=== PATIENT | female | born 1935 | race Hispanic/Latino ===

== ENCOUNTER 2016-07-08 10:32 | Emergency (ER) | payer MEDICARE ==
[2016-07-08 10:33] VITALS: BMI 33.6
[2016-07-08 10:45] VITALS: RESP 18; TEMP 98.4; O2SAT 100
--- NOTE | 2016-07-08 10:58 | ED PDOC ---
Arrival/HPI - General Chief Complaint: Trauma Time Seen by Provider: 07/08/16 10:47 Historian: Patient - History of Present Illness Narrative History of Present Illness (Text): 07/08/16 10:55 80yo female present to ED for evaluation of back and b/l knee pain s/p trauma this morning. She notes mechanical fall this morning, while walking into the [facility] for outpt imaging. States the walker she was pushing moved farther away from her and she fell face keith on the floor. She is still ambulatory with a walker and have pain with ambulation. She denies LOC, nausea, focal weakness, urinary/fecal incontinence, any other complaint. Past Medical History - Provider Review Nursing Documentation Reviewed: Yes - Infectious Disease Hx of Infectious Diseases: None - Tetanus Immunization Tetanus Immunization: Up to Date, Unknown - Reproductive Menopause: Yes - Cardiac Hx Cardiac Disorders: Yes Hx Angina: Yes Hx Hypertension: Yes - Pulmonary Hx Respiratory Disorders: Yes Hx Bronchitis: Yes - Neurological Hx Neurological Disorder: Yes HX Cerebrovascular Accident: Yes (NO RESIDUAL EFFECTS) Hx Dizziness: Yes Hx Paralysis: No Other/Comment: MENIERE'S DISEASE- CHRONIC VERTIGO - HEENT Hx HEENT Disorder: Yes Hx Deafness: Yes (LEFT EAR) Other/Comment: RIGHT EAR TINNITUS. WEARS GLASSES, NEAR SIGHTED - Renal Hx Renal Disorder: Yes Hx Kidney Stones: Yes ("CAME OUT ON OWN") - Endocrine/Metabolic Hx Endocrine Disorders: Yes Hx Diabetes Mellitus Type 2: Yes - Hematological/Oncological Hx Blood Disorders: Yes Other/Comment: " I HAD A BLOOD INFECTION 2-3 YRS. AGO-THEY DON'T KNOW WHAT IT WAS" - Integumentary Hx Dermatological Disorder: Yes (HX OF SKIN BREAKDOWN AND WOUNDS) Other/Comment: HX. LEFT BREAST CYST - Musculoskeletal/Rheumatological Hx Musculoskeletal Disorders: Yes Hx Arthritis: Yes Hx Falls: No Hx Fractures: Yes (LLE RODS AND PINS, R ARM AND WRIST PINS) Hx Osteoarthritis: Yes Hx Unsteady Gait: Yes (CANE) - Gastrointestinal Hx Gastrointestinal Disorders: Yes Hx Gastroesophageal Reflux: Yes Hx Hemorrhoids: Yes Hx Pancreatitis: Yes Other/Comment: RECTAL BLEEDING - Genitourinary/Gynecological Hx Genitourinary Disorders: Yes (URGENCY) Hx Incontinence: Yes - Psychiatric Hx Psychophysiologic Disorder: Yes Hx Anxiety: Yes Hx Depression: Yes Hx Emotional Abuse: No Hx Physical Abuse: No Hx Substance Use: No - Surgical History Hx Orthopedic Surgery: Yes Other/Comment: LEFT BREAST CYST REMOVED - Anesthesia Hx Anesthesia: Yes Hx Anesthesia Reactions: No Hx Malignant Hyperthermia: No - Suicidal Assessment Feels Threatened In Home Enviroment: No Family/Social History - Physician Review Nursing Documentation Reviewed: Yes Family/Social History: Unknown Family HX Smoking Status: Former Smoker Hx Alcohol Use: No Hx Substance Use: No Hx Substance Use Treatment: No Allergies/Home Meds Allergies/Adverse Reactions: Allergies No Known Allergies Allergy (Verified 11/02/12 08:43) Home Medications: Home Meds Medication Instructions Recorded Confirmed Furosemide [Lasix] 20 mg PO BID 11/02/12 07/08/16 Metformin HCl 1,000 mg PO BID 11/02/12 07/08/16 Pregabalin [Lyrica] 50 mg PO TID 11/02/12 07/08/16 Ramipril 5 mg PO QAM 11/02/12 07/08/16 Sertraline HCl 25 mg PO QPM 11/02/12 07/08/16 Insulin Glargine,Hum.rec.anlog 40 unit [facility] 07/17/14 07/08/16 [Lantus] Atorvastatin [Lipitor] 80 mg PO HS 05/09/15 07/08/16 Calcium Carbonate [Calcium] 500 mg PO DAILY 05/09/15 07/08/16 Glipizide 10 mg PO DAILY 05/09/15 07/08/16 Magnesium [Sunmark Magnesium] 250 mg PO TID 05/09/15 07/08/16 Meclizine HCl [Antivert] 25 mg PO TID 05/09/15 07/08/16 Metoprolol Succinate [Toprol XL] 50 mg PO DAILY 05/09/15 07/08/16 Omeprazole 20 mg PO DAILY 05/09/15 07/08/16 Clonazepam [Klonopin] 0.5 mg PO TID 07/08/16 07/08/16 Review of Systems - Physician Review All systems were reviewed & negative as marked: Yes - Review of Systems Constitutional: Normal Eyes: Normal ENT: Normal Respiratory: Normal Cardiovascular: Normal Gastrointestinal: Normal Genitourinary Female: Normal Musculoskeletal: Arthralgias (B/L knee), Back Pain Skin: Normal Neurological: Normal Endocrine: Normal Hemo/Lymphatic: Normal Psychiatric: Normal Physical Exam Vital Signs Reviewed: Yes Vital Signs Temp Pulse Resp BP Pulse Ox 07/08/16 13:00 66 18 145/75 100 07/08/16 12:23 68 18 148/79 100 07/08/16 10:44 98.4 F 72 18 158/88 H 100 Temperature: Afebrile Blood Pressure: Normal Pulse: Regular Respiratory Rate: Normal Appearance: Positive for: Well-Appearing, Non-Toxic, Comfortable Pain Distress: None Mental Status: Positive for: Alert and Oriented X 3 - Systems Exam Head: Present: Atraumatic, Normocephalic Pupils: Present: PERRL Extroacular Muscles: Present: EOMI Conjunctiva: Present: Normal Mouth: Present: Moist Mucous Membranes Neck: Present: Normal Range of Motion Respiratory/Chest: Present: Clear to Auscultation, Good Air Exchange. No: Respiratory Distress, Accessory Muscle Use Cardiovascular: Present: Regular Rate and Rhythm, Normal S1, S2. No: Murmurs Abdomen: Present: Normal Bowel Sounds. No: Tenderness, Distention, Peritoneal Signs Back: Present: Midline Tenderness. No: Paraspinal Tenderness, Pain with Leg Raise Upper Extremity: Present: Normal Inspection. No: Cyanosis, Edema Lower Extremity: Present: NORMAL PULSES, Normal ROM, Neurovascularly Intact, Other (Excoriation noted on right knee). No: Edema, CALF TENDERNESS, Tenderness (B/L knee), Swelling, Erythema, Temperature Abnormalties Neurological: Present: GCS=15, CN II-XII Intact, Speech Normal Skin: Present: Warm, Dry, Normal Color. No: Rashes Psychiatric: Present: Alert, Oriented x 3, Normal Insight, Normal Concentration Medical Decision Making ED Course and Treatment: 07/08/16 14:53 PT presented in ED for stated history. she was ambulatory with a walker. Neurological intact. Head CT - Negative LS xray and B/L knee xray - All negative. Result was DW the pt. she was advised to take Tylenol as needed for pain every 6hrs. Referred to her PMD/Ortho. TRT ED for any new or worsening symptoms. - RAD Interpretation Radiology Orders: 07/08/16 10:53 LS SPINE WITH OBL > 18 YRS OLD [RAD] Stat 07/08/16 10:54 HEAD W/O CONTRAST [CT] Stat KNEE W PATELLA BILAT 3 VIEW [RAD] Stat - Medication Orders Current Medication Orders: Discontinued Medications Acetaminophen (Tylenol 325mg Tab) 650 mg PO STAT STA Stop: 07/08/16 11:01 Last Admin: 07/08/16 11:07 Dose: 650 mg Disposition/Present on Arrival - Present on Arrival Any Indicators Present on Arrival: No History of DVT/PE: No History of Uncontrolled Diabetes: Yes Urinary Catheter: No History of Decub. Ulcer: No History Surgical Site Infection Following: None - Disposition Have Diagnosis and Disposition been Completed?: Yes Diagnosis: Knee sprain, Back pain Disposition: HOME/ ROUTINE Disposition Time: 12:30 Patient Plan: Discharge Condition: STABLE Discharge Instructions (ExitCare): Knee Sprain (ED), Back Pain (ED) Additional Instructions: Follow up with your doctor Return to ED for any new or worsening symptoms Referrals: Cayden Martínez MD [Primary Care Provider] - Follow up with primary
--- NOTE | 2016-07-08 11:36 | CT ---
PROCEDURE: CT HEAD WITHOUT CONTRAST. HISTORY: Head injury COMPARISON: 11/02/2012 TECHNIQUE: Axial computed tomography images were obtained through the head/brain without intravenous contrast. Radiation dose: Total exam DLP = mGy-cm. This CT exam was performed using one or more of the following dose reduction techniques: Automated exposure control, adjustment of the mA and/or kV according to patient size, and/or use of iterative reconstruction technique. FINDINGS: HEMORRHAGE: No intracranial hemorrhage. BRAIN: There are mild chronic microangiopathic changes. There is no mass, mass effect or abnormal extra-axial fluid collection. There are coarse atherosclerotic calcifications in the cavernous carotid arteries. VENTRICLES: There is moderate age-related global parenchymal volume loss and proportionate enlargement of the ventricles and cortical sulci. CALVARIUM: There is no calvarial fracture or extracranial soft tissue swelling. PARANASAL SINUSES: Predominantly clear. MASTOID AIR CELLS: Predominantly clear. OTHER FINDINGS: None. IMPRESSION: No acute intracranial abnormality. Age-related involutional changes.
--- NOTE | 2016-07-08 12:16 | RAD ---
PROCEDURE: Radiographs of the Lumbar Spine. HISTORY: back pain COMPARISON: No prior. FINDINGS: BONES: Normal alignment. No listhesis. No fracture. DISC SPACES: Unremarkable. OTHER FINDINGS: None. IMPRESSION: Unremarkable radiographs of the lumbar spine.
--- NOTE | 2016-07-08 12:17 | RAD ---
PROCEDURE: Bilateral Knee Radiographs. HISTORY: knee pain s/p trauma COMPARISON: None. FINDINGS: BONES: Right Knee: Normal. No fracture. Left Knee: Normal. No fracture. JOINTS: Right Knee: Normal. No osteoarthritis. Left knee: Normal. No osteoarthritis. SOFT TISSUES: Right Knee: Normal. Left Knee: Normal. JOINT EFFUSION: Right Knee: None. Left Knee: None. OTHER FINDINGS: None. IMPRESSION: Normal radiographs of the knees.
[2016-07-08 13:09] VITALS: BP 145/75; PULSE 66
== END 2016-07-08 13:30 | disposition home or self-care (01) ==
LOC: ED 10:32
DX: S83.92XA Sprain of unspecified site of left knee, initial encounter (principal); S83.91XA Sprain of unspecified site of right knee, initial encounter; W01.0XXA Fall on same level from slipping, tripping and stumbling without subsequent striking against object, initial encounter; Y93.89 Activity, other specified; Y92.238 Other place in hospital as the place of occurrence of the external cause; M54.9 Dorsalgia, unspecified

== ENCOUNTER 2016-09-11 09:20 | Inpatient (IN) | payer MEDICARE ==
[2016-09-11 09:32] VITALS: BMI 33.1
[2016-09-11] MEDS ORDERED: Sodium Chloride 0.9% 1,000 ML IV ONE (09:53)
[2016-09-11 10:15] LABS: BASO # 0.02 K/mm3 (0.0-2.0); BASO % 0.2 % (0.0-3.0); EOS # 0.1 (0.0-0.7); EOS % 1.2 % (1.5-5.0); GRAN % 73.4 % (50.0-68.0); HEMOGLOBIN 12.8 gm/dL (12.0-16.0); LYMPH % 20.7 % (22.0-35.0); MEAN CELL VOLUME 89.9 fL (80.0-105.0); MEAN CORPUSCULAR HEMOGLOBIN 30.8 pg (25.0-35.0); MEAN CORPUSCULAR HGB CONC 34.2 g/dl (31.0-37.0); MEAN PLATELET VOLUME 10.9 fl (7.0-11.0); MONO # 0.4 (0.1-0.6); MONO % 4.5 % (1.0-6.0); PLATELET COUNT 182 10^3/uL (120.0-450.0); RBC 4.16 10^6/uL (3.5-6.1); RED CELL DISTRIBUTION WIDTH 13.1 % (11.5-14.5); WHITE BLOOD COUNT 9.4 10^3/ul (4.5-11.0)
[2016-09-11 10:18] LABS: ALB/GLOB RATIO 1.3 (1.1-1.8); ALBUMIN 3.9 g/dL (3.0-4.8); ALT/SGPT 34 U/L (7-56); AST/SGOT 21 U/L (15-39); BLOOD UREA NITROGEN 40 mg/dL (7-21); CALCIUM 9.3 mg/dL (8.4-10.5); GFR AFRICAN-AMERICAN 27; GFR NON-AFRICAN AMERICAN 23
[2016-09-11 10:20] LABS: INR 0.94 (0.93-1.08); PARTIAL THROMBOPLASTIN TIME 23.3 Seconds (23.7-30.8); PROTHROMBIN TIME 10.2 Seconds (9.9-11.8)
[2016-09-11 10:29] LABS: PH,URINE 5.5 (4.7-8.0); URINE BILIRUBIN NEGATIVE (NEGATIVE); URINE BLOOD TRACE-LYSED (NEGATIVE); URINE GLUCOSE (UA) NEGATIVE (NEGATIVE); URINE LEUKOCYTE ESTERASE SMALL Leu/uL (NEGATIVE); URINE NITRATE NEGATIVE (NEGATIVE); URINE PROTEIN TRACE mg/dL (<30 mg/dL); URINE UROBILINOGEN 0.2 E.U./dL (<1 E.U./dL)
[2016-09-11 10:37] LABS: URINE APPEARANCE SL CLOUDY (CLEAR); URINE COLOR YELLOW (YELLOW)
[2016-09-11 10:53] LABS: TROPONIN I < 0.01 ng/mL
[2016-09-11 11:02] LABS: URINE EPITHELIAL CELLS MANY /hpf (0-5)
[2016-09-11 11:06] LABS: URINE BACTERIA MOD (NEG); URINE RBC 0 - 2 /hpf (0-2)
--- NOTE | 2016-09-11 11:16 | ED PDOC ---
Arrival/HPI - General Historian: Patient - General Chief Complaint: Dizziness/Lightheaded Time Seen by Provider: 09/11/16 09:33 - History of Present Illness Narrative History of Present Illness (Text): 09/11/16 11:11 81yo female with PMHx of hypertension, Diabetes, Pancreatic CA, hypercholestrol , vertigo, biba for worsening spinning dizziness, generalized weakness and abdominal pain. States she slept all day yesterday, which is unusual for her. States she felt wobble this morning, like she was about to "pass out". Reports vomiting x one this morning. states her abdominal pain is chronic. Her pain started after hysterectomy few years ago. Notes that she took her medications this morning. Denies fever, chills, urinary symptoms, focal weakness, chest pain, SOB, diaphoresis, diarrhea, constipation, sick contact, recent URI, tinnitus. (Elbert Young) Past Medical History - Provider Review Nursing Documentation Reviewed: Yes - Infectious Disease Hx of Infectious Diseases: None - Tetanus Immunization Tetanus Immunization: Up to Date, Unknown - Cardiac Hx Cardiac Disorders: Yes Hx Angina: Yes Hx Hypertension: Yes - Pulmonary Hx Respiratory Disorders: Yes Hx Bronchitis: Yes - Neurological Hx Neurological Disorder: Yes HX Cerebrovascular Accident: Yes (NO RESIDUAL EFFECTS) Hx Dizziness: Yes Hx Paralysis: No Other/Comment: MENIERE'S DISEASE- CHRONIC VERTIGO - HEENT Hx HEENT Disorder: Yes Hx Deafness: Yes (LEFT EAR) Other/Comment: RIGHT EAR TINNITUS. WEARS GLASSES, NEAR SIGHTED - Renal Hx Renal Disorder: Yes Hx Kidney Stones: Yes ("CAME OUT ON OWN") - Endocrine/Metabolic Hx Endocrine Disorders: Yes Hx Diabetes Mellitus Type 2: Yes - Hematological/Oncological Hx Blood Disorders: Yes Other/Comment: " I HAD A BLOOD INFECTION 2-3 YRS. AGO-THEY DON'T KNOW WHAT IT WAS" - Integumentary Hx Dermatological Disorder: Yes (HX OF SKIN BREAKDOWN AND WOUNDS) Other/Comment: HX. LEFT BREAST CYST - Musculoskeletal/Rheumatological Hx Musculoskeletal Disorders: Yes Hx Arthritis: Yes Hx Falls: No Hx Fractures: Yes (LLE RODS AND PINS, R ARM AND WRIST PINS) Hx Osteoarthritis: Yes Hx Unsteady Gait: Yes (CANE) - Gastrointestinal Hx Gastrointestinal Disorders: Yes Hx Gastroesophageal Reflux: Yes Hx Hemorrhoids: Yes Hx Pancreatitis: Yes Other/Comment: RECTAL BLEEDING - Genitourinary/Gynecological Hx Genitourinary Disorders: Yes (URGENCY) Hx Incontinence: Yes - Psychiatric Hx Psychophysiologic Disorder: Yes Hx Anxiety: Yes Hx Depression: Yes Hx Emotional Abuse: No Hx Physical Abuse: No Hx Substance Use: No - Surgical History Hx Orthopedic Surgery: Yes Other/Comment: LEFT BREAST CYST REMOVED - Anesthesia Hx Anesthesia: Yes Hx Anesthesia Reactions: No Hx Malignant Hyperthermia: No - Suicidal Assessment Feels Threatened In Home Enviroment: No Family/Social History - Physician Review Nursing Documentation Reviewed: Yes Family/Social History: Unknown Family HX Smoking Status: Former Smoker Hx Alcohol Use: No Hx Substance Use: No Hx Substance Use Treatment: No Allergies/Home Meds Allergies/Adverse Reactions: Allergies No Known Allergies Allergy (Verified 11/02/12 08:43) Home Medications: Home Meds Medication Instructions Recorded Confirmed Furosemide [Lasix] 20 mg PO BID 11/02/12 09/11/16 Metformin HCl 1,000 mg PO BID 11/02/12 09/11/16 Pregabalin [Lyrica] 50 mg PO TID 11/02/12 09/11/16 Ramipril 5 mg PO QAM 11/02/12 09/11/16 Sertraline HCl 25 mg PO QPM 11/02/12 09/11/16 Insulin Glargine,Hum.rec.anlog 40 unit [facility] 07/17/14 09/11/16 [Lantus] Atorvastatin [Lipitor] 80 mg PO 05/09/15 09/11/16 Calcium Carbonate [Calcium] 500 mg PO DAILY 05/09/15 09/11/16 Glipizide 10 mg PO DAILY 05/09/15 09/11/16 Magnesium [Sunmark Magnesium] 250 mg PO TID 05/09/15 09/11/16 Meclizine HCl [Antivert] 25 mg PO TID 05/09/15 09/11/16 Metoprolol Succinate [Toprol XL] 50 mg PO DAILY 05/09/15 09/11/16 Omeprazole 20 mg PO DAILY 05/09/15 09/11/16 Clonazepam [Klonopin] 0.5 mg PO TID 07/08/16 09/11/16 Esomeprazole Magnesium [Nexium 20 mg PO DAILY 09/11/16 09/11/16 24Hr] Losartan [Cozaar] 100 mg PO DAILY 09/11/16 09/11/16 Review of Systems - Physician Review All systems were reviewed & negative as marked: Yes - Review of Systems Constitutional: Fatigue Eyes: Normal ENT: Normal Respiratory: Normal Cardiovascular: Normal Gastrointestinal: Abdominal Pain, Vomiting. absent: Constipation, Diarrhea, Nausea, Hematochezia, Hematemesis Genitourinary Female: Normal Musculoskeletal: Normal Skin: Normal Neurological: Dizziness. absent: Headache, Focal Weakness, Speech Changes, Facial Droop Endocrine: Normal Hemo/Lymphatic: Normal Psychiatric: Normal Physical Exam Vital Signs Reviewed: Yes Temperature: Afebrile Blood Pressure: Normal Pulse: Regular Respiratory Rate: Normal Appearance: Positive for: Well-Appearing, Non-Toxic, Comfortable Pain Distress: None Mental Status: Positive for: Alert and Oriented X 3 Finger Stick Blood Glucose: 320 - Systems Exam Head: Present: Atraumatic, Normocephalic Pupils: Present: PERRL Extroacular Muscles: Present: EOMI Conjunctiva: Present: Normal Mouth: Present: Moist Mucous Membranes Neck: Present: Normal Range of Motion Respiratory/Chest: Present: Clear to Auscultation, Good Air Exchange. No: Respiratory Distress, Accessory Muscle Use Cardiovascular: Present: Regular Rate and Rhythm, Normal S1, S2. No: Murmurs Abdomen: Present: Tenderness (RLQ tenderness), Normal Bowel Sounds, Other (soft) . No: Distention, Peritoneal Signs, Rebound, Guarding, McBurney's Point Tender , Rovsing's Sign Present Back: Present: Normal Inspection Upper Extremity: Present: Normal Inspection. No: Cyanosis, Edema Lower Extremity: Present: Normal Inspection. No: Edema Neurological: Present: GCS=15, CN II-XII Intact, Speech Normal, Motor Func Grossly Intact, Normal Sensory Function, Normal Cerebellar Funct, Norm Deep Tendon Reflexes, Memory Normal, Other (No focal neurological deficit) Skin: Present: Warm, Dry, Normal Color. No: Rashes Psychiatric: Present: Alert, Oriented x 3, Normal Insight, Normal Concentration Vital Signs Temp Pulse Resp BP Pulse Ox 09/11/16 12:11 63 18 101/57 L 97 09/11/16 11:56 62 16 99/53 L 96 09/11/16 11:21 66 18 100/62 97 09/11/16 09:56 120/50 L 09/11/16 09:31 98.3 F 69 18 96 Medical Decision Making - EKG Interpretation Interpreted by ED Physician: Yes (NSR @61bpm with no ST changes) Type: 12 lead EKG ED Course and Treatment: I was available for consultation during PA evaluation. The chart was reviewed by me, and I agree with disposition. The documented history was done by the physician metallurgist process. The documented physical exam was done by the physician metallurgist process. The documented procedures were done by the physician metallurgist process. (Ronald Jarquin) Pt presented for states history. Her labs showed she is dehydrated likely prerenal. she also have UTI. This is probably causing her generalized weaking/ malaise and worsening dizziness. 1l NS was ordered . Rocephin ordered. Head CT - No acute finding Case was DW Dr. Baxter and he accepted pt into his service. (Elbert Young) - Lab Interpretations Lab Results: 09/11/16 09:50 09/11/16 09:50 Lab Results 09/11/16 10:22: Urine Color Yellow, Urine Appearance Sl cloudy, Urine pH 5.5, Ur Specific Eckerty 1.025, Urine Protein Trace H, Urine Glucose (UA) Negative, Urine Ketones Trace H, Urine Blood Trace-lysed H, Urine Nitrate Negative, Urine Bilirubin Negative, Urine Urobilinogen 0.2, Ur Leukocyte Esterase Small H, Urine RBC 0 - 2, Urine WBC 5 - 10, Ur Epithelial Cells Many, Urine Bacteria Mod 09/11/16 09:50: PT 10.2, INR 0.94, APTT 23.3 L 09/11/16 09:50: Sodium 137, Potassium 4.1, Chloride 104, Carbon Dioxide 17 L, Anion Gap 20, BUN 40 H, Creatinine 2.1 H, Est GFR ( Amer) 27, Est GFR ( Non-Af Amer) 23, Random Glucose 330 H* D, Calcium 9.3, Total Bilirubin 0.7, AST 21, ALT 34, Alkaline Phosphatase 145 H, Lactate Dehydrogenase 478, Total Creatine Kinase 64, Troponin I < 0.01, Total Protein 6.9, Albumin 3.9, Globulin 3.1, Albumin/Globulin Ratio 1.3 09/11/16 09:50: WBC 9.4 D, RBC 4.16, Hgb 12.8, Hct 37.4, MCV 89.9, MCH 30.8, MCHC 34.2, RDW 13.1, Plt Count 182, MPV 10.9, Gran % 73.4 H, Lymph % (Auto) 20.7 L, [place]as % (Auto) 4.5, Eos % (Auto) 1.2 L, Baso % (Auto) 0.2, Gran # 6.90 H , Lymph # 2.0, [place]ont[place] # 0.4, Eos # 0.1, Baso # 0.02 - RAD Interpretation Radiology Orders: 09/11/16 09:52 HEAD W/O CONTRAST [CT] Stat - Medication Orders Current Medication Orders: Atorvastatin Calcium (Lipitor) 80 mg PO HS [facility] Calcium Carbonate (Oscal) 500 mg PO DAILY [facility] Clonazepam (Klonopin) 0.5 mg PO TID [facility] PRN Reason: Protocol Furosemide (Lasix) 20 mg PO BID [facility] Glipizide (Glucotrol) 10 mg PO DAILY [facility] Sodium Chloride (Sodium Chloride 0.9%) 1,000 mls @ 100 mls/hr IV .Q10H [facility] Stop: 09/12/16 03:14 Insulin Detemir (Levemir) 40 unit SC HS [facility] Insulin Human Regular (Humulin R High) 0 units SC ACHS [facility] PRN Reason: Protocol Losartan Potassium (Cozaar) 100 mg PO DAILY [facility] Meclizine HCl (Antivert) 25 mg PO BID [facility] Metformin HCl (Glucophage) 1,000 mg PO BID [facility] Metoprolol Succinate (Toprol Xl) 50 mg PO DAILY [facility] Pregabalin (Lyrica) 50 mg PO TID [facility] Ramipril (Altace) 5 mg PO QAM [facility] Sertraline HCl (Zoloft) 25 mg PO HS [facility] Discontinued Medications Sodium Chloride (Sodium Chloride 0.9%) 1,000 mls @ 250 mls/hr IV .Q4H ONE Stop: 09/11/16 13:52 Last Admin: 09/11/16 10:15 Dose: 250 mls/hr Ceftriaxone Sodium (Rocephin 1 Gram Ivpb) 1 gm in 100 mls @ 200 mls/hr IVPB STAT STA PRN Reason: Protocol Stop: 09/11/16 11:48 Last Admin: 09/11/16 11:55 Dose: 200 mls/hr Ondansetron HCl (Zofran Inj) 4 mg IVP STAT STA Stop: 09/11/16 09:54 Last Admin: 09/11/16 10:21 Dose: 4 mg Disposition/Present on Arrival - Present on Arrival Any Indicators Present on Arrival: No History of DVT/PE: No History of Uncontrolled Diabetes: Yes Urinary Catheter: No History of Decub. Ulcer: No History Surgical Site Infection Following: None - Disposition Have Diagnosis and Disposition been Completed?: Yes Disposition Time: 11:30 - Disposition Diagnosis: Near syncope, Dehydration, UTI (urinary tract infection), Hyperglycemia Disposition: HOSPITALIZED Patient Problems: Current Active Problems Problem Status Onset Dehydration Acute Hyperglycemia Acute Near syncope Acute UTI (urinary tract infection) Acute Condition: GUARDED
--- NOTE | 2016-09-11 11:17 | CT ---
PROCEDURE: CT HEAD WITHOUT CONTRAST. HISTORY: dizziness COMPARISON: 07/08/2016 TECHNIQUE: Axial computed tomography images were obtained through the head/brain without intravenous contrast. Radiation dose: Total exam DLP = 725 mGy-cm. This CT exam was performed using one or more of the following dose reduction techniques: Automated exposure control, adjustment of the mA and/or kV according to patient size, and/or use of iterative reconstruction technique. FINDINGS: HEMORRHAGE: No intracranial hemorrhage. BRAIN: No mass effect or edema. There is mild atrophy. There are no acute findings VENTRICLES: Unremarkable. No hydrocephalus. CALVARIUM: Unremarkable. PARANASAL SINUSES: Unremarkable as visualized. No significant inflammatory changes. MASTOID AIR CELLS: Unremarkable as visualized. No inflammatory changes. OTHER FINDINGS: None. IMPRESSION: Mild atrophy. No acute findings.
[2016-09-11] MEDS ORDERED: cefTRIAXone 1 gm 1 GM/100 ML BAG IVPB STA (11:19)
--- NOTE | 2016-09-11 12:35 | RAD ---
HISTORY: admissionm COMPARISON: No prior. FINDINGS: LUNGS: No active pulmonary disease. PLEURA: No significant pleural effusion identified, no pneumothorax apparent. CARDIOVASCULAR: The heart is normal in size. Mild vascular congestion OSSEOUS STRUCTURES: No significant abnormalities. VISUALIZED UPPER ABDOMEN: Normal. OTHER FINDINGS: None. IMPRESSION: No active disease.
[2016-09-11] MEDS ORDERED: Sodium Chloride 0.9% 1,000 ML IV SCH (17:15)
[2016-09-11] MEDS: Insulin Detemir 100 units/ml Vial (Levemir) SC SCH (21:45)
[2016-09-11] MEDS: Insulin Reg-HIGH-Coverage SC SCH (21:46)
[2016-09-12 07:59] LABS: ALB/GLOB RATIO 1.2 (1.1-1.8); ALBUMIN 3.3 g/dL (3.0-4.8); CALCIUM 8.9 mg/dL (8.4-10.5); MAGNESIUM 1.4 mg/dL (1.7-2.2)
[2016-09-12 08:04] LABS: HEMOGLOBIN 11.5 gm/dL (12.0-16.0); MEAN CELL VOLUME 90.9 fL (80.0-105.0); MEAN CORPUSCULAR HEMOGLOBIN 29.9 pg (25.0-35.0); MEAN CORPUSCULAR HGB CONC 32.9 g/dl (31.0-37.0); MEAN PLATELET VOLUME 11.3 fl (7.0-11.0); RBC 3.85 10^6/uL (3.5-6.1); RED CELL DISTRIBUTION WIDTH 13.2 % (11.5-14.5); WHITE BLOOD COUNT 7.2 10^3/ul (4.5-11.0)
[2016-09-12] MEDS: Insulin Reg-HIGH-Coverage SC SCH ×4 (08:28→21:51)
--- NOTE | 2016-09-12 09:15 | CARD ---
APPROVED REPORT EKG Measurement Heart [id number] <Conclusion> Normal sinus rhythm Cannot rule out Inferior infarct, age undetermined No change
[2016-09-12] MEDS: Metoprolol Succinate 50 mg XL Tab PO SCH (09:50)
--- NOTE | 2016-09-12 13:45 | CP.PCM.CON ---
History of Present Illness - History of Present Illness History of Present Illness: NEURO CONSULT NOTE: 09/12/16 CHIEF COMPLAINT:DIZZINESS. HPI: THIS IS A 81 YEAR OLD WOMAN HISTORY OF HTN, DM2, HLD, OVERWEIGHT, PANCREATIC CANCER, HLD, CHRONIC ABDOMINAL PAIN CAME IN FOR DIZZINESS AND FELT LIKE SHE WAS LIGHTHEADED AND GOING TO PASS OUT. HER INITIAL FEW BP READINGS WERE SYSTOLICALLY AND DIASTOLICALLY LOWER SIDE. SHE HAS CHRONIC ABDOMINAL PAIN. HER BLOOD SUGARS WERE 330/ ELEVATED ON ADMISSION. CT HEAD SHOWED NO ACUTE ABNORMALITY. NEURO EXAM IS NON-FOCAL. NO FOCAL WEAKNESS IN THE EXTREMITIES. ROS: 14 POINT REVIEW OF SYMPTOMS IS NEGATIVE PER HPI. ALLERGIES: NONE SOCIAL HISTORY: NO ILLICIT DRUG USE, SMOKING, OR ETOH USE. FAMILY: NON CONTRIBUTORY. MEDICATIONS: REVIEWED BY NURSE'S RECONCILIATION SHEET. PAST MEDICAL HISTORY: HTN, DM2, HLD, OVERWEIGHT, PANCREATIC CANCER, HLD, CHRONIC ABDOMINAL PAIN PHYSICAL EXAM: VITAL SIGNS: REVIEWED BY THE CHART GENERAL EXAM: PATIENT SEEN IN BED, IN NO ACUTE DISTRESS HEENT: PERRLA, EOMI, NECK SUPPLE, NO JVD, NO ADENOPATHY CVS: S1, S2, RRR, NO MURMURS NOTED LUNGS: CLEAR TO AUSCULTATION, NO ADVENTITIOUS SOUNDS ABDOMEN: SOFT AND NONTENDER EXTREMITIES: NO CLUBBING OR CYANOSIS. PP 2+ B/L NEURO: PT IS ALERT AND ORIENTED TO PERSON, PLACE, AND YEAR. , RECALL TO 5 MINUTES 3/3, SPEECH IS FLUENT WITHOUT ERRORS, CN II-XII INTACT, MOTOR EXAM: NORMAL TONE, NORMAL BULK OF MUSCLE, MOVES ALL EXTREMITIES EQUALLY, NO PRONATOR DRIFT SEEN. SENSORY EXAM: DECREASED LIGHT TOUCH, PIN PRICK UP TO CALVES B/L, PROPRIOCEPTION INTACT, DECREASED VIBRATION AT TOES AND KNEES. DEEP TENDON REFLEXES: 2+ AND 1 AT KNEES AND ANKLES THROUGHOUT. COORDINATION: FINGER TO NOSE IS INTACT. HEEL TO RED IS INTACT GAIT: DEFERRED. LABS: REVIEWED BY THE CHART. ASSESSMENT AND PLAN: THIS IS A 81 YEAR OLD WOMAN HISTORY OF HTN, DM2, HLD, OVERWEIGHT, PANCREATIC CANCER, HLD, CHRONIC ABDOMINAL PAIN CAME IN FOR DIZZINESS AND FELT LIKE SHE WAS LIGHTHEADED AND GOING TO PASS OUT. HER INITIAL FEW BP READINGS WERE SYSTOLICALLY AND DIASTOLICALLY LOWER SIDE. SHE HAS CHRONIC ABDOMINAL PAIN. HER BLOOD SUGARS WERE 330/ ELEVATED ON ADMISSION. CT HEAD SHOWED NO ACUTE ABNORMALITY. NEURO EXAM IS NON-FOCAL. NO FOCAL WEAKNESS IN THE EXTREMITIES. 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 1. ASA 81 MG FOR STROKE PREVENTION 2. KEEP SBP BTW 120-130 MM HG 3. HYDRATION AND MONITOR ELECTROLYTES. 4.MAINTAIN BLOOD SUGARS BTW 140-180. 5. C/W PAIN MEDS FOR ABDOMINAL PAIN. THANK YOU. NEUROLOGICALLY STABLE. Luis Antonio HANNA MD Past Patient History - Infectious Disease Hx of Infectious Diseases: None - Tetanus Immunizations Tetanus Immunization: Up to Date, Unknown - Past Medical History & Family History Past Medical History?: Yes - Past Social History Smoking Status: Former Smoker - CARDIAC Hx Cardiac Disorders: Yes Hx Angina: Yes Hx Hypertension: Yes - PULMONARY Hx Respiratory Disorders: Yes Hx Bronchitis: Yes - NEUROLOGICAL Hx Neurological Disorder: Yes HX Cerebrovascular Accident: Yes (NO RESIDUAL EFFECTS) Hx Dizziness: Yes Hx Paralysis: No Other/Comment: MENIERE'S DISEASE- CHRONIC VERTIGO - HEENT Hx HEENT Problems: Yes Hx Deafness: Yes (LEFT EAR) Other/Comment: RIGHT EAR TINNITUS. WEARS GLASSES, NEAR SIGHTED - RENAL Hx Chronic Kidney Disease: Yes Hx Kidney Stones: Yes ("CAME OUT ON OWN") - ENDOCRINE/METABOLIC Hx Endocrine Disorders: Yes Hx Diabetes Mellitus Type 2: Yes - HEMATOLOGICAL/ONCOLOGICAL Hx Blood Disorders: Yes Other/Comment: " I HAD A BLOOD INFECTION 2-3 YRS. AGO-THEY DON'T KNOW WHAT IT WAS" - INTEGUMENTARY Hx Dermatological Problems: Yes (HX OF SKIN BREAKDOWN AND WOUNDS) Other/Comment: HX. LEFT BREAST CYST - MUSCULOSKELETAL/RHEUMATOLOGICAL Hx Musculoskeletal Disorders: Yes Hx Arthritis: Yes Hx Falls: No Hx Fractures: Yes (LLE RODS AND PINS, R ARM AND WRIST PINS) Hx Osteoarthritis: Yes Hx Unsteady Gait: Yes (CANE) - GASTROINTESTINAL Hx Gastrointestinal Disorders: Yes Hx Gastroesophageal Reflux: Yes Hx Hemorrhoids: Yes Hx Pancreatitis: Yes Other/Comment: RECTAL BLEEDING - GENITOURINARY/GYNECOLOGICAL Hx Genitourinary Disorders: Yes (URGENCY) Hx Incontinence: Yes - PSYCHIATRIC Hx Psychophysiologic Disorder: Yes Hx Anxiety: Yes Hx Depression: Yes Hx Emotional Abuse: No Hx Physical Abuse: No Hx Substance Use: No - SURGICAL HISTORY Hx Orthopedic Surgery: Yes Other/Comment: LEFT BREAST CYST REMOVED - ANESTHESIA Hx Anesthesia: Yes Hx Anesthesia Reactions: No Hx Malignant Hyperthermia: No Meds Allergies/Adverse Reactions: Allergies Allergy/AdvReac Type Severity Reaction Status Date / Time No Known Allergies Allergy Verified 11/02/12 08:43 - Medications Medications: Current Medications Atorvastatin Calcium (Lipitor) 80 mg PO HS [facility] Last Admin: 09/11/16 21:45 Dose: 80 mg Calcium Carbonate (Oscal) 500 mg PO DAILY [facility] Last Admin: 09/12/16 09:48 Dose: 500 mg Clonazepam (Klonopin) 0.5 mg PO TID [facility] PRN Reason: Protocol Last Admin: 09/12/16 09:48 Dose: 0.5 mg Furosemide (Lasix) 20 mg PO BID [facility] Last Admin: 09/12/16 09:47 Dose: 20 mg Glipizide (Glucotrol) 10 mg PO DAILY [facility] Last Admin: 09/12/16 09:49 Dose: 10 mg Insulin Detemir (Levemir) 40 unit SC [facility] Last Admin: 09/11/16 21:45 Dose: 40 unit Insulin Human Regular (Humulin R High) 0 units SC [facility] PRN Reason: Protocol Last Admin: 09/12/16 12:02 Dose: 10 units Losartan Potassium (Cozaar) 100 mg PO DAILY [facility] Last Admin: 09/12/16 09:49 Dose: 100 mg Meclizine HCl (Antivert) 25 mg PO BID [facility] Last Admin: 09/12/16 09:48 Dose: 25 mg Metformin HCl (Glucophage) 1,000 mg PO BID [facility] Last Admin: 09/12/16 09:48 Dose: 1,000 mg Metoprolol Succinate (Toprol Xl) 50 mg PO DAILY [facility] Last Admin: 09/12/16 09:50 Dose: 50 mg Pregabalin (Lyrica) 50 mg PO TID [facility] Last Admin: 09/12/16 09:48 Dose: 50 mg Ramipril (Altace) 5 mg PO QAM [facility] Last Admin: 09/12/16 09:48 Dose: 5 mg Sertraline HCl (Zoloft) 25 mg PO HS [facility] Last Admin: 09/11/16 21:45 Dose: 25 mg Results - Vital Signs Recent Vital Signs: Last Vital Signs Temp 98.8 F 09/12/16 06:00 Pulse 70 09/12/16 10:00 Resp 20 09/12/16 06:00 BP 108/64 09/12/16 09:50 Pulse Ox 96 07/09/17 06:00 - Labs Result Diagrams: 09/12/16 07:00 09/12/16 07:00 Labs: Laboratory Results - last 24 hr 09/12/16 09/12/16 07:00 07:00 WBC 7.2 D RBC 3.85 Hgb 11.5 L Hct 35.0 L MCV 90.9 MCH 29.9 MCHC 32.9 RDW 13.2 Plt Count 153 MPV 11.3 H Sodium 140 Potassium 3.6 Chloride 110 Carbon Dioxide 20 L Anion Gap 14 BUN 33 H Creatinine 1.4 Est GFR ( Amer) 44 Est GFR (Non-Af Amer) 36 Random Glucose 129 H Calcium 8.9 Magnesium 1.4 L Total Bilirubin 0.6 AST 15 ALT 29 Alkaline Phosphatase 133 Total Protein 5.9 Albumin 3.3 Globulin 2.7 Albumin/Globulin Ratio 1.2
--- NOTE | 2016-09-12 18:06 | CP.PCM.HP ---
History of Present Illness - History of Present Illness History of Present Illness: Pt is coming to the hospital for dizziness and unsteady gate. She also complains of abd pain. Her sugar has also been elevated. She denies any SOB/N/ V. She has hx of dizziness. Present on Admission - Present on Admission Any Indicators Present on Admission: No Review of Systems - Constitutional Constitutional: Fatigue. absent: Fever, Headache, Lethargy, Malaise, Night Sweats - EENT Eyes: absent: Irritation, Loss of Peripheral Vision, Photophobia, Sees Flashes Nose/Mouth/Throat: absent: Nasal Trauma, Dysphagia, Hoarsness - Cardiovascular Cardiovascular: absent: Diaphoresis, Dyspnea on Exertion, Edema, Irregular Heart Rhythm, Leg Ulcers - Respiratory Respiratory: absent: Stridor, Excessive Mucous Production - Gastrointestinal Gastrointestinal: absent: Abdominal Pain, Belching, Diarrhea, Dyspepsia, Early Satiety, Heartburn, Nausea, Odynophagia - Musculoskeletal Musculoskeletal: absent: Joint Swelling, Loss of Height, Muscle Weakness, Myalgias, Tingling - Neurological Neurological: Disequilibrium, Dizziness, Weakness. absent: Numbness, Loss of Vision, Memory Loss, Radicular Pain, Syncope, Tingling - Hematologic/Lymphatic Hematologic: absent: Easy Bleeding, Lymphadenopathy Past Patient History - Infectious Disease Hx of Infectious Diseases: None - Tetanus Immunizations Tetanus Immunization: Up to Date, Unknown - Past Medical History & Family History Past Medical History?: Yes - Past Social History Smoking Status: Former Smoker - CARDIAC Hx Cardiac Disorders: Yes Hx Hypertension: Yes - PULMONARY Hx Respiratory Disorders: Yes Hx Bronchitis: Yes - NEUROLOGICAL HX Cerebrovascular Accident: Yes (no residual effects) - HEENT Hx HEENT Problems: Yes Hx Deafness: Yes (LEFT EAR) Other/Comment: RIGHT EAR TINNITUS. WEARS GLASSES, NEAR SIGHTED - RENAL Hx Chronic Kidney Disease: Yes Hx Kidney Stones: Yes ("CAME OUT ON OWN") - ENDOCRINE/METABOLIC Hx Diabetes Mellitus Type 2: Yes - HEMATOLOGICAL/ONCOLOGICAL Hx Blood Disorders: Yes Other/Comment: " I HAD A BLOOD INFECTION 2-3 YRS. AGO-THEY DON'T KNOW WHAT IT WAS" - INTEGUMENTARY Hx Dermatological Problems: Yes (HX OF SKIN BREAKDOWN AND WOUNDS) Other/Comment: HX. LEFT BREAST CYST - MUSCULOSKELETAL/RHEUMATOLOGICAL Hx Arthritis: Yes - GASTROINTESTINAL Hx Gastrointestinal Disorders: Yes Hx Gastroesophageal Reflux: Yes Hx Hemorrhoids: Yes Hx Pancreatitis: Yes Other/Comment: RECTAL BLEEDING - GENITOURINARY/GYNECOLOGICAL Hx Genitourinary Disorders: Yes (URGENCY) Hx Incontinence: Yes - PSYCHIATRIC Hx Psychophysiologic Disorder: Yes Hx Anxiety: Yes Hx Depression: Yes Hx Emotional Abuse: No Hx Physical Abuse: No Hx Substance Use: No - SURGICAL HISTORY Hx Orthopedic Surgery: Yes Other/Comment: LEFT BREAST CYST REMOVED - ANESTHESIA Hx Anesthesia: Yes Hx Anesthesia Reactions: No Hx Malignant Hyperthermia: No Meds Allergies/Adverse Reactions: Allergies Allergy/AdvReac Type Severity Reaction Status Date / Time No Known Allergies Allergy Verified 11/02/12 08:43 Physical Exam - Constitutional Appears: Well - Head Exam Head Exam: ATRAUMATIC, NORMAL INSPECTION, NORMOCEPHALIC - Eye Exam Eye Exam: EOMI, Normal appearance, PERRL Pupil Exam: NORMAL ACCOMODATION, PERRL - ENT Exam ENT Exam: Mucous Membranes Moist, Normal Exam - Neck Exam Neck exam: Positive for: Normal Inspection - Respiratory Exam Respiratory Exam: Clear to Auscultation Bilateral, NORMAL BREATHING PATTERN - Cardiovascular Exam Cardiovascular Exam: REGULAR RHYTHM, RRR, +S1, +S2. absent: JVD - GI/Abdominal Exam GI & Abdominal Exam: Normal Bowel Sounds, Pulsatile Mass, Rebound, Soft. absent : Mass, Organomegaly, Tenderness - Back Exam Back exam: NORMAL INSPECTION. absent: rash noted - Neurological Exam Neurological exam: Alert, CN II-XII Intact, Normal Gait, Oriented x3, Reflexes Normal Results - Vital Signs Recent Vital Signs: Last Vital Signs Temp 98.9 F 09/12/16 17:29 Pulse 82 09/12/16 17:29 Resp 20 09/12/16 17:29 BP 110/70 09/12/16 17:29 Pulse Ox 97 09/12/16 17:29 - Labs Result Diagrams: 09/12/16 07:00 09/12/16 07:00 Labs: Laboratory Results - last 24 hr 09/12/16 09/12/16 07:00 07:00 WBC 7.2 D RBC 3.85 Hgb 11.5 L Hct 35.0 L MCV 90.9 MCH 29.9 MCHC 32.9 RDW 13.2 Plt Count 153 MPV 11.3 H Sodium 140 Potassium 3.6 Chloride 110 Carbon Dioxide 20 L Anion Gap 14 BUN 33 H Creatinine 1.4 Est GFR ( Amer) 44 Est GFR (Non-Af Amer) 36 Random Glucose 129 H Calcium 8.9 Magnesium 1.4 L Total Bilirubin 0.6 AST 15 ALT 29 Alkaline Phosphatase 133 Total Protein 5.9 Albumin 3.3 Globulin 2.7 Albumin/Globulin Ratio 1.2 Assessment & Plan - Assessment and Plan (Free Text) Assessment: Dizziness HTN DM-2 Obese BM- - 33 Dyslipidemia Plan: Pt with dizziness and difficult walking. She is very unsteady on her feet. Will give IVF. Will get GI evaluation. PT eval. He son is admitted to the hospital. It is unsafe for her to go home if she is not able to walk. CXR and Ct of head is nl. Losartan for HTN. ISS. Neuro evaluation. - Date & Time Date: 09/12/16 Time: 07:25
[2016-09-12] MEDS: Magnesium Oxide 400 mg Tab UD PO SCH (18:46)
[2016-09-12] MEDS: Insulin Detemir 100 units/ml Vial (Levemir) SC SCH (21:51)
[2016-09-13 07:22] LABS: HEMOGLOBIN 11.6 gm/dL (12.0-16.0); MEAN CELL VOLUME 91.5 fL (80.0-105.0); MEAN CORPUSCULAR HGB CONC 32.8 g/dl (31.0-37.0); MEAN PLATELET VOLUME 11.2 fl (7.0-11.0); RBC 3.87 10^6/uL (3.5-6.1); RED CELL DISTRIBUTION WIDTH 13.3 % (11.5-14.5); WHITE BLOOD COUNT 5.4 10^3/ul (4.5-11.0)
[2016-09-13] MEDS: Insulin Reg-HIGH-Coverage SC SCH ×4 (07:37→22:28)
[2016-09-13 07:45] LABS: ALB/GLOB RATIO 1.1 (1.1-1.8); ALBUMIN 3.3 g/dL (3.0-4.8); CALCIUM 9.2 mg/dL (8.4-10.5)
--- NOTE | 2016-09-13 08:32 | CP.PCM.PN ---
Subjective - Date & Time of Evaluation Date of Evaluation: 09/13/16 Time of Evaluation: 08:27 - Subjective Subjective: Pt with no pain. Eating ok. Complains of R hip pain. Objective - Vital Signs/Intake and Output Vital Signs (last 24 hours): Temp Pulse Resp BP Pulse Ox 98.1 F 62 18 118/71 96 09/13/16 08:03 09/13/16 08:03 09/13/16 08:03 09/13/16 08:03 09/13/16 08:03 Intake and Output: 09/13/16 09/13/16 06:59 18:59 Intake Total 900 Balance 900 - Medications Medications: Current Medications Acetaminophen (Tylenol 325mg Tab) 650 mg PO Q6H PRN PRN Reason: Pain, moderate (4-7) Last Admin: 09/12/16 14:03 Dose: 650 mg Atorvastatin Calcium (Lipitor) 80 mg PO HS [facility] Last Admin: 09/12/16 21:52 Dose: 80 mg Calcium Carbonate (Oscal) 500 mg PO DAILY [facility] Last Admin: 09/12/16 09:48 Dose: 500 mg Clonazepam (Klonopin) 0.5 mg PO TID [facility] PRN Reason: Protocol Last Admin: 09/12/16 18:44 Dose: 0.5 mg Furosemide (Lasix) 20 mg PO BID [facility] Last Admin: 09/12/16 18:44 Dose: 20 mg Glipizide (Glucotrol) 10 mg PO DAILY [facility] Last Admin: 09/12/16 09:49 Dose: 10 mg Insulin Detemir (Levemir) 40 unit SC HS [facility] Last Admin: 09/12/16 21:51 Dose: 40 unit Insulin Human Regular (Humulin R High) 0 units SC ACHS [facility] PRN Reason: Protocol Last Admin: 09/13/16 07:37 Dose: Not Given Losartan Potassium (Cozaar) 100 mg PO DAILY [facility] Last Admin: 09/12/16 09:49 Dose: 100 mg Magnesium Oxide (Mag-Ox) 400 mg PO BID [facility] Last Admin: 09/12/16 18:46 Dose: 400 mg Meclizine HCl (Antivert) 25 mg PO BID [facility] Last Admin: 09/12/16 18:44 Dose: 25 mg Metformin HCl (Glucophage) 1,000 mg PO BID [facility] Last Admin: 09/12/16 18:46 Dose: 1,000 mg Metoprolol Succinate (Toprol Xl) 50 mg PO DAILY [facility] Last Admin: 09/12/16 09:50 Dose: 50 mg Pregabalin (Lyrica) 50 mg PO TID [facility] Last Admin: 09/12/16 18:44 Dose: 50 mg Sertraline HCl (Zoloft) 25 mg PO HS [facility] Last Admin: 09/12/16 21:53 Dose: 25 mg - Labs Labs: 09/13/16 06:40 09/13/16 06:40 PT 10.2 Seconds (9.9-11.8) 09/11/16 09:50 INR 0.94 (0.93-1.08) 09/11/16 09:50 APTT 23.3 Seconds (23.7-30.8) L 09/11/16 09:50 - Constitutional Appears: No Acute Distress - Head Exam Head Exam: NORMAL INSPECTION, NORMOCEPHALIC - Eye Exam Eye Exam: Normal appearance - ENT Exam ENT Exam: Mucous Membranes Moist - Neck Exam Neck Exam: Normal Inspection - Cardiovascular Exam Cardiovascular Exam: REGULAR RHYTHM, RRR, +S1, +S2 - GI/Abdominal Exam GI & Abdominal Exam: Normal Bowel Sounds. absent: Hypoactive Bowel Sounds, Organomegaly - Exam Exam: NORMAL INSPECTION - Extremities Exam Extremities Exam: Full ROM - Back Exam Back Exam: NORMAL INSPECTION - Psychiatric Exam Psychiatric exam: Normal Affect, Normal Mood Assessment and Plan - Assessment and Plan (Free Text) Assessment: Dizziness HTN DM-2 Obese BM- - 33 Dyslipidemia Gait dysfunction Carlos Plan: Pt with difficult walking. Renal function has improved with IVF. GI evaluation done . Losartan for HTN. ISS. Neuro evaluation. May need TCU.
--- NOTE | 2016-09-13 09:11 | PQF RENAL ---
This form is a permanent part of the medical record Dr. Baxter, Could you specify the stage of the CKD present in this patient? CKD-3 Clarification of your documentation is requested to better reflect the severity of illness and intensity of treatment of your patient. Indicators present [] Oliguria/anuria [] Edema/weight gain [] Hyponatremia [] Confusion/mental status changes [] Increased Blood Urea Nitrogen/Creatinine [] Increased Potassium/Decreased potassium [] Anemia (male <13.5, female <12.0) [] Proteinuria [] Metabolic Acidosis OR Alkalosis [] Hypotension/shock [] Decreased GFR [] Other: [] Location in the medical record that reflects the above clinical findings: PHYSICIAN'S RESPONSE Based on your medical judgment of the clinical indicators outlined above, are you treating this patient for a known or suspected: [] Acute Renal Failure [] Acute Kidney Injury [] Azotemia/prerenal azotemia [] Chronic kidney disease Stage I [] Stage II [] Stage III [] Stage IV [] [] Other condition/diagnosis:[] [] If Unable to Determine, please check the box, sign and date. Present On Admission (POA) Indicator: [] Present at the time of admission [] Not present at the time of admission [] Clinically Undetermined In responding to this query, please exercise your independent professional judgment. The fact that a question is asked does not imply that any particular answer is desired or expected. Thank you for your clarification on this documentation. If you have any questions please call:[ ] * Thank you, [ ]Luis Antonio Adkins [facility] #[id number] product manager Chronic Kidney Disease Stages *[employer]* Stage I GFR >90 Stage II GFR 60-89 Stage III GFR 30-59 Stage IV GFR 15-29 Stage V~~~~~~~~~~ GFR <15~~~~~~~~~~~~~ MTDD
[2016-09-13] MEDS ORDERED: Barium Sulfate Susp 2.1% w/v, 2.0% w/w 450 mL Bottle PO ONE (09:19)
[2016-09-13] MEDS: Magnesium Oxide 400 mg Tab UD PO SCH ×2 (10:04→18:35)
[2016-09-13] MEDS: Metoprolol Succinate 50 mg XL Tab PO SCH (10:05)
--- NOTE | 2016-09-13 12:46 | CP.PCM.PN ---
<Ana Zamorano - Last Filed: 09/13/16 12:46> Subjective - Date & Time of Evaluation Date of Evaluation: 09/13/16 Time of Evaluation: 09:50 - Subjective Subjective: S&E at bedside, chart reviewed. Drinking oral contrast for ct scan. C/o right hip pain. No N/V , sob or chest pain. Objective - Vital Signs/Intake and Output Vital Signs (last 24 hours): Temp Pulse Resp BP Pulse Ox 98.1 F 62 18 118/71 96 09/13/16 08:03 09/13/16 10:05 09/13/16 08:03 09/13/16 10:05 09/13/16 08:03 Intake and Output: 09/13/16 09/13/16 06:59 18:59 Intake Total 900 Balance 900 - Medications Medications: Current Medications Acetaminophen (Tylenol 325mg Tab) 650 mg PO Q6H PRN PRN Reason: Pain, moderate (4-7) Last Admin: 09/13/16 10:05 Dose: 650 mg Atorvastatin Calcium (Lipitor) 80 mg PO HS [facility] Last Admin: 09/12/16 21:52 Dose: 80 mg Calcium Carbonate (Oscal) 500 mg PO DAILY [facility] Last Admin: 09/13/16 10:03 Dose: 500 mg Clonazepam (Klonopin) 0.5 mg PO TID [facility] PRN Reason: Protocol Last Admin: 09/13/16 10:04 Dose: 0.5 mg Furosemide (Lasix) 20 mg PO BID [facility] Last Admin: 09/13/16 10:04 Dose: 20 mg Glipizide (Glucotrol) 10 mg PO DAILY [facility] Last Admin: 09/13/16 10:05 Dose: 10 mg Insulin Detemir (Levemir) 40 unit SC [facility] Last Admin: 09/12/16 21:51 Dose: 40 unit Insulin Human Regular (Humulin R High) 0 units SC [facility] PRN Reason: Protocol Last Admin: 09/13/16 12:22 Dose: Not Given Losartan Potassium (Cozaar) 100 mg PO DAILY [facility] Last Admin: 09/13/16 10:04 Dose: 100 mg Magnesium Oxide (Mag-Ox) 400 mg PO BID [facility] Last Admin: 09/13/16 10:04 Dose: 400 mg Meclizine HCl (Antivert) 25 mg PO BID [facility] Last Admin: 09/13/16 10:04 Dose: 25 mg Metformin HCl (Glucophage) 1,000 mg PO BID [facility] Last Admin: 09/13/16 10:06 Dose: 1,000 mg Metoprolol Succinate (Toprol Xl) 50 mg PO DAILY [facility] Last Admin: 09/13/16 10:05 Dose: 50 mg Pregabalin (Lyrica) 50 mg PO TID [facility] Last Admin: 09/13/16 10:04 Dose: 50 mg Sertraline HCl (Zoloft) 25 mg PO HS [facility] Last Admin: 09/12/16 21:53 Dose: 25 mg - Labs Labs: 09/13/16 06:40 09/13/16 06:40 PT 10.2 Seconds (9.9-11.8) 09/11/16 09:50 INR 0.94 (0.93-1.08) 09/11/16 09:50 APTT 23.3 Seconds (23.7-30.8) L 09/11/16 09:50 - Constitutional Appears: No Acute Distress - Head Exam Head Exam: NORMOCEPHALIC - Eye Exam Eye Exam: Normal appearance. absent: Scleral icterus - ENT Exam ENT Exam: Mucous Membranes Moist - Neck Exam Neck Exam: Normal Inspection - Respiratory Exam Respiratory Exam: NORMAL BREATHING PATTERN. absent: Respiratory Distress - Cardiovascular Exam Cardiovascular Exam: +S1, +S2 - GI/Abdominal Exam GI & Abdominal Exam: Soft, Normal Bowel Sounds. absent: Guarding, Tenderness, Rebound - Neurological Exam Neurological Exam: Alert, Awake, Oriented x3 - Skin Skin Exam: Dry, Warm Assessment and Plan - Assessment and Plan (Free Text) Assessment: ASSESSMENT: Abdominal Pain S/p Dehydration H/O Ovarian Cancer Right Hip Pian Dizziness DM type II Obesity UTI PLAN: ct scan A&P with only oral contrast diet as tolerated on Antivert PPI Seen and discussed with Dr. Nichols. <Zoraida Nichols V - Last Filed: 09/13/16 23:58> Objective - Vital Signs/Intake and Output Vital Signs (last 24 hours): Temp Pulse Resp BP Pulse Ox 98 F 63 18 108/69 98 09/13/16 16:00 09/13/16 16:00 09/13/16 16:00 09/13/16 18:35 09/13/16 16:00 Intake and Output: 09/13/16 09/14/16 18:59 06:59 Intake Total 480 Output Total 350 Balance 130 - Medications Medications: Current Medications Acetaminophen (Tylenol 325mg Tab) 650 mg PO Q6H PRN PRN Reason: Pain, moderate (4-7) Last Admin: 09/13/16 10:05 Dose: 650 mg Atorvastatin Calcium (Lipitor) 80 mg PO HS [facility] Last Admin: 09/13/16 22:30 Dose: 80 mg Calcium Carbonate (Oscal) 500 mg PO DAILY [facility] Last Admin: 09/13/16 10:03 Dose: 500 mg Ciprofloxacin (Cipro) 500 mg PO Q12 [facility] PRN Reason: Protocol Stop: 09/18/16 22:01 Last Admin: 09/13/16 22:28 Dose: 500 mg Clonazepam (Klonopin) 0.5 mg PO TID [facility] PRN Reason: Protocol Last Admin: 09/13/16 18:34 Dose: 0.5 mg Furosemide (Lasix) 20 mg PO BID [facility] Last Admin: 09/13/16 18:35 Dose: 20 mg Glipizide (Glucotrol) 10 mg PO DAILY [facility] Last Admin: 09/13/16 10:05 Dose: 10 mg Insulin Detemir (Levemir) 40 unit SC HS [facility] Last Admin: 09/13/16 22:32 Dose: 40 unit Insulin Human Regular (Humulin R High) 0 units SC ACHS [facility] PRN Reason: Protocol Last Admin: 09/13/16 22:28 Dose: Not Given Losartan Potassium (Cozaar) 100 mg PO DAILY [facility] Last Admin: 09/13/16 10:04 Dose: 100 mg Magnesium Oxide (Mag-Ox) 400 mg PO BID [facility] Last Admin: 09/13/16 18:35 Dose: 400 mg Meclizine HCl (Antivert) 25 mg PO BID [facility] Last Admin: 09/13/16 18:34 Dose: 25 mg Metformin HCl (Glucophage) 1,000 mg PO BID [facility] Last Admin: 09/13/16 18:35 Dose: 1,000 mg Metoprolol Succinate (Toprol Xl) 50 mg PO DAILY [facility] Last Admin: 09/13/16 10:05 Dose: 50 mg Pantoprazole Sodium (Protonix Ec Tab) 40 mg PO ACB [facility] Pregabalin (Lyrica) 50 mg PO TID [facility] Last Admin: 09/13/16 18:35 Dose: 50 mg Sertraline HCl (Zoloft) 25 mg PO HS [facility] Last Admin: 09/13/16 22:31 Dose: 25 mg - Labs Labs: 09/13/16 06:40 09/13/16 06:40 PT 10.2 Seconds (9.9-11.8) 09/11/16 09:50 INR 0.94 (0.93-1.08) 09/11/16 09:50 APTT 23.3 Seconds (23.7-30.8) L 09/11/16 09:50 Attending/Attestation - Attestation I have personally seen and examined this patient.: Yes I have fully participated in the care of the patient.: Yes I have reviewed all pertinent clinical information, including history, physical exam and plan: Yes Notes (Text): this
--- NOTE | 2016-09-13 14:07 | CT ---
PROCEDURE: CT Abdomen and Pelvis without intravenous contrast HISTORY: abdominal pain/dehydration/h/o uterine cancer COMPARISON: None. TECHNIQUE: Without contrast. Contrast Dose: Radiation dose: Total exam DLP = 1171 mGy-cm. This CT exam was performed using one or more of the following dose reduction techniques: Automated exposure control, adjustment of the mA and/or kV according to patient size, and/or use of iterative reconstruction technique. FINDINGS: LOWER THORAX: Unremarkable. LIVER: Unremarkable. No gross lesion or ductal dilatation. GALLBLADDER AND BILE DUCTS: Unremarkable. PANCREAS: Unremarkable. No gross lesion or ductal dilatation. SPLEEN: Unremarkable. ADRENALS: Unremarkable. No mass. KIDNEYS AND URETERS: Unremarkable. No hydronephrosis. No solid mass. VASCULATURE: Unremarkable. No aortic aneurysm. BOWEL: Unremarkable. No obstruction. No gross mural thickening. 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 These are best seen on image 58 in the coronal plane. APPENDIX: Unremarkable. Normal appendix. PERITONEUM: Unremarkable. No free fluid. No free air. LYMPH NODES: Unremarkable. No enlarged lymph nodes. BLADDER: Unremarkable. REPRODUCTIVE: Unremarkable. BONES: Disc bulge in degeneration at L1-2 and L4-5. OTHER FINDINGS: None. IMPRESSION: No acute intra-abdominal findings
[2016-09-13 17:45] VITALS: TEMP 98
[2016-09-13] MEDS: Insulin Detemir 100 units/ml Vial (Levemir) SC SCH (22:32)
[2016-09-14] MEDS ORDERED: Pantoprazole 40 mg EC Tab PO SCH (07:30)
[2016-09-14 08:28] VITALS: BP 124/71; RESP 20; O2SAT 94
[2016-09-14] MEDS: Magnesium Oxide 400 mg Tab UD PO SCH (09:42)
[2016-09-14] MEDS: Metoprolol Succinate 50 mg XL Tab PO SCH (09:43)
[2016-09-14] MEDS: Insulin Reg-HIGH-Coverage SC SCH ×2 (09:44→11:17)
--- NOTE | 2016-09-14 10:03 | CP.PCM.PN ---
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 Had large BM after ct scan form oral contrast. Abdominal pain right lower quadrant occurs intermittently and sometimes after eating. No acute overnight events reported. Objective - Vital Signs/Intake and Output Vital Signs (last 24 hours): Temp Pulse Resp BP Pulse Ox 98 F 59 L 20 124/71 94 L 09/14/16 08:27 09/14/16 08:27 09/14/16 08:27 09/14/16 09:43 09/14/16 08:27 Intake and Output: 09/14/16 09/14/16 06:59 18:59 Intake Total 480 0 Output Total 350 300 Balance 130 -300 - Medications Medications: Current Medications Acetaminophen (Tylenol 325mg Tab) 650 mg PO Q6H PRN PRN Reason: Pain, moderate (4-7) Last Admin: 09/13/16 10:05 Dose: 650 mg Atorvastatin Calcium (Lipitor) 80 mg PO HS [facility] Last Admin: 09/13/16 22:30 Dose: 80 mg Calcium Carbonate (Oscal) 500 mg PO DAILY [facility] Last Admin: 09/14/16 09:45 Dose: 500 mg Ciprofloxacin (Cipro) 500 mg PO Q12 [facility] PRN Reason: Protocol Stop: 09/18/16 22:01 Last Admin: 09/14/16 09:44 Dose: 500 mg Clonazepam (Klonopin) 0.5 mg PO TID [facility] PRN Reason: Protocol Last Admin: 09/14/16 09:42 Dose: 0.5 mg Furosemide (Lasix) 20 mg PO BID [facility] Last Admin: 09/14/16 09:42 Dose: 20 mg Glipizide (Glucotrol) 10 mg PO DAILY [facility] Last Admin: 09/14/16 09:43 Dose: 10 mg Insulin Detemir (Levemir) 40 unit SC HS [facility] Last Admin: 09/13/16 22:32 Dose: 40 unit Insulin Human Regular (Humulin R High) 0 units SC ACHS [facility] PRN Reason: Protocol Last Admin: 09/14/16 09:44 Dose: Not Given Losartan Potassium (Cozaar) 100 mg PO DAILY [facility] Last Admin: 09/14/16 09:43 Dose: 100 mg Magnesium Oxide (Mag-Ox) 400 mg PO BID [facility] Last Admin: 09/14/16 09:42 Dose: 400 mg Meclizine HCl (Antivert) 25 mg PO BID [facility] Last Admin: 09/14/16 09:41 Dose: 25 mg Metformin HCl (Glucophage) 1,000 mg PO BID [facility] Last Admin: 09/14/16 09:43 Dose: 1,000 mg Metoprolol Succinate (Toprol Xl) 50 mg PO DAILY [facility] Last Admin: 09/14/16 09:43 Dose: 50 mg Pantoprazole Sodium (Protonix Ec Tab) 40 mg PO ACB [facility] Last Admin: 09/14/16 08:40 Dose: 40 mg Pregabalin (Lyrica) 50 mg PO TID [facility] Last Admin: 09/14/16 09:41 Dose: 50 mg Sertraline HCl (Zoloft) 25 mg PO HS [facility] Last Admin: 09/13/16 22:31 Dose: 25 mg - Labs Labs: 09/13/16 06:40 09/13/16 06:40 PT 10.2 Seconds (9.9-11.8) 09/11/16 09:50 INR 0.94 (0.93-1.08) 09/11/16 09:50 APTT 23.3 Seconds (23.7-30.8) L 09/11/16 09:50 - Constitutional Appears: No Acute Distress - Eye Exam Eye Exam: Normal appearance - ENT Exam ENT Exam: Mucous Membranes Moist - Neck Exam Neck Exam: Normal Inspection - Respiratory Exam Respiratory Exam: NORMAL BREATHING PATTERN. absent: Respiratory Distress - Cardiovascular Exam Cardiovascular Exam: +S1, +S2 - GI/Abdominal Exam GI & Abdominal Exam: Soft, Normal Bowel Sounds. absent: Guarding, Tenderness, Organomegaly, Rebound - Extremities Exam Extremities Exam: absent: Calf Tenderness, Pedal Edema - Neurological Exam Neurological Exam: Alert, Awake, Oriented x3 - Skin Skin Exam: Dry, Warm Assessment and Plan - Assessment and Plan (Free Text) Assessment: ASSESSMENT: Abdominal Pain, s/p ct scan duodenal diverticulum, no acute findings S/p Dehydration H/O Ovarian Cancer Right Hip Pian Dizziness DM type II Obesity UTI PLAN: on IV Cipro diet as tolerated on Antivert PPI TCU eval Seen and discussed with Dr. Nichols.
[2016-09-14 11:43] VITALS: PULSE 67
== END 2016-09-14 12:05 | DRG 641 ==
LOC: ED 09:20 → ERH 11:43 → 3RNO 12:40
PROVIDERS: ADMIT Internal Medicine Nephrology; ATTEND Internal Medicine Nephrology
DX: E86.0 Dehydration (principal); N39.0 Urinary tract infection, site not specified; E11.22 Type 2 diabetes mellitus with diabetic chronic kidney disease; I12.9 Hypertensive chronic kidney disease with stage 1 through stage 4 chronic kidney disease, or unspecified chronic kidney disease; N18.3 Chronic kidney disease, stage 3 (moderate); E11.65 Type 2 diabetes mellitus with hyperglycemia; E66.9 Obesity, unspecified; E78.5 Hyperlipidemia, unspecified; H81.09 Meniere's disease, unspecified ear; K57.10 Diverticulosis of small intestine without perforation or abscess without bleeding; R26.9 Unspecified abnormalities of gait and mobility; M25.551 Pain in right hip; R55 Syncope and collapse; Z68.33 Body mass index [BMI] 33.0-33.9, adult; Z87.891 Personal history of nicotine dependence; Z79.4 Long term (current) use of insulin; Z85.07 Personal history of malignant neoplasm of pancreas

== ENCOUNTER 2016-09-14 11:43 | Inpatient (IN) | payer OTHER, MEDICARE ==
[2016-09-14 12:52] VITALS: BMI 34.2
--- NOTE | 2016-09-14 16:00 | CP.PCM.CON ---
<Fly Fleming - Last Filed: 09/14/16 15:56> History of Present Illness - History of Present Illness History of Present Illness: PGY-[address] Clinton's Neurology Service: Reason for consult: near syncope HPI: THIS IS A 81 YEAR OLD WOMAN HISTORY OF HTN, DM2, HLD, OVERWEIGHT, PANCREATIC CANCER, HLD, CHRONIC ABDOMINAL PAIN CAME IN FOR DIZZINESS AND FELT LIKE SHE WAS LIGHTHEADED AND GOING TO PASS OUT. HER INITIAL FEW BP READINGS WERE SYSTOLICALLY AND DIASTOLICALLY LOWER SIDE. SHE HAS CHRONIC ABDOMINAL PAIN. HER BLOOD SUGARS WERE 330/ ELEVATED ON ADMISSION. CT HEAD SHOWED NO ACUTE ABNORMALITY. NEURO EXAM IS NON-FOCAL. NO FOCAL WEAKNESS IN THE EXTREMITIES. ROS: 14 POINT REVIEW OF SYMPTOMS IS NEGATIVE PER HPI. ALLERGIES: NONE SOCIAL HISTORY: NO ILLICIT DRUG USE, SMOKING, OR ETOH USE. FAMILY: NON CONTRIBUTORY. MEDICATIONS: REVIEWED BY NURSE'S RECONCILIATION SHEET. PAST MEDICAL HISTORY: HTN, DM2, HLD, OVERWEIGHT, PANCREATIC CANCER, HLD, CHRONIC ABDOMINAL PAIN PHYSICAL EXAM: VITAL SIGNS: REVIEWED BY THE CHART GENERAL EXAM: PATIENT SEEN IN BED, IN NO ACUTE DISTRESS HEENT: PERRLA, EOMI, NECK SUPPLE, NO JVD, NO ADENOPATHY CVS: S1, S2, RRR, NO MURMURS NOTED LUNGS: CLEAR TO AUSCULTATION, NO ADVENTITIOUS SOUNDS ABDOMEN: SOFT AND NONTENDER EXTREMITIES: NO CLUBBING OR CYANOSIS. PP 2+ B/L NEURO: PT IS ALERT AND ORIENTED TO PERSON, PLACE, AND YEAR. , RECALL TO 5 MINUTES 3/3, SPEECH IS FLUENT WITHOUT ERRORS, CN II-XII INTACT, MOTOR EXAM: NORMAL TONE, NORMAL BULK OF MUSCLE, MOVES ALL EXTREMITIES EQUALLY, NO PRONATOR DRIFT SEEN. SENSORY EXAM: DECREASED LIGHT TOUCH, PIN PRICK UP TO CALVES B/L, PROPRIOCEPTION INTACT, DECREASED VIBRATION AT TOES AND KNEES. DEEP TENDON REFLEXES: 2+ AND 1 AT KNEES AND ANKLES THROUGHOUT. COORDINATION: FINGER TO NOSE IS INTACT. HEEL TO RED IS INTACT GAIT: DEFERRED. LABS: REVIEWED BY THE CHART. ASSESSMENT AND PLAN: THIS IS A 81 YEAR OLD WOMAN HISTORY OF HTN, DM2, HLD, OVERWEIGHT, PANCREATIC CANCER, HLD, CHRONIC ABDOMINAL PAIN CAME IN FOR DIZZINESS AND FELT LIKE SHE WAS LIGHTHEADED AND GOING TO PASS OUT. HER INITIAL FEW BP READINGS WERE SYSTOLICALLY AND DIASTOLICALLY LOWER SIDE. SHE HAS CHRONIC ABDOMINAL PAIN. HER BLOOD SUGARS WERE 330/ ELEVATED ON ADMISSION. CT HEAD SHOWED NO ACUTE ABNORMALITY. NEURO EXAM IS NON-FOCAL. NO FOCAL WEAKNESS IN THE EXTREMITIES. 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 1. ASA 81 MG FOR STROKE PREVENTION 2. KEEP SBP BTW 120-130 MM HG 3. HYDRATION AND MONITOR ELECTROLYTES. 4.MAINTAIN BLOOD SUGARS BTW 140-180. 5. C/W PAIN MEDS FOR ABDOMINAL PAIN. 6. CONTINUE PHYSICAL THERAPY FOR DECONDITIONED STATE PATIENT IS NEUROLOGICALLY STABLE Past Patient History - Infectious Disease Hx of Infectious Diseases: None - Tetanus Immunizations Tetanus Immunization: Up to Date, Unknown - Past Medical History & Family History Past Medical History?: Yes - Past Social History Smoking Status: Former Smoker - CARDIAC Hx Cardiac Disorders: Yes Hx Hypertension: Yes - PULMONARY Hx Respiratory Disorders: Yes Hx Bronchitis: Yes - NEUROLOGICAL HX Cerebrovascular Accident: Yes (no residual effects) - HEENT Hx HEENT Problems: Yes Hx Cataracts: Yes Hx Deafness: Yes (LEFT EAR) Other/Comment: RIGHT EAR TINNITUS. WEARS GLASSES, NEAR SIGHTED - RENAL Hx Chronic Kidney Disease: Yes Hx Kidney Stones: Yes ("CAME OUT ON OWN") - ENDOCRINE/METABOLIC Hx Diabetes Mellitus Type 2: Yes - HEMATOLOGICAL/ONCOLOGICAL Hx Blood Disorders: Yes Other/Comment: " I HAD A BLOOD INFECTION 2-3 YRS. AGO-THEY DON'T KNOW WHAT IT WAS" - INTEGUMENTARY Hx Dermatological Problems: Yes (HX OF SKIN BREAKDOWN AND WOUNDS) Other/Comment: HX. LEFT BREAST CYST - MUSCULOSKELETAL/RHEUMATOLOGICAL Hx Falls: Yes - GASTROINTESTINAL Hx Gastrointestinal Disorders: Yes Hx Gastroesophageal Reflux: Yes Hx Pancreatitis: Yes Other/Comment: RECTAL BLEEDING - GENITOURINARY/GYNECOLOGICAL Hx Genitourinary Disorders: No (incontinent at times) - PSYCHIATRIC Hx Psychophysiologic Disorder: Yes Hx Anxiety: Yes Hx Depression: Yes Hx Emotional Abuse: No Hx Physical Abuse: No - SURGICAL HISTORY Hx Orthopedic Surgery: Yes Other/Comment: LEFT BREAST CYST REMOVED - ANESTHESIA Hx Anesthesia: Yes Hx Anesthesia Reactions: No Hx Malignant Hyperthermia: No Meds Allergies/Adverse Reactions: Allergies Allergy/AdvReac Type Severity Reaction Status Date / Time No Known Allergies Allergy Verified 11/02/12 08:43 - Medications Medications: Current Medications Acetaminophen (Tylenol 325mg Tab) 650 mg PO Q6H PRN; Protocol PRN Reason: Fever >100.4 F Atorvastatin Calcium (Lipitor) 80 mg PO HS [facility] PRN Reason: Protocol Calcium Carbonate (Oscal) 500 mg PO DAILY [facility] PRN Reason: Protocol Ciprofloxacin (Cipro) 500 mg PO Q12 [facility] PRN Reason: Protocol Stop: 09/15/16 13:13 Clonazepam (Klonopin) 0.5 mg PO TID [facility] PRN Reason: Protocol Last Admin: 09/14/16 13:52 Dose: 0.5 mg Furosemide (Lasix) 20 mg PO 0600,1400 [facility] PRN Reason: Protocol Glipizide (Glucotrol) 10 mg PO 0730 [facility] PRN Reason: Protocol Insulin Detemir (Levemir) 40 unit SC HS [facility] PRN Reason: Protocol Insulin Human Regular (Humulin R High) 0 units SC ACHS [facility] PRN Reason: Protocol Losartan Potassium (Cozaar) 100 mg PO DAILY [facility] PRN Reason: Protocol Magnesium Oxide (Mag-Ox) 400 mg PO BID [facility] Meclizine HCl (Antivert) 25 mg PO BID [facility] PRN Reason: Protocol Metformin HCl (Glucophage) 1,000 mg PO 0730,1700 [facility] PRN Reason: Protocol Metoprolol Succinate (Toprol Xl) 50 mg PO 0800 [facility] PRN Reason: Protocol Pantoprazole Sodium (Protonix Ec Tab) 40 mg PO 0600 [facility] PRN Reason: Protocol Pregabalin (Lyrica) 50 mg PO TID [facility] PRN Reason: Protocol Last Admin: 09/14/16 13:52 Dose: 50 mg Sertraline HCl (Zoloft) 25 mg PO QPM [facility] PRN Reason: Protocol Results - Vital Signs Recent Vital Signs: Last Vital Signs Temp 98.1 F 09/14/16 13:48 Pulse 62 09/14/16 13:48 Resp 12 09/14/16 13:48 BP 106/61 09/14/16 13:48 Pulse Ox <Benito Clinton - Last Filed: 09/14/16 16:09> Meds - Medications Medications: Current Medications Acetaminophen (Tylenol 325mg Tab) 650 mg PO Q6H PRN; Protocol PRN Reason: Fever >100.4 F Atorvastatin Calcium (Lipitor) 80 mg PO HS [facility] PRN Reason: Protocol Calcium Carbonate (Oscal) 500 mg PO DAILY [facility] PRN Reason: Protocol Ciprofloxacin (Cipro) 500 mg PO Q12 [facility] PRN Reason: Protocol Stop: 09/15/16 13:13 Clonazepam (Klonopin) 0.5 mg PO TID [facility] PRN Reason: Protocol Last Admin: 09/14/16 13:52 Dose: 0.5 mg Furosemide (Lasix) 20 mg PO 0600,1400 [facility] PRN Reason: Protocol Glipizide (Glucotrol) 10 mg PO 0730 [facility] PRN Reason: Protocol Insulin Detemir (Levemir) 40 unit SC HS [facility] PRN Reason: Protocol Insulin Human Regular (Humulin R High) 0 units SC ACHS [facility] PRN Reason: Protocol Losartan Potassium (Cozaar) 100 mg PO DAILY [facility] PRN Reason: Protocol Magnesium Oxide (Mag-Ox) 400 mg PO BID [facility] Meclizine HCl (Antivert) 25 mg PO BID [facility] PRN Reason: Protocol Metformin HCl (Glucophage) 1,000 mg PO 0730,1700 [facility] PRN Reason: Protocol Metoprolol Succinate (Toprol Xl) 50 mg PO 0800 [facility] PRN Reason: Protocol Pantoprazole Sodium (Protonix Ec Tab) 40 mg PO 0600 [facility] PRN Reason: Protocol Pregabalin (Lyrica) 50 mg PO TID [facility] PRN Reason: Protocol Last Admin: 09/14/16 13:52 Dose: 50 mg Sertraline HCl (Zoloft) 25 mg PO QPM [facility] PRN Reason: Protocol Results - Vital Signs Recent Vital Signs: Last Vital Signs Temp 98.1 F 09/14/16 13:48 Pulse 62 09/14/16 13:48 Resp 12 09/14/16 13:48 BP 106/61 09/14/16 13:48 Pulse Ox Attending/Attestation - Attestation I have personally seen and examined this patient.: Yes I have fully participated in the care of the patient.: Yes I have reviewed all pertinent clinical information: Yes
[2016-09-14] MEDS: Insulin Reg-HIGH-Coverage SC SCH ×2 (17:42→22:10)
[2016-09-14] MEDS: Magnesium Oxide 400 mg Tab UD PO SCH (17:44)
[2016-09-14] MEDS: Insulin Detemir 100 units/ml Vial (Levemir) SC SCH (22:11)
[2016-09-15] MEDS: Pantoprazole 40 mg EC Tab PO SCH (06:00)
[2016-09-15] MEDS ORDERED: Non Formulary Medication (Omeprazole [Omeprazole] 40 MG) PO SCH (06:30)
[2016-09-15] MEDS: Insulin Reg-HIGH-Coverage SC SCH ×4 (06:36→21:44)
[2016-09-15] MEDS: Metoprolol Succinate 50 mg XL Tab PO SCH (08:06)
--- NOTE | 2016-09-15 08:43 | CP.PCM.PN ---
Subjective - Date & Time of Evaluation Date of Evaluation: 09/15/16 Time of Evaluation: 08:36 - Subjective Subjective: Pt complains of back pain and R leg pain. Initial H and P reviewed and I agree with. Eating ok. Objective - Vital Signs/Intake and Output Vital Signs (last 24 hours): Temp Pulse Resp BP Pulse Ox 97.1 F L 64 14 111/71 100 09/14/16 16:45 09/15/16 08:06 09/14/16 16:45 09/15/16 08:06 09/14/16 16:45 - Medications Medications: Current Medications Acetaminophen (Tylenol 325mg Tab) 650 mg PO Q6H PRN; Protocol PRN Reason: Fever >100.4 F Atorvastatin Calcium (Lipitor) 80 mg PO HS [facility] PRN Reason: Protocol Last Admin: 09/14/16 22:12 Dose: 80 mg Calcium Carbonate (Oscal) 500 mg PO DAILY [facility] PRN Reason: Protocol Ciprofloxacin (Cipro) 500 mg PO Q12 [facility] PRN Reason: Protocol Stop: 09/15/16 13:13 Last Admin: 09/14/16 22:10 Dose: 500 mg Clonazepam (Klonopin) 0.5 mg PO TID [facility] PRN Reason: Protocol Last Admin: 09/14/16 17:51 Dose: 0.5 mg Furosemide (Lasix) 20 mg PO 0600,1400 [facility] PRN Reason: Protocol Last Admin: 09/15/16 06:00 Dose: 20 mg Glipizide (Glucotrol) 10 mg PO 0730 [facility] PRN Reason: Protocol Last Admin: 09/15/16 08:05 Dose: 10 mg Insulin Detemir (Levemir) 40 unit SC HS [facility] PRN Reason: Protocol Last Admin: 09/14/16 22:11 Dose: 40 unit Insulin Human Regular (Humulin R High) 0 units SC ACHS [facility] PRN Reason: Protocol Last Admin: 09/15/16 06:36 Dose: Not Given Losartan Potassium (Cozaar) 100 mg PO DAILY [facility] PRN Reason: Protocol Magnesium Oxide (Mag-Ox) 400 mg PO BID [facility] Last Admin: 09/14/16 17:44 Dose: 400 mg Meclizine HCl (Antivert) 25 mg PO BID [facility] PRN Reason: Protocol Last Admin: 09/14/16 17:42 Dose: 25 mg Metformin HCl (Glucophage) 1,000 mg PO 0730,1700 [facility] PRN Reason: Protocol Last Admin: 09/15/16 08:05 Dose: 1,000 mg Metoprolol Succinate (Toprol Xl) 50 mg PO 0800 [facility] PRN Reason: Protocol Last Admin: 09/15/16 08:06 Dose: 50 mg Pantoprazole Sodium (Protonix Ec Tab) 40 mg PO 0600 [facility] PRN Reason: Protocol Last Admin: 09/15/16 06:00 Dose: 40 mg Pregabalin (Lyrica) 50 mg PO TID [facility] PRN Reason: Protocol Last Admin: 09/14/16 17:51 Dose: 50 mg Sertraline HCl (Zoloft) 25 mg PO QPM [facility] PRN Reason: Protocol Last Admin: 09/14/16 17:45 Dose: 25 mg - Constitutional Appears: Well - Head Exam Head Exam: ATRAUMATIC, NORMAL INSPECTION, NORMOCEPHALIC - Eye Exam Eye Exam: EOMI, Normal appearance, PERRL Pupil Exam: PERRL - ENT Exam ENT Exam: Mucous Membranes Moist, Normal Exam - Neck Exam Neck Exam: Full ROM, Normal Inspection. absent: Lymphadenopathy - Respiratory Exam Respiratory Exam: Clear to Ausculation Bilateral, NORMAL BREATHING PATTERN - Cardiovascular Exam Cardiovascular Exam: REGULAR RHYTHM, RRR, +S1, +S2. absent: Murmur - GI/Abdominal Exam GI & Abdominal Exam: Soft, Normal Bowel Sounds. absent: Tenderness, Hernia, Hypoactive Bowel Sounds Assessment and Plan - Assessment and Plan (Free Text) Assessment: HTN DM-2 Obese BM- - 34 Dyslipidemia Gait dysfunction LORAINE- resolved Plan: Pt with difficult walking and has been admitted to TCU. GI evaluation done- spoke to Dr Nichols . Losartan for HTN. ISS for DM-2. On Metformin and Glipizide for DM-2. Lipitor kaykay dyslipidemia.
[2016-09-15] MEDS: Magnesium Oxide 400 mg Tab UD PO SCH ×2 (09:56→17:50)
--- NOTE | 2016-09-15 10:06 | CP.PCM.PN ---
Subjective - Date & Time of Evaluation Date of Evaluation: 09/15/16 Time of Evaluation: 09:30 - Subjective Subjective: Seen and examined in TCU , c/o right hip pain, no N/V, intermittent abdominal pain, none now, had BM yesterday, no diarrhea or bleeding. Patient had MRI spine , show multidegenerative changes Objective - Vital Signs/Intake and Output Vital Signs (last 24 hours): Temp Pulse Resp BP Pulse Ox 97.1 F L 64 14 111/71 100 09/14/16 16:45 09/15/16 08:06 09/14/16 16:45 09/15/16 08:06 09/14/16 16:45 - Medications Medications: Current Medications Acetaminophen (Tylenol 325mg Tab) 650 mg PO Q6H PRN; Protocol PRN Reason: Fever >100.4 F Atorvastatin Calcium (Lipitor) 80 mg PO HS [facility] PRN Reason: Protocol Last Admin: 09/14/16 22:12 Dose: 80 mg Calcium Carbonate (Oscal) 500 mg PO DAILY [facility] PRN Reason: Protocol Ciprofloxacin (Cipro) 500 mg PO Q12 [facility] PRN Reason: Protocol Stop: 09/15/16 13:13 Last Admin: 09/14/16 22:10 Dose: 500 mg Clonazepam (Klonopin) 0.5 mg PO TID [facility] PRN Reason: Protocol Last Admin: 09/14/16 17:51 Dose: 0.5 mg Furosemide (Lasix) 20 mg PO 0600,1400 [facility] PRN Reason: Protocol Last Admin: 09/15/16 06:00 Dose: 20 mg Glipizide (Glucotrol) 10 mg PO 0730 [facility] PRN Reason: Protocol Last Admin: 09/15/16 08:05 Dose: 10 mg Insulin Detemir (Levemir) 40 unit SC HS [facility] PRN Reason: Protocol Last Admin: 09/14/16 22:11 Dose: 40 unit Insulin Human Regular (Humulin R High) 0 units SC ACHS [facility] PRN Reason: Protocol Last Admin: 09/15/16 06:36 Dose: Not Given Losartan Potassium (Cozaar) 100 mg PO DAILY [facility] PRN Reason: Protocol Magnesium Oxide (Mag-Ox) 400 mg PO BID [facility] Last Admin: 09/14/16 17:44 Dose: 400 mg Meclizine HCl (Antivert) 25 mg PO BID [facility] PRN Reason: Protocol Last Admin: 09/14/16 17:42 Dose: 25 mg Metformin HCl (Glucophage) 1,000 mg PO 0730,1700 [facility] PRN Reason: Protocol Last Admin: 09/15/16 08:05 Dose: 1,000 mg Metoprolol Succinate (Toprol Xl) 50 mg PO 0800 [facility] PRN Reason: Protocol Last Admin: 09/15/16 08:06 Dose: 50 mg Pantoprazole Sodium (Protonix Ec Tab) 40 mg PO 0600 [facility] PRN Reason: Protocol Last Admin: 09/15/16 06:00 Dose: 40 mg Pregabalin (Lyrica) 50 mg PO TID [facility] PRN Reason: Protocol Last Admin: 09/14/16 17:51 Dose: 50 mg Sertraline HCl (Zoloft) 25 mg PO QPM [facility] PRN Reason: Protocol Last Admin: 09/14/16 17:45 Dose: 25 mg - Constitutional Appears: No Acute Distress - Head Exam Head Exam: NORMOCEPHALIC - Eye Exam Eye Exam: Normal appearance. absent: Scleral icterus - ENT Exam ENT Exam: Mucous Membranes Moist - Neck Exam Neck Exam: Normal Inspection - Respiratory Exam Respiratory Exam: Clear to Ausculation Bilateral, NORMAL BREATHING PATTERN. absent: Respiratory Distress - Cardiovascular Exam Cardiovascular Exam: +S1, +S2 - GI/Abdominal Exam GI & Abdominal Exam: Soft, Normal Bowel Sounds. absent: Guarding, Tenderness, Rebound - Extremities Exam Extremities Exam: absent: Calf Tenderness, Pedal Edema - Neurological Exam Neurological Exam: Alert, Awake, Oriented x3 - Skin Skin Exam: Dry, Warm Assessment and Plan - Assessment and Plan (Free Text) Assessment: ASSESSMENT: Abdominal Pain, s/p ct scan duodenal diverticulum, no acute findings S/p Dehydration H/O Ovarian Cancer Right Hip Pain Dizziness DM type II Obesity UTI PLAN: on Cipro PO diet as tolerated on Antivert PPI Seen and discussed with Dr. Nichols.
[2016-09-15] MEDS: Insulin Detemir 100 units/ml Vial (Levemir) SC SCH (21:44)
[2016-09-16] MEDS: Pantoprazole 40 mg EC Tab PO SCH (05:06)
[2016-09-16] MEDS: Insulin Reg-HIGH-Coverage SC SCH ×4 (06:39→21:44)
[2016-09-16] MEDS: Metoprolol Succinate 50 mg XL Tab PO SCH (08:31)
[2016-09-16] MEDS: Magnesium Oxide 400 mg Tab UD PO SCH ×2 (09:26→18:02)
[2016-09-16] MEDS: Insulin Detemir 100 units/ml Vial (Levemir) SC SCH (21:44)
[2016-09-17] MEDS: Pantoprazole 40 mg EC Tab PO SCH (05:57)
[2016-09-17] MEDS: Insulin Reg-HIGH-Coverage SC SCH ×4 (06:48→22:08)
[2016-09-17] MEDS: Metoprolol Succinate 50 mg XL Tab PO SCH (08:31)
[2016-09-17] MEDS: Magnesium Oxide 400 mg Tab UD PO SCH ×2 (09:44→17:51)
[2016-09-17] MEDS: POLYETHYLENE GLYCOL 3350 17 GM/Dose PACKET PO SCH ×2 (09:45→17:52)
[2016-09-17] MEDS: Cefpodoxime (Vantin) 100 mg Tab PO SCH ×2 (09:46→21:09)
[2016-09-17 10:39] VITALS: RESP 18
--- NOTE | 2016-09-17 10:45 | CP.PCM.PN ---
Subjective - Date & Time of Evaluation Date of Evaluation: 09/17/16 Time of Evaluation: 10:10 - Subjective Subjective: S&E at bedside, chart reviewed. Abdominal pain is better, had a large BM today, no bleeding. Occasional right hip pain. Tolerating oral intake. No acute overnight events. Objective - Vital Signs/Intake and Output Vital Signs (last 24 hours): Temp Pulse Resp BP Pulse Ox 97.9 F 78 18 121/75 95 09/17/16 10:00 09/17/16 10:00 09/17/16 10:00 09/17/16 10:00 09/17/16 10:00 Intake and Output: 09/17/16 09/17/16 06:59 18:59 Intake Total 200 Balance 200 - Medications Medications: Current Medications Acetaminophen (Tylenol 325mg Tab) 650 mg PO Q6H PRN; Protocol PRN Reason: Fever >100.4 F Last Admin: 09/16/16 05:06 Dose: 650 mg Atorvastatin Calcium (Lipitor) 80 mg PO HS [facility] PRN Reason: Protocol Last Admin: 09/16/16 21:18 Dose: 80 mg Calcium Carbonate (Oscal) 500 mg PO DAILY [facility] PRN Reason: Protocol Last Admin: 09/17/16 09:45 Dose: 500 mg Cefpodoxime Proxetil (Vantin) 100 mg PO Q12 [facility] PRN Reason: Protocol Last Admin: 09/17/16 09:46 Dose: 100 mg Clonazepam (Klonopin) 0.5 mg PO TID [facility] PRN Reason: Protocol Last Admin: 09/17/16 09:44 Dose: 0.5 mg Furosemide (Lasix) 20 mg PO 0600,1400 [facility] PRN Reason: Protocol Last Admin: 09/17/16 05:57 Dose: 20 mg Glipizide (Glucotrol) 10 mg PO 0730 [facility] PRN Reason: Protocol Last Admin: 09/17/16 08:30 Dose: 10 mg Insulin Detemir (Levemir) 40 unit SC HS [facility] PRN Reason: Protocol Last Admin: 09/16/16 21:44 Dose: 40 unit Insulin Human Regular (Humulin R High) 0 units SC ACHS [facility] PRN Reason: Protocol Last Admin: 09/17/16 06:48 Dose: 2 units Losartan Potassium (Cozaar) 100 mg PO DAILY [facility] PRN Reason: Protocol Last Admin: 09/17/16 09:43 Dose: 100 mg Magnesium Oxide (Mag-Ox) 400 mg PO BID [facility] Last Admin: 09/17/16 09:44 Dose: 400 mg Meclizine HCl (Antivert) 25 mg PO BID [facility] PRN Reason: Protocol Last Admin: 09/17/16 09:43 Dose: 25 mg Metformin HCl (Glucophage) 1,000 mg PO 0730,1700 [facility] PRN Reason: Protocol Last Admin: 09/17/16 08:29 Dose: 1,000 mg Metoprolol Succinate (Toprol Xl) 50 mg PO 0800 [facility] PRN Reason: Protocol Last Admin: 09/17/16 08:31 Dose: 50 mg Pantoprazole Sodium (Protonix Ec Tab) 40 mg PO 0600 [facility] PRN Reason: Protocol Last Admin: 09/17/16 05:57 Dose: 40 mg Polyethylene Glycol (Miralax) 17 gm PO BID [facility] Stop: 09/19/16 10:01 Last Admin: 09/17/16 09:45 Dose: 17 gm Pregabalin (Lyrica) 50 mg PO TID [facility] PRN Reason: Protocol Last Admin: 09/17/16 09:44 Dose: 50 mg Sertraline HCl (Zoloft) 25 mg PO QPM [facility] PRN Reason: Protocol Last Admin: 09/16/16 18:02 Dose: 25 mg - Constitutional Appears: No Acute Distress - Head Exam Head Exam: NORMAL INSPECTION - Eye Exam Eye Exam: Normal appearance. absent: Scleral icterus - ENT Exam ENT Exam: Mucous Membranes Moist - Neck Exam Neck Exam: Normal Inspection - Respiratory Exam Respiratory Exam: NORMAL BREATHING PATTERN. absent: Respiratory Distress - Cardiovascular Exam Cardiovascular Exam: +S1, +S2 - GI/Abdominal Exam GI & Abdominal Exam: Soft, Normal Bowel Sounds. absent: Guarding, Tenderness, Rebound - Extremities Exam Extremities Exam: absent: Calf Tenderness, Pedal Edema - Neurological Exam Neurological Exam: Alert, Awake, Oriented x3 - Skin Skin Exam: Dry, Warm Assessment and Plan - Assessment and Plan (Free Text) Assessment: ASSESSMENT: Improved Abdominal Pain, s/p ct scan duodenal diverticulum, no acute findings S/p Dehydration H/O Ovarian Cancer Right Hip Pain Dizziness DM type II Obesity UTI PLAN: on Vantin PO started on Miralax BID diet as tolerated on Antivert PPI Seen and discussed with Dr. Nichols.
[2016-09-17] MEDS: Insulin Detemir 100 units/ml Vial (Levemir) SC SCH (22:08)
--- NOTE | 2016-09-17 22:16 | PN ---
DATE: 09/17/2016 SUBJECTIVE: *------*. PHYSICAL EXAMINATION: *------* HEENT: Anicteric sclerae. Moist mucosa. CARDIOPULMONARY: S1, S2 is regular. No murmurs, rubs or gallops. LUNGS: Clear to auscultation bilaterally. No wheezes, rales or rhonchi. ABDOMEN: Bowel sounds are positive, soft, nontender, nondistended. EXTREMITIES: Lower extremities, no edema. 2+ pulses. Full range of motion in the lower extremities, power in the upper extremity and lower extremity is 5/5. ASSESSMENT: 1. Hypertension. 2. Constipation. 3. Diabetes type 2. 4. Obese with a body mass index of 34. 5. Dyslipidemia. 6. Gait dysfunction. 7. Acute kidney injury, resolved. 8. Urinary tract infection secondary to Klebsiella. PLAN: The patient is currently comfortable. She is willing to continue with metformin for diabetes. She is being followed by Dr. Waller. She does have a history of ovarian cancer. She had a UTI secondary to Klebsiella and is on antibiotics. She is on losartan for hypertension. She is on Klonopin for anxiety. She is on Levemir for diabetes. She is on Lipitor for dyslipidemia. She is on magnesium replacement. I will place her on MiraLAX for her constipation. Monroe Baxter MD
[2016-09-18] MEDS: Pantoprazole 40 mg EC Tab PO SCH (05:51)
[2016-09-18] MEDS: Insulin Reg-HIGH-Coverage SC SCH ×4 (06:48→21:36)
[2016-09-18] MEDS: Metoprolol Succinate 50 mg XL Tab PO SCH (08:21)
[2016-09-18] MEDS: POLYETHYLENE GLYCOL 3350 17 GM/Dose PACKET PO SCH ×3 (09:59→17:44)
[2016-09-18] MEDS: Magnesium Oxide 400 mg Tab UD PO SCH ×2 (09:59→17:44)
[2016-09-18] MEDS: Cefpodoxime (Vantin) 100 mg Tab PO SCH ×2 (10:00→21:37)
[2016-09-18 12:35] VITALS: TEMP 98.2; O2SAT 97
[2016-09-18] MEDS: Insulin Detemir 100 units/ml Vial (Levemir) SC SCH (21:36)
--- NOTE | 2016-09-19 03:08 | PN ---
SUBJECTIVE: The patient is an 81-year-old seen on examined, lying in bed, seems to be comfortable and anxious to go home. Denies any nausea or vomiting. No diarrhea. Eating and tolerating well. PHYSICAL EXAMINATION VITAL SIGNS: She is afebrile,pulse *------*, respirations 18, and blood pressure 113/58. LUNGS: Bilateral fair airflow. No rhonchi or crackles. HEART: S1 and S2 audible. ABDOMEN: Soft, obese, and nontender. No rebound or guarding. NEUROLOGIC: She is awake and alert, participating and physical therapy, ambulating well. LABORATORY DATA: Blood sugar is 263. ASSESSMENT AND PLAN: 1. Klebsiella to urinary tract infection secondary. 2. [id number] renal failure that has significant *------* conditioning and difficulty walking. 3. Non-insulin dependent diabetes. 4. Hypertension. PLAN: The patient is currently on Losartan. She is on metformin for non-insulin dependent diabetes. Her blood sugar is being monitored. She has been started on *------* per ID recommendation. The patient to scheduled to be discharge tomorrow if she remains stable. Andrzej Davidson MD
[2016-09-19] MEDS: Pantoprazole 40 mg EC Tab PO SCH (06:03)
[2016-09-19 06:07] VITALS: BP 117/72
[2016-09-19] MEDS: Insulin Reg-HIGH-Coverage SC SCH (06:36)
[2016-09-19] MEDS: Metoprolol Succinate 50 mg XL Tab PO SCH (08:15)
[2016-09-19 08:17] VITALS: PULSE 61
[2016-09-19] MEDS: Magnesium Oxide 400 mg Tab UD PO SCH (09:58)
[2016-09-19] MEDS: POLYETHYLENE GLYCOL 3350 17 GM/Dose PACKET PO SCH (09:58)
[2016-09-19] MEDS: Cefpodoxime (Vantin) 100 mg Tab PO SCH (09:59)
--- NOTE | 2016-09-20 01:33 | DS ---
HISTORY OF PRESENT ILLNESS: The patient is an 81-year-old female who was admitted with near syncope, was found to have Klebsiella pneumoniae UTI, was treated with IV antibiotics, admitted in TCU for physical therapy, doing well, eating and tolerating, ambulating with minimal help. PHYSICAL EXAMINATION: GENERAL: She was awake and alert, communicative. VITAL SIGNS: Afebrile, pulse 61, respirations 18, blood pressure 117/72. LUNGS: Bilateral clear air flow. No rhonchi or crackles. HEART: S1 and S2 audible. ABDOMEN: Soft, nontender. No rebound. No guarding. NEUROLOGIC: The patient is awake and alert, communicative, ambulatory. LABORATORY DATA: Blood sugar is 224. ASSESSMENT: 1. Status post near syncope. 2. Klebsiella urinary tract infection. 3. Non-insulin dependent diabetes. 4. Mild renal insufficiency. 5. Hypertension. PLAN: The patient is being discharged home. She will resume her medications as prior to admission that include Lantus *------* at bedtime, glipizide 10 mg daily, Lasix 20 mg twice a day, Nexium 40 mg daily, Klonopin 0.5 t.i.d. p.r.n., Lipitor 80 mg at bedtime, Lyrica 50 mg 3 times a day, metformin 1000 twice a day, magnesium 250 three times a day, Cozaar 100 mg daily. She was given prescription of *------* 100 mg twice a day for 5 more days. She will follow up with Dr. Tao as outpatient. Andrzej Davidson MD
== END 2016-09-19 13:45 | disposition home health service (06) | DRG 556 ==
LOC: TRCU 11:43
PROVIDERS: ADMIT Internal Medicine Nephrology; ATTEND Internal Medicine Nephrology
PROC: F07Z9FZ Gait Training/Functional Ambulation Treatment using Assistive, Adaptive, Supportive or Protective Equipment (ICD-10-PCS; principal; 2016-09-16)
PROC: F07Z5FZ Bed Mobility Treatment using Assistive, Adaptive, Supportive or Protective Equipment (ICD-10-PCS; 2016-09-16)
PROC: F07Z8FZ Transfer Training Treatment using Assistive, Adaptive, Supportive or Protective Equipment (ICD-10-PCS; 2016-09-16)
PROC: F07L6YZ Therapeutic Exercise Treatment of Musculoskeletal System - Lower Back / Lower Extremity using Other Equipment (ICD-10-PCS; 2016-09-16)
PROC: F08Z4ZZ Home Management Treatment (ICD-10-PCS; 2016-09-17)
DX: R26.2 Difficulty in walking, not elsewhere classified (principal); E11.22 Type 2 diabetes mellitus with diabetic chronic kidney disease; E11.65 Type 2 diabetes mellitus with hyperglycemia; N39.0 Urinary tract infection, site not specified; B96.1 Klebsiella pneumoniae [K. pneumoniae] as the cause of diseases classified elsewhere; I12.9 Hypertensive chronic kidney disease with stage 1 through stage 4 chronic kidney disease, or unspecified chronic kidney disease; N18.9 Chronic kidney disease, unspecified; K57.10 Diverticulosis of small intestine without perforation or abscess without bleeding; E86.0 Dehydration; R55 Syncope and collapse; E78.5 Hyperlipidemia, unspecified; M25.551 Pain in right hip; K59.00 Constipation, unspecified; F41.9 Anxiety disorder, unspecified; E66.9 Obesity, unspecified; R42 Dizziness and giddiness; Z79.84 Long term (current) use of oral hypoglycemic drugs; Z85.43 Personal history of malignant neoplasm of ovary; Z85.07 Personal history of malignant neoplasm of pancreas; Z68.34 Body mass index [BMI] 34.0-34.9, adult

== ENCOUNTER 2016-10-01 09:04 | Observation (INO) | payer MEDICARE ==
[2016-10-01 09:14] VITALS: BMI 34.1
--- NOTE | 2016-10-01 09:19 | ED PDOC ---
Arrival/HPI - General Chief Complaint: Chest Pain Time Seen by Provider: 10/01/16 09:16 Historian: Patient - History of Present Illness Narrative History of Present Illness (Text): 10/01/16 09:19 A 81 year old female, whose past medical history includes diabetes and dyslipidemia, presents to the emergency department complaining of chest pain since this morning. Patient describes the pain as a dull pressure. She denies any radiating pain to back or a ripping/tearing sensation. Patient notes mild shortness of breath but denies any fever, chills, nausea, vomiting, back pain or any other complaints. PMD: Dr. Cayden Martínez Time/Duration: Other (This morning ) Symptom Course: Unchanged Quality: Pressure Context: Home Past Medical History - Provider Review Nursing Documentation Reviewed: Yes - Infectious Disease Hx of Infectious Diseases: None - Tetanus Immunization Tetanus Immunization: Up to Date, Unknown - Reproductive Menopause: Yes - Cardiac Hx Cardiac Disorders: Yes Hx Hypertension: Yes - Pulmonary Hx Respiratory Disorders: Yes Hx Bronchitis: Yes - Neurological HX Cerebrovascular Accident: Yes (no residual effects) - HEENT Hx HEENT Disorder: Yes Hx Deafness: Yes (LEFT EAR) Other/Comment: RIGHT EAR TINNITUS. WEARS GLASSES, NEAR SIGHTED - Renal Hx Renal Disorder: Yes Hx Kidney Stones: Yes ("CAME OUT ON OWN") - Endocrine/Metabolic Hx Diabetes Mellitus Type 2: Yes - Hematological/Oncological Hx Blood Disorders: Yes Other/Comment: " I HAD A BLOOD INFECTION 2-3 YRS. AGO-THEY DON'T KNOW WHAT IT WAS" - Integumentary Hx Dermatological Disorder: Yes (HX OF SKIN BREAKDOWN AND WOUNDS) Other/Comment: HX. LEFT BREAST CYST - Musculoskeletal/Rheumatological Hx Falls: No - Gastrointestinal Hx Gastrointestinal Disorders: Yes Hx Gastroesophageal Reflux: Yes Hx Pancreatitis: Yes Other/Comment: RECTAL BLEEDING - Genitourinary/Gynecological Hx Genitourinary Disorders: Yes (URGENCY) - Psychiatric Hx Psychophysiologic Disorder: Yes Hx Anxiety: Yes Hx Depression: Yes Hx Emotional Abuse: No Hx Physical Abuse: No Hx Substance Use: No - Surgical History Hx Hysterectomy: Yes Hx Orthopedic Surgery: Yes Other/Comment: LEFT BREAST CYST REMOVED - Anesthesia Hx Anesthesia: Yes Hx Anesthesia Reactions: No Hx Malignant Hyperthermia: No - Suicidal Assessment Feels Threatened In Home Enviroment: No Family/Social History - Physician Review Nursing Documentation Reviewed: Yes Family/Social History: No Known Family HX Smoking Status: Former Smoker Hx Alcohol Use: No Hx Substance Use: No Hx Substance Use Treatment: No Allergies/Home Meds Allergies/Adverse Reactions: Allergies No Known Allergies Allergy (Verified 11/02/12 08:43) Home Medications: Home Meds Medication Instructions Recorded Confirmed Furosemide [Lasix] 20 mg PO BID 11/02/12 10/01/16 Metformin HCl 1,000 mg PO BID 11/02/12 10/01/16 Pregabalin [Lyrica] 50 mg PO TID 11/02/12 10/01/16 Ramipril 5 mg PO QAM 11/02/12 10/01/16 Sertraline HCl 25 mg PO QPM 11/02/12 10/01/16 Insulin Glargine,Hum.rec.anlog 40 unit SC 07/17/14 10/01/16 [Lantus] Atorvastatin [Lipitor] 80 mg PO HS 05/09/15 10/01/16 Calcium Carbonate [Calcium] 500 mg PO DAILY 05/09/15 10/01/16 Glipizide 10 mg PO DAILY 05/09/15 10/01/16 Magnesium 250 mg PO TID 05/09/15 10/01/16 Meclizine HCl [Antivert] 25 mg PO TID 05/09/15 10/01/16 Metoprolol Succinate [Toprol XL] 50 mg PO DAILY 05/09/15 10/01/16 Omeprazole 20 mg PO DAILY 05/09/15 10/01/16 Clonazepam [Klonopin] 0.5 mg PO TID 07/08/16 10/01/16 Esomeprazole Magnesium [Nexium 20 mg PO DAILY 09/11/16 10/01/16 24Hr] Losartan [Cozaar] 100 mg PO DAILY 09/11/16 10/01/16 Physical Exam - Physical Exam Narrative Physical Exam (Text): - Review of Systems Constitutional: Normal. absent: Fatigue, Weight Change, Fevers Eyes: Normal ENT: Normal Respiratory: (+) Mild SOB absent: Cough, Sputum Cardiovascular: (+) Chest pain absent:Palpitations, Syncope Gastrointestinal: Normal absent: Abdominal pain, Diarrhea, Nausea, Vomiting Genitourinary: Normal. absent: Dysuria, Frequency, Hematuria Musculoskeletal: Normal. absent: Arthralgias, Back Pain, Neck Pain Skin: Normal Neurological: Normal absent: Focal Weakness Endocrine: Normal Hemo/Lymphatic: Normal Psychiatric: Normal - Physical exam Patient appears age appropriate, speaking full sentences without difficulty - Systems Exam Head: Present: Atraumatic, Normocephalic Pupils: Present: PERRL Extraocular Muscles: Present: EOMI Conjunctiva: Present: Normal Mouth: Present: Moist Mucous Membranes Neck: Present: Normal Range of Motion. No: MIDLINE TENDERNESS, Paraspinal Tenderness Respiratory/Chest: Present:Mild shortness of breath. Clear to Auscultation, Good Air Exchange. No: Respiratory Distress, Accessory Muscle Use, Tachypnic Cardiovascular: Present: Chest pain, dull pressure. Pain not ripping/tearing or radiating to back. Regular Rate and Rhythm, Normal S1, S2, Peripheral Pulses Present. No: Murmurs Abdomen: Present: Normal Bowel Sounds, No: Tenderness, Peritoneal Signs, Rebound, Guarding, Distention Back: Present: Normal Inspection. No: Midline Tenderness, Paraspinal Tenderness Upper Extremity: Present: Normal Inspection. No: Cyanosis, Edema Lower Extremity: Present: Bilateral 2+ pitting edema. No: Tenderness, Asymmetry. Neurological: Present: GCS=15, Speech Normal, cranial nerves II through XII fully intact with no cerebellar abnormality, neuro-sensory fully intact. No focal neurological deficits. Skin: Present: Warm, Dry, Normal Color. No: Rashes Lymphatic: Present: OX3, NI, NC Psychiatric: Present: Alert, Oriented x 3, Normal Insight, Normal Concentration Vital Signs Reviewed: Yes Vital Signs Temp Pulse Pulse Pulse Resp BP BP 10/01/16 14:15 97.6 F 58 L 58 L 18 117/57 L 10/01/16 14:02 54 L 20 143/59 L 10/01/16 13:44 143/59 L 10/01/16 10:37 58 L 18 117/57 L 10/01/16 09:30 58 L 142/87 10/01/16 09:17 97.6 F 61 20 142/87 Pulse Ox 10/01/16 14:15 10/01/16 14:02 100 10/01/16 13:44 10/01/16 10:37 100 10/01/16 09:30 10/01/16 09:17 98 Temperature: Afebrile Blood Pressure: Normal Pulse: Regular Respiratory Rate: Normal Appearance: Positive for: Well-Appearing, Non-Toxic, Comfortable Pain Distress: None Mental Status: Positive for: Alert and Oriented X 3 Finger Stick Blood Glucose: 63 Medical Decision Making ED Course and Treatment: 10/01/16 09:19 Impression: A 81 year old female with chest pain. Patient notes mild shortness of breath. On exam, +2 pitting edema bilaterally, otherwise normal. Differential Diagnosis included but are not limited to: Pneumonia vs. ACS Plan: -- Chest X-ray -- EKG -- Labs -- Aspirin and Nitroglycerin -- Reassess and disposition Prior Visits: Notes and results from previous visits were reviewed. Patient last seen in ED on 09/19/16 and treated for near-syncope, Hyperglycemia and UTI. Progress Notes: EKG: Ordered, reviewed, and independently interpreted the EKG. Rate : 60 BPM Rhythm : NSR Interpretation : No ST-segment elevations, normal intervals. Interpreted by me. 10/01/16 10:56: Case discussed with Dr. Baxter, who accepts patient to his service with Dr. Rose on consult. 10/01/16 10:58: Chest xray read and interpreted by me, which shows mild cardiomegaly with vascular congestion noted. 10/01/16 10:59: BNP ordered. pt in no distress, aware of and agrees with plan states she has no cp/sob at this time Report Date : 10/01/2016 13:16:00 Procedure: Chest xray Dictator : Orestes Zurita MD IMPRESSION: Poor inspiration with low lung volumes, crowded bronchovascular markings and mild bibasilar atelectasis. The interstitial markings are also somewhat increased and coarsened ; rule out sequela of reactive/inflammatory airway disease or possibly pulmonary edema/ CHF however developing pneumonia could be excluded followup radiographs. Mild biapical pleural thickening. - Lab Interpretations Lab Results: 10/01/16 09:50 10/01/16 09:50 Lab Results 10/01/16 09:50: NT-Pro-B Natriuret Pep 472 H 10/01/16 09:50: Sodium 146, Potassium 4.4, Chloride 112 H, Carbon Dioxide 23, Anion Gap 15, BUN 26 H, Creatinine 1.1, Est GFR ( Amer) 58, Est GFR (Non- Af Amer) 48, Random Glucose 53 L, Calcium 9.1, Total Bilirubin 0.6, AST 35, ALT 48, Alkaline Phosphatase 125, Lactate Dehydrogenase 660, Total Creatine Kinase 43, Troponin I < 0.01, Total Protein 6.5, Albumin 3.5, Globulin 3.0, Albumin/ Globulin Ratio 1.2 10/01/16 09:50: PT 10.3, INR 0.95, APTT 25.7 10/01/16 09:50: WBC 6.0, RBC 3.65, Hgb 10.8 L, Hct 33.3 L, MCV 91.2, MCH 29.6, MCHC 32.4, RDW 13.4, Plt Count 185, MPV 10.8, Gran % 59.7, Lymph % (Auto) 32.2, Banks % (Auto) 6.0, Eos % (Auto) 1.8, Baso % (Auto) 0.3, Gran # 3.56, Lymph # 1.9 , Banks # 0.4, Eos # 0.1, Baso # 0.02 10/01/16 09:11: POC Glucose (mg/dL) 63 L I have reviewed the lab results: Yes - RAD Interpretation Radiology Orders: 10/01/16 09:19 CHEST PORTABLE [RAD] Stat - Medication Orders Current Medication Orders: Discontinued Medications Aspirin (Aspirin Chewable) 324 mg PO STAT STA Stop: 10/01/16 09:18 Last Admin: 10/01/16 09:59 Dose: 324 mg Dextrose (Dextrose 50% Inj) 50 ml IVP STAT STA Stop: 10/01/16 11:19 Last Admin: 10/01/16 13:44 Dose: Furosemide (Lasix) 20 mg IVP STAT STA Stop: 10/01/16 11:00 Last Admin: 10/01/16 13:44 Dose: 20 mg Nitroglycerin (Nitrostat Sl Tab) 0.3 mg SL STAT STA Stop: 10/01/16 09:19 Last Admin: 10/01/16 10:00 Dose: 0.3 mg Pneumococcal Polyvalent Vaccine (Pneumovax 23 Vaccine) 0.5 ml IM .ONCE ONE Stop: 10/01/16 14:35 - Scribe Statement The provider has reviewed the documentation as recorded by the Elizabeth Choi training under Milly Herron Provider Scribe Attestation: All medical record entries made by the Scribe were at my direction and personally dictated by me. I have reviewed the chart and agree that the record accurately reflects my personal performance of the history, physical exam, medical decision making, and the department course for this patient. I have also personally directed, reviewed, and agree with the discharge instructions and disposition. Disposition/Present on Arrival - Present on Arrival Any Indicators Present on Arrival: No History of DVT/PE: No History of Uncontrolled Diabetes: Yes Urinary Catheter: No History of Decub. Ulcer: No History Surgical Site Infection Following: None - Disposition Have Diagnosis and Disposition been Completed?: Yes Diagnosis: Chest pain Disposition: HOSPITALIZED Disposition Time: 11:18 Patient Plan: Observation Patient Problems: Current Active Problems Problem Status Onset Chest pain Acute Condition: STABLE
[2016-10-01 10:18] LABS: BASO # 0.02 K/mm3 (0.0-2.0); BASO % 0.3 % (0.0-3.0); EOS # 0.1 (0.0-0.7); EOS % 1.8 % (1.5-5.0); GRAN # 3.56 (1.4-6.5); GRAN % 59.7 % (50.0-68.0); HEMOGLOBIN 10.8 gm/dL (12.0-16.0); LYMPH # 1.9 (1.2-3.4); LYMPH % 32.2 % (22.0-35.0); MEAN CELL VOLUME 91.2 fL (80.0-105.0); MEAN CORPUSCULAR HEMOGLOBIN 29.6 pg (25.0-35.0); MEAN CORPUSCULAR HGB CONC 32.4 g/dl (31.0-37.0); MEAN PLATELET VOLUME 10.8 fl (7.0-11.0); MONO # 0.4 (0.1-0.6); PLATELET COUNT 185 10^3/uL (120.0-450.0); RBC 3.65 10^6/uL (3.5-6.1); RED CELL DISTRIBUTION WIDTH 13.4 % (11.5-14.5)
[2016-10-01 10:26] LABS: INR 0.95 (0.93-1.08); PARTIAL THROMBOPLASTIN TIME 25.7 Seconds (23.7-30.8); PROTHROMBIN TIME 10.3 Seconds (9.9-11.8)
[2016-10-01 10:29] LABS: ALB/GLOB RATIO 1.2 (1.1-1.8); ALBUMIN 3.5 g/dL (3.0-4.8); ALT/SGPT 48 U/L (7-56); AST/SGOT 35 U/L (15-39); BLOOD UREA NITROGEN 26 mg/dL (7-21); CALCIUM 9.1 mg/dL (8.4-10.5); GFR AFRICAN-AMERICAN 58; GFR NON-AFRICAN AMERICAN 48
[2016-10-01 10:55] LABS: TROPONIN I < 0.01 ng/mL
[2016-10-01] MEDS ORDERED: Dextrose 50% SYRINGE Inj (50 ml) IVP STA (11:18)
--- NOTE | 2016-10-01 12:05 | CARD ---
APPROVED REPORT EKG Measurement Heart [id number] <Conclusion> Normal sinus rhythm Normal ECG
--- NOTE | 2016-10-01 13:19 | RAD ---
HISTORY: cough COMPARISON: Comparison made with concurrent radiographs of the left forearm FINDINGS: LUNGS: Poor inspiration with low lung volumes, crowded bronchovascular markings and mild bibasilar atelectasis. The interstitial markings are also somewhat increased and coarsened ; rule out sequela of reactive/inflammatory airway disease or possibly pulmonary edema/ CHF however developing pneumonia could be excluded followup radiographs. Mild biapical pleural thickening. PLEURA: No significant pleural effusion identified, no pneumothorax apparent. CARDIOVASCULAR: Cardiomegaly. OSSEOUS STRUCTURES: Mild degenerative osteoarthritis both shoulder girdles VISUALIZED UPPER ABDOMEN: Normal. OTHER FINDINGS: None. IMPRESSION: Poor inspiration with low lung volumes, crowded bronchovascular markings and mild bibasilar atelectasis. The interstitial markings are also somewhat increased and coarsened ; rule out sequela of reactive/inflammatory airway disease or possibly pulmonary edema/ CHF however developing pneumonia could be excluded followup radiographs. Mild biapical pleural thickening.
[2016-10-01] MEDS ORDERED: Pneumococcal 23-Valent Vaccine IM ONE (14:34)
[2016-10-01] MEDS: Insulin Detemir 100 units/ml Vial (Levemir) SC SCH (21:26)
[2016-10-01] MEDS: Insulin Reg-HIGH-Coverage SC SCH (21:26)
[2016-10-01] MEDS ORDERED: Insulin Reg-LOW-Coverage SC SCH (22:00)
[2016-10-01 23:45] VITALS: RESP 19
[2016-10-02 05:44] VITALS: O2SAT 96
[2016-10-02] MEDS: Insulin Reg-HIGH-Coverage SC SCH ×2 (08:55→12:54)
[2016-10-02] MEDS: Insulin Detemir 100 units/ml Vial (Levemir) SC SCH ×2 (09:34→09:38)
[2016-10-02] MEDS ORDERED: Insulin Detemir 100 units/ml Vial (Levemir) SC SCH (09:35)
[2016-10-02] MEDS ORDERED: Metoprolol Succinate 50 mg XL Tab PO SCH (10:00)
[2016-10-02 12:48] VITALS: BP 126/63; PULSE 93; TEMP 98.2
--- NOTE | 2016-10-02 23:33 | HP ---
HISTORY OF PRESENT ILLNESS: This is an 81-year-old female who was coming into the hospital with a past medical history of diabetes and hypertension, who was recently discharged from the hospital. The patient come in for chest pain. She states that it was radiating to the left arm. She has been having these neuropathic symptoms even on the previous admission. She does have a tattoo artist that she sees in [facility]. She has seen in the past in [place]. She has no fevers, no chills, no nausea. She states she is able to ambulate. She states that the pain lasted only for less than a minute and then improved. ALLERGIES: NO KNOWN DRUG ALLERGIES. HOME MEDICATIONS: Lasix, metformin, Lyrica, ramipril, sertraline, Lantus, Lipitor, calcium, glipizide, and magnesium. PAST MEDICAL HISTORY: Dyslipidemia, diabetes type 2, nephrolithiasis, hearing impairment, osteoarthritis, back pain and anxiety. SOCIAL HISTORY: She is to smoke, but quit 30 years ago. She lives at home with her who has developmental delay. PHYSICAL EXAMINATION VITAL SIGNS: Temperature is 98.4, pulse of 56, blood pressure 130/76, respirations 20, and O2 saturation 96%, height is 5 feet 4, weight is 199 pounds. BMI is 34.2. GENERAL: The patient is lying in bed, flat, and in no apparent distress. HEAD AND NECK EXAM: Atraumatic, normocephalic. Conjunctivae are pink. Throat is clear and mouth with moist mucosa. Oropharynx is benign. EYES: Extraocular movements are intact. PERRLA. NECK: Supple. No JVD, thyromegaly, or adenopathy. No bruits. HEART: S1 and S2 regular rate and rhythm. No murmurs, rubs, or gallops. LUNGS: Clear to auscultation bilaterally. No wheezing, rales, or rhonchi appreciated. No retractions on exam. ABDOMEN: Soft, nontender, and nondistended. Bowel sounds are positive in all quadrants. No rebound. No hepatosplenomegaly. EXTREMITIES: No cyanosis, clubbing, or edema. NEUROLOGIC: No facial asymmetry. Tongue is midline. No uvula deviation. Power is 5/5 in upper extremity and 5/5 in lower extremity. Sensation is normal in upper extremities and lower extremities. PSYCHIATRIC: Awake, alert, oriented x3. No anxiety or depression symptoms. Good insight. Normal affect. GENITOURINARY: No CVA tenderness. VASCULAR: 2+ pulses in carotid and pedal pulses. SKIN: No erythema or abnormal nodules noted. SPINE: Normal curvature. LYMPHADENOPATHY: No anterior cervical or posterior cervical adenopathy. No inguinal adenopathy. LABORATORY DATA: Sodium is 146, the patient's troponin is 0.01 on admission to the ER, the repeat is 0.01. White count is 6.0, hemoglobin 10.8. His EKG shows sinus rhythm at 60. No STT changes. Chest x-ray shows poor inspiration with low lung volumes. ASSESSMENT: 1. Chest pain, atypical. 2. Diabetes type 2. 3. Hypertension. 4. Obese with a body mass index of 34. PLAN: The patient is currently comfortable. The patient had low blood sugars. I did decrease the patient's insulin regimen. I did speak to Dr. Owens regarding the case. The patient is continued on Lipitor for her dyslipidemia, is on Os-Tashi Zoloft. She is going to be discharged and followed up as an outpatient with her own tattoo artist or she can come to Dr. Owens. I did speak to Dr. Owens who has okayed the patient to be discharged and followed up as an outpatient. Monroe Baxter MD
--- NOTE | 2016-10-03 00:26 | CON ---
DATE: 10/02/2016 REQUESTING PHYSICIAN: Dr. Baxter. CONSULTATION: Chest pain. HISTORY OF PRESENT ILLNESS: This is an 81-year-old woman with a history of diabetes and hyperlipidemia, who presents to the emergency room complaining of vague chest pain. She states she originally felt palpitations which have been occurring on and off for several days. Last evening, she had a stabbing chest pain discomfort which was fairly severe and appeared to wax and wane. She became concerned and presents to the emergency room. Initial workup has been unremarkable. She has no prior cardiac history. She is not hypertensive and does not smoke. She does have a history of diabetes and hyperlipidemia. She also has a history of neuropathy. He does have a history of hypertension. MEDICATIONS AT HOME: Include metformin 1000 mg b.i.d., Lasix 20 mg b.i.d., Lyrica 50 mg t.i.d., ramipril 5 mg daily, Zoloft 25 mg daily, insulin, Lipitor 80 mg daily, glipizide 10 mg daily, magnesium, Toprol-XL 50 mg daily, omeprazole, Cozaar 100 mg daily, and Nexium 20 mg daily. SOCIAL HISTORY: She is a former smoke. She denies alcohol use. FAMILY HISTORY: Both parents from age-related illness. ALLERGIES: NONE. REVIEW OF SYSTEMS: Ten-point review of systems otherwise remarkable. PHYSICAL EXAMINATION: GENERAL: She is an anxious-appearing elderly woman. VITAL SIGNS: Her blood pressure is 130/76 with a pulse of 56 and sinus, respiratory rate of 14. She is currently afebrile. HEENT: Normocephalic, atraumatic. NECK: Supple. No JVD noted. CHEST: Clear to auscultation and precaution. HEART: PMI displaced laterally with systolic murmur in left sternal border. ABDOMEN: Soft, nontender, normoactive bowel sounds. EXTREMITIES: No clubbing, cyanosis or edema. SKIN: Warm and dry. PSYCHIATRIC: Normal mood and affect. NEUROLOGIC: Alert and oriented x3. No gross motor sensory deficit appreciable. DIAGNOSTIC DATA: White count 6.0, hemoglobin and hematocrit 10.8 and 33.3, and platelet of 185,000. PT and PTT are normal. Potassium 4.4, BUN and creatinine 26 and 1.1. Two sets of cardiac enzymes are negative. BNP 472. CK is negative. Chest x-ray reveals poor inspiratory effort with increased interstitial markings. Electrocardiogram reveals sinus rhythm, no significant abnormalities. IMPRESSION: 1. Chest pain, appears somewhat atypical, doubt clear cardiac ischemia at the present time. 2. Multiple cardiac risk factors given history of hypertension, diabetes and remote tobacco abuse. 3. Rest of the problems as noted. RECOMMENDATIONS: From a cardiac standpoint, she appears stable and discharged home at this time. Continued medical therapy appears most reasonable. If she has recurrent chest discomfort, what sounds more angina in nature, further evaluation with stress test and/or catheterization can be considered. Thank you for this consultation. I will follow as needed. Sunny Owens MD
== END 2016-10-02 15:15 | disposition home or self-care (01) ==
LOC: ED 09:04 → ERH 10:56 → 2RNO 14:56
PROVIDERS: ADMIT Internal Medicine Nephrology; ATTEND Internal Medicine Nephrology
DX: R07.89 Other chest pain (principal); I10 Essential (primary) hypertension; H91.90 Unspecified hearing loss, unspecified ear; E78.5 Hyperlipidemia, unspecified; E66.9 Obesity, unspecified; E11.9 Type 2 diabetes mellitus without complications; J98.11 Atelectasis; K21.9 Gastro-esophageal reflux disease without esophagitis; Z68.34 Body mass index [BMI] 34.0-34.9, adult; Z79.899 Other long term (current) drug therapy; Z86.73 Personal history of transient ischemic attack (TIA), and cerebral infarction without residual deficits; Z87.442 Personal history of urinary calculi; Z90.710 Acquired absence of both cervix and uterus
CPT/HCPCS: 36415; 71010; 80053; 82550; 82948; 83615; 83880; 84484; 85025; 85610; 85730; 93005; 96374; 99285; G0378; J1940

== ENCOUNTER 2016-11-15 13:00 | Observation (INO) | payer MEDICARE ==
[2016-11-15 13:12] VITALS: BMI 33.7
[2016-11-15 14:05] LABS: BASO # 0.02 K/mm3 (0.0-2.0); BASO % 0.3 % (0.0-3.0); EOS # 0.1 (0.0-0.7); EOS % 1.6 % (1.5-5.0); GRAN # 4.03 (1.4-6.5); GRAN % 58.9 % (50.0-68.0); HEMATOCRIT 35.1 % (36.0-48.0); LYMPH # 2.4 (1.2-3.4); LYMPH % 34.4 % (22.0-35.0); MEAN CELL VOLUME 91.4 fl (80.0-105.0); MEAN CORPUSCULAR HEMOGLOBIN 30.2 pg (25.0-35.0); MONO # 0.3 (0.1-0.6); MONO % 4.8 % (1.0-6.0); RED CELL DISTRIBUTION WIDTH 13.2 % (11.5-14.5); WHITE BLOOD COUNT 6.8 10^3/ul (4.5-11.0)
[2016-11-15 14:14] LABS: INR 0.99 (0.93-1.08); PARTIAL THROMBOPLASTIN TIME 25.1 Seconds (23.7-30.8)
[2016-11-15 14:15] LABS: ALB/GLOB RATIO 1.4 (1.1-1.8); ALKALINE PHOSPHATASE 138 U/L (38-126); ALT/SGPT 34 U/L (7-56); AST/SGOT 27 U/L (14-36); BILIRUBIN,TOTAL 0.8 mg/dL (0.2-1.3); BLOOD UREA NITROGEN 42 mg/dL (7-21); CALCIUM 9.9 mg/dL (8.4-10.5); CARBON DIOXIDE 23 mmol/L (21-33); CHLORIDE 110 mmol/L (98-107); GFR AFRICAN-AMERICAN 37; GLUCOSE,RANDOM 95 mg/dL (70-110); LIPASE 62 U/L (23-300); POTASSIUM 4.4 mmol/L (3.6-5.0); SODIUM 145 mmol/L (132-148); TOTAL PROTEIN 7.1 g/dL (5.8-8.3)
[2016-11-15 14:19] LABS: URINE BILIRUBIN NEGATIVE (NEGATIVE); URINE BLOOD NEGATIVE (NEGATIVE); URINE GLUCOSE (UA) NEGATIVE (NEGATIVE); URINE KETONE NEGATIVE (NEGATIVE); URINE LEUKOCYTE ESTERASE SMALL Leu/uL (NEGATIVE); URINE PROTEIN NEGATIVE mg/dL (<30 mg/dL); URINE UROBILINOGEN 0.2 E.U./dL (<1 E.U./dL)
[2016-11-15 14:26] LABS: TROPONIN I < 0.01 ng/mL
[2016-11-15 14:35] LABS: URINE APPEARANCE CLEAR (CLEAR); URINE COLOR STRAW (YELLOW)
[2016-11-15 14:43] LABS: URINE RBC 0 - 2 /hpf (0-2)
[2016-11-15 14:44] LABS: URINE BACTERIA FEW (NEG); URINE EPITHELIAL CELLS 0 - 2 /hpf (0-5)
--- NOTE | 2016-11-15 15:57 | RAD ---
HISTORY: chest pain/weakness, near syncope COMPARISON: 10/01/2016 FINDINGS: LUNGS: No active pulmonary disease. PLEURA: No significant pleural effusion identified, no pneumothorax apparent. CARDIOVASCULAR: Normal. OSSEOUS STRUCTURES: No significant abnormalities. VISUALIZED UPPER ABDOMEN: Normal. OTHER FINDINGS: None. IMPRESSION: No active disease.
--- NOTE | 2016-11-15 16:14 | CARD ---
APPROVED REPORT EKG Measurement Heart [id number] <Conclusion> Sinus bradycardia Inferior infarct, age undetermined Cannot rule out Anterior infarct, age undetermined Abnormal ECG
--- NOTE | 2016-11-15 16:22 | CT ---
PROCEDURE: CT HEAD WITHOUT CONTRAST. HISTORY: near syncope COMPARISON: 09/11/2016 TECHNIQUE: Axial computed tomography images were obtained through the head/brain without intravenous contrast. Radiation dose: Total exam DLP = 677 mGy-cm. This CT exam was performed using one or more of the following dose reduction techniques: Automated exposure control, adjustment of the mA and/or kV according to patient size, and/or use of iterative reconstruction technique. FINDINGS: HEMORRHAGE: No intracranial hemorrhage. BRAIN: No mass effect or edema. Mild chronic microvascular changes are seen in the periventricular white matter and basal ganglia VENTRICLES: Unremarkable. No hydrocephalus. CALVARIUM: Unremarkable. PARANASAL SINUSES: Unremarkable as visualized. No significant inflammatory changes. MASTOID AIR CELLS: Unremarkable as visualized. No inflammatory changes. OTHER FINDINGS: None. IMPRESSION: No acute intracranial finding
--- NOTE | 2016-11-15 17:25 | ED PDOC ---
Arrival/HPI - General Chief Complaint: Chest Pain Time Seen by Provider: 11/15/16 13:32 Historian: Patient - History of Present Illness Narrative History of Present Illness (Text): 11/15/16 17:20 81yr old female presents today with generalized weakness, near syncope, dizziness and one episode of chest pain. Patient states 2 days ago she had one episode of diarrhea. Patient states today she was feeling extremely dizzy and weak. Patient states when she tried to get up she felt like she was unable to stand up due to the weakness. She states when she was walking back to her room she felt dizzy and off balance. pt also c/o dysuria. denies cp or sob at present time. denies abdominal pain. pt denies constipation. no n/v. pt states after the one episode of diarrhea 2 days ago she has been without any diarrhea. Past Medical History - Provider Review Nursing Documentation Reviewed: Yes - Travel History Have you recently traveled outside [place] w/in the past 3 mons?: No - Infectious Disease Hx of Infectious Diseases: None - Tetanus Immunization Tetanus Immunization: Unknown - Cardiac Hx Cardiac Disorders: Yes Hx Hypertension: Yes - Pulmonary Hx Respiratory Disorders: Yes Hx Bronchitis: Yes - Neurological HX Cerebrovascular Accident: Yes (no residual effects) - HEENT Hx HEENT Disorder: Yes Hx Deafness: Yes (LEFT EAR) Other/Comment: RIGHT EAR TINNITUS. WEARS GLASSES, NEAR SIGHTED - Renal Hx Renal Disorder: Yes Hx Kidney Stones: Yes ("CAME OUT ON OWN") - Endocrine/Metabolic Hx Diabetes Mellitus Type 2: Yes - Hematological/Oncological Hx Blood Disorders: Yes Other/Comment: " I HAD A BLOOD INFECTION 2-3 YRS. AGO-THEY DON'T KNOW WHAT IT WAS" - Integumentary Hx Dermatological Disorder: Yes (HX OF SKIN BREAKDOWN AND WOUNDS) Other/Comment: HX. LEFT BREAST CYST - Musculoskeletal/Rheumatological Hx Arthritis: Yes - Gastrointestinal Hx Gastrointestinal Disorders: Yes Hx Gastroesophageal Reflux: Yes Hx Hemorrhoids: Yes Hx Pancreatitis: Yes Other/Comment: RECTAL BLEEDING - Genitourinary/Gynecological Hx Incontinence: Yes (wears diapers) - Psychiatric Hx Psychophysiologic Disorder: Yes Hx Anxiety: Yes Hx Depression: Yes Hx Emotional Abuse: No Hx Physical Abuse: No Hx Substance Use: No - Surgical History Hx Orthopedic Surgery: Yes Other/Comment: LEFT BREAST CYST REMOVED - Anesthesia Hx Anesthesia: Yes Hx Anesthesia Reactions: No Hx Malignant Hyperthermia: No - Suicidal Assessment Feels Threatened In Home Enviroment: No Family/Social History - Physician Review Nursing Documentation Reviewed: Yes Family/Social History: Unknown Family HX Smoking Status: Former Smoker Hx Alcohol Use: No Hx Substance Use: No Hx Substance Use Treatment: No Allergies/Home Meds Allergies/Adverse Reactions: Allergies No Known Allergies Allergy (Verified 11/02/12 08:43) Home Medications: Home Meds Medication Instructions Recorded Confirmed Furosemide [Lasix] 20 mg PO BID 11/02/12 11/15/16 Metformin HCl 1,000 mg PO BID 11/02/12 11/15/16 Pregabalin [Lyrica] 50 mg PO TID 11/02/12 11/15/16 Ramipril 5 mg PO QAM 11/02/12 11/15/16 Sertraline HCl 25 mg PO QPM 11/02/12 11/15/16 Insulin Glargine,Hum.rec.anlog 1 unit SC 07/17/14 11/15/16 [Lantus] Atorvastatin [Lipitor] 80 mg PO 05/09/15 11/15/16 Calcium Carbonate [Calcium] 500 mg PO DAILY 05/09/15 11/15/16 Glipizide 10 mg PO DAILY 05/09/15 11/15/16 Magnesium 250 mg PO TID 05/09/15 11/15/16 Meclizine HCl [Antivert] 25 mg PO TID 05/09/15 11/15/16 Metoprolol Succinate [Toprol XL] 50 mg PO DAILY 05/09/15 11/15/16 Omeprazole 20 mg PO DAILY 05/09/15 11/15/16 Clonazepam [Klonopin] 0.5 mg PO TID 07/08/16 11/15/16 Losartan [Cozaar] 100 mg PO DAILY 09/11/16 11/15/16 Review of Systems - Review of Systems Constitutional: Fatigue. absent: Fevers Respiratory: absent: SOB, Cough Cardiovascular: Chest Pain. absent: Palpitations Gastrointestinal: Diarrhea. absent: Abdominal Pain, Constipation, Nausea, Vomiting Genitourinary Female: Dysuria. absent: Frequency, Hematuria, Vaginal Bleeding Musculoskeletal: absent: Arthralgias, Back Pain, Neck Pain Skin: absent: Rash, Pruritis Neurological: Dizziness, Disequilibrium. absent: Headache Psychiatric: absent: Anxiety, Depression, Suicidal Ideation Physical Exam Vital Signs Reviewed: Yes Vital Signs Temp Pulse Resp BP Pulse Ox 11/15/16 13:18 97.6 F 57 L 18 122/48 L 94 L Temperature: Afebrile Blood Pressure: Normal Pulse: Regular Respiratory Rate: Normal Appearance: Positive for: Well-Appearing, Non-Toxic, Comfortable Pain Distress: None Mental Status: Positive for: Alert and Oriented X 3 Finger Stick Blood Glucose: 59 - Systems Exam Head: Present: Atraumatic Pupils: Present: PERRL Extroacular Muscles: Present: EOMI Mouth: Present: Moist Mucous Membranes Neck: Present: Normal Range of Motion, Trachea Midline. No: Meningeal Signs Respiratory/Chest: Present: Clear to Auscultation, Good Air Exchange. No: Respiratory Distress, Accessory Muscle Use Cardiovascular: Present: Regular Rate and Rhythm, Normal S1, S2. No: Murmurs Abdomen: Present: Normal Bowel Sounds. No: Tenderness, Distention, Peritoneal Signs, Rebound, Guarding Back: Present: Normal Inspection Upper Extremity: Present: Normal ROM Lower Extremity: Present: Normal ROM. No: CALF TENDERNESS Neurological: Present: GCS=15, Speech Normal Skin: Present: Warm, Dry Psychiatric: Present: Alert, Oriented x 3 Medical Decision Making ED Course and Treatment: 11/15/16 17:27 81-year-old female presents today with dizziness and near syncopal episode with generalized weakness and fatigue. CBC within normal limits CMP BUN 42 creatinine 1.6 Troponin within normal limits Urinalysis trace leukocytes CAT scan of the head:FINDINGS: HEMORRHAGE: No intracranial hemorrhage. BRAIN: No mass effect or edema. Mild chronic microvascular changes are seen in the periventricular white matter and basal ganglia VENTRICLES: Unremarkable. No hydrocephalus. CALVARIUM: Unremarkable. PARANASAL SINUSES: Unremarkable as visualized. No significant inflammatory changes. MASTOID AIR CELLS: Unremarkable as visualized. No inflammatory changes. OTHER FINDINGS: None. IMPRESSION: No acute intracranial finding ekg; sinus bradycardia at [address] elevations no qtc prolongation, normal intervals cxr: wnl pt reassessment; pt non toxic well appearing; no distress. c/o fatigue. vitals stable. case discussed with dr. brambila;will admit observational status to tele for near syncope, dehydration, uti Rocephin 1g IV ASA given PO. impression; near syncope, dehydration, UTI observational status, tele - Lab Interpretations Lab Results: 11/15/16 13:40 11/15/16 13:40 Lab Results 11/15/16 14:00: Urine Color Straw, Urine Appearance Clear, Urine pH 6.0, Ur Specific [place] 1.010, Urine Protein Negative, Urine Glucose (UA) Negative, Urine Ketones Negative, Urine Blood Negative, Urine Nitrate Negative, Urine Bilirubin Negative, Urine Urobilinogen 0.2, Ur Leukocyte Esterase Small H, Urine RBC 0 - 2, Urine WBC 1 - 3, Ur Epithelial Cells 0 - 2, Urine Bacteria Few 11/15/16 13:40: WBC 6.8, RBC 3.84, Hgb 11.6 L, Hct 35.1 L, MCV 91.4, MCH 30.2, MCHC 33.0, RDW 13.2, Plt Count 165, MPV 11.0, Gran % 58.9, Lymph % (Auto) 34.4, [place] % (Auto) 4.8, Eos % (Auto) 1.6, Baso % (Auto) 0.3, Gran # 4.03, Lymph # 2.4 , [place] # 0.3, Eos # 0.1, Baso # 0.02 11/15/16 13:40: Sodium 145, Potassium 4.4, Chloride 110 H, Carbon Dioxide 23, Anion Gap 16, BUN 42 H, Creatinine 1.6 H, Est GFR ( Amer) 37, Est GFR ( Non-Af Amer) 31, Random Glucose 95, Calcium 9.9, Total Bilirubin 0.8, AST 27, ALT 34, Alkaline Phosphatase 138 H, Lactate Dehydrogenase 451, Total Creatine Kinase 32 L, Troponin I < 0.01, NT-Pro-B Natriuret Pep 126, Total Protein 7.1, Albumin 4.1, Globulin 3.0, Albumin/Globulin Ratio 1.4, Lipase 62 11/15/16 13:40: PT 10.7, INR 0.99, APTT 25.1 - RAD Interpretation Radiology Orders: 11/15/16 13:33 HEAD W/O CONTRAST [CT] Stat CHEST PORTABLE [RAD] Stat - Medication Orders Current Medication Orders: Atorvastatin Calcium (Lipitor) 80 mg PO HS RO[facility] Calcium Carbonate (Oscal) 500 mg PO DAILY [facility] Clonazepam (Klonopin) 0.5 mg PO TID PRN; Protocol PRN Reason: Anxiety Sodium Chloride (Sodium Chloride 0.9%) 500 mls @ 50 mls/hr IV .Q10H RO[facility] Last Admin: 11/15/16 17:29 Dose: 50 mls/hr Ceftriaxone Sodium (Rocephin 1 Gram Ivpb) 100 mls @ 200 mls/hr IVPB STAT STA PRN Reason: Protocol Stop: 11/15/16 18:03 Pregabalin (Lyrica) 50 mg PO TID [facility] Sertraline HCl (Zoloft) 25 mg PO QPM [facility] Disposition/Present on Arrival - Present on Arrival Any Indicators Present on Arrival: Yes History of DVT/PE: No History of Uncontrolled Diabetes: Yes Urinary Catheter: No History of Decub. Ulcer: No History Surgical Site Infection Following: None - Disposition Have Diagnosis and Disposition been Completed?: Yes Diagnosis: UTI (urinary tract infection), Near syncope, Dehydration Disposition: HOSPITALIZED Disposition Time: 17:37 Patient Plan: Telemetry Condition: FAIR Referrals: Cayden Martínez MD [Primary Care Provider] - Follow up with primary Forms: [email or web address] ([place])
[2016-11-15] MEDS: Sodium Chloride 0.9% 500 ML IV SCH (17:29)
[2016-11-15] MEDS ORDERED: cefTRIAXone 1 gm 1 GM/100 ML BAG IVPB STA (17:34)
[2016-11-15] MEDS ORDERED: Pneumococcal 23-Valent Vaccine IM ONE (22:17)
[2016-11-15 23:33] VITALS: O2SAT 96
[2016-11-16] MEDS: Sodium Chloride 0.9% 500 ML IV SCH (06:09)
[2016-11-16 06:30] LABS: HEMATOCRIT 34.5 % (36.0-48.0); MEAN CELL VOLUME 91.8 fl (80.0-105.0); MEAN CORPUSCULAR HEMOGLOBIN 29.5 pg (25.0-35.0); MEAN CORPUSCULAR HGB CONC 32.2 g/dl (31.0-37.0); MEAN PLATELET VOLUME 11.1 fl (7.0-11.0); RED CELL DISTRIBUTION WIDTH 13.3 % (11.5-14.5); WHITE BLOOD COUNT 5.7 10^3/ul (4.5-11.0)
[2016-11-16 06:41] LABS: ALB/GLOB RATIO 1.2 (1.1-1.8); BILIRUBIN,TOTAL 0.8 mg/dL (0.2-1.3); CALCIUM 9.7 mg/dL (8.4-10.5); MAGNESIUM 1.4 mg/dL (1.7-2.2); POTASSIUM 4.1 mmol/L (3.6-5.0); TOTAL PROTEIN 6.6 g/dL (5.8-8.3)
[2016-11-16 06:43] VITALS: RESP 18
[2016-11-16] MEDS ORDERED: Magnesium Sulfate 2 GM in Sodium Chloride 0.9% 100 ML IVPB ONE (08:41)
[2016-11-16 18:05] VITALS: BP 125/70; PULSE 65; TEMP 98.2
--- NOTE | 2016-11-17 06:52 | HP ---
CHIEF COMPLAINT AND HISTORY OF PRESENT ILLNESS: This is an 81-year-old female who has come into the hospital complaining of weakness, she is dizzy, she had an episode that she states is near syncope, she also complains of right-sided shoulder pain and pain in the right leg. She was found to have an elevated creatinine. She also complains of having one episode of diarrhea 2 days ago, but she says the diarrhea has improved. She denies any chest pain this morning. She has no nausea, no vomiting, no fevers or chills. She said when she stood up from a sitting position she would get dizzy mostly. REVIEW OF SYSTEMS: All other review of symptoms are within normal limits except as mentioned. ALLERGIES: NO KNOWN DRUG ALLERGIES. HOME MEDICATIONS: She is on Lasix, metformin, Lyrica, ramipril, Lantus, Lipitor, calcium, glipizide, magnesium and Toprol. PAST MEDICAL HISTORY: 1. Nephrolithiasis. 2. Diabetes type 2. 3. Dyslipidemia. 4. Hearing impairment. 5. Osteoarthritis. 6. Chronic back pain. 7. Anxiety. SOCIAL HISTORY: She smoked but quit about 30 years ago. She lives at home with her son who has developmental delay. FAMILY HISTORY: Noncontributory. PHYSICAL EXAMINATION: VITAL SIGNS: Temperature is 97.5, pulse ox 78, blood pressure 126/68, and respirations 18. Height is 5 feet 4 inches, weight is 189 pounds, BMI is 32. GENERAL: The patient lying in bed, uncomfortable, and in no acute distress. HEENT: Atraumatic and normocephalic. Anicteric sclerae. Moist mucosa. [place] conjunctivae. No oral lesions. NECK: No JVD, anterior and posterior adenopathy, thyromegaly, or bruits. CARDIOVASCULAR: S1 and S2 regular. No murmur, rubs, or gallop. LUNGS: Clear to auscultation bilaterally. No wheezes, rales, or rhonchi. ABDOMEN: Bowel sounds are positive. Soft, nontender and nondistended. No hepatosplenomegaly. No rebound and no guarding EXTREMITIES: No cyanosis, clubbing, or edema. NEUROLOGIC: No facial asymmetry. Tongue is midline. No uvula deviation. Power is 5/5 upper extremity and lower extremity. Sensation intact in upper extremity and lower extremity. PSYCHIATRIC: She is awake, alert and oriented x3. No anxiety or depression. She has normal affect. GENITOURINARY: No CVA tenderness. VASCULAR: 2+ pulses in the carotid pulses and pedal pulses. SKIN: No erythema or nodules SPINE: Shows normal curvature. EXTREMITIES: No Cyanosis and clubbing, no edema. Chest x-ray done shows no acute disease. CT of the head done showed no acute intracranial hemorrhage. EKG shows sinus rhythm of 57, QTc is 422, no ST-T changes. LABORATORY DATA: She has a creatinine of 1.6, her baseline creatinine has been 1.1 in 09/2016. Troponin was 0.01. White count of 6.8, hemoglobin 11.6. Urine shows esterase is small, nitrates are negative, bilirubin is negative. All other labs are reviewed. ASSESSMENT: 1. Acute kidney injury secondary to prerenal. 2. Diabetes type 2. 3. Hypertension. 4. Obese with a BMI of 32. 5. Dyslipidemia. PLAN: The patient is currently comfortable. She has no dizziness at this point. She was placed on IV fluids. She also was given magnesium replacement because of hypomagnesemia. The patient is on Lipitor for dyslipidemia. She is going to continue with her Zoloft, heart healthy diet. She is going to be discharged home today to follow up as an outpatient with Dr. Martínez. I have advised her to discontinue her Lasix and to get reevaluated by Dr. Martínez. CONDITION: Stable. ACTIVITIES: Increase as tolerated. DISPOSITION: Discharge home. Monroe Baxter MD
== END 2016-11-16 19:26 | disposition home or self-care (01) ==
LOC: ED 13:00 → ERH 17:40 → 2RNO 22:12
PROVIDERS: ADMIT Internal Medicine Nephrology; ATTEND Internal Medicine Nephrology
DX: R55 Syncope and collapse (principal); E86.0 Dehydration; N39.0 Urinary tract infection, site not specified; N17.9 Acute kidney failure, unspecified; E11.9 Type 2 diabetes mellitus without complications; I10 Essential (primary) hypertension; E78.5 Hyperlipidemia, unspecified; E83.42 Hypomagnesemia; F41.9 Anxiety disorder, unspecified; M19.90 Unspecified osteoarthritis, unspecified site; M54.9 Dorsalgia, unspecified; G89.29 Other chronic pain; H91.90 Unspecified hearing loss, unspecified ear; E66.9 Obesity, unspecified; Z79.4 Long term (current) use of insulin; Z68.32 Body mass index [BMI] 32.0-32.9, adult; Z87.891 Personal history of nicotine dependence; Z87.442 Personal history of urinary calculi
CPT/HCPCS: 36415; 70450; 71010; 80053; 81001; 82550; 83615; 83690; 83735; 83880; 84484; 85025; 85027; 85610; 85730; 87086; 93005; 96365; 97116; 97162; 99285; G0378; G8978; G8979; J0696; J3475; J7040

== ENCOUNTER 2017-01-02 12:16 | Inpatient (IN) | payer MEDICARE ==
[2017-01-02 12:35] VITALS: BMI 48.0
[2017-01-02] MEDS ORDERED: Sodium Chloride 0.9% 1,000 ML IV STA ×2 (12:42→17:30)
--- NOTE | 2017-01-02 13:00 | ED PDOC ---
Arrival/HPI - General Chief Complaint: GI Problem Time Seen by Provider: 01/02/17 12:18 Historian: Patient - History of Present Illness Narrative History of Present Illness (Text): 01/02/17 12:55 81 y/o female w/ pmhx of iddm, htn, vertigo, hld, recent admission for dehydration/near syncope in the past 2 months presents c/o 2-3 weeks of continuing diarrhea, mucoid, w/ occasional blood spotting, associated weakness/ malaise/near syncopal collapse yesterday/decrementation of her appetite and po intake , yesterday suffered with 16-17 episodes of watery mucoid diarrhea soaking through 17 diapers, soiling her garments, an episode of hypoglycemia in the past three days with fsg of 50 in the setting of weakness and ams. + left sided lower back pain w/ no clear exacerbative/palliative factors. Denies dysuria/cp/URI like symptoms. PMD: Dr. Cayden Martínez Past Medical History - Provider Review Nursing Documentation Reviewed: Yes - Infectious Disease Hx of Infectious Diseases: None - Tetanus Immunization Tetanus Immunization: Unknown - Cardiac Hx Cardiac Disorders: Yes Hx Hypertension: Yes - Pulmonary Hx Respiratory Disorders: Yes Hx Bronchitis: Yes - Neurological HX Cerebrovascular Accident: Yes (no residual effects) - HEENT Other/Comment: RIGHT EAR TINNITUS. WEARS GLASSES, NEAR SIGHTED, needs cataract sx both eyes - Renal Hx Renal Disorder: Yes Hx Kidney Stones: Yes ("CAME OUT ON OWN") - Endocrine/Metabolic Hx Diabetes Mellitus Type 2: Yes - Hematological/Oncological Hx Blood Disorders: Yes Other/Comment: " I HAD A BLOOD INFECTION 2-3 YRS. AGO-THEY DON'T KNOW WHAT IT WAS" - Integumentary Other/Comment: HX. LEFT BREAST CYST - Musculoskeletal/Rheumatological Hx Arthritis: Yes - Gastrointestinal Other/Comment: RECTAL BLEEDING, gastric polyps, hemorrhoids - Genitourinary/Gynecological Hx Incontinence: Yes (wears diapers, urgency) - Psychiatric Hx Psychophysiologic Disorder: Yes Hx Anxiety: Yes Hx Depression: Yes Hx Emotional Abuse: No Hx Physical Abuse: No Hx Substance Use: No - Surgical History Other/Comment: LEFT BREAST CYST REMOVED, lle orif with hardware, r wrist orif with hardware, ercp, picc - Anesthesia Hx Anesthesia: Yes Hx Anesthesia Reactions: No Hx Malignant Hyperthermia: No - Suicidal Assessment Feels Threatened In Home Enviroment: No Family/Social History - Physician Review Nursing Documentation Reviewed: Yes Family/Social History: No Known Family HX Smoking Status: Former Smoker Hx Alcohol Use: No Hx Substance Use: No Hx Substance Use Treatment: No Allergies/Home Meds Allergies/Adverse Reactions: Allergies No Known Allergies Allergy (Verified 01/02/17 12:40) Home Medications: Home Meds Medication Instructions Recorded Confirmed Metformin HCl 1,000 mg PO BID 11/02/12 01/02/17 Pregabalin [Lyrica] 50 mg PO TID 11/02/12 01/02/17 Ramipril 5 mg PO QAM 11/02/12 01/02/17 Sertraline HCl 25 mg PO QPM 11/02/12 01/02/17 Insulin Glargine,Hum.rec.anlog 1 unit SC 07/17/14 01/02/17 [Lantus] Atorvastatin [Lipitor] 80 mg PO HS 05/09/15 01/02/17 Calcium Carbonate [Calcium] 500 mg PO DAILY 05/09/15 01/02/17 Glipizide 10 mg PO DAILY 05/09/15 01/02/17 Magnesium 250 mg PO TID 05/09/15 01/02/17 Meclizine HCl [Antivert] 25 mg PO TID 05/09/15 01/02/17 Omeprazole 20 mg PO DAILY 05/09/15 01/02/17 Clonazepam [Klonopin] 0.5 mg PO TID 07/08/16 01/02/17 Losartan [Cozaar] 100 mg PO DAILY 09/11/16 01/02/17 Metoprolol Tartrate [Lopressor] 25 mg PO DAILY 01/02/17 01/02/17 Review of Systems - Physician Review All systems were reviewed & negative as marked: Yes - Review of Systems Constitutional: Normal Eyes: Normal ENT: Normal Respiratory: Normal Cardiovascular: Normal Gastrointestinal: Stool Changes, Diarrhea Genitourinary Female: Normal Musculoskeletal: Normal Skin: Normal Neurological: Normal Endocrine: Normal Hemo/Lymphatic: Normal Psychiatric: Normal Physical Exam Vital Signs Reviewed: Yes Vital Signs Temp Pulse Resp BP Pulse Ox 01/02/17 17:30 65 16 138/72 98 01/02/17 16:52 61 18 116/68 99 10/29/17 15:30 65 18 121/65 99 01/02/17 12:35 97.9 F 66 16 118/64 99 Temperature: Afebrile Blood Pressure: Normal Pulse: Regular Respiratory Rate: Normal Appearance: Positive for: Well-Appearing, Non-Toxic, Comfortable Pain Distress: None Mental Status: Positive for: Alert and Oriented X 3 - Systems Exam Head: Present: Atraumatic, Normocephalic Pupils: Present: PERRL Extroacular Muscles: Present: EOMI Conjunctiva: Present: Normal Mouth: Present: Dry Neck: Present: Normal Range of Motion Respiratory/Chest: Present: Clear to Auscultation, Good Air Exchange. No: Respiratory Distress, Accessory Muscle Use Cardiovascular: Present: Regular Rate and Rhythm, Normal S1, S2. No: Murmurs Abdomen: Present: Normal Bowel Sounds, Other (hyperechoic bs ). No: Tenderness , Distention, Peritoneal Signs Back: Present: Normal Inspection Upper Extremity: Present: Normal Inspection. No: Cyanosis, Edema Lower Extremity: Present: Normal Inspection. No: Edema Neurological: Present: GCS=15, CN II-XII Intact, Speech Normal, Motor Func Grossly Intact, Normal Sensory Function, Normal Cerebellar Funct, Norm Deep Tendon Reflexes, Gait Normal, Memory Normal, Normal 2Pt Descrimination Skin: Present: Warm, Dry, Normal Color. No: Rashes Psychiatric: Present: Alert, Oriented x 3, Normal Insight, Normal Concentration Medical Decision Making ED Course and Treatment: 01/02/17 13:01 Impression: 81 year old female with continuing diarrhea, mucoid, w/ occasional blood spotting, associated weakness/malaise/near syncopal collapse. Plan: -- EKG -- Abd/Pelvis CT -- Labs -- IV Fluids -- Blood Culture -- Urine Culture -- Stool Culture -- Stool CDIFF -- Reassess and disposition Prior Visits: Notes and results from previous visits were reviewed. Patient was last seen in the emergency department on 11/15/2016 for generalized weakness, near syncope, dizziness, and one episode of chest pain. Patient was admitted under telemetry observation and diagnosed with UTI and dehydration. Progress Notes: 01/02/2017 18:44 Abd/Pelvis CT FINDINGS: LOWER THORAX: Cardiomegaly and small hiatal hernia are again identified. LIVER: Diffuse fatty infiltration liver is appreciate without discrete mass. GALLBLADDER AND BILE DUCTS: Unremarkable. PANCREAS: Unremarkable. No gross lesion or ductal dilatation. SPLEEN: Unremarkable. ADRENALS: Unremarkable. No mass. KIDNEYS AND URETERS: Unremarkable. No hydronephrosis. No solid mass. VASCULATURE: Unremarkable. No aortic aneurysm. BOWEL: The stomach is collapsed and emptied of oral contrast and is poorly characterized as a result. No bowel obstruction is appreciated. A thickened rectosigmoid segment is appreciate suspicious for segmental colitis. A few diverticular seen scattered at the proximal to mid sigmoid colon with pattern is felt to represent infectious etiology other than diverticulitis. Consider inflammatory or even ischemic etiologies as well. Neoplasm is not completely excluded. Further clinical correlation is advised. APPENDIX: Not identified. No CT evidence of appendicitis nevertheless. PERITONEUM: Unremarkable. No free fluid. No free air. LYMPH NODES: Unremarkable. No enlarged lymph nodes. BLADDER: Unremarkable. REPRODUCTIVE: Prior hysterectomy suggested. BONES: No acute fracture. OTHER FINDINGS: None. IMPRESSION: 1. Hepatic steatosis. 2. Questionable rectosigmoid segmental colitis. Consider infectious or inflammatory causes. Please see differental diagnosis above. Dictator: Gianluca Recinos MD - Lab Interpretations Lab Results: 01/02/17 13:00 01/02/17 13:00 Lab Results 01/02/17 13:30: Urine Color Light yellow, Urine Appearance Cloudy, Urine pH 6.0 , Ur Specific [place] 1.025, Urine Protein Trace H, Urine Glucose (UA) Negative , Urine Ketones Negative, Urine Blood Small H, Urine Nitrate Negative, Urine Bilirubin Negative, Urine Urobilinogen 0.2, Ur Leukocyte Esterase Small H, Urine RBC 1 - 3, Urine WBC 2 - 5, Ur Epithelial Cells 4 - 5, Urine Bacteria Large, Urine Other Mucus 01/02/17 13:00: pO2 25 L, VBG pH 7.29 L, VBG pCO2 56.0, VBG HCO3 26.9, VBG Total CO2 28.6 H, VBG O2 Sat (Calc) 53.2, VBG Base Excess -0.7 L, VBG Potassium 3.8, Sodium 145.0, Chloride 113.0 H, Glucose 132 H, Lactate 1.3, FiO2 21.0, Venous Blood Potassium 3.8 01/02/17 13:00: Sodium 148, Chloride 110 H, Potassium 3.8, Carbon Dioxide 24, Anion Gap 18, BUN 23 H, Creatinine 1.3 H, Est GFR ( Amer) 47, Est GFR ( Non-Af Amer) 39, Random Glucose 126 H, Calcium 10.2, Total Bilirubin 0.9, AST 24 , ALT 36, Alkaline Phosphatase 166 H D, Lactate Dehydrogenase 468, Total Creatine Kinase 43, Troponin I < 0.01, Total Protein 7.5, Albumin 4.5, Globulin 3.1, Albumin/Globulin Ratio 1.5, Amylase 49, Lipase 63 01/02/17 13:00: PT 10.8, INR 0.99, APTT 34.0 01/02/17 13:00: WBC 6.0, RBC 4.10, Hgb 12.5, Hct 37.0, MCV 90.2, MCH 30.5, MCHC 33.8, RDW 12.8, Plt Count 182, MPV 10.7, Gran % 57.0, Lymph % (Auto) 35.6 H, [facility] % (Auto) 5.5, Eos % (Auto) 1.7, Baso % (Auto) 0.2, Gran # 3.43, Lymph # 2.1 , [facility] # 0.3, Eos # 0.1, Baso # 0.01 I have reviewed the lab results: Yes - RAD Interpretation Radiology Orders: 01/02/17 13:54 ABD PELVIS PO & IV CONTRAST [CT] Stat - Medication Orders Current Medication Orders: Atorvastatin Calcium (Lipitor) 80 mg PO HS [facility] Clonazepam (Klonopin) 0.5 mg PO TID [facility] PRN Reason: Protocol Losartan Potassium (Cozaar) 100 mg PO DAILY [facility] Metoprolol Tartrate (Lopressor) 25 mg PO DAILY [facility] Pregabalin (Lyrica) 50 mg PO TID [facility] Ramipril (Altace) 5 mg PO QAM [facility] Sertraline HCl (Zoloft) 25 mg PO QPM [facility] Discontinued Medications Sodium Chloride (Sodium Chloride 0.9%) 1,000 mls @ 999 mls/hr IV .Q1H1M STA Stop: 01/02/17 13:42 Last Admin: 01/02/17 13:16 Dose: 999 mls/hr eMAR Start Stop Document 01/02/17 13:16 AD (Rec: 01/02/17 13:17 AD [id number]) Intravenous Solution Start Date 01/02/17 Start Time 13:17 Ciprofloxacin (Cipro 400mg/200ml Dsw) 400 mg in 200 mls @ 133.3 mls/hr IVPB STAT STA PRN Reason: Protocol Stop: 01/02/17 18:23 Metronidazole (Flagyl) 500 mg in 100 mls @ 100 mls/hr IVPB STAT STA PRN Reason: Protocol Stop: 01/02/17 17:54 Sodium Chloride (Sodium Chloride 0.9%) 1,000 mls @ 999 mls/hr IV .Q1H1M STA Stop: 01/02/17 18:30 Disposition/Present on Arrival - Present on Arrival History of DVT/PE: No History of Uncontrolled Diabetes: No Urinary Catheter: No History of Decub. Ulcer: No History Surgical Site Infection Following: None - Disposition Disposition: HOSPITALIZED
[2017-01-02 13:42] LABS: BASO # 0.01 K/mm3 (0.0-2.0); BASO % 0.2 % (0.0-3.0); EOS # 0.1 (0.0-0.7); EOS % 1.7 % (1.5-5.0); GRAN # 3.43 (1.4-6.5); LYMPH # 2.1 (1.2-3.4); LYMPH % 35.6 % (22.0-35.0); MEAN CELL VOLUME 90.2 fl (80.0-105.0); MEAN CORPUSCULAR HEMOGLOBIN 30.5 pg (25.0-35.0); MEAN CORPUSCULAR HGB CONC 33.8 g/dl (31.0-37.0); MEAN PLATELET VOLUME 10.7 fl (7.0-11.0); MONO # 0.3 (0.1-0.6); MONO % 5.5 % (1.0-6.0); RED CELL DISTRIBUTION WIDTH 12.8 % (11.5-14.5)
[2017-01-02 13:49] LABS: ALB/GLOB RATIO 1.5 (1.1-1.8); ALKALINE PHOSPHATASE 166 U/L (38-126); ALT/SGPT 36 U/L (7-56); AMYLASE 49 U/L (35-125); AST/SGOT 24 U/L (14-36); BILIRUBIN,TOTAL 0.9 mg/dL (0.2-1.3); BLOOD UREA NITROGEN 23 mg/dL (7-21); CALCIUM 10.2 mg/dL (8.4-10.5); CARBON DIOXIDE 24 mmol/L (21-33); CHLORIDE 110 mmol/L (98-107); GFR AFRICAN-AMERICAN 47; GLUCOSE,RANDOM 126 mg/dL (70-110); LIPASE 63 U/L (23-300); POTASSIUM 3.8 mmol/L (3.6-5.0); SODIUM 148 mmol/L (132-148); TOTAL PROTEIN 7.5 g/dL (5.8-8.3)
[2017-01-02 14:00] LABS: TROPONIN I < 0.01 ng/mL
[2017-01-02] MEDS ORDERED: Iohexol 240 (50 ml) ONE (14:01)
[2017-01-02 14:03] LABS: INR 0.99 (0.93-1.08)
[2017-01-02 14:13] LABS: VENOUS BLOOD GAS BASE EXCESS -0.7 mmol/L (0.0-2.0); VENOUS BLOOD PH 7.29 (7.32-7.43)
[2017-01-02 14:18] LABS: URINE BILIRUBIN NEGATIVE (NEGATIVE); URINE BLOOD SMALL (NEGATIVE); URINE GLUCOSE (UA) NEGATIVE (NEGATIVE); URINE KETONE NEGATIVE (NEGATIVE); URINE LEUKOCYTE ESTERASE SMALL Leu/uL (NEGATIVE); URINE PROTEIN TRACE mg/dL (<30 mg/dL); URINE UROBILINOGEN 0.2 E.U./dL (<1 E.U./dL)
[2017-01-02 14:24] LABS: URINE APPEARANCE CLOUDY (CLEAR); URINE COLOR LIGHT YELLOW (YELLOW)
[2017-01-02 14:40] LABS: URINE BACTERIA LARGE (NEG)
[2017-01-02] MEDS ORDERED: Ciprofloxacin 400mg/200ml D5W 400 MG/200 ML BAG IVPB STA (16:53)
[2017-01-02] MEDS ORDERED: metroNIDAZOLE IV 500 mg/100 ml 500 MG/100 ML BAG IVPB STA (16:55)
--- NOTE | 2017-01-02 18:45 | CT ---
PROCEDURE: CT Abdomen and Pelvis with contrast HISTORY: colitis COMPARISON: Abdomen and pelvis CT without contrast 09/13/2016. TECHNIQUE: Contrast dose: Omnipaque 240, 100 cc. Radiation dose: Total exam DLP = 982.9 mGy-cm. This CT exam was performed using one or more of the following dose reduction techniques: Automated exposure control, adjustment of the mA and/or kV according to patient size, and/or use of iterative reconstruction technique. FINDINGS: LOWER THORAX: Cardiomegaly and small hiatal hernia are again identified. LIVER: Diffuse fatty infiltration liver is appreciate without discrete mass. GALLBLADDER AND BILE DUCTS: Unremarkable. PANCREAS: Unremarkable. No gross lesion or ductal dilatation. SPLEEN: Unremarkable. ADRENALS: Unremarkable. No mass. KIDNEYS AND URETERS: Unremarkable. No hydronephrosis. No solid mass. VASCULATURE: Unremarkable. No aortic aneurysm. BOWEL: The stomach is collapsed and emptied of oral contrast and is poorly characterized as a result. No bowel obstruction is appreciated. A thickened rectosigmoid segment is appreciate suspicious for segmental colitis. A few diverticular seen scattered at the proximal to mid sigmoid colon with pattern is felt to represent infectious etiology other than diverticulitis. Consider inflammatory or even ischemic etiologies as well. Neoplasm is not completely excluded. Further clinical correlation is advised. APPENDIX: Not identified. No CT evidence of appendicitis nevertheless. PERITONEUM: Unremarkable. No free fluid. No free air. LYMPH NODES: Unremarkable. No enlarged lymph nodes. BLADDER: Unremarkable. REPRODUCTIVE: Prior hysterectomy suggested. BONES: No acute fracture. OTHER FINDINGS: None. IMPRESSION: 1. Hepatic steatosis. 2. Questionable rectosigmoid segmental colitis. Consider infectious or inflammatory causes. Please see differential diagnosis above. 3. Prior hysterectomy.
[2017-01-02] MEDS: Sodium Chloride 0.9% 1,000 ML IV SCH (21:24)
[2017-01-02] MEDS: metroNIDAZOLE IV 500 mg/100 ml 500 MG/100 ML BAG IVPB SCH (21:25)
[2017-01-02] MEDS ORDERED: Insulin Reg-HIGH-Coverage SC SCH (22:00)
[2017-01-02] MEDS ORDERED: Ciprofloxacin 400mg/200ml D5W 400 MG/200 ML BAG IVPB SCH (22:00)
[2017-01-02] MEDS: Cefepime 1gm in NS 100ml 1 GM/100 ML BAG IVPB SCH (23:19)
[2017-01-03] MEDS: metroNIDAZOLE IV 500 mg/100 ml 500 MG/100 ML BAG IVPB SCH ×3 (05:47→22:15)
[2017-01-03 07:21] LABS: ALB/GLOB RATIO 1.4 (1.1-1.8); ALKALINE PHOSPHATASE 135 U/L (38-126); ALT/SGPT 30 U/L (7-56); AST/SGOT 21 U/L (14-36); BILIRUBIN,TOTAL 0.8 mg/dL (0.2-1.3); BLOOD UREA NITROGEN 14 mg/dL (7-21); CALCIUM 9.2 mg/dL (8.4-10.5); CARBON DIOXIDE 23 mmol/L (21-33); CHLORIDE 116 mmol/L (98-107); GFR AFRICAN-AMERICAN > 60; GLUCOSE,RANDOM 106 mg/dL (70-110); MAGNESIUM 1.6 mg/dL (1.7-2.2); PHOSPHOROUS 3.4 mg/dL (2.5-4.5); SODIUM 147 mmol/L (132-148); TOTAL PROTEIN 5.9 g/dL (5.8-8.3)
[2017-01-03 07:32] LABS: HEMATOCRIT 32.3 % (36.0-48.0); MEAN CELL VOLUME 89.5 fl (80.0-105.0); MEAN CORPUSCULAR HEMOGLOBIN 29.9 pg (25.0-35.0); MEAN CORPUSCULAR HGB CONC 33.4 g/dl (31.0-37.0); MEAN PLATELET VOLUME 10.9 fl (7.0-11.0); RED CELL DISTRIBUTION WIDTH 12.8 % (11.5-14.5); WHITE BLOOD COUNT 4.4 10^3/ul (4.5-11.0)
--- NOTE | 2017-01-03 09:08 | CARD ---
APPROVED REPORT EKG Measurement Heart [id number] CT 198P [id number] <Conclusion> Normal sinus rhythm Q in 3. Possible IMI, old Electrical artifact present Probably no change
[2017-01-03] MEDS ORDERED: Magnesium Sulfate 2 GM in Sodium Chloride 0.9% 100 ML IV ONE (09:27)
[2017-01-03] MEDS: Cefepime 1gm in NS 100ml 1 GM/100 ML BAG IVPB SCH ×2 (09:53→21:05)
--- NOTE | 2017-01-03 11:31 | CP.PCM.CON ---
<Ana Zamorano - Last Filed: 01/03/17 11:30> History of Present Illness - History of Present Illness History of Present Illness: Seen and examined at the bedside earlier today, the chart was reviewed. Request for GI consult is for diarrhea. HPI: This is a 81 year old female with a past medical history of hypertension, insulin-dependent diabetes mellitus, vertigo, hyperlipidemia came to the emergency room with complaints of diarrhea for 2-3 weeks. She reports having at least 16-17 episodes of watery mucoid diarrhea, denies any melena or bright red blood per rectum. She does complain of feeling weak, syncopal episode, decreased appetite and poor oral intake as well as episodes of hypoglycemia. No reports of fever, chills, nausea or vomiting. Denies any contributing factors to the diarrhea. This morning she states that she had breakfast and had loose bowel movement. Denies any recent travel, recent illnesses or antibiotic use. She states her son does have leg infection but she has a visiting nurse to take care of the legs. She did have a CAT scan on admission which showed segmental colitis in the rectosigmoid, infectious versus inflammatory. An diverticular disease. Past medical history: Uterine CA status post: total hysterectomy with a bilateral salpingectomy,DM, CAD, HTN, depression, GERD, chronic back pain, EUS revealed no pancreatic lesion, last colonoscopy was 2014, random biopsy obtained to rule out for colitis, negative for inflammation, left breast cyst removal, UTI, (e.coli) Allergies: No known drug allergies Medications: Reviewed as MAR Family history: Noncontributory at this time Social history: Former smoker, denies EtOH or substance abuse ROS: Systems reviewed. Positive findings see HPI Past Patient History - Infectious Disease Hx of Infectious Diseases: None - Tetanus Immunizations Tetanus Immunization: Unknown - Past Medical History & Family History Past Medical History?: Yes - Past Social History Smoking Status: Former Smoker - CARDIAC Hx Cardiac Disorders: Yes Hx Hypertension: Yes - PULMONARY Hx Respiratory Disorders: Yes Hx Bronchitis: Yes - NEUROLOGICAL HX Cerebrovascular Accident: Yes (no residual effects) - HEENT Other/Comment: RIGHT EAR TINNITUS. WEARS GLASSES, NEAR SIGHTED, needs cataract sx both eyes - RENAL Hx Chronic Kidney Disease: Yes Hx Kidney Stones: Yes ("CAME OUT ON OWN") - ENDOCRINE/METABOLIC Hx Diabetes Mellitus Type 2: Yes - HEMATOLOGICAL/ONCOLOGICAL Hx Blood Disorders: Yes Other/Comment: " I HAD A BLOOD INFECTION 2-3 YRS. AGO-THEY DON'T KNOW WHAT IT WAS" - INTEGUMENTARY Other/Comment: HX. LEFT BREAST CYST - MUSCULOSKELETAL/RHEUMATOLOGICAL Hx Arthritis: Yes - GASTROINTESTINAL Other/Comment: RECTAL BLEEDING, gastric polyps, hemorrhoids - GENITOURINARY/GYNECOLOGICAL Hx Incontinence: Yes (wears diapers, urgency) - PSYCHIATRIC Hx Psychophysiologic Disorder: Yes Hx Anxiety: Yes Hx Depression: Yes Hx Emotional Abuse: No Hx Physical Abuse: No Hx Substance Use: No - SURGICAL HISTORY Other/Comment: LEFT BREAST CYST REMOVED, lle orif with hardware, r wrist orif with hardware, ercp, picc - ANESTHESIA Hx Anesthesia: Yes Hx Anesthesia Reactions: No Hx Malignant Hyperthermia: No Meds Allergies/Adverse Reactions: Allergies Allergy/AdvReac Type Severity Reaction Status Date / Time No Known Allergies Allergy Verified 01/02/17 12:40 - Medications Medications: Current Medications Atorvastatin Calcium (Lipitor) 80 mg PO HS [facility] Last Admin: 01/02/17 21:25 Dose: 80 mg Clonazepam (Klonopin) 0.5 mg PO TID [facility] PRN Reason: Protocol Last Admin: 01/03/17 09:53 Dose: 0.5 mg Sodium Chloride (Sodium Chloride 0.9%) 1,000 mls @ 80 mls/hr IV .[id number] [facility] Last Admin: 01/02/17 21:24 Dose: 80 mls/hr Metronidazole (Flagyl) 500 mg in 100 mls @ 100 mls/hr IVPB Q8 [facility] PRN Reason: Protocol Last Admin: 01/03/17 05:47 Dose: 100 mls/hr Cefepime HCl (Maxipime 1gm) 1 gm in 100 mls @ 100 mls/hr IVPB Q12 [facility] PRN Reason: Protocol Stop: 01/11/17 22:01 Last Admin: 01/03/17 09:53 Dose: 100 mls/hr Insulin Human Regular (Humulin R Med) 0 units SC ACHS [facility] PRN Reason: Protocol Losartan Potassium (Cozaar) 100 mg PO DAILY [facility] Last Admin: 01/03/17 09:53 Dose: 100 mg Metoprolol Tartrate (Lopressor) 25 mg PO DAILY [facility] Last Admin: 01/03/17 09:52 Dose: 25 mg Pregabalin (Lyrica) 50 mg PO TID [facility] Last Admin: 01/03/17 09:53 Dose: 50 mg Ramipril (Altace) 5 mg PO QAM [facility] Last Admin: 01/03/17 09:52 Dose: 5 mg Sertraline HCl (Zoloft) 25 mg PO QPM [facility] Physical Exam - Constitutional Appears: No Acute Distress - Head Exam Head Exam: NORMOCEPHALIC - Eye Exam Eye Exam: Normal appearance. absent: Scleral icterus - ENT Exam ENT Exam: Mucous Membranes Moist - Neck Exam Neck exam: Positive for: Normal Inspection - Respiratory Exam Respiratory Exam: Rhonchi. absent: Respiratory Distress - Cardiovascular Exam Cardiovascular Exam: +S1, +S2 - GI/Abdominal Exam GI & Abdominal Exam: Normal Bowel Sounds, Soft. absent: Guarding, Rebound, Tenderness - Extremities Exam Extremities exam: Positive for: pedal pulses present. Negative for: calf tenderness, pedal edema - Neurological Exam Neurological exam: Alert, Oriented x3 - Skin Skin Exam: Dry, Warm Results - Vital Signs Recent Vital Signs: Last Vital Signs Temp 97.9 F 01/03/17 08:11 Pulse 62 01/03/17 09:52 Resp 19 01/03/17 08:11 BP 134/68 01/03/17 09:52 Pulse Ox 95 01/03/17 08:11 - Labs Result Diagrams: 01/03/17 06:45 01/03/17 06:45 Labs: Laboratory Results - last 24 hr 01/02/17 01/03/17 01/03/17 22:58 06:45 06:45 WBC 4.4 L D RBC 3.61 Hgb 10.8 L Hct 32.3 L MCV 89.5 MCH 29.9 MCHC 33.4 RDW 12.8 Plt Count 161 MPV 10.9 Sodium 147 Potassium 4.0 Chloride 116 H Carbon Dioxide 23 Anion Gap 12 BUN 14 Creatinine 0.9 Est GFR ( Amer) > 60 Est GFR (Non-Af Amer) 60 POC Glucose (mg/dL) 75 Random Glucose 106 Calcium 9.2 Phosphorus 3.4 Magnesium 1.6 L Total Bilirubin 0.8 AST 21 ALT 30 Alkaline Phosphatase 135 H Total Protein 5.9 Albumin 3.4 Globulin 2.5 Albumin/Globulin Ratio 1.4 01/03/17 08:23 WBC RBC Hgb Hct MCV MCH MCHC RDW Plt Count MPV Sodium Potassium Chloride Carbon Dioxide Anion Gap BUN Creatinine Est GFR ( Amer) Est GFR (Non-Af Amer) POC Glucose (mg/dL) 100 Random Glucose Calcium Phosphorus Magnesium Total Bilirubin AST ALT Alkaline Phosphatase Total Protein Albumin Globulin Albumin/Globulin Ratio Assessment & Plan - Assessment and Plan (Free Text) Assessment: Assessment: Diarrhea r/o Infectious versus inflammatory colitis Dehydration Insulin-dependent diabetes mellitus Hypertension History of uterine cancer Plan: Heart healthy diet Continue IV antibiotics Follow up stool culture, C. difficile, O&P, results pending Monitor electrolytes Continue GI prophylaxis DVT prophylaxis ID [id number] Thank you for this consult and for allowing us participate in your patient's care, further recommendations based on clinical course. Seen and discussed with Dr. Nichols. <Zoraida Nichols V - Last Filed: 01/03/17 22:49> Meds - Medications Medications: Current Medications Atorvastatin Calcium (Lipitor) 80 mg PO HS [facility] Last Admin: 01/03/17 22:19 Dose: 80 mg Clonazepam (Klonopin) 0.5 mg PO TID [facility] PRN Reason: Protocol Last Admin: 01/03/17 17:18 Dose: 0.5 mg Sodium Chloride (Sodium Chloride 0.9%) 1,000 mls @ 80 mls/hr IV .[id number] [facility] Last Admin: 01/03/17 18:21 Dose: 80 mls/hr Metronidazole (Flagyl) 500 mg in 100 mls @ 100 mls/hr IVPB Q8 [facility] PRN Reason: Protocol Last Admin: 01/03/17 22:15 Dose: 100 mls/hr Cefepime HCl (Maxipime 1gm) 1 gm in 100 mls @ 100 mls/hr IVPB Q12 [facility] PRN Reason: Protocol Stop: 01/11/17 22:01 Last Admin: 01/03/17 21:05 Dose: 100 mls/hr Insulin Human Regular (Humulin R Med) 0 units SC ACHS [facility] PRN Reason: Protocol Last Admin: 01/03/17 22:16 Dose: Not Given Losartan Potassium (Cozaar) 100 mg PO DAILY [facility] Last Admin: 01/03/17 09:53 Dose: 100 mg Metoprolol Tartrate (Lopressor) 25 mg PO DAILY [facility] Last Admin: 01/03/17 09:52 Dose: 25 mg Nystatin (Nystop Topical Powder) 0 gm TOP TID [facility] Last Admin: 01/03/17 19:08 Dose: 1 appl Pregabalin (Lyrica) 50 mg PO TID [facility] Last Admin: 01/03/17 17:18 Dose: 50 mg Ramipril (Altace) 5 mg PO QAM [facility] Last Admin: 01/03/17 09:52 Dose: 5 mg Sertraline HCl (Zoloft) 25 mg PO QPM [facility] Last Admin: 01/03/17 17:18 Dose: 25 mg Results - Vital Signs Recent Vital Signs: Last Vital Signs Temp 98.1 F 01/03/17 16:10 Pulse 63 01/03/17 16:10 Resp 20 01/03/17 16:10 BP 121/60 01/03/17 16:10 Pulse Ox 96 01/03/17 16:10 - Labs Result Diagrams: 01/03/17 06:45 01/03/17 06:45 Labs: Laboratory Results - last 24 hr 01/03/17 01/03/17 16:31 22:03 POC Glucose (mg/dL) 155 H 185 H Attending/Attestation - Attestation I have personally seen and examined this patient.: Yes I have fully participated in the care of the patient.: Yes I have reviewed all pertinent clinical information: Yes Notes (Text): This is an addendum to GI progress report dictated by Ana Zamorano APN.The patient was seen and examined earlier. Medical records, lab studies, imagings were reviewed. Last 24 hours events reviewed. Agreed with the above treatment plan as outlined in Ana Zamorano APN's notes the with the addition of the following On examination abdomen soft that there was tenderness present in the lower abdomen towards the right lower quadrant CT scan was reviewed continue the antibiotics stool for C. difficile 01/03/17 22:48
[2017-01-03] MEDS: Insulin Reg-MEDIUM-Coverage SC SCH ×4 (11:56→22:16)
--- NOTE | 2017-01-03 13:48 | CP.PCM.CON ---
History of Present Illness - History of Present Illness History of Present Illness: 81 year old female with PMH of HTN, DM, morbid obesity with BMI 48, vertigo, dyslipidemia, uterine CA S/P total hysterectomy and bilateral salpingo- oophorectomy, CAD, GERD, chronic back pain, history of UTI with E. coli came in to [facility] complaining of loose bowel movement for the past 2-3 weeks which has worsened in the past couple of days, at one point becoming watery diarrhea with mucous. She denies blood in the stool, denies eating anything out of the ordinary, denies animal contacts, no fever or chills, no nausea or vomiting, has crampy and at times sharp pain in the left flank area. She also denies headache or dizziness, no chest pain, no SOB, no cough or rhinorrhea, no dysuria. In the ED, CT A/P was done which showed possbile segemental colitis. Infectious diseases consult is requested to further evaluate and manage. Review of Systems - Review of Systems All systems: reviewed and no additional remarkable complaints except (as per HPI ) Past Patient History - Infectious Disease Hx of Infectious Diseases: None - Tetanus Immunizations Tetanus Immunization: Unknown - Past Medical History & Family History Past Medical History?: Yes - Past Social History Smoking Status: Former Smoker - CARDIAC Hx Cardiac Disorders: Yes Hx Hypertension: Yes - PULMONARY Hx Respiratory Disorders: Yes Hx Bronchitis: Yes - NEUROLOGICAL HX Cerebrovascular Accident: Yes (no residual effects) - HEENT Other/Comment: RIGHT EAR TINNITUS. WEARS GLASSES, NEAR SIGHTED, needs cataract sx both eyes - RENAL Hx Chronic Kidney Disease: Yes Hx Kidney Stones: Yes ("CAME OUT ON OWN") - ENDOCRINE/METABOLIC Hx Diabetes Mellitus Type 2: Yes - HEMATOLOGICAL/ONCOLOGICAL Hx Blood Disorders: Yes Other/Comment: " I HAD A BLOOD INFECTION 2-3 YRS. AGO-THEY DON'T KNOW WHAT IT WAS" - INTEGUMENTARY Other/Comment: HX. LEFT BREAST CYST - MUSCULOSKELETAL/RHEUMATOLOGICAL Hx Arthritis: Yes - GASTROINTESTINAL Other/Comment: RECTAL BLEEDING, gastric polyps, hemorrhoids - GENITOURINARY/GYNECOLOGICAL Hx Incontinence: Yes (wears diapers, urgency) - PSYCHIATRIC Hx Psychophysiologic Disorder: Yes Hx Anxiety: Yes Hx Depression: Yes Hx Emotional Abuse: No Hx Physical Abuse: No Hx Substance Use: No - SURGICAL HISTORY Other/Comment: LEFT BREAST CYST REMOVED, lle orif with hardware, r wrist orif with hardware, ercp, picc - ANESTHESIA Hx Anesthesia: Yes Hx Anesthesia Reactions: No Hx Malignant Hyperthermia: No Meds Allergies/Adverse Reactions: Allergies Allergy/AdvReac Type Severity Reaction Status Date / Time No Known Allergies Allergy Verified 01/02/17 12:40 - Medications Medications: Current Medications Atorvastatin Calcium (Lipitor) 80 mg PO HS [facility] Last Admin: 01/02/17 21:25 Dose: 80 mg Clonazepam (Klonopin) 0.5 mg PO TID [facility] PRN Reason: Protocol Sodium Chloride (Sodium Chloride 0.9%) 1,000 mls @ 80 mls/hr IV .[id number] [facility] Last Admin: 01/02/17 21:24 Dose: 80 mls/hr Metronidazole (Flagyl) 500 mg in 100 mls @ 100 mls/hr IVPB Q8 [facility] PRN Reason: Protocol Last Admin: 01/03/17 05:47 Dose: 100 mls/hr Cefepime HCl (Maxipime 1gm) 1 gm in 100 mls @ 100 mls/hr IVPB Q12 [facility] PRN Reason: Protocol Stop: 01/11/17 22:01 Last Admin: 01/02/17 23:19 Dose: 100 mls/hr Insulin Human Regular (Humulin R High) 0 units SC ACHS [facility] PRN Reason: Protocol Last Admin: 01/02/17 22:58 Dose: Not Given Losartan Potassium (Cozaar) 100 mg PO DAILY [facility] Metoprolol Tartrate (Lopressor) 25 mg PO DAILY [facility] Pregabalin (Lyrica) 50 mg PO TID [facility] Ramipril (Altace) 5 mg PO QAM [facility] Sertraline HCl (Zoloft) 25 mg PO QPM [facility] Physical Exam - Constitutional Appears: Non-toxic - Head Exam Head Exam: NORMAL INSPECTION - ENT Exam ENT Exam: Mucous Membranes Moist - Neck Exam Neck exam: Negative for: Lymphadenopathy, Meningismus - Respiratory Exam Respiratory Exam: Decreased Breath Sounds. absent: Rales - Cardiovascular Exam Cardiovascular Exam: +S1, +S2 - GI/Abdominal Exam GI & Abdominal Exam: Soft. absent: Tenderness Results - Vital Signs Recent Vital Signs: Last Vital Signs Temp 97.8 F 01/03/17 00:00 Pulse 57 L 01/03/17 00:00 Resp 19 01/03/17 00:00 BP 130/57 L 01/03/17 00:00 Pulse Ox 97 01/03/17 00:00 - Labs Result Diagrams: 01/03/17 06:45 01/03/17 06:45 Labs: Laboratory Results - last 24 hr 01/02/17 22:58 POC Glucose (mg/dL) 75 Assessment & Plan - Assessment and Plan (Free Text) Plan: Assessment Consider acute colitis, inflammatory or infectious HTN DM morbid obesity with BMI 48 vertigo dyslipidemia uterine CA S/P total hysterectomy and bilateral salpingo-oophorectomy CAD GERD chronic back pain history of UTI with E. coli Plan Started patient on Cefepime and Flagyl pending stool cx, stool for C.diff., blood cx follow up GI evaluation and recommendations monitor BM's
[2017-01-03] MEDS: Sodium Chloride 0.9% 1,000 ML IV SCH (18:21)
[2017-01-03] MEDS: Nystatin 100,000 Units/gm Topical Pow(15 gm) TOP SCH (19:08)
--- NOTE | 2017-01-03 21:23 | HP ---
CHIEF COMPLAINT AND HISTORY OF PRESENT ILLNESS: This is an 81-year-old female who is coming into the hospital because of diarrhea. She states that she has been having multiple bowel movements and was concerned about it getting worse, so she came in for further evaluation. She said it was occasionally bloody, mostly it was mucoid, it has happened for the past month. She says that she had about 16 episodes of diarrhea yesterday. She also has not been eating well because of poor appetite. She says her sugars have gone down. She has no nausea, no vomiting, no dysuria or frequency. No nocturia. ALLERGIES: NO KNOWN DRUG ALLERGIES. HOME MEDICATIONS: Metformin, Lyrica, Ramipril, Lantus, Lipitor, calcium, glipizide, Antivert, Klonopin, Cozaar, Lopressor. PAST MEDICAL HISTORY: Nephrolithiasis, diabetes type 2, dyslipidemia, hearing impairment, osteoarthritis, chronic back pain and anxiety. SOCIAL HISTORY: The patient does not smoke. She quit about 30 years ago. She lives at home with her son who has developmental delay. FAMILY HISTORY: Noncontributory. PHYSICAL EXAMINATION: VITAL SIGNS: Temperature is 97.9, pulse of 62, blood pressure 134/68, respirations 19, O2 saturations 95%, height is 5 feet 4 inches, weight is 280 pounds, and BMI is 48.1. GENERAL: The patient lying in bed, uncomfortable, and in no acute distress. HEENT: Atraumatic and normocephalic. Anicteric sclerae. Moist mucosa. Archie conjunctivae. No oral lesions. NECK: No JVD, anterior and posterior adenopathy, thyromegaly, or bruits. CARDIOVASCULAR: S1 and S2 regular. No murmur, rubs, or gallop. LUNGS: Clear to auscultation bilaterally. No wheezes, rales, or rhonchi. ABDOMEN: Bowel sounds are positive. Soft, nontender and nondistended. No hepatosplenomegaly. No rebound and no guarding EXTREMITIES: No cyanosis, clubbing, or edema. NEUROLOGIC: No facial asymmetry. Tongue is midline. No uvula deviation. Power is 5/5 upper extremity and lower extremity. Sensation intact in upper extremity and lower extremity. PSYCHIATRIC: She is awake, alert and oriented x3. No anxiety or depression. She has normal affect. GENITOURINARY: No CVA tenderness. VASCULAR: 2+ pulses in the carotid pulses and pedal pulses. SKIN: No erythema or nodules SPINE: Shows normal curvature. EXTREMITIES: No Cyanosis and clubbing, no edema. LABORATORY DATA: Have been reviewed. White count of 6.0, hemoglobin 12.5, platelet count is 182,000, INR is 0.9. Chemistry showed creatinine is 1.3, repeat is 0.9 and magnesium is 1.6. EKG shows a heart rate of 61 in sinus rhythm, but of poor quality. CT of the abdomen and pelvis done shows hepatic steatosis. Possible segment colitis. ASSESSMENT: 1. Colitis. 2. Diabetes type 2. 3. Hypertension. 4. Obesity with a body mass index of 48. 5. Dyslipidemia. 6. Acute kidney injury. 7. Hypomagnesemia. PLAN: The patient has been given IV fluids. She has low magnesium, I will replace that. The patient has ramipril for hypertension. She is on Klonopin, this will continue. She is on Lipitor for dyslipidemia. She is on Lyrica for her restless legs. I will continue her IV fluid. She is on Zoloft. The patient is on a heart healthy diet. We will replace her magnesium. Monroe Baxter MD
[2017-01-04] MEDS: metroNIDAZOLE IV 500 mg/100 ml 500 MG/100 ML BAG IVPB SCH (06:16)
[2017-01-04 07:02] LABS: ALB/GLOB RATIO 1.3 (1.1-1.8); ALKALINE PHOSPHATASE 118 U/L (38-126); ALT/SGPT 33 U/L (7-56); AST/SGOT 17 U/L (14-36); BILIRUBIN,TOTAL 0.5 mg/dL (0.2-1.3); BLOOD UREA NITROGEN 14 mg/dL (7-21); CALCIUM 8.7 mg/dL (8.4-10.5); CARBON DIOXIDE 23 mmol/L (21-33); CHLORIDE 115 mmol/L (98-107); GFR AFRICAN-AMERICAN > 60; GLUCOSE,RANDOM 185 mg/dL (70-110); POTASSIUM 4.1 mmol/L (3.6-5.0); SODIUM 145 mmol/L (132-148); TOTAL PROTEIN 5.6 g/dL (5.8-8.3)
[2017-01-04 07:33] VITALS: BP 133/74; RESP 20; TEMP 98.7; O2SAT 98
[2017-01-04] MEDS: Insulin Reg-MEDIUM-Coverage SC SCH ×2 (08:04→12:08)
--- NOTE | 2017-01-04 09:13 | DS ---
HISTORY OF PRESENT ILLNESS: The patient initially was admitted to the hospital because she was having significant diarrhea. She was becoming dehydrated, had acute kidney injury because of the volume loss. The patient had a CT of the abdomen and pelvis that showed possible colitis. She was seen by GI and Infectious Diseases. The patient was placed on Flagyl. She was also placed on cefepime. The patient was hydrated by the normal saline. She did have the urine culture that was positive for Gram-negative rods. She had urine that shows Gram-negative rods, it was between 50,000 to 100,000. She had a Clostridium difficile which was negative. Her diabetes improved. She denies any chest pain or shortness of breath. PHYSICAL EXAMINATION: VITAL SIGNS: Temperature is 98.1, pulse of 63, blood pressure is 121/60, and respirations are 20. GENERAL: The patient is lying in bed, flat, comfortable. HEENT: No oral lesion. Anicteric sclerae. Moist mucosa. NECK: No JVD, adenopathy, or thyromegaly. CARDIOVASCULAR: S1 and S2, regular. No murmurs, rubs, or gallops. LUNGS: Clear to auscultation bilaterally. No wheeze, rales, or rhonchi. ABDOMEN: Bowel sounds are positive, soft, nontender and nondistended. EXTREMITIES: no cyanosis, clubbing or edema. ASSESSMENT: 1. Colitis. 2. Diabetes type 2. 3. Hypertension. 4. Obesity with a body mass index of 48. 5. Dyslipidemia. 6. Acute kidney injury, improved. 7. Hypomagnesemia. 8. History of uterine cancer. PLAN: The patient is currently on a heart healthy diet. Her Clostridium difficile has been negative. She does have a history of uterine cancer. She will continue her Flagyl as an outpatient. The patient does not have urinary symptoms, so I doubt that the urine cultures represent an active infection. She does have a history of UTIs. We will plan to discharge the patient home today with Flagyl. She is on Lipitor for dyslipidemia. The patient is on Nystatin. I will discontinue her IV fluids. She will followup with Dr. Martínez. FOLLOWUP: Dr. Martínez. CONDITION: Stable. ACTIVITIES: As tolerated. Monroe Baxter MD [facility] # [id number]
[2017-01-04] MEDS: Nystatin 100,000 Units/gm Topical Pow(15 gm) TOP SCH (10:01)
[2017-01-04 10:06] VITALS: PULSE 70
[2017-01-04] MEDS: Cefepime 1gm in NS 100ml 1 GM/100 ML BAG IVPB SCH (10:59)
--- NOTE | 2017-01-04 17:58 | CP.PCM.PN ---
Subjective - Date & Time of Evaluation Date of Evaluation: 01/04/17 Time of Evaluation: 10:25 - Subjective Subjective: Seen and examined at the bedside earlier this morning, diarrhea has improved, frequency has lessened. Had 1 loose BM last night. No reports of bleeding, nausea, vomiting, or abdominal pain. Tolerating oral intake although this morning after breakfast patient had a bowel movement. Stool Cdiff negative. Objective - Vital Signs/Intake and Output Vital Signs (last 24 hours): Temp Pulse Resp BP Pulse Ox 98.7 F 70 20 133/74 98 01/04/17 07:30 01/04/17 10:00 01/04/17 07:30 01/04/17 10:00 01/04/17 07:30 Intake and Output: 01/04/17 01/04/17 06:59 18:59 Intake Total 1560 660 Balance 1560 660 - Labs Labs: 01/04/17 06:38 PT 10.8 SECONDS (9.4-12.5) 01/02/17 13:00 INR 0.99 (0.93-1.08) 01/02/17 13:00 APTT 34.0 Seconds (25.1-36.5) 01/02/17 13:00 - Constitutional Appears: No Acute Distress - Head Exam Head Exam: NORMOCEPHALIC - Eye Exam Eye Exam: Normal appearance. absent: Scleral icterus - ENT Exam ENT Exam: Mucous Membranes Moist - Neck Exam Neck Exam: Normal Inspection - Respiratory Exam Respiratory Exam: NORMAL BREATHING PATTERN. absent: Respiratory Distress - Cardiovascular Exam Cardiovascular Exam: +S1, +S2 - GI/Abdominal Exam GI & Abdominal Exam: Soft, Normal Bowel Sounds. absent: Guarding, Tenderness, Rebound - Neurological Exam Neurological Exam: Alert, Awake, Oriented x3 Assessment and Plan - Assessment and Plan (Free Text) Assessment: Assessment: Diarrhea r/o Infectious versus inflammatory colitis UTI (+) E coli Dehydration Insulin-dependent diabetes mellitus Hypertension History of uterine cancer Plan: Heart healthy diet on IV antibiotics Follow up stool culture Monitor electrolytes Continue GI prophylaxis DVT prophylaxis ID FU Plan for discharge today, discuss w/ pateint to FU in outpatient office to be sent home on oral antibiotics. Seen and discussed with Dr. Nichols.
--- NOTE | 2017-01-04 18:17 | CP.PCM.PN ---
Subjective - Date & Time of Evaluation Date of Evaluation: 01/04/17 Time of Evaluation: 12:30 - Subjective Subjective: Less diarrhea, no fevers overnight, no abdominal pain. Objective - Vital Signs/Intake and Output Vital Signs (last 24 hours): Temp Pulse Resp BP Pulse Ox 98.7 F 70 20 133/74 98 01/04/17 07:30 01/04/17 10:00 01/04/17 07:30 01/04/17 10:00 01/04/17 07:30 Intake and Output: 01/04/17 01/04/17 06:59 18:59 Intake Total 1560 Balance 1560 - Medications Medications: Current Medications Atorvastatin Calcium (Lipitor) 80 mg PO HS [facility] Last Admin: 01/03/17 22:19 Dose: 80 mg Clonazepam (Klonopin) 0.5 mg PO TID [facility] PRN Reason: Protocol Last Admin: 01/04/17 10:00 Dose: 0.5 mg Metronidazole (Flagyl) 500 mg in 100 mls @ 100 mls/hr IVPB Q8 [facility] PRN Reason: Protocol Last Admin: 01/04/17 06:16 Dose: 100 mls/hr Cefepime HCl (Maxipime 1gm) 1 gm in 100 mls @ 100 mls/hr IVPB Q12 [facility] PRN Reason: Protocol Stop: 01/11/17 22:01 Last Admin: 01/04/17 10:59 Dose: 100 mls/hr Insulin Human Regular (Humulin R Med) 0 units SC ACHS [facility] PRN Reason: Protocol Last Admin: 01/04/17 08:04 Dose: 1 units Losartan Potassium (Cozaar) 100 mg PO DAILY [facility] Last Admin: 01/04/17 10:00 Dose: 100 mg Metoprolol Tartrate (Lopressor) 25 mg PO DAILY [facility] Last Admin: 01/04/17 10:00 Dose: 25 mg Nystatin (Nystop Topical Powder) 0 gm TOP TID [facility] Last Admin: 01/04/17 10:01 Dose: 1 appl Pregabalin (Lyrica) 50 mg PO TID [facility] Last Admin: 01/04/17 10:00 Dose: 50 mg Ramipril (Altace) 5 mg PO QAM [facility] Last Admin: 01/04/17 09:59 Dose: 5 mg Sertraline HCl (Zoloft) 25 mg PO QPM [facility] Last Admin: 10/30/17 17:18 Dose: 25 mg - Labs Labs: 01/04/17 06:38 PT 10.8 SECONDS (9.4-12.5) 01/02/17 13:00 INR 0.99 (0.93-1.08) 01/02/17 13:00 APTT 34.0 Seconds (25.1-36.5) 01/02/17 13:00 - Constitutional Appears: Non-toxic, No Acute Distress - Head Exam Head Exam: NORMAL INSPECTION - ENT Exam ENT Exam: Mucous Membranes Moist - Neck Exam Neck Exam: absent: Meningismus - Respiratory Exam Respiratory Exam: Decreased Breath Sounds - Cardiovascular Exam Cardiovascular Exam: +S1, +S2 - GI/Abdominal Exam GI & Abdominal Exam: Soft. absent: Tenderness Assessment and Plan - Assessment and Plan (Free Text) Plan: Assessment Consider acute colitis, inflammatory or infectious HTN DM morbid obesity with BMI 48 vertigo dyslipidemia uterine CA S/P total hysterectomy and bilateral salpingo-oophorectomy CAD GERD chronic back pain history of UTI with E. coli Plan on Cefepime and Flagyl day 2; stool for C.diff. negative, blood cx negative; can be switched to PO Flagyl reviewed GI evaluation and recommendations
== END 2017-01-04 14:52 | disposition home or self-care (01) | DRG 392 ==
LOC: ED 12:16 → ERH 16:56 → 5RNO 18:10 → OBSVTOIN 01-03 12:52
PROVIDERS: ADMIT Internal Medicine Medical Oncology; ATTEND Internal Medicine Nephrology
DX: K52.9 Noninfective gastroenteritis and colitis, unspecified (principal); N17.9 Acute kidney failure, unspecified; N39.0 Urinary tract infection, site not specified; Z68.42 Body mass index [BMI] 45.0-49.9, adult; E86.0 Dehydration; I12.9 Hypertensive chronic kidney disease with stage 1 through stage 4 chronic kidney disease, or unspecified chronic kidney disease; N18.9 Chronic kidney disease, unspecified; E11.22 Type 2 diabetes mellitus with diabetic chronic kidney disease; K76.0 Fatty (change of) liver, not elsewhere classified; E66.01 Morbid (severe) obesity due to excess calories; E78.5 Hyperlipidemia, unspecified; E83.42 Hypomagnesemia; B96.20 Unspecified Escherichia coli [E. coli] as the cause of diseases classified elsewhere; F41.9 Anxiety disorder, unspecified; H91.90 Unspecified hearing loss, unspecified ear; M19.90 Unspecified osteoarthritis, unspecified site; G25.81 Restless legs syndrome; K21.9 Gastro-esophageal reflux disease without esophagitis; I25.10 Atherosclerotic heart disease of native coronary artery without angina pectoris; G89.29 Other chronic pain; M54.5 Low back pain; F32.9 Major depressive disorder, single episode, unspecified; Z85.42 Personal history of malignant neoplasm of other parts of uterus; Z79.4 Long term (current) use of insulin; Z87.891 Personal history of nicotine dependence

== ENCOUNTER 2017-01-13 13:02 | Inpatient (IN) | payer MEDICARE ==
--- NOTE | 2017-01-13 13:16 | ED PDOC ---
Arrival/HPI - General Time Seen by Provider: 01/13/17 13:15 Historian: Patient - History of Present Illness Narrative History of Present Illness (Text): 01/13/17 13:14 A 81 year old female, whose past medical history includes IDDM, hypertension, hyperlipidemia, vertigo, recent admission for dehydration/near syncope in the past 2 months, brought in by EMS and is accompanied by grandson, presents to the emergency department complaining of generalized weakness. Per grandson, he found patient passed out twice in the kitchen and patient had difficulty ambulating afterwards. Patient reports left side numbness ongoing for 4 months, along with diarrhea for 1 month. Patient denies of any fall and has no other complaints at this time. PMD: Dr. Cayden Martínez Time/Duration: < month (4 months) Symptom Onset: Sudden Symptom Course: Unchanged Past Medical History - Provider Review Nursing Documentation Reviewed: Yes - Infectious Disease Hx of Infectious Diseases: None - Tetanus Immunization Tetanus Immunization: Unknown - Cardiac Hx Cardiac Disorders: Yes Hx Hypertension: Yes - Pulmonary Hx Respiratory Disorders: Yes Hx Bronchitis: Yes - Neurological HX Cerebrovascular Accident: Yes - HEENT Other/Comment: RIGHT EAR TINNITUS. WEARS GLASSES, NEAR SIGHTED, needs cataract sx both eyes - Renal Hx Renal Disorder: Yes Hx Kidney Stones: Yes ("CAME OUT ON OWN") - Endocrine/Metabolic Hx Diabetes Mellitus Type 2: Yes - Hematological/Oncological Hx Blood Disorders: Yes Other/Comment: " I HAD A BLOOD INFECTION 2-3 YRS. AGO-THEY DON'T KNOW WHAT IT WAS" - Integumentary Other/Comment: HX. LEFT BREAST CYST - Musculoskeletal/Rheumatological Hx Arthritis: Yes - Gastrointestinal Other/Comment: RECTAL BLEEDING, gastric polyps, hemorrhoids - Genitourinary/Gynecological Hx Incontinence: Yes (wears diapers, urgency) - Psychiatric Hx Psychophysiologic Disorder: Yes Hx Anxiety: Yes Hx Depression: Yes Hx Emotional Abuse: No Hx Physical Abuse: No Hx Substance Use: No - Surgical History Other/Comment: LEFT BREAST CYST REMOVED, lle orif with hardware, r wrist orif with hardware, ercp, picc - Anesthesia Hx Anesthesia: Yes Hx Anesthesia Reactions: No Hx Malignant Hyperthermia: No - Suicidal Assessment Feels Threatened In Home Enviroment: No Family/Social History - Physician Review Nursing Documentation Reviewed: Yes Family/Social History: Other (nc) Smoking Status: Former Smoker Hx Alcohol Use: No Hx Substance Use: No Hx Substance Use Treatment: No Allergies/Home Meds Allergies/Adverse Reactions: Allergies No Known Allergies Allergy (Verified 01/02/17 12:40) Home Medications: Home Meds Medication Instructions Recorded Confirmed Metformin HCl 1,000 mg PO BID 11/02/12 01/13/17 Pregabalin [Lyrica] 50 mg PO TID 11/02/12 01/13/17 Ramipril 5 mg PO QAM 11/02/12 01/13/17 Sertraline HCl 25 mg PO QPM 11/02/12 01/13/17 Insulin Glargine,Hum.rec.anlog 1 unit SC HS 07/17/14 01/13/17 [Lantus] Atorvastatin [Lipitor] 80 mg PO HS 05/09/15 01/13/17 Calcium Carbonate [Calcium] 500 mg PO DAILY 05/09/15 01/13/17 Glipizide 10 mg PO DAILY 05/09/15 01/13/17 Magnesium 250 mg PO TID 05/09/15 01/13/17 Meclizine HCl [Antivert] 25 mg PO TID 05/09/15 01/13/17 Omeprazole 20 mg PO DAILY 05/09/15 01/13/17 Clonazepam [Klonopin] 0.5 mg PO TID 07/08/16 01/13/17 Losartan [Cozaar] 100 mg PO DAILY 09/11/16 01/13/17 Metoprolol Tartrate [Lopressor] 25 mg PO DAILY 01/02/17 01/13/17 Lactobacillus Acidophilus 1 each PO DAILY 01/13/17 01/13/17 [Acidophilus] Ondansetron HCl [Zofran] 4 mg PO Q8 PRN 01/13/17 01/13/17 Review of Systems - Physician Review All systems were reviewed & negative as marked: Yes - Review of Systems Respiratory: absent: SOB Cardiovascular: absent: Chest Pain Musculoskeletal: Arthralgias (r shoulder pain chronic) Neurological: absent: Headache Physical Exam Vital Signs Temp Pulse Resp BP Pulse Ox 01/13/17 15:41 64 16 111/69 95 01/13/17 13:03 97.7 F 73 16 103/40 L 95 Mental Status: Positive for: Confused - Systems Exam Head: Present: Atraumatic, Normocephalic Pupils: Present: PERRL Extroacular Muscles: Present: EOMI Conjunctiva: Present: Normal Mouth: Present: Moist Mucous Membranes Neck: Present: Normal Range of Motion Respiratory/Chest: Present: Clear to Auscultation, Good Air Exchange. No: Respiratory Distress, Accessory Muscle Use Cardiovascular: Present: Regular Rate and Rhythm, Normal S1, S2. No: Murmurs Abdomen: Present: Normal Bowel Sounds. No: Tenderness, Distention, Peritoneal Signs Back: Present: Normal Inspection Upper Extremity: Present: Other Lower Extremity: Present: Normal Inspection. No: Edema Neurological: Present: Motor Func Grossly Intact, Gait Normal, Other ( subjectivee decreased sensation on left-side). No: Normal Cerebellar Funct Skin: Present: Warm, Dry, Normal Color. No: Rashes Psychiatric: Present: Alert, Oriented x 3, Normal Insight, Normal Concentration Medical Decision Making ED Course and Treatment: 01/13/17 15:[address] Baxter who will admit - Lab Interpretations Lab Results: 01/13/17 13:52 01/13/17 13:52 Lab Results 01/13/17 13:52: TSH 3rd Generation 0.7 01/13/17 13:52: Sodium 144, Potassium 4.5, Chloride 112 H, Carbon Dioxide 24, Anion Gap 13, BUN 26 H, Creatinine 1.7 H, Est GFR ( Amer) 35, Est GFR ( Non-Af Amer) 29, Random Glucose 178 H, Calcium 9.4, Total Bilirubin 0.6, AST 21 , ALT 38, Alkaline Phosphatase 104, Troponin I < 0.01, Total Protein 6.2, Albumin 3.4, Globulin 2.7, Albumin/Globulin Ratio 1.3 01/13/17 13:52: WBC 6.3 D, RBC 3.50, Hgb 10.5 L, Hct 32.9 L, MCV 94.0 D, MCH 30.0, MCHC 31.9, RDW 13.8, Plt Count 182, MPV 10.6, Gran % 58.7, Lymph % (Auto) 31.2, Potter % (Auto) 7.2 H, Eos % (Auto) 2.7, Baso % (Auto) 0.2, Gran # 3.67, Lymph # 2.0, Potter # 0.5, Eos # 0.2, Baso # 0.01 01/13/17 13:34: POC Glucose (mg/dL) 171 H I have reviewed the lab results: Yes - RAD Interpretation Radiology Orders: 01/13/17 13:20 HEAD W/O CONTRAST [CT] Stat CHEST ONE VIEW [RAD] Stat - Medication Orders Current Medication Orders: Atorvastatin Calcium (Lipitor) 80 mg PO HS [facility] Last Admin: 01/14/17 21:58 Dose: 80 mg Insulin Human Regular (Humulin R Low) 0 units SC ACHS [facility] PRN Reason: Protocol Last Admin: 01/14/17 21:58 Dose: Not Given Non-Admin Reason: Blood Sugar Parameter Magnesium Oxide (Mag-Ox) 400 mg PO TID [facility] Meclizine HCl (Antivert) 25 mg PO TID [facility] Last Admin: 01/14/17 18:29 Dose: 25 mg Metoprolol Tartrate (Lopressor) 25 mg PO DAILY [facility] Last Admin: 01/14/17 10:43 Dose: 25 mg Pregabalin (Lyrica) 50 mg PO TID [facility] Last Admin: 01/14/17 18:29 Dose: 50 mg Sertraline HCl (Zoloft) 25 mg PO QPM [facility] Last Admin: 01/14/17 18:29 Dose: 25 mg Discontinued Medications Sodium Chloride (Sodium Chloride 0.9%) 1,000 mls @ 999 mls/hr IV .Q1H1M STA Stop: 01/13/17 14:21 Last Admin: 01/13/17 13:56 Dose: 999 mls/hr eMAR Start Stop Document 01/13/17 13:56 IT (Rec: 01/13/17 13:56 [id number]) Intravenous Solution Start Date 01/13/17 Start Time 13:56 End Date 01/13/17 End time 14:56 Total Infusion Time 60 Sodium Chloride (Sodium Chloride 0.9%) 1,000 mls @ 999 mls/hr IV .Q1H1M STA Stop: 01/13/17 16:07 Last Admin: 01/13/17 16:19 Dose: 999 mls/hr eMAR Start Stop Document 01/13/17 16:19 IT (Rec: 01/13/17 16:19 [email or web address] [id number]) Intravenous Solution Start Date 01/13/17 Start Time 16:19 End Date 01/13/17 End time 17:19 Total Infusion Time 60 Sodium Chloride (Sodium Chloride 0.9%) 1,000 mls @ 100 mls/hr IV .Q10H [facility] Stop: 01/14/17 13:29 Last Admin: 01/14/17 08:22 Dose: 100 mls/hr eMAR Start Stop Document 01/14/17 08:22 RA (Rec: 01/14/17 08:22 RA [id number]) Intravenous Solution Start Date 01/14/17 Start Time 08:22 End Date 01/14/17 End time 20:00 Total Infusion Time 698 Pneumococcal Polyvalent Vaccine (Pneumovax 23 Vaccine) 0.5 ml IM .ONCE ONE Stop: 01/13/17 19:28 Last Admin: 01/14/17 08:59 Dose: MAR Immunization Data Document 01/14/17 08:59 RA (Rec: 01/14/17 08:59 RA [id number]) Immunization Data Vaccine Information Sheet Given Yes Vaccine Information Sheet Given Date 01/14/17 Immunization Registry Document 01/14/17 08:59 RA (Rec: 01/14/17 08:59 [id number]) Immunization Registry Consent Date 01/13/17 - Scribe Statement The provider has reviewed the documentation as recorded by the Elizabeth Thurman Provider Scribe Attestation: All medical record entries made by the Richiboksana were at my direction and personally dictated by me. I have reviewed the chart and agree that the record accurately reflects my personal performance of the history, physical exam, medical decision making, and the department course for this patient. I have also personally directed, reviewed, and agree with the discharge instructions and disposition. Disposition/Present on Arrival - Present on Arrival Any Indicators Present on Arrival: No History of DVT/PE: No History of Uncontrolled Diabetes: No Urinary Catheter: No History Surgical Site Infection Following: None - Disposition Have Diagnosis and Disposition been Completed?: Yes Diagnosis: Dehydration, Acute kidney injury Disposition: HOSPITALIZED Disposition Time: 15:29 Patient Problems: Current Active Problems Problem Status Onset Acute kidney injury Acute Dehydration Acute Condition: STABLE
[2017-01-13 13:20] VITALS: BMI 30.9
[2017-01-13] MEDS ORDERED: Sodium Chloride 0.9% 1,000 ML IV STA ×2 (13:21→15:07)
[2017-01-13 14:02] LABS: BASO # 0.01 K/mm3 (0.0-2.0); BASO % 0.2 % (0.0-3.0); EOS # 0.2 (0.0-0.7); EOS % 2.7 % (1.5-5.0); GRAN # 3.67 (1.4-6.5); GRAN % 58.7 % (50.0-68.0); HEMATOCRIT 32.9 % (36.0-48.0); LYMPH % 31.2 % (22.0-35.0); MEAN CORPUSCULAR HGB CONC 31.9 g/dl (31.0-37.0); MEAN PLATELET VOLUME 10.6 fl (7.0-11.0); MONO # 0.5 (0.1-0.6); MONO % 7.2 % (1.0-6.0); RED CELL DISTRIBUTION WIDTH 13.8 % (11.5-14.5); WHITE BLOOD COUNT 6.3 10^3/ul (4.5-11.0)
[2017-01-13 14:27] LABS: TROPONIN I < 0.01 ng/mL
[2017-01-13 14:34] LABS: ALB/GLOB RATIO 1.3 (1.1-1.8); ALKALINE PHOSPHATASE 104 U/L (38-126); ALT/SGPT 38 U/L (7-56); AST/SGOT 21 U/L (14-36); BILIRUBIN,TOTAL 0.6 mg/dL (0.2-1.3); BLOOD UREA NITROGEN 26 mg/dL (7-21); CALCIUM 9.4 mg/dL (8.4-10.5); CARBON DIOXIDE 24 mmol/L (21-33); CHLORIDE 112 mmol/L (95-110); GFR AFRICAN-AMERICAN 35; GLUCOSE,RANDOM 178 mg/dL (70-110); POTASSIUM 4.5 mmol/L (3.6-5.0); SODIUM 144 mmol/L (132-148); TOTAL PROTEIN 6.2 g/dL (5.8-8.3)
--- NOTE | 2017-01-13 15:07 | CT ---
PROCEDURE: CT HEAD WITHOUT CONTRAST. HISTORY: weak, off balance COMPARISON: 11/15/2016. TECHNIQUE: Axial computed tomography images were obtained through the head/brain without intravenous contrast. Radiation dose: Total exam DLP = 759.00 mGy-cm. This CT exam was performed using one or more of the following dose reduction techniques: Automated exposure control, adjustment of the mA and/or kV according to patient size, and/or use of iterative reconstruction technique. FINDINGS: HEMORRHAGE: No intracranial hemorrhage. BRAIN: Again seen are mild chronic microangiopathic changes. There is no mass, mass effect or abnormal extra-axial fluid collection. VENTRICLES: There is moderate age-related global parenchymal volume loss and proportionate enlargement of the ventricles and cortical sulci. CALVARIUM: The skull base and calvarium are normal. PARANASAL SINUSES: Predominantly clear. MASTOID AIR CELLS: Predominantly clear. OTHER FINDINGS: None. IMPRESSION: No acute intracranial abnormality. Mild chronic microangiopathic changes and moderate age-related global parenchymal volume loss.
--- NOTE | 2017-01-13 15:25 | RAD ---
PROCEDURE: CHEST RADIOGRAPH, 1 VIEW HISTORY: weak COMPARISON: 11/15/2016. FINDINGS: LUNGS: The lungs are well inflated. There is mild pulmonary venous congestion. PLEURA: No pneumothorax or pleural fluid seen. CARDIOVASCULAR: There is mild cardiomegaly and prominent central vasculature. OSSEOUS STRUCTURES: No significant abnormalities. VISUALIZED UPPER ABDOMEN: Normal. OTHER FINDINGS: None. IMPRESSION: No active pulmonary disease. Mild cardiomegaly and pulmonary venous congestion.
[2017-01-13] MEDS: Sodium Chloride 0.9% 1,000 ML IV SCH (18:45)
[2017-01-13] MEDS ORDERED: Influenza Vaccine 60 mcg/0.5 mL SYR (4YR UP) IM ONE (19:27)
[2017-01-13] MEDS ORDERED: Pneumococcal 23-Valent Vaccine IM ONE (19:27)
[2017-01-13] MEDS: Insulin Reg-LOW-Coverage SC SCH (21:40)
[2017-01-14 06:24] LABS: HEMATOCRIT 32.5 % (36.0-48.0); MEAN CELL VOLUME 93.7 fl (80.0-105.0); MEAN CORPUSCULAR HEMOGLOBIN 30.5 pg (25.0-35.0); MEAN CORPUSCULAR HGB CONC 32.6 g/dl (31.0-37.0); MEAN PLATELET VOLUME 10.2 fl (7.0-11.0); RED CELL DISTRIBUTION WIDTH 13.6 % (11.5-14.5); WHITE BLOOD COUNT 5.3 10^3/ul (4.5-11.0)
[2017-01-14 06:44] LABS: ALB/GLOB RATIO 1.2 (1.1-1.8); BILIRUBIN,TOTAL 0.7 mg/dL (0.2-1.3); MAGNESIUM 1.4 mg/dL (1.7-2.2); PHOSPHOROUS 2.6 mg/dL (2.5-4.5); POTASSIUM 4.4 mmol/L (3.6-5.0); TOTAL PROTEIN 5.5 g/dL (5.8-8.3)
[2017-01-14] MEDS: Insulin Reg-LOW-Coverage SC SCH ×4 (08:21→21:58)
[2017-01-14] MEDS: Sodium Chloride 0.9% 1,000 ML IV SCH (08:22)
--- NOTE | 2017-01-14 09:10 | CARD ---
APPROVED REPORT EKG Measurement Heart [id number] OK [id number] <Conclusion> Normal sinus rhythm Inferior infarct, age undetermined Abnormal ECG
--- NOTE | 2017-01-15 02:05 | HP ---
CHIEF COMPLAINT AND HISTORY OF PRESENT ILLNESS: This is an 81-year-old female who is coming into the hospital stating that she has not been feeling well because of right shoulder pain. She is complaining of generalized weakness. She was found passed out twice in the kitchen and difficulty in ambulating. She was brought in by her grandson. The patient was unable to feel her left arm. She had weakness that also occurred on the previous admission. She has been complaining of diarrhea, numbness and tingling. This morning, she says she does feel better. She was found to have an elevated creatinine. She says the diarrhea may have caused this. She has no nausea, no vomiting, no dysuria, frequency, no nocturia. She says she feels weak and has difficulty in ambulating. REVIEW OF SYSTEMS: All other review of systems are within normal limits except as mentioned. ALLERGIES: NO KNOWN DRUG ALLERGIES. HOME MEDICATIONS: It was reviewed on the [facility]. PAST MEDICAL HISTORY: 1. Nephrolithiasis. 2. Diabetes type 2. 3. Dyslipidemia. 4. Hearing impairment. 5. Osteoarthritis. 6. Chronic back pain. 7. Anxiety. 8. Hypertension. SOCIAL HISTORY: She does not smoke. She quit about 30 years ago. She lives at home with her son who has developmental delay. FAMILY HISTORY: Noncontributory. PHYSICAL EXAMINATION: VITAL SIGNS: Temperature is 97.7, pulse of 73, blood pressure 103/40, respirations 16, O2 saturations 95%, height is 5 feet 4 inches, weight is 180 pounds, and BMI is 30.9. GENERAL: The patient lying in bed, uncomfortable, and in no acute distress. HEENT: Atraumatic and normocephalic. Anicteric sclerae. Moist mucosa. Hume conjunctivae. No oral lesions. NECK: No JVD, anterior and posterior adenopathy, thyromegaly, or bruits. CARDIOVASCULAR: S1 and S2 regular. No murmur, rubs, or gallop. LUNGS: Clear to auscultation bilaterally. No wheezes, rales, or rhonchi. ABDOMEN: Bowel sounds are positive. Soft, nontender and nondistended. No hepatosplenomegaly. No rebound and no guarding. EXTREMITIES: No cyanosis, clubbing, or edema. NEUROLOGIC: No facial asymmetry. Tongue is midline. No uvula deviation. Power is 5/5 upper extremity and lower extremity. Sensation intact in upper extremity and lower extremity. PSYCHIATRIC: She is awake, alert and oriented x3. No anxiety or depression. She has normal affect. GENITOURINARY: No CVA tenderness. VASCULAR: 2+ pulses in the carotid pulses and pedal pulses. SKIN: No erythema or nodules SPINE: Shows normal curvature. EXTREMITIES: No Cyanosis and clubbing, no edema. LABORATORY DATA: Have been reviewed. Hemoglobin is 10.5. Creatinine initially was 1.7 and then had improved to 1.2, magnesium level is 1.4. CT of the head done shows no acute intracranial abnormalities. EKG done shows sinus rhythm. Chest x-ray done shows no infiltrates. ASSESSMENT: 1. Acute kidney injury. 2. Syncope secondary to hypovolemia. 3. Hypomagnesemia. 4. Diabetes type 2. 5. Dyslipidemia. 6. Obesity with body mass index of 31. 7. Hypertension. PLAN: The patient is currently on Antivert as needed. She is receiving metoprolol. She is on Lipitor for dyslipidemia. She is on Zoloft. She is consuming a carbohydrate consistent diet. Her creatinine has improved. She was given IV fluids. We will get repeat blood work tomorrow. We will get GI to evaluate the patient. We will also get Neurology to evaluate the patient. Monroe Baxter MD
[2017-01-15 08:34] LABS: ALB/GLOB RATIO 1.1 (1.1-1.8); ALKALINE PHOSPHATASE 98 U/L (38-126); ALT/SGPT 27 U/L (7-56); AST/SGOT 21 U/L (14-36); BILIRUBIN,TOTAL 0.7 mg/dL (0.2-1.3); BLOOD UREA NITROGEN 15 mg/dL (7-21); CALCIUM 9.4 mg/dL (8.4-10.5); CARBON DIOXIDE 26 mmol/L (21-33); CHLORIDE 113 mmol/L (98-107); GFR AFRICAN-AMERICAN > 60; GLUCOSE,RANDOM 141 mg/dL (70-110); POTASSIUM 4.6 mmol/L (3.6-5.0); SODIUM 145 mmol/L (132-148); TOTAL PROTEIN 6.1 g/dL (5.8-8.3)
[2017-01-15] MEDS: Magnesium Oxide 400 mg Tab UD PO SCH ×3 (09:13→17:28)
[2017-01-15] MEDS: Insulin Reg-LOW-Coverage SC SCH ×4 (09:13→22:17)
--- NOTE | 2017-01-15 12:27 | PN ---
DATE: 01/15/2017 HISTORY OF PRESENT ILLNESS: Ms. Rios is an 81-year-old female admitted to the hospital with right shoulder pain. She also complaining of generalized weakness, feeling of passing out in the kitchen. She had diarrhea for few days. No nausea. No vomiting. No chest pain. No shortness of breath. ALLERGIES: NO KNOWN DRUG ALLERGIES. PAST MEDICAL HISTORY: Nephrolithiasis, diabetes mellitus type 2, hearing impairment, osteoarthritis, chronic back pain, anxiety, and hypertension. PAST SURGICAL HISTORY: None. REVIEW OF SYSTEMS: As per HPI. Rest of 12-point review of systems reviewed and negative. MEDICATIONS: Lipitor 80 mg daily, regular insulin, magnesium oxide 400 mg twice a day, Antivert 25 mg p.o. t.i.d., Lopressor 25 mg p.o. daily, Lyrica 50 mg p.o. t.i.d., Zoloft 25 mg daily, and vancomycin 250 mg p.o. q.i.d. LABORATORY DATA: White count 5.3, hemoglobin 10.6, hematocrit 32.5, and platelet 173. Sodium 144, potassium 4.5, creatinine 1.7, currently 1.2, and calcium 9.4. LFTs within normal limits. PHYSICAL EXAMINATION: GENERAL: Comfortable in bed, in no acute distress. VITAL SIGNS: Stable. Temperature 98.6, heart rate is 65 per minute, blood pressure 190/102, respiratory rate 18 per minute, and oxygen saturation 97% on room air. HEENT: Normal. CHEST: Air entry present and equal bilaterally. No added sounds. CARDIOVASCULAR: S1 and S2 normal. No murmur. No gallop. ABDOMEN: Soft and nontender. No hepatosplenomegaly. EXTREMITIES: No edema. CENTRAL NERVOUS SYSTEM: Alert and oriented x3. No focal sensory or motor deficit. Spine nontender. SKIN: No petechiae. No rash. ASSESSMENT AND PLAN: 1. Acute kidney injury. 2. Morbid obesity. 3. Hypertension. 4. Anemia. 5. Syncope. Currently, she is comfortable. Creatinine has improved. Hemoglobin is 10.6 stable. We will continue insulin sliding scale. Continue Zoloft and vancomycin oral for diarrhea. Stool C. diff is pending. GI consultation requested, input awaited. We will continue IV fluids at 80 mL an hour. Haley Goetz MD MTDRick
[2017-01-15] MEDS: Vancomycin 25 MG/ML PO SCH ×3 (13:38→22:19)
--- NOTE | 2017-01-15 16:35 | CON ---
DATE: 01/15/2017 NEUROLOGY CONSULT CHIEF COMPLAINT: Syncope. 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 CAT scan of the head showed no acute intracranial abnormality. Her systolic and diastolic blood pressures were initially low when she came in. Had metabolic derangements. Currently, she is moving all extremities without difficulty. Has mild diabetic neuropathy on examination. REVIEW OF SYSTEM: A 14-point review of systems is negative except as per the HPI. PAST MEDICAL HISTORY: Nephrolithiasis, type 2 diabetes mellitus, dyslipidemia, osteoarthritis, hearing impairment, chronic back pain, anxiety, and hypertension. SOCIAL HISTORY: No illicit drug use or smoking. No EtOH abuse. ALLERGIES: NO KNOWN DRUG ALLERGIES. MEDICATIONS: Reviewed via nurse's reconciliation sheet. FAMILY HISTORY: Noncontributory. PHYSICAL EXAMINATION: GENERAL: The patient is sitting up in bed, in no acute distress. VITAL SIGNS: Temperature of 98.3, pulse rate 71, blood pressure 154/87, respiratory rate 18, oxygen saturation 97% via room air. HEENT: Head is atraumatic and normocephalic. PERRLA. Extraocular muscles are intact. NECK: Supple. No JVD. No adenopathy. LUNGS: Clear to auscultation. No adventitious sounds. HEART: S1 and S2. Normal rate and rhythm. No murmurs, rubs or gallops. ABDOMEN: Soft, nontender, nondistended. Bowel sounds are present. EXTREMITIES: No clubbing. No cyanosis. Peripheral pulses 2+ felt bilaterally. NEUROLOGIC: The patient is alert and oriented to person, place, month and year. Speech is fluent without any errors. Cranial nerves II through XII are intact. She is hard of hearing at baseline. Motor exam: Moves all extremities equally. No pronator drift seen. Sensory exam: Decreased light touch and pinprick, proprioception up to the calves bilaterally, decreased vibration of the toes. DTRs are 2+ throughout and 1 at knees and ankles. Coordination: [id number] intact. Gait is deferred for now. LABORATORY DATA: Sodium is 145, potassium 4.6, chloride 113, carbon dioxide 26, BUN of 15, creatinine 1, random glucose 141. ASSESSMENT AND PLAN: This is an 81-year-old woman with history of type 2 diabetes mellitus, history of dyslipidemia, hypertension, history of syncope in the past. She came in for syncopal episode, had recent episodes of diarrhea. Likely syncope is secondary to vasovagal event from underlying hypovolemia. At this time, I recommend: 1. Monitor her electrolytes and correct accordingly. 2. IV fluids. 3. Evaluate for C. diff. 4. PT and OT for gait assessment and continue current present medical management. No further neurological recommendation at this time. Benito Clinton MD
[2017-01-16 02:35] VITALS: BP 163/85; RESP 20
[2017-01-16 02:39] LABS: PH,URINE 5.5 (4.7-8.0); URINE BILIRUBIN NEGATIVE (NEGATIVE); URINE BLOOD NEGATIVE (NEGATIVE); URINE GLUCOSE (UA) NEGATIVE (NEGATIVE); URINE KETONE NEGATIVE (NEGATIVE); URINE LEUKOCYTE ESTERASE TRACE Leu/uL (NEGATIVE); URINE PROTEIN NEGATIVE mg/dL (<30 mg/dL); URINE UROBILINOGEN 0.2 E.U./dL (<1 E.U./dL)
[2017-01-16 02:40] LABS: URINE APPEARANCE CLEAR (CLEAR); URINE COLOR LIGHT YELLOW (YELLOW)
--- NOTE | 2017-01-16 02:43 | CP.PCM.PN ---
Subjective - Date & Time of Evaluation Date of Evaluation: 01/16/17 Time of Evaluation: 02:43 - Subjective Subjective: Patient was seen at bedside. Has complaint of headache. No other complaints. BP was 163/85. Medical record was reviewed. This 81 year old woman was admitted after passing out with c/o shoulder pain, weakness. Has PMH of nephrolitihiasis, HTN, HLD, DM II, anxiety, chronic back pain, OA. Objective - Vital Signs/Intake and Output Vital Signs (last 24 hours): Temp Pulse Resp BP Pulse Ox 98.7 F 67 20 163/85 H 95 01/16/17 02:34 01/16/17 02:34 01/16/17 02:34 01/16/17 02:34 01/16/17 02:34 Intake and Output: 01/15/17 01/16/17 18:59 06:59 Intake Total 700 600 Output Total 400 Balance 300 600 - Medications Medications: Current Medications Acetaminophen (Tylenol 325mg Tab) 650 mg PO STAT STA Stop: 01/16/17 02:43 Atorvastatin Calcium (Lipitor) 80 mg PO HS [facility] Last Admin: 01/15/17 22:19 Dose: 80 mg Insulin Human Regular (Humulin R Low) 0 units SC ACHS [facility] PRN Reason: Protocol Last Admin: 01/15/17 22:17 Dose: Not Given Magnesium Oxide (Mag-Ox) 400 mg PO TID [facility] Last Admin: 01/15/17 17:28 Dose: 400 mg Meclizine HCl (Antivert) 25 mg PO TID [facility] Last Admin: 01/15/17 17:28 Dose: 25 mg Metoprolol Tartrate (Lopressor) 25 mg PO DAILY [facility] Last Admin: 01/15/17 09:13 Dose: 25 mg Pregabalin (Lyrica) 50 mg PO TID [facility] Last Admin: 01/15/17 17:28 Dose: 50 mg Sertraline HCl (Zoloft) 25 mg PO QPM [facility] Last Admin: 01/15/17 17:28 Dose: 25 mg Vancomycin HCl (Vancocin 25 Mg/Ml (Oral Use)) 250 mg PO QID [facility] PRN Reason: Protocol Last Admin: 01/15/17 22:19 Dose: 250 mg - Labs Labs: 01/14/17 06:18 01/15/17 07:45 Laboratory Last Values WBC 5.3 10^3/ul (4.5-11.0) 01/14/17 06:18 RBC 3.47 10^6/uL (3.5-6.1) L 01/14/17 06:18 Hgb 10.6 g/dL (12.0-16.0) L 01/14/17 06:18 Hct 32.5 % (36.0-48.0) L 01/14/17 06:18 MCV 93.7 fl (80.0-105.0) 01/14/17 06:18 MCH 30.5 pg (25.0-35.0) 01/14/17 06:18 MCHC 32.6 g/dl (31.0-37.0) 01/14/17 06:18 RDW 13.6 % (11.5-14.5) 01/14/17 06:18 Plt Count 173 10^3/uL (120.0-450.0) 01/14/17 06:18 MPV 10.2 fl (7.0-11.0) 01/14/17 06:18 Gran % 58.7 % (50.0-68.0) 01/13/17 13:52 Lymph % (Auto) 31.2 % (22.0-35.0) 01/13/17 13:52 [place] % (Auto) 7.2 % (1.0-6.0) H 01/13/17 13:52 Eos % (Auto) 2.7 % (1.5-5.0) 01/13/17 13:52 Baso % (Auto) 0.2 % (0.0-3.0) 01/13/17 13:52 Gran # 3.67 (1.4-6.5) 01/13/17 13:52 Lymph # 2.0 (1.2-3.4) 01/13/17 13:52 [place] # 0.5 (0.1-0.6) 01/13/17 13:52 Eos # 0.2 (0.0-0.7) 01/13/17 13:52 Baso # 0.01 K/mm3 (0.0-2.0) 01/13/17 13:52 Sodium 145 mmol/L (132-148) 01/15/17 07:45 Potassium 4.6 mmol/L (3.6-5.0) 01/15/17 07:45 Chloride 113 mmol/L (98-107) H 01/15/17 07:45 Carbon Dioxide 26 mmol/L (21-33) 01/15/17 07:45 Anion Gap 11 (10-20) 01/15/17 07:45 BUN 15 mg/dL (7-21) 01/15/17 07:45 Creatinine 1.0 mg/dL (0.7-1.2) 01/15/17 07:45 Est GFR ( Amer) > 60 01/15/17 07:45 Est GFR (Non-Af Amer) 53 01/15/17 07:45 POC Glucose (mg/dL) 125 mg/dL (65-110) H 01/15/17 21:45 Random Glucose 141 mg/dL (70-110) H 01/15/17 07:45 Calcium 9.4 mg/dL (8.4-10.5) 01/15/17 07:45 Phosphorus 2.6 mg/dL (2.5-4.5) 01/14/17 06:18 Magnesium 1.4 mg/dL (1.7-2.2) L 01/14/17 06:18 Total Bilirubin 0.7 mg/dL (0.2-1.3) 01/15/17 07:45 AST 21 U/L (14-36) 01/15/17 07:45 ALT 27 U/L (7-56) 01/15/17 07:45 Alkaline Phosphatase 98 U/L (38-126) 01/15/17 07:45 Troponin I < 0.01 ng/mL 01/13/17 13:52 Total Protein 6.1 g/dL (5.8-8.3) 01/15/17 07:45 Albumin 3.2 g/dL (3.0-4.8) 01/15/17 07:45 Globulin 2.8 gm/dL 01/15/17 07:45 Albumin/Globulin Ratio 1.1 (1.1-1.8) 01/15/17 07:45 TSH 3rd Generation 0.7 MIU/ml (0.46-4.68) 01/13/17 13:52 Urine Color Light yellow (YELLOW) 01/16/17 02:20 Urine Appearance Clear (CLEAR) 01/16/17 02:20 Urine pH 5.5 (4.7-8.0) 01/16/17 02:20 Ur Specific [place] 1.020 (1.005-1.035) 01/16/17 02:20 Urine Protein Negative mg/dL (<30 mg/dL) 01/16/17 02:20 Urine Glucose (UA) Negative mg/dL (NEGATIVE) 01/16/17 02:20 Urine Ketones Negative mg/dL (NEGATIVE) 01/16/17 02:20 Urine Blood Negative (NEGATIVE) 01/16/17 02:20 Urine Nitrate Negative (NEGATIVE) 01/16/17 02:20 Urine Bilirubin Negative (NEGATIVE) 01/16/17 02:20 Urine Urobilinogen 0.2 E.U./dL (<1 E.U./dL) 01/16/17 02:20 Ur Leukocyte Esterase Trace Pao/uL (NEGATIVE) H 01/16/17 02:20 Urine RBC 0 - 2 /hpf (0-2) 01/16/17 02:20 Urine WBC 0 - 2 /hpf (0-6) 01/16/17 02:20 Ur Epithelial Cells 0 - 2 /hpf (0-5) 01/16/17 02:20 Urine Bacteria Small (NEG) 01/16/17 02:20 Urine Other Uren 01/16/17 02:20 - Constitutional Appears: Well, No Acute Distress - Head Exam Head Exam: ATRAUMATIC, NORMAL INSPECTION, NORMOCEPHALIC - Eye Exam Eye Exam: Normal appearance - ENT Exam ENT Exam: Normal External Ear Exam - Neck Exam Neck Exam: Normal Inspection - Respiratory Exam Respiratory Exam: NORMAL BREATHING PATTERN - Cardiovascular Exam Cardiovascular Exam: absent: JVD - GI/Abdominal Exam GI & Abdominal Exam: absent: Distended - Rectal Exam Rectal Exam: Deferred - Exam Additional comments: Deferred. - Extremities Exam Extremities Exam: Normal Inspection - Back Exam Back Exam: NORMAL INSPECTION - Neurological Exam Neurological Exam: Alert, Awake - Psychiatric Exam Psychiatric exam: Normal Affect, Normal Mood - Skin Skin Exam: Normal Color Assessment and Plan - Assessment and Plan (Free Text) Assessment: Headache. Elevated blood pressure reading. HTN. OA. DM II. HLD. Chronic back pain Plan: Tylenol 650 mg PO x 1. Clonidine 0.1 mg PO x1. Continue present management.
[2017-01-16 02:45] LABS: URINE BACTERIA SMALL (NEG); URINE EPITHELIAL CELLS 0 - 2 /hpf (0-5); URINE RBC 0 - 2 /hpf (0-2); URINE WBC 0 - 2 /hpf (0-6)
--- NOTE | 2017-01-16 02:49 | CON ---
DATE: 01/15/2017 HISTORY OF PRESENT ILLNESS: This patient was seen and evaluated earlier today. This patient is well known to our service. This 81-year-old patient with past medical history of uterine carcinoma, status post total hysterectomy, who was recently discharged from the hospital, admitted again with episodes of severe diarrhea. The patient was on acute kidney injury. The patient has been on IV hydration, improving. The patient was admitted in the hospital about 2 weeks ago with diarrhea. CAT scan shows some thickening of the rectosigmoid area suggestive of rectosigmoiditis. The patient was sent home with Cipro and Flagyl. The patient continues to have diarrhea and is re-admitted now. Acute kidney injury on IV fluid hydration. Renal function improved. Her concern is really the persistence of the loose bowel movements. The patient had stool for C. diff done before was negative. PAST MEDICAL HISTORY: Other past medical history is significant as above, history of diabetes mellitus, osteoarthritis, chronic back pain, anxiety, hypertension, and history of elevated CA19-9 before. ALLERGIES: NO KNOWN DRUG ALLERGIES. PAST SURGICAL HISTORY: As stated above. REVIEW OF SYSTEMS: Other systems reviewed negative. PHYSICAL EXAMINATION: GENERAL: The patient is lying on the bed, not in acute distress. VITAL SIGNS: Temperature is 98.6, blood pressure is 177/89, respirations 18, and O2 saturation 97%. HEENT: Atraumatic. Anicteric. NECK: Supple. HEART: S1 and S2 heard. LUNGS: Bilateral air entry present. ABDOMEN: Soft. There is a mild tenderness on deep palpation in the lower abdomen. EXTREMITIES: No cyanosis. No clubbing. NEUROLOGIC: Alert and oriented. Moves all extremities. LABORATORY DATA: Hemoglobin 10.6, hematocrit 32.5, WBC is 5.3, and platelets 173. Chemistry is essentially unremarkable. IMPRESSION AND PLAN: This 81-year-old patient recently discharged from the hospital following treatment for rectosigmoiditis admitted with acute kidney injury, diarrhea, and dehydration, clinically improving. The patient still has loose bowel movements. The patient was treated before for the urinary tract infection. The concern is like Clostridium difficile, but the stool for Clostridium difficile was negative. The patient had endoscopy and colonoscopy done in 2014. 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 The colonoscopy done on 07/18/2014 showed only diverticulosis and hemorrhoids. Also, upper gastrointestinal endoscopy was negative. The endoscopy was done, which was essentially unremarkable except for gastritis and Pritchett's. The etiology for this diarrhea, which is recurrent is unclear. The one of the differential diagnosis still should considered is Clostridium difficile. We will repeat the stool for Clostridium difficile and also empirically start the patient on p.o. vancomycin. We will consider starting the patient on Xifaxan. Still the diarrhea persist, then we will probably consider the flexible sigmoidoscopy. The real concern is persistence of the large volume for diarrhea. The patient is also on magnesium and we will continue to closely followup her care and suggest further management based on the clinical course. Zoraida Nichols MD
[2017-01-16 06:29] VITALS: PULSE 65; TEMP 98.9; O2SAT 96
[2017-01-16 07:02] LABS: ALB/GLOB RATIO 1.2 (1.1-1.8); ALKALINE PHOSPHATASE 91 U/L (38-126); ALT/SGPT 36 U/L (7-56); AST/SGOT 16 U/L (14-36); BILIRUBIN,TOTAL 0.7 mg/dL (0.2-1.3); BLOOD UREA NITROGEN 15 mg/dL (7-21); CARBON DIOXIDE 29 mmol/L (21-33); CHLORIDE 112 mmol/L (95-110); GFR AFRICAN-AMERICAN > 60; GLUCOSE,RANDOM 149 mg/dL (70-110); POTASSIUM 4.7 mmol/L (3.6-5.0); SODIUM 143 mmol/L (132-148); TOTAL PROTEIN 5.6 g/dL (5.8-8.3)
[2017-01-16] MEDS: Insulin Reg-LOW-Coverage SC SCH ×2 (08:46→12:16)
[2017-01-16] MEDS: Magnesium Oxide 400 mg Tab UD PO SCH (09:45)
[2017-01-16] MEDS: Vancomycin 25 MG/ML PO SCH (09:51)
--- NOTE | 2017-01-16 19:22 | PN ---
DATE: 01/16/2017 SUBJECTIVE: This patient was seen and evaluated earlier today. Discussed with Dr. Goetz earlier. PHYSICAL EXAMINATION: VITAL SIGNS: The patient is afebrile, blood pressure 163/85, pulse 65, respiration is 20, and O2 saturation is 96%. HEENT: Atraumatic, anicteric. NECK: Supple. HEART: S1 and S2 heard. LUNGS: Bilateral air entry present. ABDOMEN: Soft. There is no mass palpable. No tenderness. EXTREMITIES: No edema, no cyanosis. NEUROLOGICAL: Alert and oriented. Moves all extremities. LABORATORY DATA: Chemistry is essentially unremarkable. Stool for C. diff sent was negative. IMPRESSION: This is an 81-year-old patient was recently discharged. The patient was readmitted now with worsening of the diarrhea and acute kidney injury. The patient has been hydrated and the kidney function is improved. The patient states the diarrhea is also improved and presently on p.o. vancomycin, even though the stool for Clostridium difficile is negative. The patient has worsening of diarrhea after recent course of antibiotics. The patient was hospitalized about 10 days ago with diarrhea and also a CT showed at that time some thickening of the rectosigmoid area. Clinically, it is more suggestive of antibiotics in this diarrhea. The patient is already on vancomycin, we will add Flagyl along with that. We will slowly advanced the diet and the patient plan to be discharged home later. Stool for Clostridium difficile is negative. Clinically, it is more suggestive of the patient is on p.o. vancomycin. The patient has been started on p.o. vancomycin. The patient's diarrhea improved. The patient was treated for urinary tract infection in the past and also recently when the patient was admitted about 10 days ago she got rectosigmoiditis, the patient was treated with empirically the p.o. Flagyl and Cipro, had a worsening of the diarrhea also. Clinically, it is more suggestive of antibiotic induced diarrhea. We will continue the p.o. vancomycin. Thank you very much for allowing me to participate in the care of the patient. Zoraida Nichols MD
--- NOTE | 2017-01-16 22:03 | CP.PCM.DIS ---
Provider - Provider Date of Admission: 01/13/17 15:27 Attending physician: Monroe Baxter MD Time Spent in preparation of Discharge (in minutes): 60 Hospital Course - Lab Results Lab Results: Micro Results 01/15/17 13:57 Stool C. difficile Antigen & Toxin A,B (M - Final Most Recent Lab Values WBC 5.3 10^3/ul (4.5-11.0) 01/14/17 06:18 RBC 3.47 10^6/uL (3.5-6.1) L 01/14/17 06:18 Hgb 10.6 g/dL (12.0-16.0) L 01/14/17 06:18 Hct 32.5 % (36.0-48.0) L 01/14/17 06:18 MCV 93.7 fl (80.0-105.0) 01/14/17 06:18 MCH 30.5 pg (25.0-35.0) 01/14/17 06:18 MCHC 32.6 g/dl (31.0-37.0) 01/14/17 06:18 RDW 13.6 % (11.5-14.5) 01/14/17 06:18 Plt Count 173 10^3/uL (120.0-450.0) 01/14/17 06:18 MPV 10.2 fl (7.0-11.0) 01/14/17 06:18 Gran % 58.7 % (50.0-68.0) 01/13/17 13:52 Lymph % (Auto) 31.2 % (22.0-35.0) 01/13/17 13:52 [place] % (Auto) 7.2 % (1.0-6.0) H 01/13/17 13:52 Eos % (Auto) 2.7 % (1.5-5.0) 01/13/17 13:52 Baso % (Auto) 0.2 % (0.0-3.0) 01/13/17 13:52 Gran # 3.67 (1.4-6.5) 01/13/17 13:52 Lymph # 2.0 (1.2-3.4) 01/13/17 13:52 [place] # 0.5 (0.1-0.6) 01/13/17 13:52 Eos # 0.2 (0.0-0.7) 01/13/17 13:52 Baso # 0.01 K/mm3 (0.0-2.0) 01/13/17 13:52 Sodium 143 mmol/L (132-148) 01/16/17 06:00 Potassium 4.7 mmol/L (3.6-5.0) 01/16/17 06:00 Chloride 112 mmol/L (95-110) H 01/16/17 06:00 Carbon Dioxide 29 mmol/L (21-33) 01/16/17 06:00 Anion Gap 7 (10-20) L 01/16/17 06:00 BUN 15 mg/dL (7-21) 01/16/17 06:00 Creatinine 0.8 mg/dL (0.7-1.2) 01/16/17 06:00 Est GFR ( Amer) > 60 01/16/17 06:00 Est GFR (Non-Af Amer) > 60 01/16/17 06:00 POC Glucose (mg/dL) 221 mg/dL (65-110) H 01/16/17 12:04 Random Glucose 149 mg/dL (70-110) H 01/16/17 06:00 Calcium 9.0 mg/dL (8.4-10.5) 01/16/17 06:00 Phosphorus 2.6 mg/dL (2.5-4.5) 01/14/17 06:18 Magnesium 1.4 mg/dL (1.7-2.2) L 01/14/17 06:18 Total Bilirubin 0.7 mg/dL (0.2-1.3) 01/16/17 06:00 AST 16 U/L (14-36) 01/16/17 06:00 ALT 36 U/L (7-56) 01/16/17 06:00 Alkaline Phosphatase 91 U/L (38-126) 01/16/17 06:00 Troponin I < 0.01 ng/mL 01/13/17 13:52 Total Protein 5.6 g/dL (5.8-8.3) L 01/16/17 06:00 Albumin 3.0 g/dL (3.0-4.8) 01/16/17 06:00 Globulin 2.6 gm/dL 01/16/17 06:00 Albumin/Globulin Ratio 1.2 (1.1-1.8) 01/16/17 06:00 TSH 3rd Generation 0.7 MIU/ml (0.46-4.68) 01/13/17 13:52 Urine Color Light yellow (YELLOW) 01/16/17 02:20 Urine Appearance Clear (CLEAR) 01/16/17 02:20 Urine pH 5.5 (4.7-8.0) 01/16/17 02:20 Ur Specific [place] 1.020 (1.005-1.035) 01/16/17 02:20 Urine Protein Negative mg/dL (<30 mg/dL) 01/16/17 02:20 Urine Glucose (UA) Negative mg/dL (NEGATIVE) 01/16/17 02:20 Urine Ketones Negative mg/dL (NEGATIVE) 01/16/17 02:20 Urine Blood Negative (NEGATIVE) 01/16/17 02:20 Urine Nitrate Negative (NEGATIVE) 01/16/17 02:20 Urine Bilirubin Negative (NEGATIVE) 01/16/17 02:20 Urine Urobilinogen 0.2 E.U./dL (<1 E.U./dL) 01/16/17 02:20 Ur Leukocyte Esterase Trace Pao/uL (NEGATIVE) H 01/16/17 02:20 Urine RBC 0 - 2 /hpf (0-2) 01/16/17 02:20 Urine WBC 0 - 2 /hpf (0-6) 01/16/17 02:20 Ur Epithelial Cells 0 - 2 /hpf (0-5) 01/16/17 02:20 Urine Bacteria Small (NEG) 01/16/17 02:20 Urine Other Uren 01/16/17 02:20 - Hospital Course Hospital Course: 1. Acute kidney injury. 2. Morbid obesity. 3. Hypertension. 4. Anemia. 5. Syncope. Hospital course: Ms. Rios is an 81-year-old female admitted to the hospital with right shoulder pain. She also complaining of generalized weakness, feeling of passing out in the kitchen. She had diarrhea for few days. No nausea. No vomiting. No chest pain. No shortness of breath. Diarrhea resolved. C-diff negative. PT evaluated, no need for rehab. able to ambulate without difficulty. MEDICATIONS: Lipitor 80 mg daily, regular insulin, magnesium oxide 400 mg twice a day, Antivert 25 mg p.o. t.i.d., Lopressor 25 mg p.o. daily, Lyrica 50 mg p.o. t.i.d., Zoloft 25 mg daily, and vancomycin 250 mg p.o. q.i.d. LABORATORY DATA: White count 5.3, hemoglobin 10.6, hematocrit 32.5, and platelet 173. Sodium 144, potassium 4.5, creatinine 1.7, currently 1.2, and calcium 9.4. LFTs within normal limits. PHYSICAL EXAMINATION: GENERAL: Comfortable in bed, in no acute distress. VITAL SIGNS: Stable. Temperature 98.6, heart rate is 65 per minute, blood pressure 190/102, respiratory rate 18 per minute, and oxygen saturation 97% on room air. HEENT: Normal. CHEST: Air entry present and equal bilaterally. No added sounds. CARDIOVASCULAR: S1 and S2 normal. No murmur. No gallop. ABDOMEN: Soft and nontender. No hepatosplenomegaly. EXTREMITIES: No edema. CENTRAL NERVOUS SYSTEM: Alert and oriented x3. No focal sensory or motor deficit. Spine nontender. SKIN: No petechiae. No rash. DC home. condition : stable. Meds : continue home meds. FU with Dr. Baxter one week. Haley Goetz MD - Date & Time of H&P Date of H&P: 01/16/17 Time of H&P: 12:00 Discharge Exam - Head Exam Head Exam: ATRAUMATIC, NORMAL INSPECTION, NORMOCEPHALIC Discharge Plan - Discharge Medications Prescriptions: Vancomycin [Vancocin 25 mg/ml (Oral Use)] 250 mg PO QID 10 Days ml - Follow Up Plan Condition: STABLE Disposition: HOME/ ROUTINE Instructions: Dehydration (DC), Dehydration (GEN) Additional Instructions: Follow up with your Doctor within 1 week of discharge. If you experience any shortness of breath, fever, chills, nausea/ vomiting or new onset of chest pain. Contact your doctor or come back to the emergency room.
== END 2017-01-16 16:12 | disposition home or self-care (01) | DRG 684 ==
LOC: ED 13:02 → ERH 15:27 → 3RSO 17:34
PROVIDERS: ADMIT Internal Medicine Nephrology; ATTEND Internal Medicine Nephrology
DX: N17.9 Acute kidney failure, unspecified (principal); E86.0 Dehydration; E86.1 Hypovolemia; E11.40 Type 2 diabetes mellitus with diabetic neuropathy, unspecified; E83.42 Hypomagnesemia; I10 Essential (primary) hypertension; H91.90 Unspecified hearing loss, unspecified ear; E78.5 Hyperlipidemia, unspecified; G89.29 Other chronic pain; M54.9 Dorsalgia, unspecified; F41.9 Anxiety disorder, unspecified; K29.70 Gastritis, unspecified, without bleeding; K22.70 Barrett's esophagus without dysplasia; D64.9 Anemia, unspecified; E66.01 Morbid (severe) obesity due to excess calories; Z68.31 Body mass index [BMI] 31.0-31.9, adult; Z79.4 Long term (current) use of insulin; Z85.07 Personal history of malignant neoplasm of pancreas; Z85.42 Personal history of malignant neoplasm of other parts of uterus; Z87.440 Personal history of urinary (tract) infections; Z86.73 Personal history of transient ischemic attack (TIA), and cerebral infarction without residual deficits; Z87.442 Personal history of urinary calculi; Z79.899 Other long term (current) drug therapy

== ENCOUNTER 2017-07-16 16:30 | Inpatient (IN) | payer MEDICARE ==
--- NOTE | 2017-07-16 16:54 | ED PDOC ---
Arrival/HPI - General Time Seen by Provider: 07/16/17 16:37 Historian: Patient - History of Present Illness Narrative History of Present Illness (Text): 07/16/17 16:53 Patient is a 81 year old female whose past medical history includes hypertension , Diabetes Mellitus type 2, and irritable bowel syndrome,questionable depression , who presents to the Emergency department complaining of burning neck pain, palpitations, and dyspnea which started earlier today. Patient reports that she is also experiencing LUQ abdominal pain which radiates to her back. She also notes experiencing intermittent right arm pain radiating to her axilla with associated "ball" sensation in her axilla. Her right arm pain with associated symptoms has been occurring for the past few days. Patient experiences diarrhea , which she attributes to her history of irritable bowel syndrome. Patient denies fevers, chills, chest pain, cough, nausea, vomiting, back pain, headache , dizziness, or any other complaint. Of note patient states she has a history of uterine cancer and hysterectomy. Time/Duration: Other (Earlier today) Symptom Course: Unchanged Quality: Burning Activities at Onset: Rest Context: Home Past Medical History - Provider Review Nursing Documentation Reviewed: Yes - Infectious Disease Hx of Infectious Diseases: None - Tetanus Immunization Tetanus Immunization: Unknown - Reproductive Menopause: Yes - Cardiac Hx Cardiac Disorders: Yes Hx Hypertension: Yes - Pulmonary Hx Respiratory Disorders: Yes Hx Bronchitis: Yes - Neurological HX Cerebrovascular Accident: Yes - HEENT Other/Comment: RIGHT EAR TINNITUS. WEARS GLASSES, NEAR SIGHTED, needs cataract sx both eyes - Renal Hx Renal Disorder: Yes Hx Kidney Stones: Yes ("CAME OUT ON OWN") - Endocrine/Metabolic Hx Diabetes Mellitus Type 2: Yes - Hematological/Oncological Hx Blood Disorders: Yes Other/Comment: " I HAD A BLOOD INFECTION 2-3 YRS. AGO-THEY DON'T KNOW WHAT IT WAS" - Integumentary Other/Comment: HX. LEFT BREAST CYST - Musculoskeletal/Rheumatological Hx Arthritis: Yes - Gastrointestinal Other/Comment: RECTAL BLEEDING, gastric polyps, hemorrhoids - Genitourinary/Gynecological Hx Incontinence: Yes (wears diapers, urgency) - Psychiatric Hx Psychophysiologic Disorder: Yes Hx Anxiety: Yes Hx Depression: Yes Hx Emotional Abuse: No Hx Physical Abuse: No Hx Substance Use: No - Surgical History Other/Comment: LEFT BREAST CYST REMOVED, lle orif with hardware, r wrist orif with hardware, ercp, picc - Anesthesia Hx Anesthesia: Yes Hx Anesthesia Reactions: No Hx Malignant Hyperthermia: No - Suicidal Assessment Feels Threatened In Home Enviroment: No Family/Social History - Physician Review Nursing Documentation Reviewed: Yes Family/Social History: No Known Family HX Smoking Status: Former Smoker Hx Alcohol Use: No Hx Substance Use: No Hx Substance Use Treatment: No Allergies/Home Meds Allergies/Adverse Reactions: Allergies No Known Allergies Allergy (Verified 01/02/17 12:40) Home Medications: Home Meds Medication Instructions Recorded Confirmed Metformin HCl 1,000 mg PO BID 11/02/12 01/13/17 Pregabalin [Lyrica] 50 mg PO TID 11/02/12 01/13/17 Ramipril 5 mg PO QAM 11/02/12 01/13/17 Sertraline HCl 25 mg PO QPM 11/02/12 01/13/17 Insulin Glargine,Hum.rec.anlog 1 unit SC 07/17/14 01/13/17 [Lantus] Atorvastatin [Lipitor] 80 mg PO HS 05/09/15 01/13/17 Calcium Carbonate [Calcium] 500 mg PO DAILY 05/09/15 01/13/17 Glipizide 10 mg PO DAILY 05/09/15 01/13/17 Magnesium 250 mg PO TID 05/09/15 01/13/17 Meclizine HCl [Antivert] 25 mg PO TID 05/09/15 01/13/17 Omeprazole 20 mg PO DAILY 05/09/15 01/13/17 Clonazepam [Klonopin] 0.5 mg PO TID 07/08/16 01/13/17 Losartan [Cozaar] 100 mg PO DAILY 09/11/16 01/13/17 Metoprolol Tartrate [Lopressor] 25 mg PO DAILY 01/02/17 01/13/17 Lactobacillus Acidophilus 1 each PO DAILY 01/13/17 01/13/17 [Acidophilus] Ondansetron HCl [Zofran] 4 mg PO Q8 PRN 01/13/17 01/13/17 Review of Systems - Physician Review All systems were reviewed & negative as marked: Yes - Review of Systems Constitutional: absent: Fevers, Night Sweats Respiratory: SOB. absent: Cough Cardiovascular: Palpitations. absent: Chest Pain Gastrointestinal: Abdominal Pain. absent: Nausea, Vomiting Musculoskeletal: Neck Pain, Myalgias (right arm pain) Neurological: absent: Headache, Dizziness Physical Exam Vital Signs Reviewed: Yes Vital Signs Temp Pulse Resp BP Pulse Ox 07/16/17 16:31 97.8 F 65 19 133/66 98 Temperature: Afebrile Blood Pressure: Normal Pulse: Regular Respiratory Rate: Normal Appearance: Positive for: Well-Appearing Mental Status: Positive for: Alert and Oriented X 3 - Systems Exam Head: Present: Atraumatic, Normocephalic Pupils: Present: PERRL Extroacular Muscles: Present: EOMI Conjunctiva: Present: Normal Mouth: Present: Moist Mucous Membranes Neck: Present: Normal Range of Motion Respiratory/Chest: Present: Clear to Auscultation, Good Air Exchange. No: Respiratory Distress, Accessory Muscle Use Cardiovascular: Present: Regular Rate and Rhythm, Normal S1, S2. No: Murmurs Abdomen: Present: Tenderness (LUQ). No: Distention, Peritoneal Signs Back: Present: Normal Inspection Upper Extremity: Present: Normal Inspection. No: Cyanosis, Edema Lower Extremity: Present: Normal Inspection. No: Edema Neurological: Present: GCS=15, CN II-XII Intact, Speech Normal Skin: Present: Warm, Dry, Normal Color, Abrasion (Abrasion on left lower extremity; not open). No: Rashes Psychiatric: Present: Alert, Oriented x 3, Normal Insight, Normal Concentration Medical Decision Making ED Course and Treatment: 07/16/17 17:05 Impression: Patient is a 81 year old female complaining of neck pain, dyspnea, and palpitations. Differential Diagnosis included but are not limited to: Rule out UT and Pneumonia, gastritis, musculoskeletal pain. Plan: --EKG --FS --lab work --cardiac enzyme --chest X-ray --Tylenol --Pepcid --Urinalysis -- Reassess and disposition Prior Visits: Notes and results from previous visits were reviewed. Patient was last seen in the emergency department on 01/13/17 for acute kidney injury and was hospitalized. Progress Notes: 07/16/17 17:15 EKG shows NSR at 66 BPM with [address]/T wave changes. Interpreted by me. 07/16/17 18:28 Chest X-Ray: Creator : Orestes Zurita MD COMPARISON: Shortness of breath comparison chest 01/13/2017 FINDINGS: LUNGS: No focal consolidation however there may be some minor chronic compensated pulmonary venous congestion. Biapical pleural thickening. PLEURA: No significant pleural effusion identified, no pneumothorax apparent. CARDIOVASCULAR: Cardiomegaly. Aorta is slightly ectatic and uncoiled. OSSEOUS STRUCTURES: No significant abnormalities. VISUALIZED UPPER ABDOMEN: Normal. OTHER FINDINGS: None. IMPRESSION: No focal consolidation however there may be some minor chronic compensated pulmonary venous congestion. Biapical pleural thickening. 07/16/17 18:27 Patient's lab work shows she is hypernatremic and paged the hospitalist. 07/16/17 18:48 Discussed case with who is aware and agrees with plan to admit the patient to hospitalist care. 18:53 Urinalysis shows evidence of UTI. Ordered IV fluids and Rocephin for patient. 07/16/17 19:02 Reevaluation: I have discussed the results and plan with the patient, who expresses understanding. Patient given the opportunity to ask question, all questions were answered and there is agreement with the plan to be admitted to the hospital. - Lab Interpretations Lab Results: 07/16/17 17:20 07/16/17 17:20 Lab Results 07/16/17 18:15: Urine Color Yellow, Urine Appearance Clear, Urine pH 6.0, Ur Specific [place] 1.025, Urine Protein Trace H, Urine Glucose (UA) Negative, Urine Ketones Negative, Urine Blood Negative, Urine Nitrate Positive H, Urine Bilirubin Negative, Urine Urobilinogen 0.2, Ur Leukocyte Esterase Small H, Urine RBC Negative, Urine WBC 25 - 30, Ur Epithelial Cells 4 - 5, Urine Bacteria Mod 07/16/17 17:20: Sodium 152 H, Potassium 4.1, Chloride 116 H, Carbon Dioxide 26, Anion Gap 15, BUN 20, Creatinine 0.8, Est GFR ( Amer) > 60, Est GFR (Non- Af Amer) > 60, Random Glucose 170 H, Calcium 9.4, Total Bilirubin 0.3, AST 19, ALT 26, Alkaline Phosphatase 140 H D, Troponin I < 0.01, Total Protein 6.4, Albumin 3.7, Globulin 2.7, Albumin/Globulin Ratio 1.4 07/16/17 17:20: WBC 7.7 D, RBC 3.81, Hgb 11.6 L, Hct 34.7 L, MCV 91.1, MCH 30.4 , MCHC 33.4, RDW 13.3, Plt Count 190, MPV 10.9, Gran % 61.2, Lymph % (Auto) 31.4 , [place] % (Auto) 5.3, Eos % (Auto) 1.8, Baso % (Auto) 0.3, Gran # 4.72, Lymph # ( Auto) 2.4, [place] # (Auto) 0.4, Eos # (Auto) 0.1, Baso # (Auto) 0.02 I have reviewed the lab results: Yes - RAD Interpretation Radiology Orders: 07/16/17 16:53 CHEST PORTABLE [RAD] Stat Fitness Coordinator: Radiologist - EKG Interpretation Interpreted by ED Physician: Yes Type: 12 lead EKG - Medication Orders Current Medication Orders: Sodium Chloride (Sodium Chloride 0.9%) 1,000 mls @ 125 mls/hr IV .Q8H ROSEMARY Discontinued Medications Acetaminophen (Tylenol 325mg Tab) 650 mg PO STAT STA Stop: 07/16/17 16:59 Last Admin: 07/16/17 17:49 Dose: 650 mg Famotidine (Pepcid 20mg/50ml Premix) 20 mg in 50 mls @ 100 mls/hr IVPB STAT STA Stop: 07/16/17 17:26 Last Admin: 07/16/17 17:48 Dose: 100 mls/hr eMAR Start Stop Document 07/16/17 17:48 GMI (Rec: 07/16/17 17:48 GMI [id number]) Intravenous Solution Start Date 07/16/17 Start Time 17:48 Ceftriaxone Sodium (Rocephin 1 Gram Ivpb) 1 gm in 100 mls @ 0 mls/hr IVPB STAT STA; Per Protocol PRN Reason: Protocol Stop: 07/16/17 18:58 - Scribe Statement The provider has reviewed the documentation as recorded by the Richiboksana Hammer Provider Scribe Attestation: All medical record entries made by the Scribe were at my direction and personally dictated by me. I have reviewed the chart and agree that the record accurately reflects my personal performance of the history, physical exam, medical decision making, and the department course for this patient. I have also personally directed, reviewed, and agree with the discharge instructions and disposition. Disposition/Present on Arrival - Present on Arrival Any Indicators Present on Arrival: No History of DVT/PE: No History of Uncontrolled Diabetes: No Urinary Catheter: No History of Decub. Ulcer: No History Surgical Site Infection Following: None - Disposition Have Diagnosis and Disposition been Completed?: Yes Diagnosis: Hypernatremia, Urinary tract infection Disposition: HOSPITALIZED Disposition Time: 19:05 Patient Plan: Admission Condition: GOOD
[2017-07-16] MEDS ORDERED: Famotidine 20mg/50ml 20 MG/50 ML BAG IVPB STA (16:57)
--- NOTE | 2017-07-16 17:44 | RAD ---
HISTORY: shortness of breath COMPARISON: Shortness of breath comparison chest 01/13/2017 FINDINGS: LUNGS: No focal consolidation however there may be some minor chronic compensated pulmonary venous congestion. Biapical pleural thickening. PLEURA: No significant pleural effusion identified, no pneumothorax apparent. CARDIOVASCULAR: Cardiomegaly. Aorta is slightly ectatic and uncoiled. OSSEOUS STRUCTURES: No significant abnormalities. VISUALIZED UPPER ABDOMEN: Normal. OTHER FINDINGS: None. IMPRESSION: No focal consolidation however there may be some minor chronic compensated pulmonary venous congestion. Biapical pleural thickening.
[2017-07-16 17:49] LABS: ALB/GLOB RATIO 1.4 (1.1-1.8); ALBUMIN 3.7 g/dL (3.0-4.8); ALT/SGPT 26 U/L (7-56); AST/SGOT 19 U/L (14-36); BLOOD UREA NITROGEN 20 mg/dL (7-21); CALCIUM 9.4 mg/dL (8.4-10.5); GFR AFRICAN-AMERICAN > 60; GFR NON-AFRICAN AMERICAN > 60
[2017-07-16 18:00] LABS: TROPONIN I < 0.01 ng/mL
[2017-07-16 18:27] LABS: BASO # 0.02 K/mm3 (0.0-2.0); BASO % 0.3 % (0.0-3.0); EOS # 0.1 (0.0-0.7); EOS % 1.8 % (1.5-5.0); GRAN # 4.72 (1.4-6.5); GRAN % 61.2 % (50.0-68.0); HEMOGLOBIN 11.6 g/dL (12.0-16.0); LYMPH # 2.4 (1.2-3.4); LYMPH % 31.4 % (22.0-35.0); MEAN CELL VOLUME 91.1 fl (80.0-105.0); MEAN CORPUSCULAR HEMOGLOBIN 30.4 pg (25.0-35.0); MEAN CORPUSCULAR HGB CONC 33.4 g/dl (31.0-37.0); MEAN PLATELET VOLUME 10.9 fl (7.0-11.0); MONO # 0.4 (0.1-0.6); MONO % 5.3 % (1.0-6.0); RBC 3.81 10^6/uL (3.5-6.1); RED CELL DISTRIBUTION WIDTH 13.3 % (11.5-14.5); WHITE BLOOD COUNT 7.7 10^3/ul (4.5-11.0)
[2017-07-16 18:28] LABS: URINE BILIRUBIN NEGATIVE (NEGATIVE); URINE BLOOD NEGATIVE (NEGATIVE); URINE GLUCOSE (UA) NEGATIVE (NEGATIVE); URINE LEUKOCYTE ESTERASE SMALL Leu/uL (NEGATIVE); URINE PROTEIN TRACE mg/dL (<30 mg/dL); URINE UROBILINOGEN 0.2 E.U./dL (<1 E.U./dL)
[2017-07-16 18:29] LABS: URINE APPEARANCE CLEAR (CLEAR); URINE COLOR YELLOW (YELLOW)
[2017-07-16 18:38] LABS: URINE BACTERIA MOD (NEG); URINE RBC NEGATIVE /hpf (0-2); URINE WBC 25 - 30 /hpf (0-6)
[2017-07-16] MEDS ORDERED: cefTRIAXone 1 gm 1 GM/100 ML BAG IVPB STA (18:57)
[2017-07-16] MEDS: Sodium Chloride 0.9% 1,000 ML IV SCH (19:34)
[2017-07-16 21:30] VITALS: BMI 34.3
[2017-07-16] MEDS ORDERED: Pneumococcal 23-Valent Vaccine IM ONE (21:30)
[2017-07-16] MEDS: Insulin Reg-MEDIUM-Coverage SC SCH (22:00)
[2017-07-17 07:07] LABS: ALB/GLOB RATIO 1.2 (1.1-1.8); ALBUMIN 3.3 g/dL (3.0-4.8); ALT/SGPT 20 U/L (7-56); AST/SGOT 14 U/L (14-36); BASO # 0.01 K/mm3 (0.0-2.0); BASO % 0.2 % (0.0-3.0); BLOOD UREA NITROGEN 18 mg/dL (7-21); CALCIUM 9.2 mg/dL (8.4-10.5); EOS # 0.1 (0.0-0.7); EOS % 2.1 % (1.5-5.0); GFR AFRICAN-AMERICAN > 60; GFR NON-AFRICAN AMERICAN > 60; GRAN # 2.51 (1.4-6.5); HEMOGLOBIN 11.4 g/dL (12.0-16.0); LYMPH # 2.2 (1.2-3.4); LYMPH % 42.8 % (22.0-35.0); MEAN CELL VOLUME 91.2 fl (80.0-105.0); MEAN CORPUSCULAR HEMOGLOBIN 29.5 pg (25.0-35.0); MEAN CORPUSCULAR HGB CONC 32.3 g/dl (31.0-37.0); MEAN PLATELET VOLUME 10.7 fl (7.0-11.0); MONO # 0.3 (0.1-0.6); MONO % 5.9 % (1.0-6.0); RBC 3.87 10^6/uL (3.5-6.1); RED CELL DISTRIBUTION WIDTH 13.2 % (11.5-14.5); WHITE BLOOD COUNT 5.1 10^3/ul (4.5-11.0)
[2017-07-17] MEDS: Insulin Reg-MEDIUM-Coverage SC SCH ×4 (08:00→21:38)
--- NOTE | 2017-07-17 09:43 | CARD ---
APPROVED REPORT EKG Measurement Heart [id number] <Conclusion> Sinus rhythm with occasional premature ventricular complexes Inferior infarct, old No change except 1 PVC now.
[2017-07-17] MEDS: Lactobacillus Acidophilus 500 MU Cap PO SCH (10:50)
[2017-07-17] MEDS: cefTRIAXone 1 gm 1 GM/100 ML BAG IVPB SCH (10:51)
[2017-07-17] MEDS: Sodium Chloride 0.9% 1,000 ML IV SCH (10:53)
[2017-07-17] MEDS ORDERED: Iohexol 240 (50 ml) ONE (17:06)
[2017-07-17] MEDS ORDERED: Magnesium Sulfate 1 gm in D5W 1 GM/100 ML BAG IV ONE (17:34)
--- NOTE | 2017-07-17 19:38 | HP ---
HISTORY OF PRESENT ILLNESS: The patient is 81 years old, came to Emergency Room because of generalized body aches and pain, joint pain, hip pain, abdominal discomfort. The patient apparently has a history of chronic diarrhea and came to Emergency Room because of abdominal discomfort. Complained of decreased appetite, but did not vomit since she is here. Denies any fever or chills. No history of hemoptysis, no hematemesis. The patient states she has a disabled child, although he lives himself, but she often goes there and help him out, although she has homemaker herself, but her mobility is very limited because of her hip pain and belly pain. PAST MEDICAL HISTORY: Significant for 1. Hypertension. 2. Noninsulin-dependent hypertension. 3. History of depression. 4. Irritable bowel syndrome. 5. Chronic back pain. 6. History of esophageal reflux disease. PAST SURGICAL HISTORY: Significant for total abdominal hysterectomy because of uterine cancer. SOCIAL HISTORY: She is single, lives by herself, used to be smoker, socially drinks. ALLERGIES: SHE IS NOT ALLERGIC TO ANY MEDICATIONS. MEDICATIONS AT HOME: She is on Zoloft 25 daily, Lantus, atorvastatin 80 mg at bedtime, Ramipril 5 mg daily, Lyrica 50 mg 3 times a day, Zofran 4 mg every 8, omeprazole 20 mg daily, metoprolol 25 daily, metformin 1000 twice a day, meclizine, magnesium, glipizide, Klonopin and calcium carbonate. REVIEW OF SYSTEMS: Generalized body aches and pain including hips, including bilateral lower and upper quadrant pain and a not good appetite. PHYSICAL EXAMINATION: GENERAL: She is awake, alert, oriented, communicative. VITAL SIGNS: She is afebrile, pulse 59, respirations 20, blood pressure 143/87. LUNGS: Bilateral good airflow. No rhonchi or crackle. HEART: S1 and S2 audible. ABDOMEN: Soft, obese, nontender, no rebound, no guarding. NEUROLOGICAL: She is awake, alert, oriented. EXTREMITIES: Bilateral leg +1 edema. LABORATORY DATA: WBC 5.1, hemoglobin 11.4, hematocrit 35.3, platelet 158. Chemistry: Sodium 151, potassium 4.1, chloride 120, CO2 of 23, BUN 18, creatinine 0.8, blood sugar of 121, magnesium 1.6. She has polyuria. Urine positive for leukocyte and nitrites. ASSESSMENT AND PLAN: Abdominal pain, etiology unclear. We will order for the CT scan of the abdomen and pelvis with the p.o. contrast only. The patient is hyperkalemic. We will monitor her blood sugar and I will resume her medication. GI consult by Dr. Nichols has been requested. We will follow up electrolyte in a.m. Andrzej Davidson MD
--- NOTE | 2017-07-17 21:12 | CT ---
EXAM: CT Abdomen and Pelvis Without Intravenous Contrast CLINICAL HISTORY: 81 years old, female; Pain; Abdominal pain TECHNIQUE: Axial computed tomography images of the abdomen and pelvis without intravenous contrast. All CT scans at this facility use one or more dose reduction techniques, viz.: automated exposure control; ma/kV adjustment per patient size (including targeted exams where dose is matched to indication; i.e. head); or iterative reconstruction technique. Coronal and sagittal reformatted images were created and reviewed. COMPARISON: CT - ABD PELVIS PO IV CONTRAST 2017-01-02 16:21 FINDINGS: Limitations: Lack of intravenous contrast. Motion artifact - mild. Lung bases: Minimal atelectasis/scarring. Pleural space: Trace bilateral pleural effusions. Heart: Mild cardiomegaly. Mild coronary artery calcifications. Mediastinum: Probable small hiatal hernia. ABDOMEN: Liver: Unremarkable. Gallbladder and bile ducts: No calcified stones. No ductal dilation. Pancreas: Unremarkable. No ductal dilation. Spleen: No splenomegaly. Adrenals: No mass. Kidneys and ureters: Mild stranding about kidneys, nonspecific. Punctate calculus within RIGHT kidney. No hydronephrosis. Stomach and bowel: Duodenal diverticula. Few scattered diverticula within colon. No associated inflammatory stranding. No definite mural thickening. No obstruction. PELVIS: Appendix: No findings to suggest acute appendicitis. Bladder: Unremarkable. No stones. Reproductive: Hysterectomy. ABDOMEN and PELVIS: Intraperitoneal space: No significant fluid collection. No free air. Bones/joints: Degenerative changes of hips and spine. No acute fracture. Soft tissues: Tiny umbilical hernia containing fat. Vasculature: Mild atherosclerotic disease. No aneurysm. Lymph nodes: No pathologically enlarged lymph nodes. IMPRESSION: 1. Diverticulosis without definite CT evidence of diverticulitis. 2. Trace pleural effusions. 3. Incidental/non-acute findings are described above.
[2017-07-17] MEDS: metroNIDAZOLE IV 500 mg/100 ml 500 MG/100 ML BAG IVPB SCH (21:38)
[2017-07-18] MEDS: Sodium Chloride 0.9% 1,000 ML IV SCH ×2 (02:30→17:58)
--- NOTE | 2017-07-18 03:34 | CON ---
DATE: 07/17/2017 REASON FOR CONSULTATION: Diarrhea, dehydration. HISTORY OF PRESENT ILLNESS: This is an 81-year-old patient with a past medical history of uterine CA status post hysterectomy, history of C. difficile colitis in the past, history of diverticulitis, history of colitis, admitted with left upper quadrant abdominal pain and also episodes of loose bowel movements. The patient was also found to be hypernatremic with a sodium of 152. She also has complaints of intermittent episodes of right arm pain radiating to the axillary area. No history of fever. No bleeding per rectum. OTHER PAST MEDICAL HISTORY: Significant as above. History of diabetes mellitus, osteoarthritis, chronic back pain, hypertension, history of severely elevated CA-19-9 before. PAST SURGICAL HISTORY: As above. REVIEW OF SYSTEMS: Positive as above. Other systems reviewed and negative. PHYSICAL EXAMINATION: GENERAL: The patient is lying on the bed, not in acute distress. VITAL SIGNS: Temperature is 97.6, pulse 59, blood pressure is 143/67, respirations 20, O2 saturation 97%. HEENT: Atraumatic, anicteric. NECK: Supple. HEART: S1, S2 heard. LUNGS: Bilateral air entry present. ABDOMEN: Soft. Mild tenderness present in the left upper quadrant to deep palpation, otherwise unremarkable. EXTREMITIES: No cyanosis, no clubbing. NEUROLOGIC: Alert and oriented. Moves all the extremities. LABORATORY DATA: Hemoglobin 11.4, hematocrit 35.6 , WBC 5.3, platelets 158. The patient's initial sodium was 152, now it is 151. Glucose 121. Magnesium 1.6. Alkaline phosphatase 138. IMPRESSION: This is an 81-year-old patient admitted with left upper quadrant pain, diarrhea. The patient was hypernatremic. The etiology for the diarrhea should include Clostridium difficile colitis. Diverticulitis also should be considered. The patient has a history of Clostridium difficile. PLAN: Would recommend: 1. IV hydration. 2. Supplement of magnesium. The patient was hypomagnesemic. 3. We will consider CT scan of the abdomen and pelvis with only p.o. contrast to further evaluate. 4. We will continue to . Advised the patient to be on a liquid diet. Advance diet based on the clinical course. Thank you very much for allowing us to participate in the care of the patient. We will continue to closely follow up with her care and suggest further management based on the clinical course. Zoraida Nichols MD
[2017-07-18] MEDS: Pantoprazole 40 mg EC Tab PO SCH (06:10)
[2017-07-18] MEDS: metroNIDAZOLE IV 500 mg/100 ml 500 MG/100 ML BAG IVPB SCH ×3 (06:10→21:28)
[2017-07-18 06:42] LABS: BASO # 0.01 K/mm3 (0.0-2.0); BASO % 0.2 % (0.0-3.0); EOS # 0.1 (0.0-0.7); EOS % 2.2 % (1.5-5.0); GRAN # 2.28 (1.4-6.5); GRAN % 51.3 % (50.0-68.0); HEMOGLOBIN 10.2 g/dL (12.0-16.0); LYMPH # 1.8 (1.2-3.4); LYMPH % 40.2 % (22.0-35.0); MEAN CELL VOLUME 89.5 fl (80.0-105.0); MEAN CORPUSCULAR HEMOGLOBIN 29.1 pg (25.0-35.0); MEAN CORPUSCULAR HGB CONC 32.5 g/dl (31.0-37.0); MEAN PLATELET VOLUME 10.2 fl (7.0-11.0); MONO # 0.3 (0.1-0.6); MONO % 6.1 % (1.0-6.0); RBC 3.51 10^6/uL (3.5-6.1); RED CELL DISTRIBUTION WIDTH 13.2 % (11.5-14.5); WHITE BLOOD COUNT 4.5 10^3/ul (4.5-11.0)
[2017-07-18 07:06] LABS: ALB/GLOB RATIO 1.2 (1.1-1.8); ALBUMIN 3.3 g/dL (3.0-4.8); ALT/SGPT 29 U/L (7-56); AST/SGOT 15 U/L (14-36); BLOOD UREA NITROGEN 21 mg/dL (7-21); CALCIUM 8.9 mg/dL (8.4-10.5); GFR AFRICAN-AMERICAN > 60; GFR NON-AFRICAN AMERICAN 53
[2017-07-18] MEDS: Insulin Reg-MEDIUM-Coverage SC SCH ×4 (07:49→22:46)
--- NOTE | 2017-07-18 08:25 | HP ---
HISTORY OF PRESENT ILLNESS: Patient is 81 years old who came to emergency room because of left upper quadrant and epigastric discomfort, also burning in throat, intermittent palpitation, mild shortness of breath, does complain of right shoulder and right arm pain, but denies any trauma to the area. Patient does have a history of irritable bowel syndrome and has been having intermittent diarrhea, but denies any nausea or vomiting. No history of fever, no chills. PAST MEDICAL HISTORY: Significant for: 1. Non-insulin dependent diabetes. 2. Hyperlipidemia. 3. Impaired hearing. 4. Anxiety disorder. 5. Chronic back pain. 6. Hypertension. 7. History of nephrolithiasis. SOCIAL HISTORY: Denies smoking, drinking, or alcohol use. She used smoke in the past, but quit many years ago. She lives at home with her family and her son is mentally changed. ALLERGIES: SHE IS NOT ALLERGIC TO ANY MEDICATIONS. MEDICATION AT HOME: She is on sertraline 25 daily, Ramipril 5 mg daily, Lyrica 50 mg three times a day, omeprazole 20 mg daily, metoprolol 25 daily, metformin 1000 twice a day, meclizine 25 three times a day, magnesium 250 daily, losartan 100 mg daily. She is on Lantus, glipizide, Klonopin, calcium, atorvastatin and Augmentin. PHYSICAL EXAMINATION: GENERAL: She is awake, alert, oriented, communicative. VITAL SIGNS: She is afebrile. Pulse 65, respirations 19, blood pressure 133/66. LUNGS: Bilateral fair airflow. No rhonchi or crackles. HEART: S1 and S2 audible. ABDOMEN: Soft, obese, nontender. No rebound. No guarding. NEUROLOGIC: She is awake and alert, able to communicate. LABORATORY EXAMINATION: WBC 7.7, hemoglobin 11.6, hematocrit 34.7, platelet of 190. Chemistry: Sodium 152, potassium 4.1, chloride 116, CO2 25, BUN 20, creatinine 0.8, blood sugar 170, alk phos 170. Urinalysis shows positive nitrite and leukocyte. 25 to 30 wbc's, epithelial cells are 4 to 5. An x-ray chest done. There is no focal consolidation. ASSESSMENT AND PLAN: 1. Abdominal discomfort with intermittent diarrhea. 2. Non-insulin dependent diabetes. 3. Hypernatremia. 4. History of irritable bowel syndrome. 5. Hypertension. 6. Chronic vertigo. So plan is patient will be placed on observation. We will start intravenous fluids. Monitor blood sugar. Resume her medications. We will follow up her electrolytes. Start her empirically on an intravenous antibiotic to cover urinary tract infection. We will reevaluate in a.m. Andrzej Davidson MD
[2017-07-18] MEDS: Lactobacillus Acidophilus 500 MU Cap PO SCH (09:58)
--- NOTE | 2017-07-18 11:26 | PN ---
DATE: 07/18/2017 SUBJECTIVE: The patient has no complaints of any chest pain. No shortness of breath. She was having abdominal pain when she came into the hospital. She stated her abdominal pain is better. She has also been having diarrhea. She has no headaches or dizziness. No nausea. PHYSICAL EXAMINATION: VITAL SIGNS: Temperature is 97.4, pulse of 62, blood pressure 133/71, respiratory rate 20 and O2 saturation 96%. GENERAL: The patient is lying in bed, flat, comfortable. HEENT: No oral lesion. Anicteric sclerae. Moist mucosa. NECK: No JVD, adenopathy, or thyromegaly. CARDIOVASCULAR: S1 and S2, regular. No murmurs, rubs, or gallops. LUNGS: Clear to auscultation bilaterally. No wheeze, rales, or rhonchi. ABDOMEN: Bowel sounds are positive, soft, nontender and nondistended. EXTREMITIES: No cyanosis, clubbing or edema. ASSESSMENT: 1. Abdominal pain. 2. Chronic diarrhea. 3. Hypernatremia. . 4. Hypomagnesemia. 5. Diabetes type 2. 6. Hypertension. 7. Dyslipidemia. 8. History of uterine cancer. 9. Restless legs syndrome. 10. Anxiety. PLAN: The patient is currently on Altace for her hypertension. She is going to continue with meclizine for her vertigo. She is on antibiotics with Flagyl. She does have a history of colitis. She is on Lyrica for her restless legs syndrome. She gets Klonopin for anxiety. She is on Rocephin for antibiotics. She is on IV fluids with normal saline. She is on a heart-healthy diet. She is going to continue her Zoloft. Repeat blood work has been ordered. Magnesium was replaced. Monroe Baxter MD
--- NOTE | 2017-07-18 15:27 | CP.PCM.PN ---
Subjective - Date & Time of Evaluation Date of Evaluation: 07/18/17 Time of Evaluation: 14:00 - Subjective Subjective: PGY-[address] Nichols's service Patient seen and examined at bedside. No acute distress. Patient denies any and , n.v. She rapports improvement in her loose stool. She is tolerating heart healthy diet. She reports chronic right arm pain. She denies any overt bleeding. Objective - Vital Signs/Intake and Output Vital Signs (last 24 hours): Temp Pulse Resp BP Pulse Ox 97.9 F 63 18 143/71 96 07/18/17 06:00 07/18/17 09:56 07/18/17 06:00 07/18/17 14:55 07/18/17 06:00 Intake and Output: 07/18/17 07/18/17 06:59 18:59 Intake Total 3200 300 Balance 3200 300 - Medications Medications: Current Medications Acetaminophen (Tylenol 325mg Tab) 650 mg PO Q6H PRN PRN Reason: Fever >100.4 F Clonazepam (Klonopin) 0.5 mg PO TID [facility] PRN Reason: Protocol Last Admin: 07/18/17 14:50 Dose: 0.5 mg Glipizide (Glucotrol) 10 mg PO DAILY [facility] Last Admin: 07/18/17 09:56 Dose: 10 mg Ceftriaxone Sodium (Rocephin 1 Gram Ivpb) 1 gm in 100 mls @ 100 mls/hr IVPB DAILY [facility] PRN Reason: Protocol Last Admin: 07/17/17 10:51 Dose: 100 mls/hr Sodium Chloride (Sodium Chloride 0.9%) 1,000 mls @ 75 mls/hr IV .[id number] [facility] Last Admin: 07/18/17 02:30 Dose: 75 mls/hr Metronidazole (Flagyl) 500 mg in 100 mls @ 100 mls/hr IVPB Q8 [facility] PRN Reason: Protocol Last Admin: 07/18/17 14:56 Dose: 100 mls/hr Insulin Human Regular (Humulin R Med) 0 units SC ACHS [facility] PRN Reason: Protocol Last Admin: 07/18/17 12:21 Dose: 1 units Lactobacillus Acidophilus (Bacid Acidophilus) 1 cap PO DAILY [facility] Last Admin: 07/18/17 09:58 Dose: 1 cap Losartan Potassium (Cozaar) 100 mg PO DAILY [facility] Last Admin: 07/18/17 09:57 Dose: 100 mg Meclizine HCl (Antivert) 25 mg PO TID [facility] Last Admin: 07/18/17 14:50 Dose: 25 mg Metoprolol Tartrate (Lopressor) 25 mg PO DAILY [facility] Last Admin: 07/18/17 09:56 Dose: 25 mg Ondansetron HCl (Zofran Inj) 4 mg IVP Q6H PRN PRN Reason: Nausea/Vomiting Pantoprazole Sodium (Protonix Ec Tab) 40 mg PO 0630 [facility] Last Admin: 07/18/17 06:10 Dose: 40 mg Pregabalin (Lyrica) 50 mg PO TID [facility] Last Admin: 07/18/17 14:50 Dose: 50 mg Ramipril (Altace) 5 mg PO QAM [facility] Last Admin: 07/18/17 14:55 Dose: 5 mg Sertraline HCl (Zoloft) 25 mg PO QPM [facility] Last Admin: 07/17/17 17:55 Dose: 25 mg - Labs Labs: 07/18/17 06:15 07/18/17 06:15 - Constitutional Appears: Well, No Acute Distress - Head Exam Head Exam: ATRAUMATIC, NORMOCEPHALIC - Eye Exam Eye Exam: EOMI, Normal appearance - ENT Exam ENT Exam: Mucous Membranes Moist - Respiratory Exam Respiratory Exam: Clear to Ausculation Bilateral, NORMAL BREATHING PATTERN. absent: Rales, Rhonchi, Wheezes, Respiratory Distress, Stridor - Cardiovascular Exam Cardiovascular Exam: REGULAR RHYTHM, +S1. absent: Tachycardia, Murmur - GI/Abdominal Exam GI & Abdominal Exam: Soft, Normal Bowel Sounds. absent: Distended, Firm, Guarding, Tenderness, Hyperactive Bowel Sounds - Extremities Exam Extremities Exam: Normal Inspection. absent: Pedal Edema, Tenderness - Neurological Exam Neurological Exam: Alert, Awake - Psychiatric Exam Psychiatric exam: Normal Affect, Normal Mood - Skin Skin Exam: Dry, Intact, Normal Color, Warm Assessment and Plan - Assessment and Plan (Free Text) Assessment: 81 yo female with PMH of c. diff colitis presented iwth left upper quadrant pain , diarrhea, she was found to have hypernatremic. Plan: - need to r/o c. diff - continue IVF hydration - hypernatremia improved, correct electrolytes as needed - CT of abd/pelvis with PO contrast showed divertculosis continue PPI case reviewed nad discussed with Dr. Nichols
[2017-07-18] MEDS: cefTRIAXone 1 gm 1 GM/100 ML BAG IVPB SCH (15:58)
[2017-07-19] MEDS: Pantoprazole 40 mg EC Tab PO SCH (05:30)
[2017-07-19] MEDS: metroNIDAZOLE IV 500 mg/100 ml 500 MG/100 ML BAG IVPB SCH (05:30)
[2017-07-19] MEDS: Sodium Chloride 0.9% 1,000 ML IV SCH ×2 (05:32→05:33)
[2017-07-19 07:37] VITALS: RESP 20; TEMP 97.7; O2SAT 96
[2017-07-19] MEDS: Insulin Reg-MEDIUM-Coverage SC SCH ×2 (08:12→12:06)
[2017-07-19] MEDS ORDERED: Oxycodone/Acetaminophen 5/325 mg Tab PO PRN (09:57)
[2017-07-19] MEDS: Lactobacillus Acidophilus 500 MU Cap PO SCH (10:33)
[2017-07-19] MEDS: cefTRIAXone 1 gm 1 GM/100 ML BAG IVPB SCH (10:34)
[2017-07-19 10:43] VITALS: BP 140/60; PULSE 70
--- NOTE | 2017-07-19 10:48 | CP.PCM.PN ---
Subjective - Date & Time of Evaluation Date of Evaluation: 07/19/17 Time of Evaluation: 10:00 - Subjective Subjective: PGY-[address] Nichols's service Patient seen and examined at bedside. No acute distress. Patient reports crampy abd pain in the RLQ, associated with nausea not vomiting. She states that it started this morning. She denies diarrhea. She is tolerating heart healthy diet. She reports chronic right arm pain. She denies any overt bleeding. Objective - Vital Signs/Intake and Output Vital Signs (last 24 hours): Temp Pulse Resp BP Pulse Ox 97.7 F 70 20 140/60 96 07/19/17 06:00 07/19/17 10:33 07/19/17 06:00 07/19/17 10:33 07/19/17 06:00 Intake and Output: 07/19/17 07/19/17 06:59 18:59 Intake Total 300 180 Balance 300 180 - Medications Medications: Current Medications Acetaminophen (Tylenol 325mg Tab) 650 mg PO Q6H PRN PRN Reason: Fever >100.4 F Clonazepam (Klonopin) 0.5 mg PO TID [facility] PRN Reason: Protocol Last Admin: 07/19/17 10:33 Dose: 0.5 mg Glipizide (Glucotrol) 10 mg PO DAILY [facility] Last Admin: 07/19/17 10:32 Dose: 10 mg Ceftriaxone Sodium (Rocephin 1 Gram Ivpb) 1 gm in 100 mls @ 100 mls/hr IVPB DAILY [facility] PRN Reason: Protocol Last Admin: 07/19/17 10:34 Dose: 100 mls/hr Sodium Chloride (Sodium Chloride 0.9%) 1,000 mls @ 75 mls/hr IV .[id number] [facility] Last Admin: 07/19/17 05:33 Dose: Not Given Metronidazole (Flagyl) 500 mg in 100 mls @ 100 mls/hr IVPB Q8 [facility] PRN Reason: Protocol Last Admin: 07/19/17 05:30 Dose: 100 mls/hr Insulin Human Regular (Humulin R Med) 0 units SC ACHS [facility] PRN Reason: Protocol Last Admin: 07/19/17 08:12 Dose: Not Given Lactobacillus Acidophilus (Bacid Acidophilus) 1 cap PO DAILY [facility] Last Admin: 05/15/18 10:33 Dose: 1 cap Losartan Potassium (Cozaar) 100 mg PO DAILY [facility] Last Admin: 07/19/17 10:32 Dose: 100 mg Meclizine HCl (Antivert) 25 mg PO TID [facility] Last Admin: 07/19/17 10:32 Dose: 25 mg Metoprolol Tartrate (Lopressor) 25 mg PO DAILY [facility] Last Admin: 07/19/17 10:33 Dose: 25 mg Ondansetron HCl (Zofran Inj) 4 mg IVP Q6H PRN PRN Reason: Nausea/Vomiting Last Admin: 07/19/17 10:37 Dose: 4 mg Oxycodone/Acetaminophen (Percocet 5/325 Mg Tab) 1 tab PO Q4H PRN PRN Reason: Pain, severe (8-10) Stop: 07/22/17 09:58 Last Admin: 07/19/17 10:31 Dose: 1 tab Pantoprazole Sodium (Protonix Ec Tab) 40 mg PO 0630 [facility] Last Admin: 07/19/17 05:30 Dose: 40 mg Pregabalin (Lyrica) 50 mg PO TID [facility] Last Admin: 07/19/17 10:32 Dose: 50 mg Ramipril (Altace) 5 mg PO QAM [facility] Last Admin: 07/19/17 10:32 Dose: 5 mg Sertraline HCl (Zoloft) 25 mg PO QPM [facility] Last Admin: 07/18/17 17:54 Dose: 25 mg - Labs Labs: 07/18/17 06:15 07/18/17 06:15 - Constitutional Appears: No Acute Distress - Head Exam Head Exam: ATRAUMATIC, NORMOCEPHALIC - Eye Exam Eye Exam: EOMI, Normal appearance - ENT Exam ENT Exam: Mucous Membranes Moist - Respiratory Exam Respiratory Exam: Clear to Ausculation Bilateral, NORMAL BREATHING PATTERN. absent: Decreased Breath Sounds, Rales, Rhonchi, Wheezes, Respiratory Distress - Cardiovascular Exam Cardiovascular Exam: REGULAR RHYTHM, +S1, +S2. absent: Bradycardia, Tachycardia , Murmur - GI/Abdominal Exam GI & Abdominal Exam: Soft, Tenderness, Normal Bowel Sounds. absent: Distended, Firm, Guarding - Extremities Exam Extremities Exam: Normal Inspection. absent: Pedal Edema, Tenderness - Neurological Exam Neurological Exam: Alert, Awake, Oriented x3 - Skin Skin Exam: Dry, Normal Color, Warm Assessment and Plan - Assessment and Plan (Free Text) Assessment: 81 yo female with PMH of c. diff colitis presented with left upper quadrant pain , diarrhea, she was found to have hypernatremic. Plan: - continue IVF hydration - hypernatremia improved, correct electrolytes as needed - CT of abd/pelvis with PO contrast showed divertculosis - continue PPI - consider repeat UA case reviewed nad discussed with Dr. Nichols
--- NOTE | 2017-07-19 13:46 | DS ---
HISTORY OF PRESENT ILLNESS: This is an 81-year-old female, who is coming into the hospital. She was initially complaining of abdominal pain that has improved. She has no complaints of any fevers or chills. She says the diarrhea is better. She does have arthritic complaints. She is going to be transferred to the Transitional Care Unit for rehab. PHYSICAL EXAMINATION: VITAL SIGNS: Temperature is 97.7, pulse of 69, blood pressure 141/57, respirations 20, O2 saturation 96%. GENERAL: The patient is lying in bed, flat, comfortable. HEENT: No oral lesion. Anicteric sclerae. Moist mucosa. NECK: No JVD, adenopathy, or thyromegaly. CARDIOVASCULAR: S1 and S2, regular. No murmurs, rubs, or gallops. LUNGS: Clear to auscultation bilaterally. No wheeze, rales, or rhonchi. ABDOMEN: Bowel sounds are positive, soft, nontender and nondistended. EXTREMITIES: No cyanosis, clubbing or edema. ASSESSMENT: 1. Abdominal pain, resolved. 2. Osteoarthritis. 3. Diarrhea, improved. 4. Hypernatremia, improved. 5. Hypomagnesemia, improved. 6. Diabetes type 2. 7. Hypertension. 8. Dyslipidemia. 9. Restless leg syndrome. 10. anxiety. 11. History of uterine cancer. PLAN: The patient is currently on Ramipril for hypertension. She is going to continue with meclizine. She is on losartan for hypertension. She is going to continue with Klonopin for anxiety. The patient is on Lyrica. She is on IV fluids with normal saline. She is on a heart-healthy diet. CONDITION: Stable. ACTIVITIES: Increase as tolerated. DISPOSITION: Discharged to the Transitional Care Unit. Monroe Baxter MD
== END 2017-07-19 14:27 | DRG 392 ==
LOC: ED 16:30 → ERH 19:16 → 5RNO 20:50
PROVIDERS: ADMIT Internal Medicine Nephrology; ATTEND Internal Medicine Nephrology
DX: K52.9 Noninfective gastroenteritis and colitis, unspecified (principal); N39.0 Urinary tract infection, site not specified; E87.0 Hyperosmolality and hypernatremia; K58.0 Irritable bowel syndrome with diarrhea; E11.9 Type 2 diabetes mellitus without complications; E86.0 Dehydration; E83.42 Hypomagnesemia; I10 Essential (primary) hypertension; E78.5 Hyperlipidemia, unspecified; H91.90 Unspecified hearing loss, unspecified ear; F41.9 Anxiety disorder, unspecified; M19.90 Unspecified osteoarthritis, unspecified site; G25.81 Restless legs syndrome; M79.601 Pain in right arm; Z85.42 Personal history of malignant neoplasm of other parts of uterus; Z90.710 Acquired absence of both cervix and uterus; Z79.4 Long term (current) use of insulin; Z86.19 Personal history of other infectious and parasitic diseases

== ENCOUNTER 2017-07-19 14:29 | Inpatient (IN) | payer OTHER, MEDICARE ==
[2017-07-19] MEDS ORDERED: Oxycodone/Acetaminophen 5/325 mg Tab PO PRN (15:28)
[2017-07-19] MEDS: Sodium Chloride 0.9% 1,000 ML IV SCH (18:15)
[2017-07-19] MEDS: Insulin Reg-MEDIUM-Coverage SC SCH ×2 (18:15→21:32)
[2017-07-19] MEDS: metroNIDAZOLE IV 500 mg/100 ml 500 MG/100 ML BAG IVPB SCH (21:26)
[2017-07-20] MEDS: metroNIDAZOLE IV 500 mg/100 ml 500 MG/100 ML BAG IVPB SCH (05:33)
[2017-07-20] MEDS: Pantoprazole 40 mg EC Tab PO SCH (05:34)
[2017-07-20] MEDS: Sodium Chloride 0.9% 1,000 ML IV SCH (05:35)
[2017-07-20] MEDS ORDERED: cefTRIAXone 1 gm 1 GM/100 ML BAG IVPB SCH (06:30)
[2017-07-20] MEDS: Insulin Reg-MEDIUM-Coverage SC SCH ×4 (06:42→22:03)
[2017-07-20] MEDS ORDERED: LACTOBACILLUS ACIDOPHILUS PO SCH (10:00)
[2017-07-20] MEDS: Amoxicillin-Clav 500-125 mg Tab PO SCH ×3 (10:36→21:43)
[2017-07-20] MEDS: Lactobacillus Acidophilus 500 MU Cap PO SCH (11:03)
--- NOTE | 2017-07-20 12:28 | CP.PCM.PN ---
<Hillary Chance - Last Filed: 07/20/17 18:33> Subjective - Date & Time of Evaluation Date of Evaluation: 07/20/17 Time of Evaluation: 11:00 - Subjective Subjective: PGY-[address] Nichols's service Patient seen and examined at bedside in TCU. No acute distress. Patient denies abdominal pain, nausea and vomiting. She denies diarrhea. She is tolerating heart healthy diet. She reports chronic right arm pain. She denies any overt bleeding. Objective - Vital Signs/Intake and Output Vital Signs (last 24 hours): Temp Pulse Resp BP Pulse Ox 97.5 F L 62 16 135/81 07/19/17 17:11 07/20/17 08:03 07/19/17 17:11 07/20/17 10:37 - Medications Medications: Current Medications Acetaminophen (Tylenol 325mg Tab) 650 mg PO Q6H PRN; Protocol PRN Reason: Fever >100.4 F Acetaminophen (Tylenol 325mg Tab) 650 mg PO Q6H PRN; Protocol PRN Reason: Pain, moderate (4-7) Last Admin: 07/20/17 11:15 Dose: 650 mg Amoxicillin/Clavulanate Potassium (Augmentin 500 Mg-125 Mg Tab) 1 tab PO Q8 [facility] PRN Reason: Protocol Last Admin: 07/20/17 10:36 Dose: 1 tab Clonazepam (Klonopin) 0.5 mg PO TID [facility] PRN Reason: Protocol Last Admin: 07/20/17 10:51 Dose: 0.5 mg Glipizide (Glucotrol) 10 mg PO 0730 [facility] PRN Reason: Protocol Last Admin: 07/20/17 08:03 Dose: 10 mg Insulin Human Regular (Humulin R Med) 1 units SC ACHS [facility] PRN Reason: Protocol Last Admin: 07/20/17 06:42 Dose: 1 units Lactobacillus Acidophilus (Bacid Acidophilus) 1 cap PO DAILY [facility] Last Admin: 07/20/17 11:03 Dose: 1 cap Losartan Potassium (Cozaar) 100 mg PO DAILY [facility] PRN Reason: Protocol Last Admin: 07/20/17 10:41 Dose: 100 mg Meclizine HCl (Antivert) 25 mg PO TID [facility] PRN Reason: Protocol Last Admin: 07/20/17 10:40 Dose: 25 mg Metoprolol Tartrate (Lopressor) 25 mg PO 0800 [facility] PRN Reason: Protocol Last Admin: 07/20/17 08:03 Dose: 25 mg Metronidazole (Flagyl) 500 mg PO Q8 [facility] PRN Reason: Protocol Last Admin: 07/20/17 10:37 Dose: 500 mg Oxycodone/Acetaminophen (Percocet 5/325 Mg Tab) 1 tab PO Q4H PRN; Protocol PRN Reason: Pain, severe (8-10) Stop: 07/22/17 15:29 Pantoprazole Sodium (Protonix Ec Tab) 40 mg PO 0630 [facility] PRN Reason: Protocol Last Admin: 07/20/17 05:34 Dose: 40 mg Pregabalin (Lyrica) 50 mg PO TID [facility] PRN Reason: Protocol Last Admin: 07/20/17 10:52 Dose: 50 mg Ramipril (Altace) 5 mg PO QAM [facility] PRN Reason: Protocol Last Admin: 07/20/17 10:37 Dose: 5 mg Sertraline HCl (Zoloft) 25 mg PO QPM [facility] PRN Reason: Protocol Last Admin: 07/19/17 17:26 Dose: 25 mg - Constitutional Appears: Well, No Acute Distress - Head Exam Head Exam: ATRAUMATIC, NORMAL INSPECTION, NORMOCEPHALIC - Eye Exam Eye Exam: EOMI, Normal appearance - Respiratory Exam Respiratory Exam: Clear to Ausculation Bilateral, NORMAL BREATHING PATTERN. absent: Decreased Breath Sounds, Rales, Rhonchi, Wheezes, Respiratory Distress - Cardiovascular Exam Cardiovascular Exam: REGULAR RHYTHM, +S1, +S2. absent: Bradycardia, Tachycardia , Murmur - GI/Abdominal Exam GI & Abdominal Exam: Soft, Normal Bowel Sounds. absent: Distended, Firm, Guarding, Tenderness - Extremities Exam Extremities Exam: Normal Inspection. absent: Pedal Edema, Tenderness - Neurological Exam Neurological Exam: Alert, Awake, Oriented x3 - Skin Skin Exam: Dry, Intact, Normal Color, Warm Assessment and Plan - Assessment and Plan (Free Text) Assessment: 81 yo female with PMH of c. diff colitis presented with left upper quadrant pain , diarrhea, she was found to have hypernatremic. Plan: - CT of abd/pelvis with PO contrast showed divertculosis - c. diff negative - abd resolved, diarrhea resolved - continue PPI - continue to monitor - hypernatremia improved, correct electrolytes as needed case reviewed and discussed with Dr. Nichols <Zoraida Nichols V - Last Filed: 07/21/17 00:18> Objective - Vital Signs/Intake and Output Vital Signs (last 24 hours): Temp Pulse Resp BP Pulse Ox 97.5 F L 63 16 131/70 98 07/19/17 17:11 07/20/17 15:34 07/19/17 17:11 07/20/17 15:34 07/20/17 15:34 - Medications Medications: Current Medications Acetaminophen (Tylenol 325mg Tab) 650 mg PO Q6H PRN; Protocol PRN Reason: Fever >100.4 F Acetaminophen (Tylenol 325mg Tab) 650 mg PO Q6H PRN; Protocol PRN Reason: Pain, moderate (4-7) Last Admin: 07/20/17 11:15 Dose: 650 mg Amoxicillin/Clavulanate Potassium (Augmentin 500 Mg-125 Mg Tab) 1 tab PO Q8 [facility] PRN Reason: Protocol Last Admin: 07/20/17 21:43 Dose: 1 tab Clonazepam (Klonopin) 0.5 mg PO TID [facility] PRN Reason: Protocol Last Admin: 07/20/17 17:23 Dose: 0.5 mg Glipizide (Glucotrol) 10 mg PO 0730 [facility] PRN Reason: Protocol Last Admin: 07/20/17 08:03 Dose: 10 mg Insulin Human Regular (Humulin R Med) 1 units SC ACHS [facility] PRN Reason: Protocol Last Admin: 07/20/17 22:03 Dose: Not Given Lactobacillus Acidophilus (Bacid Acidophilus) 1 cap PO DAILY [facility] Last Admin: 07/20/17 11:03 Dose: 1 cap Losartan Potassium (Cozaar) 100 mg PO DAILY [facility] PRN Reason: Protocol Last Admin: 07/20/17 10:41 Dose: 100 mg Meclizine HCl (Antivert) 25 mg PO TID [facility] PRN Reason: Protocol Last Admin: 07/20/17 17:20 Dose: 25 mg Metoprolol Tartrate (Lopressor) 25 mg PO 0800 [facility] PRN Reason: Protocol Last Admin: 07/20/17 08:03 Dose: 25 mg Metronidazole (Flagyl) 500 mg PO Q8 [facility] PRN Reason: Protocol Last Admin: 05/16/18 21:43 Dose: 500 mg Oxycodone/Acetaminophen (Percocet 5/325 Mg Tab) 1 tab PO Q4H PRN; Protocol PRN Reason: Pain, severe (8-10) Stop: 07/22/17 15:29 Pantoprazole Sodium (Protonix Ec Tab) 40 mg PO 0630 [facility] PRN Reason: Protocol Last Admin: 07/20/17 05:34 Dose: 40 mg Pregabalin (Lyrica) 50 mg PO TID [facility] PRN Reason: Protocol Last Admin: 07/20/17 17:23 Dose: 50 mg Ramipril (Altace) 5 mg PO QAM [facility] PRN Reason: Protocol Last Admin: 07/20/17 10:37 Dose: 5 mg Sertraline HCl (Zoloft) 25 mg PO QPM [facility] PRN Reason: Protocol Last Admin: 07/20/17 17:21 Dose: 25 mg Attending/Attestation - Attestation I have personally seen and examined this patient.: Yes I have fully participated in the care of the patient.: Yes I have reviewed all pertinent clinical information, including history, physical exam and plan: Yes Notes (Text): This is an addendum to GI progress report dictated by the Lining Feller.The patient was seen and examined earlier. Medical records, lab studies, imagings were reviewed. Last 24 hours events reviewed. Agreed with the above treatment plan as outlined in Lining Feller 's notes the with the addition of the following 07/21/17 00:18
--- NOTE | 2017-07-20 14:59 | HP ---
DATE OF EXAM: 07/20/2017 CHIEF COMPLAINT AND HISTORY OF PRESENT ILLNESS: This is an 81-year-old female who has come into the hospital and was complaining of abdominal pain initially, that has resolved. She was on IV antibiotics and now is transferred to the Transitional Care Unit for rehab. She said she has difficulty in ambulating. She feels weak. She has no complains of any headaches or dizziness. No nausea, no abdominal pain. No dysuria or frequency. No nocturia. She does complain of pain in her hips at times and also in her shoulders. She does have a history of osteoarthritis. All other review of symptoms are within normal limits except what was mentioned, the pain is about 4-5/10. ALLERGIES: NO KNOWN DRUG ALLERGIES. MEDICATIONS: Her home medications has been reviewed on the [facility]. PAST MEDICAL HISTORY: Hypertension, diabetes type 2, depression, irritable bowel syndrome, chronic back pain, GERD, , diabetes type 2, restless leg syndrome, anxiety, history of uterine cancer. PAST SURGICAL HISTORY: Total abdominal hysterectomy secondary to uterine cancer. SOCIAL HISTORY: She is single. She lives with her son and he is the main caregiver. She does not smoke. She is an ex-smoker. She drinks socially. PHYSICAL EXAMINATION VITAL SIGNS: Temperature is 97.5, pulse of 62, blood pressure is 138/72, respirations 16. GENERAL: The patient lying in bed, uncomfortable, and in no acute distress. HEENT: Atraumatic and normocephalic. Anicteric sclerae. Moist mucosa. [place] conjunctivae. No oral lesions. NECK: No JVD, anterior and posterior adenopathy, thyromegaly, or bruits. CARDIOVASCULAR: S1 and S2 regular. No murmur, rubs, or gallop. LUNGS: Clear to auscultation bilaterally. No wheezes, rales, or rhonchi. ABDOMEN: Bowel sounds are positive. Soft, nontender and nondistended. No hepatosplenomegaly. No rebound and no guarding EXTREMITIES: No cyanosis, clubbing, or edema. NEUROLOGIC: No facial asymmetry. Tongue is midline. No uvula deviation. Power is 5/5 upper extremity and lower extremity. Sensation intact in upper extremity and lower extremity. PSYCHIATRIC: She is awake, alert and oriented x3. No anxiety or depression. She has normal affect. GENITOURINARY: No CVA tenderness. VASCULAR: 2+ pulses in the carotid pulses and pedal pulses. SKIN: No erythema or nodules SPINE: Shows normal curvature. LABORATORY DATA: There is no labs. ASSESSMENT: 1. Osteoarthritis. 2. Gait dysfunction. 3. Hypernatremia, resolved. 4. Diabetes type 2. 5. Hypertension. 6. Dyslipidemia. 7. Restless leg syndrome. 8. Anxiety. 9. History of uterine cancer. PLAN: The patient is currently comfortable and currently on the Transitional Care Unit. I did review the patient's old records from the hospital. The patient is on Altace for her hypertension. She is going to continue with meclizine for dizziness. She is on losartan for hypertension. The patient is receiving Flagyl and Rocephin. I will discontinue that and place her on oral antibiotics. She is receiving Percocet for pain. She is on IV fluids. I will discontinue the patient's IV fluids. She is going to get physical therapy. Monroe Baxter MD
[2017-07-21] MEDS: Pantoprazole 40 mg EC Tab PO SCH (05:45)
[2017-07-21] MEDS: Amoxicillin-Clav 500-125 mg Tab PO SCH ×3 (05:45→21:27)
[2017-07-21] MEDS: Insulin Reg-MEDIUM-Coverage SC SCH ×4 (06:41→22:02)
[2017-07-21] MEDS: Lactobacillus Acidophilus 500 MU Cap PO SCH (10:31)
[2017-07-21 17:07] VITALS: RESP 18
[2017-07-22] MEDS: Amoxicillin-Clav 500-125 mg Tab PO SCH ×3 (05:27→21:54)
[2017-07-22] MEDS: Pantoprazole 40 mg EC Tab PO SCH (05:34)
[2017-07-22] MEDS: Insulin Reg-MEDIUM-Coverage SC SCH ×4 (06:58→21:54)
[2017-07-22] MEDS: Lactobacillus Acidophilus 500 MU Cap PO SCH (09:01)
--- NOTE | 2017-07-22 11:18 | CP.PCM.PN ---
<Hillary Chance - Last Filed: 07/22/17 14:44> Subjective - Date & Time of Evaluation Date of Evaluation: 07/22/17 Time of Evaluation: 10:00 - Subjective Subjective: PGY-[address] Nichols's service Patient seen and examined at bedside in TCU. No acute distress. Patient denies abdominal pain, nausea and vomiting. She denies diarrhea but reports soft stool. She is tolerating heart healthy diet. She reports chronic right arm pain. She denies any overt bleeding. Objective - Vital Signs/Intake and Output Vital Signs (last 24 hours): Temp Pulse Resp BP Pulse Ox 98.2 F 71 18 172/96 H 97 07/21/17 16:00 07/22/17 05:39 07/21/17 16:00 07/22/17 09:01 07/21/17 16:00 - Medications Medications: Current Medications Acetaminophen (Tylenol 325mg Tab) 650 mg PO Q6H PRN; Protocol PRN Reason: Fever >100.4 F Acetaminophen (Tylenol 325mg Tab) 650 mg PO Q6H PRN; Protocol PRN Reason: Pain, moderate (4-7) Last Admin: 07/20/17 11:15 Dose: 650 mg Amoxicillin/Clavulanate Potassium (Augmentin 500 Mg-125 Mg Tab) 1 tab PO Q8 ROSEMARY PRN Reason: Protocol Last Admin: 07/22/17 05:27 Dose: 1 tab Clonazepam (Klonopin) 0.5 mg PO TID ROSEMARY PRN Reason: Protocol Last Admin: 07/22/17 09:03 Dose: 0.5 mg Glipizide (Glucotrol) 10 mg PO 0730 ROSEMARY PRN Reason: Protocol Last Admin: 07/22/17 09:01 Dose: 10 mg Insulin Human Regular (Humulin R Med) 1 units SC ACHS ROSEMARY PRN Reason: Protocol Last Admin: 07/22/17 06:58 Dose: Not Given Lactobacillus Acidophilus (Bacid Acidophilus) 1 cap PO DAILY [facility] Last Admin: 07/22/17 09:01 Dose: 1 cap Losartan Potassium (Cozaar) 100 mg PO DAILY ROSEMARY PRN Reason: Protocol Last Admin: 07/22/17 09:01 Dose: 100 mg Meclizine HCl (Antivert) 25 mg PO TID [facility]SEMARY PRN Reason: Protocol Last Admin: 07/22/17 09:01 Dose: 25 mg Metoprolol Tartrate (Lopressor) 25 mg PO 0800 ROSEMARY PRN Reason: Protocol Last Admin: 07/22/17 09:06 Dose: Not Given Metronidazole (Flagyl) 500 mg PO Q8 ROSEMARY PRN Reason: Protocol Last Admin: 07/22/17 05:27 Dose: 500 mg Oxycodone/Acetaminophen (Percocet 5/325 Mg Tab) 1 tab PO Q4H PRN; Protocol PRN Reason: Pain, severe (8-10) Stop: 07/22/17 15:29 Pantoprazole Sodium (Protonix Ec Tab) 40 mg PO 0630 ROSEMARY PRN Reason: Protocol Last Admin: 07/22/17 05:34 Dose: 40 mg Pregabalin (Lyrica) 50 mg PO TID ROSEMARY PRN Reason: Protocol Last Admin: 07/22/17 09:05 Dose: 50 mg Ramipril (Altace) 5 mg PO QAM [facility] PRN Reason: Protocol Last Admin: 07/22/17 09:01 Dose: 5 mg Sertraline HCl (Zoloft) 25 mg PO QPM [facility]ARY PRN Reason: Protocol Last Admin: 07/21/17 18:11 Dose: 25 mg - Constitutional Appears: Well, No Acute Distress - Head Exam Head Exam: ATRAUMATIC, NORMOCEPHALIC - Eye Exam Eye Exam: EOMI, Normal appearance - ENT Exam ENT Exam: Mucous Membranes Moist - Respiratory Exam Respiratory Exam: Clear to Ausculation Bilateral, NORMAL BREATHING PATTERN. absent: Respiratory Distress - GI/Abdominal Exam GI & Abdominal Exam: Soft, Normal Bowel Sounds. absent: Distended, Firm, Guarding, Tenderness - Extremities Exam Extremities Exam: Normal Inspection. absent: Pedal Edema, Tenderness - Neurological Exam Neurological Exam: Alert, Awake, Oriented x3 - Skin Skin Exam: Dry, Intact, Normal Color, Warm Assessment and Plan - Assessment and Plan (Free Text) Assessment: 81 yo female with PMH of c. diff colitis presented with left upper quadrant pain , diarrhea, she was found to have hypernatremic, transferred to TCU for PT. Plan: - CT of abd/pelvis with PO contrast showed divertculosis - c. diff negative - abd resolved, diarrhea resolved - continue PPI - continue to monitor - hypernatremia improved, correct electrolytes as needed case reviewed and discussed with Dr. Nichols <Zoraida Nichols V - Last Filed: 07/23/17 02:43> Objective - Vital Signs/Intake and Output Vital Signs (last 24 hours): Temp Pulse Resp BP Pulse Ox 97.7 F 59 L 18 145/81 96 07/22/17 16:30 07/22/17 16:30 07/22/17 16:30 07/22/17 16:30 07/22/17 16:30 - Medications Medications: Current Medications Acetaminophen (Tylenol 325mg Tab) 650 mg PO Q6H PRN; Protocol PRN Reason: Fever >100.4 F Acetaminophen (Tylenol 325mg Tab) 650 mg PO Q6H PRN; Protocol PRN Reason: Pain, moderate (4-7) Last Admin: 07/20/17 11:15 Dose: 650 mg Amoxicillin/Clavulanate Potassium (Augmentin 500 Mg-125 Mg Tab) 1 tab PO Q8 ROSEMARY PRN Reason: Protocol Last Admin: 07/22/17 21:54 Dose: 1 tab Clonazepam (Klonopin) 0.5 mg PO TID ROSEMARY PRN Reason: Protocol Last Admin: 07/22/17 17:56 Dose: 0.5 mg Glipizide (Glucotrol) 10 mg PO 0730 ROSEMARY PRN Reason: Protocol Last Admin: 07/22/17 09:01 Dose: 10 mg Insulin Human Regular (Humulin R Med) 1 units SC ACHS ROSEMARY PRN Reason: Protocol Last Admin: 07/22/17 21:54 Dose: Not Given Lactobacillus Acidophilus (Bacid Acidophilus) 1 cap PO DAILY [facility] Last Admin: 07/22/17 09:01 Dose: 1 cap Losartan Potassium (Cozaar) 100 mg PO DAILY [facility] PRN Reason: Protocol Last Admin: 07/22/17 09:01 Dose: 100 mg Meclizine HCl (Antivert) 25 mg PO TID [facility]ARY PRN Reason: Protocol Last Admin: 07/22/17 17:54 Dose: 25 mg Metoprolol Tartrate (Lopressor) 25 mg PO 0800 ROSEMARY PRN Reason: Protocol Last Admin: 07/22/17 09:06 Dose: Not Given Metronidazole (Flagyl) 500 mg PO Q8 ROSEMARY PRN Reason: Protocol Last Admin: 07/22/17 21:54 Dose: 500 mg Pantoprazole Sodium (Protonix Ec Tab) 40 mg PO 0630 ROSEMARY PRN Reason: Protocol Last Admin: 07/22/17 05:34 Dose: 40 mg Pregabalin (Lyrica) 50 mg PO TID [facility]SEMARY PRN Reason: Protocol Last Admin: 07/22/17 17:58 Dose: Not Given Ramipril (Altace) 5 mg PO QAM [facility]ARY PRN Reason: Protocol Last Admin: 07/22/17 09:01 Dose: 5 mg Sertraline HCl (Zoloft) 25 mg PO QPM [facility]SEMARY PRN Reason: Protocol Last Admin: 07/22/17 17:58 Dose: 25 mg Attending/Attestation - Attestation I have personally seen and examined this patient.: Yes I have fully participated in the care of the patient.: Yes I have reviewed all pertinent clinical information, including history, physical exam and plan: Yes Notes (Text): ranjan 07/23/17 02:43
[2017-07-22 16:40] VITALS: PULSE 59; TEMP 97.7; O2SAT 96
[2017-07-23] MEDS: Amoxicillin-Clav 500-125 mg Tab PO SCH (05:46)
[2017-07-23] MEDS: Pantoprazole 40 mg EC Tab PO SCH (05:47)
[2017-07-23] MEDS: Insulin Reg-MEDIUM-Coverage SC SCH (07:29)
[2017-07-23] MEDS: Lactobacillus Acidophilus 500 MU Cap PO SCH (10:02)
[2017-07-23 10:05] VITALS: BP 161/76
--- NOTE | 2017-07-23 14:46 | DS ---
HISTORY OF PRESENT ILLNESS: Patient has no complaints of any chest pain. No shortness of breath. No headache or dizziness. She has been getting physical therapy. She is ambulating. She does have symptoms in her hips because of pain from osteoarthritis. She is going to be discharged home tomorrow, can follow up as an outpatient. PHYSICAL EXAMINATION: VITAL SIGNS: Temperature is 98.6, pulse is 71, blood pressure is 172/96. GENERAL: The patient is lying in bed, flat, comfortable. HEENT: No oral lesion. Anicteric sclerae. Moist mucosa. NECK: No JVD, adenopathy, or thyromegaly. CARDIOVASCULAR: S1 and S2, regular. No murmurs, rubs, or gallops. LUNGS: Clear to auscultation bilaterally. No wheeze, rales, or rhonchi. ABDOMEN: Bowel sounds are positive, soft, nontender and nondistended. EXTREMITIES: no cyanosis, clubbing or edema. ASSESSMENT: 1. Osteoarthritis. 2. Gait dysfunction. 3. Hypernatremia, resolved. 4. Diabetes type 2. 5. Hypertension. 6. Dyslipidemia. 7. Restless leg syndrome. 8. Anxiety. 9. History of uterine cancer. PLAN: The patient is on meclizine as needed and she is going to continue. The patient is on antibiotics. She is on losartan for hypertension. She is on Flagyl for the abdominal pain that she is having. She is on insulin. She is receiving Lyrica for restless leg syndrome. She is on Zoloft for her depression. CONDITION: Stable. ACTIVITIES: Increase as tolerated. Follow up with in 1 to 2 weeks. Monroe Baxter MD MTDRick
--- NOTE | 2017-07-24 07:45 | DS ---
HISTORY OF PRESENT ILLNESS: The patient has no complaints of any chest pain, shortness of breath or headaches. She was here for physical therapy and has improved. She is going to be discharged home. PHYSICAL EXAMINATION: VITAL SIGNS: Temperature is 97.7, pulse of 59, blood pressure 161/76, respirations 18. GENERAL: The patient is lying in bed, flat, comfortable. HEENT: No oral lesion. Anicteric sclerae. Moist mucosa. NECK: No JVD, adenopathy, or thyromegaly. CARDIOVASCULAR: S1 and S2, regular. No murmurs, rubs, or gallops. LUNGS: Clear to auscultation bilaterally. No wheeze, rales, or rhonchi. ABDOMEN: Bowel sounds are positive, soft, nontender and nondistended. EXTREMITIES: No cyanosis, clubbing or edema. ASSESSMENT: 1. Osteoarthritis. 2. Gait dysfunction. 3. Hypernatremia, resolved. 4. Diabetes type 2. 5. Hypertension. 6. Dyslipidemia. 7. Restless leg syndrome. 8. Anxiety. 9. History of uterine cancer. PLAN: The patient is on ramipril for hypertension, this will be continued. She is on losartan for hypertension as well as going to be on Glucotrol for her diabetes. She is on Klonopin for anxiety. She is going to continue with Lyrica for neuropathy. She is on Zoloft for depression. She is going to follow with Dr. Martínez in 1 to 2 weeks. CONDITION: Stable. ACTIVITIES: Increase as tolerated. Monroe Baxter MD
== END 2017-07-23 12:51 | disposition home or self-care (01) | DRG 641 ==
LOC: TRCU 14:29
PROVIDERS: ADMIT Internal Medicine Nephrology; ATTEND Internal Medicine Nephrology
PROC: F07Z9FZ Gait Training/Functional Ambulation Treatment using Assistive, Adaptive, Supportive or Protective Equipment (ICD-10-PCS; principal; 2017-07-19)
PROC: F07M6ZZ Therapeutic Exercise Treatment of Musculoskeletal System - Whole Body (ICD-10-PCS; 2017-07-19)
PROC: F08Z1ZZ Dressing Techniques Treatment (ICD-10-PCS; 2017-07-20)
PROC: F08Z2ZZ Grooming/Personal Hygiene Treatment (ICD-10-PCS; 2017-07-20)
PROC: F08Z0ZZ Bathing/Showering Techniques Treatment (ICD-10-PCS; 2017-07-20)
PROC: F08Z4ZZ Home Management Treatment (ICD-10-PCS; 2017-07-20)
DX: E87.0 Hyperosmolality and hypernatremia (principal); E11.9 Type 2 diabetes mellitus without complications; I10 Essential (primary) hypertension; E78.5 Hyperlipidemia, unspecified; G25.81 Restless legs syndrome; F41.9 Anxiety disorder, unspecified; Z85.42 Personal history of malignant neoplasm of other parts of uterus; M19.90 Unspecified osteoarthritis, unspecified site; Z87.891 Personal history of nicotine dependence; Z90.710 Acquired absence of both cervix and uterus; K21.9 Gastro-esophageal reflux disease without esophagitis; K58.0 Irritable bowel syndrome with diarrhea; M79.601 Pain in right arm

== ENCOUNTER 2017-09-15 12:23 | Observation (INO) | payer MEDICARE ==
[2017-09-15 12:24] VITALS: BMI 34.3
--- NOTE | 2017-09-15 12:57 | EDPD ---
HPI Stroke - General Time Seen by Provider: 09/15/17 12:49 Chief Complaint: Weakness/Neurological Deficit Historian: Patient - History of Present Illness Narrative History of Present Illness (Free Text): 09/15/17 13:02 Patient is an 81 year old female, whose past medical history includes hypertension,diabetes, prior cva, presents to the Emergency department complaining of "numbness to my lips" as well as numbness to her left shoulder and arm. She states she felt this numbness "since 6 am". She states "I felt this when I woke up" but she doesn't remember having any symptoms before she went to bed last night. She does state that she has had similar symptoms in the past and "gets numbness for a while". She states that numbness to her face has been there for several years. She also reports pain down her left leg "but I've had this for a while". She states that she "started shaking all over" for a few seconds earlier this morning, but not currently. Denies cough or shortness of breath. Denies abdominal pain. Denies nausea or vomiting. Denies dysuria or frequency. rTPA Inclusion/Exclusion - Refusal of Treatment Patient Refused Treatment: Yes - Inclusion Criteria for Altepase Time of Onset is Well Established to be Less Than 270 Minute Before Treatment Would Begin: No Past Medical History - Provider Review Nursing Documentation Reviewed: Yes - Infectious Disease Hx of Infectious Diseases: None - Tetanus Immunization Tetanus Immunization: Unknown - Cardiac Hx Hypertension: Yes - Pulmonary Hx Respiratory Disorders: Yes (USED TO SMOKE.QUIT SMOKING IN HER 50'S) Hx Bronchitis: Yes - Neurological HX Cerebrovascular Accident: Yes - HEENT Hx HEENT Disorder: Yes Hx Deafness: Yes Other/Comment: RIGHT EAR TINNITUS. WEARS GLASSES, NEAR SIGHTED, needs cataract sx both eyes - Renal Hx Renal Disorder: Yes (UTERINE CA) Hx Kidney Stones: Yes ("CAME OUT ON OWN") - Endocrine/Metabolic Hx Diabetes Mellitus Type 2: Yes - Hematological/Oncological Hx Blood Disorders: Yes Other/Comment: " I HAD A BLOOD INFECTION 2-3 YRS. AGO-THEY DON'T KNOW WHAT IT WAS" - Integumentary Hx Dermatological Disorder: Yes (BILATERAL LE AND UPPER ARM REDDENED RASH,SKIN ABRASION) Other/Comment: HX. LEFT BREAST CYST - Musculoskeletal/Rheumatological Hx Arthritis: Yes - Gastrointestinal Hx Gastrointestinal Disorders: Yes (ibs) - Genitourinary/Gynecological Hx Reproductive Disorders: (hyst/ r breast cyst/uterine ca) - Psychiatric Hx Psychophysiologic Disorder: Yes Hx Anxiety: Yes Hx Depression: Yes Hx Emotional Abuse: No Hx Physical Abuse: No Hx Substance Use: No - Surgical History Other/Comment: LEFT BREAST CYST REMOVED, lle orif with hardware, r wrist orif with hardware, ercp, picc - Anesthesia Hx Anesthesia: Yes Hx Anesthesia Reactions: No Hx Malignant Hyperthermia: No - Suicidal Assessment Feels Threatened In Home Enviroment: No Family/Social History - Family/Social History Family History: Non-Contributory Allergies/Home Meds Allergies/Adverse Reactions: Allergies No Known Allergies Allergy (Verified 09/15/17 15:17) Home Medications: Home Meds Medication Instructions Recorded Confirmed Metformin HCl 1,000 mg PO BID 11/02/12 09/15/17 Pregabalin [Lyrica] 50 mg PO TID 11/02/12 09/15/17 Ramipril 5 mg PO QAM 11/02/12 09/15/17 Sertraline HCl 25 mg PO QPM 11/02/12 09/15/17 Insulin Glargine,Hum.rec.anlog 1 unit SC 07/17/14 09/15/17 [Lantus] Atorvastatin [Lipitor] 80 mg PO HS 05/09/15 09/15/17 Calcium Carbonate [Calcium] 500 mg PO DAILY 05/09/15 09/15/17 Glipizide 10 mg PO DAILY 05/09/15 09/15/17 Meclizine HCl [Antivert] 25 mg PO TID 05/09/15 09/15/17 Clonazepam [Klonopin] 0.5 mg PO TID 07/08/16 09/15/17 Losartan [Cozaar] 100 mg PO DAILY 09/11/16 09/15/17 Metoprolol Tartrate [Lopressor] 25 mg PO DAILY 01/02/17 09/15/17 Lactobacillus Acidophilus 1 each PO DAILY 01/13/17 09/15/17 [Acidophilus] Review of Systems - Review of Systems Constitutional: absent: Fevers Eyes: absent: Vision Changes, Eye Pain ENT: Other (numbness to tongue, left facial numbness). absent: Hearing Changes , Sore Throat Respiratory: absent: SOB Cardiovascular: absent: Chest Pain, Palpitations Gastrointestinal: absent: Abdominal Pain Genitourinary Female: absent: Dysuria Musculoskeletal: Neck Pain. absent: Back Pain Skin: absent: Rash Neurological: Other (numbess to right side of face). absent: Headache, Dizziness, Focal Weakness, Speech Changes Endocrine: absent: Polyuria Hemo/Lymphatic: absent: Easy Bleeding Psychiatric: absent: Depression ED Stroke Physical Exam - Physical Exam Narrative Physical Exam (Text): 09/15/17 13:05 Head: Atraumatic. Normocephalic. Eyes: PERRL. EOMI. Conjunctivae are not pale. Visual acuity and visual hoyos at baseline. ENT: Mucous membranes are moist and intact. Oropharynx is clear and symmetric. No obvious facial droop. NO erythema or edema. NO dental pain. Neck: Supple. Full ROM. No JVD. No lymphadenopathy. Paraspinal tenderness. Cardiovascular: Regular rate. Regular rhythm. Systolic murmur. Distal pulses are 2+ and symmetric. Pulmonary/Chest: No evidence of respiratory distress. Clear to auscultation bilaterally. No wheezing, rales or rhonchi. Abdominal: Soft and non-distended. There is no tenderness. No rebound, guarding, or rigidity. No organomegaly. Good bowel sounds. Back: No CVA tenderness. Extremities: No edema. No cyanosis. No clubbing. Full range of motion in all extremities. No calf tenderness. Distal pulses intact. Skin: Skin is warm and dry. No petechiae. No purpura. NO vesciular rash. Neurological: Alert, awake, and oriented. No pronator drift. No meningeal signs. No slurred speech. Numbness to light touch subjectively to right face greater than left. Psychiatric: Good eye contact. Normal interaction, affect, and behavior. Rectal: no gross bleeding 09/15/17 17:06 Vital Signs Reviewed: Yes Vital Signs Temp Pulse Resp BP Pulse Ox 09/15/17 12:51 98.7 F 68 18 129/63 100 Temperature: Afebrile Blood Pressure: Normal Pulse: Regular Respiratory Rate: Normal Appearance: Positive for: Well-Appearing, Non-Toxic, Comfortable Pain Distress: Mild Mental Status: No: Lethargic Finger Stick Blood Glucose: 237 Medical Decision Making ED Course and Treatment: 09/15/17 12:56 Impression: 82 year old female presents to the Emergency department for evaluation of numbness and tremors since 6 am this morning. Differential Diagnosis included but are not limited to: radiculopathy, cva, tia , neuro disease, sepsis Plan: -- Type and Screen -- CT of Head -- EKG -- Labs -- Chest X-ray -- Aspirin -- Reassess and disposition Prior Visits: Notes and results from previous visits were reviewed. Progress Notes: Patient reports increased numbness to her left side and tongue, states since "waking up at 6 am". On exam, mild numbness noted to left face, no obvious droop or focal weakness noted. 09/15/17 12:56 STROKE ALERT ACTIVATED based on described new symptoms upon awakening. Patient does later state she has had this intermittently in the past, then later states "I always have had this a little since my stroke". She is not a tpa candidate as no known time of onset of symptoms, any symptoms mild, possibly chronic at this time. 09/15/17 13:[address] Tripathi, vice president media relations neuro and reviewed history. 09/15/17 13:42 CT of head reviewed by radiologist, shows no acute findings. 09/15/17 13:42 Chest X-ray reviewed by radiologist, shows no active pulmonary disease. 09/15/17 17:09 Patient on re-evaluation has no focal neuro deficits noted. Afebrile. Denies pain or discomfort. She denies chest pain or shortness of breath. UA pending, but denies dysuria, and currently no fever and unremarkable WBC, although it is noted that patient has had UTI in past. Will admit for monitoring, serial neuro exams, follow-up of UA. Case accepted by Dr. Danial Baxter, covering for PMD. - RAD Interpretation Financial Sales Assistant: Radiologist - EKG Interpretation EKG Interpretation (Text): EKG at 12:47 normal sinus rhythm rate of [address] elevations Interpreted by ED Physician: Yes Type: 12 lead EKG - Scribe Statement The provider has reviewed the documentation as recorded by the Scriboksana Vargas. All medical record entries made by the Scribe were at my direction and personally dictated by me. I have reviewed the chart and agree that the record accurately reflects my personal performance of the history, physical exam, medical decision making, and the department course for this patient. I have also personally directed, reviewed, and agree with the discharge instructions and disposition. NIHSS Scale ([place]) Time Performed: 13:00 - How Severe is the Stoke Baseline Level of Consciousness: 0=Alert LOC to Questions: 0=Both comments correct LOC to commands: 0=Obeys both correctly Best Gaze: 0=Normal Visual: 0=No visual loss Facial: 0=Normal Motor Arm - Left: 0=No drift Motor Arm - Right: 0=No drift Motor Leg - Left: 0=No drift Motor Leg - Right: 0=No drift Limb Ataxia: 0=Absent Sensory: 0=Normal Best Language: 0=No aphasia Dysarthia: 0=Normal articulation Extinction & Inattention (Neglect): 0=Normal, no object Score: 0 Risk Level: No Stroke Risk Disposition/Present on Arrival - Present on Arrival Any Indicators Present on Arrival: No History of DVT/PE: No History of Uncontrolled Diabetes: No Urinary Catheter: No History of Decub. Ulcer: No History Surgical Site Infection Following: None - Disposition Have Diagnosis and Disposition been Completed?: Yes Diagnosis: Numbness, Occasional tremors, TIA (transient ischemic attack) Disposition: HOSPITALIZED Disposition Time: 14:40 Patient Plan: Admission, Telemetry Patient Problems: Current Active Problems Problem Status Onset Numbness Acute Occasional tremors Acute TIA (transient ischemic attack) Acute Condition: SERIOUS
[2017-09-15 13:11] LABS: BASO # 0.02 K/mm3 (0.0-2.0); BASO % 0.3 % (0.0-3.0); EOS # 0.1 (0.0-0.7); EOS % 1.2 % (1.5-5.0); GRAN # 4.01 (1.4-6.5); HEMOGLOBIN 11.8 g/dL (12.0-16.0); LYMPH # 2.1 (1.2-3.4); MEAN CELL VOLUME 87.6 fl (80.0-105.0); MEAN CORPUSCULAR HEMOGLOBIN 29.4 pg (25.0-35.0); MEAN CORPUSCULAR HGB CONC 33.5 g/dl (31.0-37.0); MEAN PLATELET VOLUME 10.9 fl (7.0-11.0); MONO # 0.4 (0.1-0.6); MONO % 5.5 % (1.0-6.0); RBC 4.02 10^6/uL (3.5-6.1); WHITE BLOOD COUNT 6.6 10^3/ul (4.5-11.0)
[2017-09-15 13:22] LABS: ALB/GLOB RATIO 1.3 (1.1-1.8); ALBUMIN 4.1 g/dL (3.0-4.8); ALT/SGPT 31 U/L (7-56); AST/SGOT 19 U/L (14-36); BLOOD UREA NITROGEN 29 mg/dL (7-21); CALCIUM 9.4 mg/dL (8.4-10.5); GFR AFRICAN-AMERICAN 57; GFR NON-AFRICAN AMERICAN 47; HDL CHOLESTEROL 48 mg/dL (29-60)
--- NOTE | 2017-09-15 13:23 | CT ---
Date of service: 09/15/2017 PROCEDURE: CT HEAD WITHOUT CONTRAST. HISTORY: Code Stroke COMPARISON: 01/13/2017 TECHNIQUE: Axial computed tomography images were obtained through the head/brain without intravenous contrast. Radiation dose: Total exam DLP = 826 mGy-cm. This CT exam was performed using one or more of the following dose reduction techniques: Automated exposure control, adjustment of the mA and/or kV according to patient size, and/or use of iterative reconstruction technique. FINDINGS: HEMORRHAGE: No intracranial hemorrhage. BRAIN: No mass effect or edema. No atrophy or chronic microvascular ischemic changes. VENTRICLES: Unremarkable. No hydrocephalus. CALVARIUM: Unremarkable. PARANASAL SINUSES: Unremarkable as visualized. No significant inflammatory changes. MASTOID AIR CELLS: Unremarkable as visualized. No inflammatory changes. OTHER FINDINGS: None. IMPRESSION: No acute findings
--- NOTE | 2017-09-15 13:25 | RAD ---
Date of service: 09/15/2017 PROCEDURE: CHEST RADIOGRAPH, 1 VIEW HISTORY: Code Stroke COMPARISON: 07/16/2017. FINDINGS: LUNGS: The lungs are well inflated and clear. PLEURA: No pneumothorax or pleural fluid seen. CARDIOVASCULAR: There is mild cardiomegaly. OSSEOUS STRUCTURES: No significant abnormalities. VISUALIZED UPPER ABDOMEN: Normal. OTHER FINDINGS: None. IMPRESSION: No active pulmonary disease.
[2017-09-15 13:30] LABS: INR 0.97 (0.93-1.08); PARTIAL THROMBOPLASTIN TIME 29.4 Seconds (25.1-36.5); PROTHROMBIN TIME 11.1 SECONDS (9.4-12.5)
[2017-09-15 13:32] LABS: LDL CHOLESTEROL 103 mg/dL (0-129)
[2017-09-15 13:35] LABS: TROPONIN I < 0.01 ng/mL
--- NOTE | 2017-09-15 13:57 | CP.PCM.CON ---
History of Present Illness - History of Present Illness History of Present Illness: 82 yr old woman who has multiple chief complaints, including numbness of face , "shaking all over", confusion and malaise. She was initially complaining of numbness of face and then she is now stating other complaints. Symptoms are similar to prior spells last year. FH/SH: Lives alone but in the same building as her son. Past Patient History - Infectious Disease Hx of Infectious Diseases: None - Tetanus Immunizations Tetanus Immunization: Unknown - Past Medical History & Family History Past Medical History?: Yes - Past Social History Smoking Status: Former Smoker - CARDIAC Hx Hypertension: Yes - PULMONARY Hx Respiratory Disorders: Yes (USED TO SMOKE.QUIT SMOKING IN HER 50'S) Hx Bronchitis: Yes - NEUROLOGICAL HX Cerebrovascular Accident: Yes - HEENT Hx HEENT Problems: Yes Hx Deafness: Yes Other/Comment: RIGHT EAR TINNITUS. WEARS GLASSES, NEAR SIGHTED, needs cataract sx both eyes - RENAL Hx Chronic Kidney Disease: Yes (UTERINE CA) Hx Kidney Stones: Yes ("CAME OUT ON OWN") - ENDOCRINE/METABOLIC Hx Diabetes Mellitus Type 2: Yes - HEMATOLOGICAL/ONCOLOGICAL Hx Blood Disorders: Yes Other/Comment: " I HAD A BLOOD INFECTION 2-3 YRS. AGO-THEY DON'T KNOW WHAT IT WAS" - INTEGUMENTARY Hx Dermatological Problems: Yes (BILATERAL LE AND UPPER ARM REDDENED RASH,SKIN ABRASION) Other/Comment: HX. LEFT BREAST CYST - MUSCULOSKELETAL/RHEUMATOLOGICAL Hx Arthritis: Yes - GASTROINTESTINAL Hx Gastrointestinal Disorders: Yes (ibs) - GENITOURINARY/GYNECOLOGICAL Hx Reproductive Disorders: (hyst/ r breast cyst/uterine ca) - PSYCHIATRIC Hx Psychophysiologic Disorder: Yes Hx Anxiety: Yes Hx Depression: Yes Hx Emotional Abuse: No Hx Physical Abuse: No Hx Substance Use: No - SURGICAL HISTORY Other/Comment: LEFT BREAST CYST REMOVED, lle orif with hardware, r wrist orif with hardware, ercp, picc - ANESTHESIA Hx Anesthesia: Yes Hx Anesthesia Reactions: No Hx Malignant Hyperthermia: No Meds Allergies/Adverse Reactions: Allergies Allergy/AdvReac Type Severity Reaction Status Date / Time No Known Allergies Allergy Verified 07/16/17 21:01 Results - Vital Signs Recent Vital Signs: Last Vital Signs Temp 98.7 F 09/15/17 12:51 Pulse 68 09/15/17 12:51 Resp 18 07/12/18 12:51 BP 129/63 09/15/17 12:51 Pulse Ox 100 09/15/17 12:51 - Labs Result Diagrams: 09/15/17 12:59 09/15/17 12:59 Labs: Laboratory Results - last 24 hr 09/15/17 09/15/17 09/15/17 12:59 12:59 12:59 WBC 6.6 D RBC 4.02 Hgb 11.8 L Hct 35.2 L MCV 87.6 MCH 29.4 MCHC 33.5 RDW 13.0 Plt Count 182 MPV 10.9 Gran % 61.0 Lymph % (Auto) 32.0 [place] % (Auto) 5.5 Eos % (Auto) 1.2 L Baso % (Auto) 0.3 Gran # 4.01 Lymph # (Auto) 2.1 [place] # (Auto) 0.4 Eos # (Auto) 0.1 Baso # (Auto) 0.02 PT 11.1 INR 0.97 APTT 29.4 Sodium 143 Potassium 4.1 Chloride 105 Carbon Dioxide 24 Anion Gap 19 BUN 29 H Creatinine 1.1 Est GFR ( Amer) 57 Est GFR (Non-Af Amer) 47 Random Glucose 272 H Calcium 9.4 Total Bilirubin 0.9 AST 19 ALT 31 Alkaline Phosphatase 146 H Troponin I < 0.01 Total Protein 7.2 Albumin 4.1 Globulin 3.1 Albumin/Globulin Ratio 1.3 Triglycerides 341 H Cholesterol 203 H LDL Cholesterol Direct 103 HDL Cholesterol 48
--- NOTE | 2017-09-15 19:31 | CARD ---
APPROVED REPORT Date of service: 09/15/2017 EKG Measurement Heart [id number] <Conclusion> Normal sinus rhythm Inferior infarct, age undetermined Abnormal ECG
[2017-09-15] MEDS ORDERED: Pneumococcal 23-Valent Vaccine IM ONE (19:53)
[2017-09-15] MEDS: Insulin Reg-MEDIUM-Coverage SC SCH (21:32)
[2017-09-16 01:09] VITALS: O2SAT 97
--- NOTE | 2017-09-16 06:52 | CP.PCM.HP ---
<Oralia Figueroa - Last Filed: 09/16/17 09:41> History of Present Illness - History of Present Illness History of Present Illness: H&P for Shady Chavez PGY3 This is an 82yo female with past medical history of CVA (20+yrs ago), Uterine ca , IDDM, CAD, HTN, GERD, chronic back pain, depression/anxiety, UTI (E.Coli), restless leg syndrome who came to ED for numbness/tingling on her face/tongue when she woke up in bed yesterday. She reports it is located on her tongue and face and happens from time to time. She also had an episode of violent shaking that was unwitnessed. She did not lose consciousness or have bowel/bladder incontinence or bite her tongue. In ED, code stroke was called. Head CT was negative and NIHSS scale was 0. Patient was evaluated by neurology and tPA was not given. This morning patient reports this numbness and tingling has been better. She denies chest pain, shortness of breath, numbness/tingling, nausea/ vomiting/diarrhea, fever/chills, dysuria or hematuria. She does report some mild neck pain which she states is chronic. As per nursing, she has been ambulating well to the commode without any issues. Past medical history: CVA (20+yrs ago), Uterine ca, IDDM, CAD, HTN, GERD, chronic back pain, depression/anxiety, UTI (E.Coli), restless leg Past surgical history: total hysterectomy, L breast cyst removal Home meds: Reviewed as per MAR allergies: NKDA Social history: Former smoker- but still smokes "socially", denies EtOH or drug use. Lives alone, but son lives below her in multifamily home Family history: Son- epilepsy. Present on Admission - Present on Admission Any Indicators Present on Admission: No Review of Systems - Review of Systems All systems: reviewed and no additional remarkable complaints except Review of Systems: 12 point ROS reviewed as per HPI and is otherwise negative Past Patient History - Infectious Disease Hx of Infectious Diseases: None - Tetanus Immunizations Tetanus Immunization: Unknown - Past Medical History & Family History Past Medical History?: Yes - Past Social History Smoking Status: Former Smoker - CARDIAC Hx Cardiac Disorders: Yes Hx Hypertension: Yes - PULMONARY Hx Respiratory Disorders: Yes (USED TO SMOKE.QUIT SMOKING IN HER 50'S) Hx Bronchitis: Yes - NEUROLOGICAL Hx Neurological Disorder: Yes HX Cerebrovascular Accident: Yes - HEENT Hx HEENT Problems: Yes Hx Deafness: Yes Other/Comment: RIGHT EAR TINNITUS. WEARS GLASSES, NEAR SIGHTED, needs cataract sx both eyes - RENAL Hx Chronic Kidney Disease: Yes (UTERINE CA) Hx Kidney Stones: Yes ("CAME OUT ON OWN") - ENDOCRINE/METABOLIC Hx Endocrine Disorders: Yes Hx Diabetes Mellitus Type 2: Yes - HEMATOLOGICAL/ONCOLOGICAL Hx Blood Disorders: Yes Other/Comment: " I HAD A BLOOD INFECTION 2-3 YRS. AGO-THEY DON'T KNOW WHAT IT WAS" - INTEGUMENTARY Hx Dermatological Problems: Yes (BILATERAL LE AND UPPER ARM REDDENED RASH,SKIN ABRASION) Other/Comment: HX. LEFT BREAST CYST - MUSCULOSKELETAL/RHEUMATOLOGICAL Hx Musculoskeletal Disorders: Yes Hx Arthritis: Yes Hx Falls: Yes Hx Unsteady Gait: Yes (CANE) - GASTROINTESTINAL Hx Gastrointestinal Disorders: Yes (ibs,COLITIS) - GENITOURINARY/GYNECOLOGICAL Hx Genitourinary Disorders: Yes (UTERINE CA,VAGINAL CA-HYSTRECTOMY *) Hx Incontinence: Yes (wears diapers, urgency,frequency,incontinency.) - PSYCHIATRIC Hx Psychophysiologic Disorder: Yes Hx Anxiety: Yes Hx Depression: Yes Hx Emotional Abuse: No Hx Physical Abuse: No Hx Substance Use: No - SURGICAL HISTORY Hx Surgeries: Yes Hx Hysterectomy: Yes (*) Other/Comment: LEFT BREAST CYST REMOVED, lle orif with hardware, r wrist orif with hardware, ercp, picc - ANESTHESIA Hx Anesthesia: Yes Hx Anesthesia Reactions: No Hx Malignant Hyperthermia: No Meds Allergies/Adverse Reactions: Allergies Allergy/AdvReac Type Severity Reaction Status Date / Time No Known Allergies Allergy Verified 09/15/17 15:17 Physical Exam - Constitutional Appears: No Acute Distress - Head Exam Head Exam: ATRAUMATIC, NORMAL INSPECTION, NORMOCEPHALIC - Eye Exam Eye Exam: EOMI, Normal appearance, PERRL Pupil Exam: NORMAL ACCOMODATION - ENT Exam ENT Exam: Mucous Membranes Moist - Respiratory Exam Respiratory Exam: Clear to Auscultation Bilateral, NORMAL BREATHING PATTERN. absent: Rales, Rhonchi, Wheezes - Cardiovascular Exam Cardiovascular Exam: REGULAR RHYTHM, +S1, +S2. absent: Gallop, Rubs, Systolic Murmur - GI/Abdominal Exam GI & Abdominal Exam: Normal Bowel Sounds, Soft. absent: Mass, Rebound, Rigid, Tenderness - Extremities Exam Extremities exam: Positive for: normal inspection. Negative for: calf tenderness, pedal edema - Neurological Exam Neurological exam: Alert, CN II-XII Intact, Normal Gait, Oriented x3 - Psychiatric Exam Psychiatric exam: Normal Affect, Normal Mood - Skin Skin Exam: Dry, Intact, Warm Results - Vital Signs Recent Vital Signs: Last Vital Signs Temp 98.0 F 09/16/17 05:49 Pulse 59 L 09/16/17 05:49 Resp 18 09/16/17 05:49 BP 146/77 09/16/17 05:49 Pulse Ox 97 09/16/17 05:49 - Labs Result Diagrams: 09/15/17 12:59 09/15/17 12:59 Labs: Laboratory Results - last 24 hr 09/15/17 09/15/17 18:12 21:26 POC Glucose (mg/dL) 175 H 183 H Assessment & Plan - Assessment and Plan (Free Text) Assessment: This is an 82yo female with past medical history of CVA (20+yrs ago), Uterine ca , IDDM, CAD, HTN, GERD, chronic back pain, depression/anxiety, UTI (E.Coli), restless leg syndrome who was admitted for 1. Numbness/tingling of tongue r/o TIA - CVA unlikely - no focal neurological deficits noted 2. IDDM 3. CAD 4. HTN 5. GERD 6. Chronic back pain 7. Depression/anxiety 8. Hx of uterine Ca 9. Hx of CVA Plan: Patient evaluated by neurology. No focal neurological deficits noted. Spoke with neurology and patient can be discharged home. Will continue home medications such as ASA, Lipitor and diabetic medications. Patient is ambulating well. Labs and imaging were reviewed. No new prescriptions were given. Patient will follow up with PMD in 1 week. Case seen, discussed and reviewed with Dr. Baxter. Shady Figueroa PGY3 - Date & Time Date: 09/16/17 Time: 09:59 <Monroe Baxter - Last Filed: 09/16/17 23:37> Results - Vital Signs Recent Vital Signs: Last Vital Signs Temp 98.2 F 09/16/17 18:00 Pulse 63 09/16/17 18:00 Resp 20 09/16/17 18:00 BP 135/75 09/16/17 18:00 Pulse Ox 97 09/16/17 05:49 - Labs Result Diagrams: 09/15/17 12:59 09/15/17 12:59 Labs: Laboratory Results - last 24 hr 09/16/17 09/16/17 09/16/17 07:31 11:11 16:36 POC Glucose (mg/dL) 159 H 218 H 171 H Assessment & Plan - Assessment and Plan (Free Text) Plan: Pt seen and examined. I have reviewed the note of the medical staffing coordinator and agree with it. I have discussed the assessment and plan with the resident. I have reviewed the patient's labs and medications. Pt seen by neurology. Neuro cleared pt to go home. CT head neg. Lipitor for dyslipidemia. She has no focal deficits.
[2017-09-16] MEDS: Insulin Reg-MEDIUM-Coverage SC SCH ×3 (08:42→17:24)
[2017-09-16] MEDS ORDERED: Lactobacillus Acidophilus 500 MU Cap PO SCH (10:00)
[2017-09-16 11:39] VITALS: RESP 20
[2017-09-16 18:11] VITALS: BP 135/75; PULSE 63; TEMP 98.2
[2017-09-17] MEDS ORDERED: Pantoprazole 40 mg EC Tab PO SCH (06:30)
== END 2017-09-16 20:40 | disposition home health service (06) ==
LOC: ED 12:23 → ERH 14:37 → INTOOBSV 14:37 → ERH 15:24 → 2RNO 16:39
PROVIDERS: ADMIT Internal Medicine Nephrology; ATTEND Internal Medicine Nephrology
DX: R20.0 Anesthesia of skin (principal); E11.22 Type 2 diabetes mellitus with diabetic chronic kidney disease; E11.36 Type 2 diabetes mellitus with diabetic cataract; F41.9 Anxiety disorder, unspecified; G25.81 Restless legs syndrome; G89.29 Other chronic pain; H91.90 Unspecified hearing loss, unspecified ear; H93.11 Tinnitus, right ear; I12.9 Hypertensive chronic kidney disease with stage 1 through stage 4 chronic kidney disease, or unspecified chronic kidney disease; I25.10 Atherosclerotic heart disease of native coronary artery without angina pectoris; K21.9 Gastro-esophageal reflux disease without esophagitis; K58.9 Irritable bowel syndrome, unspecified; N18.9 Chronic kidney disease, unspecified; M54.9 Dorsalgia, unspecified; Z79.4 Long term (current) use of insulin; Z85.42 Personal history of malignant neoplasm of other parts of uterus; Z85.44 Personal history of malignant neoplasm of other female genital organs; Z86.73 Personal history of transient ischemic attack (TIA), and cerebral infarction without residual deficits; Z87.442 Personal history of urinary calculi; Z87.891 Personal history of nicotine dependence; Z90.710 Acquired absence of both cervix and uterus

== ENCOUNTER 2017-11-09 12:43 | Emergency (ER) | payer MEDICARE ==
[2017-11-09 12:45] VITALS: BMI 34.3
[2017-11-09 13:43] VITALS: TEMP 97.9
[2017-11-09 13:43] LABS: BASO # 0.02 K/mm3 (0.0-2.0); BASO % 0.3 % (0.0-3.0); EOS # 0.1 (0.0-0.7); EOS % 1.3 % (1.5-5.0); GRAN # 3.43 (1.4-6.5); GRAN % 55.4 % (50.0-68.0); HEMOGLOBIN 11.9 g/dL (12.0-16.0); LYMPH # 2.4 (1.2-3.4); LYMPH % 38.5 % (22.0-35.0); MEAN CELL VOLUME 89.4 fl (80.0-105.0); MEAN CORPUSCULAR HEMOGLOBIN 29.4 pg (25.0-35.0); MEAN CORPUSCULAR HGB CONC 32.9 g/dl (31.0-37.0); MEAN PLATELET VOLUME 10.9 fl (7.0-11.0); MONO # 0.3 (0.1-0.6); MONO % 4.5 % (1.0-6.0); RBC 4.05 10^6/uL (3.5-6.1); WHITE BLOOD COUNT 6.2 10^3/ul (4.5-11.0)
[2017-11-09 13:51] LABS: INR 0.94; PROTHROMBIN TIME 10.7 SECONDS (9.4-12.5)
--- NOTE | 2017-11-09 13:52 | ED PDOC ---
Arrival/HPI - General Chief Complaint: Trauma Time Seen by Provider: 11/09/17 12:47 Historian: Patient - History of Present Illness Narrative History of Present Illness (Text): 11/09/17 12:50 82 year old female living at home, whose past medical history includes hypertension,diabetes, prior cva, who was sent to the Emergency department by Dr. Carpenter who noticed she was not able to make a complete fist with her left hand. Dr. Carpenter noted weakness that didn't extend beyond her hand so he was not sure if she had a stroke or maybe injured the hand from one of her falls. Patient has had 4 falls in the past 2 weeks. Patient had a previous stroke in the past. Patient has a home health aide and her son who is disabled has a home health aide, with a total of 2 home health aides at home at all times. Patient denies any fevers, chills, chest pain, shortness of breath, abdominal pain, nausea, vomiting, diarrhea, back pain, neck pain, headache, dizziness, or any other complaint. Time/Duration: Prior to Arrival Symptom Onset: Sudden Symptom Course: Unchanged Activities at Onset: Light Past Medical History - Provider Review Nursing Documentation Reviewed: Yes - Infectious Disease Hx of Infectious Diseases: None - Tetanus Immunization Tetanus Immunization: Unknown - Cardiac Hx Hypertension: Yes - Pulmonary Hx Respiratory Disorders: Yes (USED TO SMOKE.QUIT SMOKING IN HER 50'S) Hx Bronchitis: Yes - Neurological HX Cerebrovascular Accident: Yes - HEENT Hx HEENT Disorder: Yes Hx Deafness: Yes Other/Comment: RIGHT EAR TINNITUS. WEARS GLASSES, NEAR SIGHTED, needs cataract sx both eyes - Renal Hx Renal Disorder: Yes (UTERINE CA) Hx Kidney Stones: Yes ("CAME OUT ON OWN") - Endocrine/Metabolic Hx Diabetes Mellitus Type 2: Yes - Hematological/Oncological Hx Blood Disorders: Yes Other/Comment: " I HAD A BLOOD INFECTION 2-3 YRS. AGO-THEY DON'T KNOW WHAT IT WAS" - Integumentary Hx Dermatological Disorder: Yes (BILATERAL LE AND UPPER ARM REDDENED RASH,SKIN ABRASION) Other/Comment: HX. LEFT BREAST CYST - Musculoskeletal/Rheumatological Hx Arthritis: Yes - Gastrointestinal Hx Gastrointestinal Disorders: Yes (ibs) - Genitourinary/Gynecological Hx Reproductive Disorders: (hyst/ r breast cyst/uterine ca) - Psychiatric Hx Psychophysiologic Disorder: Yes Hx Anxiety: Yes Hx Depression: Yes Hx Emotional Abuse: No Hx Physical Abuse: No Hx Substance Use: No - Surgical History Other/Comment: LEFT BREAST CYST REMOVED, lle orif with hardware, r wrist orif with hardware, ercp, picc - Anesthesia Hx Anesthesia: Yes Hx Anesthesia Reactions: No Hx Malignant Hyperthermia: No - Suicidal Assessment Feels Threatened In Home Enviroment: No Family/Social History - Physician Review Nursing Documentation Reviewed: Yes Family/Social History: No Known Family HX Smoking Status: Former Smoker Hx Alcohol Use: No Hx Substance Use: No Hx Substance Use Treatment: No Allergies/Home Meds Allergies/Adverse Reactions: Allergies No Known Allergies Allergy (Verified 09/15/17 15:17) Home Medications: Home Meds Medication Instructions Recorded Confirmed Metformin HCl 1,000 mg PO BID 11/02/12 09/15/17 Pregabalin [Lyrica] 50 mg PO TID 11/02/12 09/15/17 Ramipril 5 mg PO QAM 11/02/12 09/15/17 Sertraline HCl 25 mg PO QPM 11/02/12 09/15/17 Insulin Glargine,Hum.rec.anlog 1 unit [place] HS 07/17/14 09/15/17 [Lantus] Atorvastatin [Lipitor] 80 mg PO HS 05/09/15 09/15/17 Calcium Carbonate [Calcium] 500 mg PO DAILY 05/09/15 09/15/17 Glipizide 10 mg PO DAILY 05/09/15 09/15/17 Meclizine HCl [Antivert] 25 mg PO TID 05/09/15 09/15/17 Clonazepam [Klonopin] 0.5 mg PO TID 07/08/16 09/15/17 Losartan [Cozaar] 100 mg PO DAILY 09/11/16 09/15/17 Metoprolol Tartrate [Lopressor] 25 mg PO DAILY 01/02/17 09/15/17 Lactobacillus Acidophilus 1 each PO DAILY 01/13/17 09/15/17 [Acidophilus] Review of Systems - Physician Review All systems were reviewed & negative as marked: Yes - Review of Systems Constitutional: Normal. absent: Fevers Eyes: Normal ENT: Normal Respiratory: Normal. absent: SOB, Cough Cardiovascular: Normal. absent: Chest Pain Gastrointestinal: Normal. absent: Abdominal Pain, Diarrhea, Nausea, Vomiting Genitourinary Female: Normal Musculoskeletal: Other (left hand pain). absent: Normal, Back Pain, Neck Pain Skin: Normal Neurological: Normal. absent: Headache, Dizziness Endocrine: Normal Hemo/Lymphatic: Normal Psychiatric: Normal Physical Exam Vital Signs Reviewed: Yes Vital Signs Temp Pulse Resp BP Pulse Ox 11/09/17 13:41 97.9 F 69 17 148/90 97 Temperature: Afebrile Blood Pressure: Normal Pulse: Regular Respiratory Rate: Normal Appearance: Positive for: Well-Appearing, Non-Toxic Pain Distress: None Mental Status: Positive for: Alert and Oriented X 3 - Systems Exam Head: Present: Atraumatic, Normocephalic Pupils: Present: PERRL Extroacular Muscles: Present: EOMI Conjunctiva: Present: Normal Mouth: Present: Moist Mucous Membranes Neck: Present: Normal Range of Motion Respiratory/Chest: Present: Clear to Auscultation, Good Air Exchange. No: Respiratory Distress, Accessory Muscle Use Cardiovascular: Present: Regular Rate and Rhythm, Normal S1, S2. No: Murmurs Abdomen: No: Tenderness, Distention, Peritoneal Signs Back: Present: Normal Inspection Upper Extremity: Present: Swelling (left hand is swollen. good strength, but trouble with finger flexion. ), Neurovascularly Intact. No: Normal Inspection, Cyanosis, Edema Lower Extremity: Present: Normal Inspection. No: Edema Neurological: Present: GCS=15, CN II-XII Intact, Speech Normal Skin: Present: Warm, Dry, Normal Color. No: Rashes Psychiatric: Present: Alert, Oriented x 3, Normal Insight, Normal Concentration Medical Decision Making ED Course and Treatment: 11/09/17 12:50 Impression: 82 year old female who presents to the Emergency department at the direction of Dr. Carpenter who noticed she could not make a complete fist with her left hand, who is not sure if she had a stroke or possibly injured her hand from one of her falls. Differential Diagnosis included but are not limited to: Plan: -- CT of head w/o contrast -- Labs -- X-Ray of chest -- Urine culture -- Research Lab Assistant ONCE -- X-Ray of forearm left -- X-Ray of hand left 3 views ROUTINE -- X-Ray of wrist, left 3 views -- Urinalysis -- Reassess and disposition Prior Visits: Notes and results from previous visits were reviewed. Patient was last seen in the emergency department on 09/15/17 for complaining of "numbness to my lips" as well as numbness to her left shoulder and arm. Patient was hospitalized in serious condition and diagnosed with numbness, occasional tremors and transient ischemic attack. Progress Notes: EKG: Ordered, reviewed, and independently interpreted the EKG. Rate : 63 BPM Rhythm : NSR Interpretation : No ST-segment elevations or depressions, no T-wave inversions, normal intervals. Comparison : No previous EKG for comparison. CT of head reviewed by radiologist, shows: Dictator : Rafael Hilton MD Report Date : 09/15/2017 13:21:59 FINDINGS: HEMORRHAGE: No intracranial hemorrhage. BRAIN: No mass effect or edema. No atrophy or chronic microvascular ischemic changes. VENTRICLES: Unremarkable. No hydrocephalus. CALVARIUM: Unremarkable. PARANASAL SINUSES: Unremarkable as visualized. No significant inflammatory changes. MASTOID AIR CELLS: Unremarkable as visualized. No inflammatory changes. OTHER FINDINGS: None. IMPRESSION: No acute findings X-Ray of chest reviewed by radiologist, shows: Dictator : Yazmin Modi MD Report Date : 09/15/2017 13:23:19 FINDINGS: LUNGS: The lungs are well inflated and clear. PLEURA: No pneumothorax or pleural fluid seen. CARDIOVASCULAR: There is mild cardiomegaly. OSSEOUS STRUCTURES: No significant abnormalities. VISUALIZED UPPER ABDOMEN: Normal. OTHER FINDINGS: None. IMPRESSION: No active pulmonary disease. 11/09/17 17:07 Left Wrist X-ray: Creator : Rafael Hilton MD IMPRESSION: No acute finding Left Hand X-ray: Creator : Rafael Hilton MD IMPRESSION: Mild osteoarthritis. No acute findings Left Forearm X-ray: Creator : Rafael Hilton MD IMPRESSION: Unremarkable radiographs of the left forearm. - Lab Interpretations Lab Results: 11/09/17 13:00 11/09/17 13:00 Lab Results 11/09/17 13:00: Sodium 144, Potassium 3.9, Chloride 106, Carbon Dioxide 28, Anion Gap 15, BUN 37 H, Creatinine 1.1, Est GFR ( Amer) 57, Est GFR (Non- Af Amer) 47, Random Glucose 182 H, Calcium 9.7, Phosphorus 3.2, Magnesium 1.4 L , Total Bilirubin 0.5, AST 18, ALT 19, Alkaline Phosphatase 154 H, Lactate Dehydrogenase 530, Total Creatine Kinase 35, Troponin I < 0.01, NT-Pro-B Natriuret Pep 165, Total Protein 7.7, Albumin 4.4, Globulin 3.3, Albumin/ Globulin Ratio 1.4 11/09/17 13:00: PT 10.7, INR 0.94 11/09/17 13:00: WBC 6.2, RBC 4.05, Hgb 11.9 L, Hct 36.2, MCV 89.4, MCH 29.4, MCHC 32.9, RDW 13.0, Plt Count 186, MPV 10.9, Gran % 55.4, Lymph % (Auto) 38.5 H , [place] % (Auto) 4.5, Eos % (Auto) 1.3 L, Baso % (Auto) 0.3, Gran # 3.43, Lymph # (Auto) 2.4, [place] # (Auto) 0.3, Eos # (Auto) 0.1, Baso # (Auto) 0.02 I have reviewed the lab results: Yes - RAD Interpretation Radiology Orders: 11/09/17 13:10 HEAD W/O CONTRAST [CT] Stat CHEST PORTABLE [RAD] Stat 11/09/17 13:16 FOREARM LEFT [RAD] Stat HAND LEFT 3 VIEWS ROUTINE [RAD] Stat WRIST, LEFT 3 VIEWS [RAD] Stat Continuous Miner: Radiologist - EKG Interpretation Interpreted by ED Physician: Yes Type: 12 lead EKG NIHSS Scale ([place]) Time Performed: 12:47 - How Severe is the Stoke Baseline Level of Consciousness: 0=Alert LOC to Questions: 0=Both comments correct LOC to commands: 0=Obeys both correctly Best Gaze: 0=Normal Visual: 0=No visual loss Facial: 0=Normal Motor Arm - Left: 0=No drift Motor Arm - Right: 0=No drift Motor Leg - Left: 0=No drift Motor Leg - Right: 0=No drift Limb Ataxia: 0=Absent Sensory: 0=Normal Best Language: 0=No aphasia Dysarthia: 0=Normal articulation Extinction & Inattention (Neglect): 0=Normal, no object Score: 0 Risk Level: No Stroke Risk - Scribe Statement The provider has reviewed the documentation as recorded by the Scribe Magnolia Lyle All medical record entries made by the Scriboksana were at my direction and personally dictated by me. I have reviewed the chart and agree that the record accurately reflects my personal performance of the history, physical exam, medical decision making, and the department course for this patient. I have also personally directed, reviewed, and agree with the discharge instructions and disposition. Disposition/Present on Arrival - Present on Arrival Any Indicators Present on Arrival: No History of DVT/PE: No History of Uncontrolled Diabetes: No Urinary Catheter: No History of Decub. Ulcer: No History Surgical Site Infection Following: None - Disposition Have Diagnosis and Disposition been Completed?: Yes Diagnosis: Contusion, Sprain Disposition: HOME/ ROUTINE Disposition Time: 15:20 Patient Plan: Discharge Patient Problems: Current Active Problems Problem Status Onset Contusion Acute Sprain Acute Condition: GOOD Discharge Instructions (ExitCare): Contusion (DC) Additional Instructions: Mrs Rios- Your xrays and CT scan were normal. Your labs were good as well. Please follow up with your regular physicians. Return to us if any problems. Ariel- Dr. Chandan Calderon Referrals: Cayden Martínez MD [Primary Care Provider] - Follow up with primary Forms: [employer] (Latvian)
[2017-11-09 13:55] LABS: ALB/GLOB RATIO 1.4 (1.1-1.8); ALBUMIN 4.4 g/dL (3.0-4.8); ALT/SGPT 19 U/L (7-56); AST/SGOT 18 U/L (14-36); BLOOD UREA NITROGEN 37 mg/dL (7-21); CALCIUM 9.7 mg/dL (8.4-10.5); GFR NON-AFRICAN AMERICAN 47
[2017-11-09 14:06] LABS: B-TYPE NATRIURETIC PEPTIDE 165 pg/mL (0-450); TROPONIN I < 0.01 ng/mL
--- NOTE | 2017-11-09 14:21 | CT ---
Date of service: 11/09/2017 PROCEDURE: CT HEAD WITHOUT CONTRAST. HISTORY: Left Hand Weakness for one week; ?CVA? COMPARISON: 09/15/2017 TECHNIQUE: Axial computed tomography images were obtained through the head/brain without intravenous contrast. Radiation dose: Total exam DLP = 643 mGy-cm. This CT exam was performed using one or more of the following dose reduction techniques: Automated exposure control, adjustment of the mA and/or kV according to patient size, and/or use of iterative reconstruction technique. FINDINGS: HEMORRHAGE: No intracranial hemorrhage. BRAIN: No mass effect or edema. Chronic microvascular changes are seen in the periventricular white matter. VENTRICLES: Unremarkable. No hydrocephalus. CALVARIUM: Unremarkable. PARANASAL SINUSES: Unremarkable as visualized. No significant inflammatory changes. MASTOID AIR CELLS: Unremarkable as visualized. No inflammatory changes. OTHER FINDINGS: None. IMPRESSION: No acute findings
--- NOTE | 2017-11-09 14:52 | RAD ---
Date of service: 11/09/2017 PROCEDURE: Radiographs of the Left Forearm HISTORY: frequent falls, left hand weakness COMPARISON: None available. TECHNIQUE: Frontal and lateral views obtained. FINDINGS: BONES: No fracture or destructive lesion. JOINT SPACES: Unremarkable. OTHER FINDINGS: None. IMPRESSION: Unremarkable radiographs of the left forearm.
--- NOTE | 2017-11-09 14:53 | RAD ---
Date of service: 11/09/2017 HISTORY: Generalized Weakness COMPARISON: 09/15/2017 FINDINGS: LUNGS: No active pulmonary disease. PLEURA: No significant pleural effusion identified, no pneumothorax apparent. CARDIOVASCULAR: Normal. OSSEOUS STRUCTURES: No significant abnormalities. VISUALIZED UPPER ABDOMEN: Normal. OTHER FINDINGS: None. IMPRESSION: No active disease.
--- NOTE | 2017-11-09 14:54 | RAD ---
Date of service: 11/09/2017 PROCEDURE: Left Wrist Radiographs. HISTORY: frequent falls, left hand weakness COMPARISON: None. FINDINGS: BONES: Normal. No fracture. JOINTS: Normal. No dislocation. SOFT TISSUES: Normal. OTHER FINDINGS: None. IMPRESSION: No acute finding
--- NOTE | 2017-11-09 14:56 | RAD ---
PROCEDURE: Left Hand Radiographs. HISTORY: frequent falls, left hand weakness COMPARISON: None. FINDINGS: BONES: Normal. No fracture. JOINTS: Mild degenerative changes with joint space narrowing in the DIP and PIP joints as well as base of the thumb SOFT TISSUES: Normal. OTHER FINDINGS: None. IMPRESSION: Mild osteoarthritis. No acute findings
[2017-11-09 17:52] VITALS: RESP 18
[2017-11-09 18:31] VITALS: BP 155/78; PULSE 78; O2SAT 98
--- NOTE | 2017-11-09 22:19 | CARD ---
APPROVED REPORT Date of service: 11/09/2017 EKG Measurement Heart [id number] <Conclusion> Normal sinus rhythm Possible Inferior infarct, age undetermined Abnormal ECG
== END 2017-11-09 16:15 | disposition home or self-care (01) ==
LOC: ED 12:43
DX: T14.8XXA Other injury of unspecified body region, initial encounter (principal); X58.XXXA Exposure to other specified factors, initial encounter; E11.9 Type 2 diabetes mellitus without complications; I10 Essential (primary) hypertension; Z87.891 Personal history of nicotine dependence

== ENCOUNTER 2017-12-12 02:39 | Observation (INO) | payer MEDICARE ==
--- NOTE | 2017-12-12 03:03 | ED PDOC ---
Arrival/HPI - General Time Seen by Provider: 12/12/17 02:46 Past Medical History - Infectious Disease Hx of Infectious Diseases: None - Tetanus Immunization Tetanus Immunization: Unknown - Cardiac Hx Hypertension: Yes - Pulmonary Hx Respiratory Disorders: Yes (USED TO SMOKE.QUIT SMOKING IN HER 50'S) Hx Bronchitis: Yes - Neurological HX Cerebrovascular Accident: Yes - HEENT Hx HEENT Disorder: Yes Hx Deafness: Yes Other/Comment: RIGHT EAR TINNITUS. WEARS GLASSES, NEAR SIGHTED, needs cataract sx both eyes - Renal Hx Renal Disorder: Yes (UTERINE CA) Hx Kidney Stones: Yes ("CAME OUT ON OWN") - Endocrine/Metabolic Hx Diabetes Mellitus Type 2: Yes - Hematological/Oncological Hx Blood Disorders: Yes Other/Comment: " I HAD A BLOOD INFECTION 2-3 YRS. AGO-THEY DON'T KNOW WHAT IT WAS" - Integumentary Hx Dermatological Disorder: Yes (BILATERAL LE AND UPPER ARM REDDENED RASH,SKIN ABRASION) Other/Comment: HX. LEFT BREAST CYST - Musculoskeletal/Rheumatological Hx Arthritis: Yes - Gastrointestinal Hx Gastrointestinal Disorders: Yes (ibs) - Genitourinary/Gynecological Hx Reproductive Disorders: (hyst/ r breast cyst/uterine ca) - Psychiatric Hx Psychophysiologic Disorder: Yes Hx Anxiety: Yes Hx Depression: Yes Hx Emotional Abuse: No Hx Physical Abuse: No Hx Substance Use: No - Surgical History Other/Comment: LEFT BREAST CYST REMOVED, lle orif with hardware, r wrist orif with hardware, ercp, picc - Anesthesia Hx Anesthesia: Yes Hx Anesthesia Reactions: No Hx Malignant Hyperthermia: No - Suicidal Assessment Feels Threatened In Home Enviroment: No Family/Social History Smoking Status: Former Smoker Hx Alcohol Use: No Hx Substance Use: No Hx Substance Use Treatment: No Allergies/Home Meds Allergies/Adverse Reactions: Allergies No Known Allergies Allergy (Verified 09/15/17 15:17) Home Medications: Home Meds Medication Instructions Recorded Confirmed Metformin HCl 1,000 mg PO BID 11/02/12 09/15/17 Pregabalin [Lyrica] 50 mg PO TID 11/02/12 09/15/17 Ramipril 5 mg PO QAM 11/02/12 09/15/17 Sertraline HCl 25 mg PO QPM 11/02/12 09/15/17 Insulin Glargine,Hum.rec.anlog 1 unit [facility] 07/17/14 09/15/17 [Lantus] Atorvastatin [Lipitor] 80 mg PO HS 05/09/15 09/15/17 Calcium Carbonate [Calcium] 500 mg PO DAILY 05/09/15 09/15/17 Glipizide 10 mg PO DAILY 05/09/15 09/15/17 Meclizine HCl [Antivert] 25 mg PO TID 05/09/15 09/15/17 Clonazepam [Klonopin] 0.5 mg PO TID 07/08/16 09/15/17 Losartan [Cozaar] 100 mg PO DAILY 09/11/16 09/15/17 Metoprolol Tartrate [Lopressor] 25 mg PO DAILY 01/02/17 09/15/17 Lactobacillus Acidophilus 1 each PO DAILY 01/13/17 09/15/17 [Acidophilus] Disposition/Present on Arrival - Present on Arrival History of DVT/PE: No History of Uncontrolled Diabetes: No Urinary Catheter: No History Surgical Site Infection Following: None - Disposition
--- NOTE | 2017-12-12 03:06 | EDPD ---
HPI Stroke - General Time Seen by Provider: 12/12/17 02:46 Historian: Patient, EMS - History of Present Illness Narrative History of Present Illness (Free Text): 12/12/17 03:10 A 82 year old female, whose past medical history includes CVA 20 years ago, ID DM, uterine cancer, CAD, hypertension, GERD, depression and anxiety, presents to the emergency department brought in by EMS complaining of generalized malaise and weakness throughout this past week. Upon arrival to the emegency room, EMS noted patient had a left facial droop. Patient reports she normally has generalized weakness. Note it is unclear as to when facial drooping ocurred. Patient denies any visual disturbances, fever, chills, chest pain, shortness of breath, nausea, vomiting, diarrhea, urinary symptoms, back pain, neck pain, headache, dizziness, or any other complaints. PMD: Dr. Martínez Onset:: This evening Timing: Improved Context: Home Exacerbated by: Nothing - Location Locate Left: Face (+facial drooping) rTPA Inclusion/Exclusion - Refusal of Treatment Patient Refused Treatment: No - Inclusion Criteria for Altepase Patient is 18 years or Older: Yes The Clinical Diagnosis of Ischemic Stroke That is Causing a Potentially Disabling Neurological Deficit: No Time of Onset is Well Established to be Less Than 270 Minute Before Treatment Would Begin: No Risk/Benefit Discussed With Patient/Family Member Present: Yes - Exclusion Criteria for Altepase Uncontrolled Hypertension at Time of Treatment (Systolic BP above 185 or Diastol ic BP above 110 mmHg): No Active Internal Bleeding: No Known Bleeding Diathesis Including but Not Limited to: Platelets Below 100,000/mm,PTT Above 40 sec After Heparin Use, Current Use of Oral Anitcoagulant With INR Greater Than 1.7 or PT Greater Than 15 secs: No Evidence of an Intracranial Hemorrhage: No Evidence of Major Acute Infarct With Signs Greater Than 1/3 MCA Territory: No Suspicion of Subarachnoid Hemorrhage on Pretreatment Evaluation Even if CT Head Negative For Hemorrhage: No - Warning to TPA With Conditions Following Conditions Weighed Against Anticipated Benefit: Yes Condition: Stroke Serevity Too Mild, Age Greater Than 75 years Past Medical History - Provider Review Nursing Documentation Reviewed: Yes - Infectious Disease Hx of Infectious Diseases: None - Tetanus Immunization Tetanus Immunization: Unknown - Cardiac Hx Hypertension: Yes - Pulmonary Hx Respiratory Disorders: Yes (USED TO SMOKE.QUIT SMOKING IN HER 50'S) Hx Bronchitis: Yes - Neurological HX Cerebrovascular Accident: Yes - HEENT Hx HEENT Disorder: Yes Hx Deafness: Yes Other/Comment: RIGHT EAR TINNITUS. WEARS GLASSES, NEAR SIGHTED, needs cataract sx both eyes - Renal Hx Renal Disorder: Yes (UTERINE CA) Hx Kidney Stones: Yes ("CAME OUT ON OWN") - Endocrine/Metabolic Hx Diabetes Mellitus Type 2: Yes - Hematological/Oncological Hx Blood Disorders: Yes Other/Comment: " I HAD A BLOOD INFECTION 2-3 YRS. AGO-THEY DON'T KNOW WHAT IT WAS" - Integumentary Hx Dermatological Disorder: Yes (BILATERAL LE AND UPPER ARM REDDENED RASH,SKIN ABRASION) Other/Comment: HX. LEFT BREAST CYST - Musculoskeletal/Rheumatological Hx Arthritis: Yes - Gastrointestinal Hx Gastrointestinal Disorders: Yes (ibs) - Genitourinary/Gynecological Hx Reproductive Disorders: (hyst/ r breast cyst/uterine ca) - Psychiatric Hx Psychophysiologic Disorder: Yes Hx Anxiety: Yes Hx Depression: Yes Hx Emotional Abuse: No Hx Physical Abuse: No Hx Substance Use: No - Surgical History Other/Comment: LEFT BREAST CYST REMOVED, lle orif with hardware, r wrist orif with hardware, ercp, picc - Anesthesia Hx Anesthesia: Yes Hx Anesthesia Reactions: No Hx Malignant Hyperthermia: No - Suicidal Assessment Feels Threatened In Home Enviroment: No Allergies/Home Meds Allergies/Adverse Reactions: Allergies No Known Allergies Allergy (Verified 09/15/17 15:17) Home Medications: Home Meds Medication Instructions Recorded Confirmed Metformin HCl 1,000 mg PO BID 11/02/12 12/12/17 Pregabalin [Lyrica] 50 mg PO TID 11/02/12 12/12/17 Ramipril 5 mg PO QAM 11/02/12 12/12/17 Sertraline HCl 25 mg PO QPM 11/02/12 12/12/17 Insulin Glargine,Hum.rec.anlog 1 unit SC HS 07/17/14 12/12/17 [Lantus] Atorvastatin [Lipitor] 80 mg PO HS 05/09/15 12/12/17 Calcium Carbonate [Calcium] 500 mg PO DAILY 05/09/15 12/12/17 Glipizide 10 mg PO DAILY 05/09/15 12/12/17 Meclizine HCl [Antivert] 25 mg PO TID 05/09/15 12/12/17 Clonazepam [Klonopin] 0.5 mg PO TID 07/08/16 12/12/17 Losartan [Cozaar] 100 mg PO DAILY 09/11/16 12/12/17 Metoprolol Tartrate [Lopressor] 25 mg PO DAILY 01/02/17 12/12/17 Lactobacillus Acidophilus 1 each PO DAILY 01/13/17 12/12/17 [Acidophilus] Review of Systems - Physician Review All systems were reviewed & negative as marked: Yes - Review of Systems Constitutional: absent: Fevers, Night Sweats Eyes: absent: Vision Changes Respiratory: absent: SOB Cardiovascular: absent: Chest Pain Gastrointestinal: absent: Diarrhea, Nausea, Vomiting Musculoskeletal: absent: Back Pain, Neck Pain Neurological: Facial Droop (+left sided facial drooping). absent: Headache, Dizziness ED Stroke Physical Exam Temperature: Afebrile Blood Pressure: Normal Pulse: Regular Respiratory Rate: Normal Appearance: Positive for: Well-Appearing, Non-Toxic, Comfortable Pain Distress: None Mental Status: Positive for: Alert and Oriented X 3 - Systems Exam Head: Present: Atraumatic, Normocephalic Pupils: Present: PERRL Extroacular Muscles: Present: EOMI Conjunctiva: Present: Normal Ears: Present: NORMAL TM Mouth: Present: Moist Mucous Membranes Neck: Present: Normal Range of Motion Respiratory/Chest: Present: Clear to Auscultation, Good Air Exchange. No: Respiratory Distress, Accessory Muscle Use Cardiovascular: Present: Regular Rate and Rhythm, Normal S1, S2. No: Murmurs Abdomen: Present: Normal Bowel Sounds. No: Tenderness, Distention, Peritoneal Signs Genitourinary/Pelvic Exam: Present: NI. No: C, E Back: Present: GCS, CN, SP Upper Extremity: Present: Normal Inspection. No: Cyanosis, Edema Lower Extremity: Present: Normal Inspection. No: Edema Neurologic: Present: GCS=15, Speech Normal, Motor Func Grossly Intact, Normal Sensory Function, Facial Droop Skin: Present: Warm, Dry, Normal Color. No: Rashes Lymphatic: Present: OX3, NI, NC Psychiatric: Present: Alert, Oriented x 3, Normal Insight, Normal Concentration Medical Decision Making ED Course and Treatment: 12/12/17 03:00 Impression: 82 year old presenting to the emergency room for general weakness. Plan: -- Type and screen -- Head CT without stroke -- EKG -- Hemoglobin -- Stroke Team Consult -- Chest X-Ray -- Aspirin -- IV Fluids -- Reassess and disposition Prior Visits: Notes and results from previous visits were reviewed. Progress Notes: 12/12/17 03:00 CODE STROKE called. 12/12/17 03:30 Case had been discussed with the neurologist .Pt. not a candidate for TPA(severity mild/age/unclear onset of symptoms).Recommends ASA only if no bleed. - Scribe Statement The provider has reviewed the documentation as recorded by the Scribe Rosita Roland All medical record entries made by the Scribe were at my direction and personally dictated by me. I have reviewed the chart and agree that the record accurately reflects my personal performance of the history, physical exam, medical decision making, and the department course for this patient. I have also personally directed, reviewed, and agree with the discharge instructions and disposition. NIHSS Scale ([place]) Time Performed: 03:05 - How Severe is the Stoke Baseline Level of Consciousness: 0=Alert LOC to Questions: 0=Both comments correct LOC to commands: 0=Obeys both correctly Best Gaze: 0=Normal Visual: 0=No visual loss Facial: 2=Partial (lower face paralysis) Motor Arm - Left: 0=No drift Motor Arm - Right: 0=No drift Motor Leg - Left: 0=No drift Motor Leg - Right: 0=No drift Limb Ataxia: 0=Absent Sensory: 0=Normal Best Language: 0=No aphasia Dysarthia: 0=Normal articulation Extinction & Inattention (Neglect): 0=Normal, no object Score: 2 Risk Level: Minor Stroke Risk Disposition/Present on Arrival - Present on Arrival Any Indicators Present on Arrival: No History of DVT/PE: No History of Uncontrolled Diabetes: No Urinary Catheter: No History of Decub. Ulcer: No History Surgical Site Infection Following: None - Disposition Have Diagnosis and Disposition been Completed?: Yes Diagnosis: CVA (cerebral vascular accident) Disposition: HOSPITALIZED Disposition Time: 05:20 Patient Problems: Current Active Problems Problem Status Onset CVA (cerebral vascular accident) Acute Condition: STABLE
[2017-12-12] MEDS: Sodium Chloride 0.9% 1,000 ML IV SCH ×2 (03:55→14:37)
[2017-12-12 03:58] LABS: ALB/GLOB RATIO 1.2 (1.1-1.8); ALBUMIN 4.1 g/dL (3.0-4.8); ALT/SGPT 21 U/L (7-56); AST/SGOT 31 U/L (14-36); BLOOD UREA NITROGEN 34 mg/dL (7-21); CALCIUM 9.7 mg/dL (8.4-10.5); GFR NON-AFRICAN AMERICAN 21; HDL CHOLESTEROL 42 mg/dL (29-60); INR 0.92; PARTIAL THROMBOPLASTIN TIME 28.9 Seconds (25.1-36.5); PROTHROMBIN TIME 10.5 SECONDS (9.4-12.5)
[2017-12-12 04:00] LABS: BASO # 0.02 K/mm3 (0.0-2.0); BASO % 0.2 % (0.0-3.0); EOS % 0.3 % (1.5-5.0); GRAN # 8.92 (1.4-6.5); GRAN % 73.1 % (50.0-68.0); HEMOGLOBIN 11.4 g/dL (12.0-16.0); LYMPH # 2.4 (1.2-3.4); LYMPH % 19.7 % (22.0-35.0); MEAN CELL VOLUME 91.5 fl (80.0-105.0); MEAN CORPUSCULAR HEMOGLOBIN 29.3 pg (25.0-35.0); MEAN PLATELET VOLUME 11.4 fl (7.0-11.0); MONO # 0.8 (0.1-0.6); MONO % 6.7 % (1.0-6.0); RBC 3.89 10^6/uL (3.5-6.1); RED CELL DISTRIBUTION WIDTH 13.4 % (11.5-14.5); WHITE BLOOD COUNT 12.2 10^3/ul (4.5-11.0)
[2017-12-12 04:09] LABS: LDL CHOLESTEROL 92 mg/dL (0-129)
[2017-12-12 04:12] LABS: TROPONIN I < 0.01 ng/mL
--- NOTE | 2017-12-12 08:46 | CT ---
Date of service: 12/12/2017 PROCEDURE: CT HEAD WITHOUT CONTRAST. HISTORY: Code Stroke COMPARISON: None available. TECHNIQUE: Axial computed tomography images were obtained through the head/brain without intravenous contrast. Radiation dose: Total exam DLP = 836.21 mGy-cm. This CT exam was performed using one or more of the following dose reduction techniques: Automated exposure control, adjustment of the mA and/or kV according to patient size, and/or use of iterative reconstruction technique. FINDINGS: HEMORRHAGE: No intracranial hemorrhage. BRAIN: No mass effect or edema. Minimal diffuse cerebral atrophy. Mild chronic periventricular white matter ischemic change. Bilateral remote small lacunar basal ganglia infarcts. No evidence of acute infarct. VENTRICLES: Unremarkable. No hydrocephalus. CALVARIUM: Unremarkable. PARANASAL SINUSES: Unremarkable as visualized. No significant inflammatory changes. MASTOID AIR CELLS: Unremarkable as visualized. No inflammatory changes. OTHER FINDINGS: None. IMPRESSION: No intracranial mass, hemorrhage or evidence of acute infarct. Age related atrophy and chronic white matter ischemic change. Remote bilateral basal ganglia lacunar infarcts. The preliminary findings for this examination were reported by [facility] Radiology at 3:33 a.m. on 12/12/2017. There is concurrence of this report with the preliminary findings.
--- NOTE | 2017-12-12 09:46 | RAD ---
Date of service: 12/12/2017 PROCEDURE: CHEST RADIOGRAPH, 1 VIEW HISTORY: Code Stroke COMPARISON: 11/09/2017 FINDINGS: LUNGS: Clear. PLEURA: No pneumothorax or pleural fluid seen. CARDIOVASCULAR: Normal. OSSEOUS STRUCTURES: No significant abnormalities. VISUALIZED UPPER ABDOMEN: Normal. OTHER FINDINGS: None. IMPRESSION: No active disease.
--- NOTE | 2017-12-12 10:08 | CARD ---
APPROVED REPORT Date of service: 12/12/2017 EKG Measurement Heart [id number] <Conclusion> Normal sinus rhythm Possible Old Inferior infarct? Non Specific ST_T Changes.
--- NOTE | 2017-12-12 10:38 | CP.PCM.HP ---
<Hillary Chance - Last Filed: 12/12/17 14:02> History of Present Illness - History of Present Illness History of Present Illness: PGY-3 H&P for Dr. Baxter service 82 year old female with PMH of CVA (20 years ago), IDDM, uterine cancer, CAD, hypertension, GERD, depression and anxiety, presented to the emergency department brought in by EMS complaining of generalized malaise and weakness thr oughout the past week. Patient states that last night while using the bathroom she loss consciousness and woke up on the toilet. She denies hitting her head. She states that she has had prior episodes and is seen neurologist. Per ED, EMS noted patient had a left facial droop. Patient reports she normally has generalized weakness and over the past few months developed arm weakness and pain and is follow with Neurologist, Dr. Albright. In ED NHISS was2 and Neurohospitalist was called, patient did not meet criteria for tpa. Patient denies any visual disturbances, fever, chills, chest pain, shortness of breath, nausea, vomiting, diarrhea, urinary symptoms, back pain, neck pain, headache, dizziness, or any other complaints. PMH: CVA (20 years ago), h/o Uterine ca, IDDM, CAD, HTN, GERD, chronic back pain, depression/anxiety, UTI (E.Coli), restless leg PSH: total hysterectomy, Left breast cyst removal allergies: NKDA Social history: Former smoker, denies current use, denies alcohol use or illicit drug use. Lives alone, but son lives below her in multifamily home Family history: Son- epilepsy Present on Admission - Present on Admission Any Indicators Present on Admission: No Review of Systems - Constitutional Constitutional: Weakness. absent: Fever, Headache, Lethargy - EENT Eyes: absent: Change in Vision Nose/Mouth/Throat: absent: Nasal Congestion, Nasal Discharge, Hoarsness - Cardiovascular Cardiovascular: absent: Chest Pain, Diaphoresis, Palpitations - Respiratory Respiratory: absent: Cough, Dyspnea - Gastrointestinal Gastrointestinal: absent: Abdominal Pain, Constipation, Diarrhea, Nausea, Vomiting - Genitourinary Genitourinary: absent: Dysuria, Hematuria - Musculoskeletal Additional comments: bilateral arm pain - Neurological Neurological: Weakness (general ). absent: Dizziness, Numbness, Focal Weakness, Headaches - Hematologic/Lymphatic Hematologic: absent: Easy Bleeding, Easy Bruising Past Patient History - Infectious Disease Hx of Infectious Diseases: None - Tetanus Immunizations Tetanus Immunization: Unknown - Past Medical History & Family History Past Medical History?: Yes - Past Social History Smoking Status: Former Smoker - CARDIAC Hx Hypertension: Yes - PULMONARY Hx Respiratory Disorders: Yes (USED TO SMOKE.QUIT SMOKING IN HER 50'S) Hx Bronchitis: Yes - NEUROLOGICAL HX Cerebrovascular Accident: Yes - HEENT Hx HEENT Problems: Yes Hx Deafness: Yes Other/Comment: RIGHT EAR TINNITUS. WEARS GLASSES, NEAR SIGHTED, needs cataract sx both eyes - RENAL Hx Chronic Kidney Disease: Yes (UTERINE CA) Hx Kidney Stones: Yes ("CAME OUT ON OWN") - ENDOCRINE/METABOLIC Hx Diabetes Mellitus Type 2: Yes - HEMATOLOGICAL/ONCOLOGICAL Hx Blood Disorders: Yes Other/Comment: " I HAD A BLOOD INFECTION 2-3 YRS. AGO-THEY DON'T KNOW WHAT IT WAS" - INTEGUMENTARY Hx Dermatological Problems: Yes (BILATERAL LE AND UPPER ARM REDDENED RASH,SKIN ABRASION) Other/Comment: HX. LEFT BREAST CYST - MUSCULOSKELETAL/RHEUMATOLOGICAL Hx Arthritis: Yes - GASTROINTESTINAL Hx Gastrointestinal Disorders: Yes (ibs) - GENITOURINARY/GYNECOLOGICAL Hx Reproductive Disorders: (hyst/ r breast cyst/uterine ca) - PSYCHIATRIC Hx Psychophysiologic Disorder: Yes Hx Anxiety: Yes Hx Depression: Yes Hx Emotional Abuse: No Hx Physical Abuse: No Hx Substance Use: No - SURGICAL HISTORY Other/Comment: LEFT BREAST CYST REMOVED, lle orif with hardware, r wrist orif with hardware, ercp, picc - ANESTHESIA Hx Anesthesia: Yes Hx Anesthesia Reactions: No Hx Malignant Hyperthermia: No Meds Allergies/Adverse Reactions: Allergies Allergy/AdvReac Type Severity Reaction Status Date / Time No Known Allergies Allergy Verified 09/15/17 15:17 Physical Exam - Constitutional Appears: No Acute Distress - Head Exam Head Exam: ATRAUMATIC, NORMOCEPHALIC - Eye Exam Eye Exam: EOMI, Normal appearance - ENT Exam ENT Exam: Mucous Membranes Moist - Respiratory Exam Respiratory Exam: Clear to Auscultation Bilateral, NORMAL BREATHING PATTERN. absent: Rhonchi, Wheezes, Respiratory Distress - Cardiovascular Exam Cardiovascular Exam: REGULAR RHYTHM. absent: Bradycardia, Tachycardia, Diastolic murmur, Systolic Murmur - GI/Abdominal Exam GI & Abdominal Exam: Normal Bowel Sounds, Soft. absent: Distended, Firm, Guarding, Tenderness - Extremities Exam Extremities exam: Positive for: normal inspection. Negative for: pedal edema, tenderness - Neurological Exam Neurological exam: Alert, Oriented x3 Additional comments: mild left sided facial droop - Expanded Neurological Exam Expanded Patient oriented to: person, place, time Speech: Fluid Speech Cranial nerves: EOM's Intact: Normal Upper motor neuron: Pronator Drift: Normal Neuro motor strength exam: Left Upper Extremity: 5, Right Upper Extremity: 5, Left Lower Extremity: 5, Right Lower Extremity: 5 - Skin Skin Exam: Dry, Intact, Normal Color, Warm Results - Vital Signs Recent Vital Signs: Last Vital Signs Temp 98.8 F 12/12/17 06:17 Pulse 68 12/12/17 07:24 Resp 18 12/12/17 07:24 BP 141/72 12/12/17 07:24 Pulse Ox 97 12/12/17 07:24 - Labs Result Diagrams: 12/12/17 03:34 12/12/17 03:34 Labs: Laboratory Results - last 24 hr 12/12/17 12/12/17 12/12/17 03:34 03:34 03:34 WBC 12.2 H D RBC 3.89 Hgb 11.4 L Hct 35.6 L MCV 91.5 MCH 29.3 MCHC 32.0 RDW 13.4 Plt Count 255 MPV 11.4 H Gran % 73.1 H Lymph % (Auto) 19.7 L Sampson % (Auto) 6.7 H Eos % (Auto) 0.3 L Baso % (Auto) 0.2 Gran # 8.92 H Lymph # (Auto) 2.4 Sampson # (Auto) 0.8 H Eos # (Auto) 0.0 Baso # (Auto) 0.02 PT 10.5 INR 0.92 APTT 28.9 Sodium 145 Potassium 3.8 Chloride 109 H Carbon Dioxide 26 Anion Gap 14 BUN 34 H Creatinine 2.2 H Est GFR ( Amer) 26 Est GFR (Non-Af Amer) 21 Random Glucose 52 L Calcium 9.7 Total Bilirubin 0.4 AST 31 ALT 21 Alkaline Phosphatase 148 H Troponin I < 0.01 Total Protein 7.5 Albumin 4.1 Globulin 3.3 Albumin/Globulin Ratio 1.2 Triglycerides 498 H Cholesterol 202 H LDL Cholesterol Direct 92 HDL Cholesterol 42 Blood Type Antibody Screen BBK History Checked 10/08/18 04:12 WBC RBC Hgb Hct MCV MCH MCHC RDW Plt Count MPV Gran % Lymph % (Auto) Sampson % (Auto) Eos % (Auto) Baso % (Auto) Gran # Lymph # (Auto) Sampson # (Auto) Eos # (Auto) Baso # (Auto) PT INR APTT Sodium Potassium Chloride Carbon Dioxide Anion Gap BUN Creatinine Est GFR ( Amer) Est GFR (Non-Af Amer) Random Glucose Calcium Total Bilirubin AST ALT Alkaline Phosphatase Troponin I Total Protein Albumin Globulin Albumin/Globulin Ratio Triglycerides Cholesterol LDL Cholesterol Direct HDL Cholesterol Blood Type O POSITIVE Antibody Screen Negative BBK History Checked Patient has bt Assessment & Plan - Assessment and Plan (Free Text) Assessment: 82 year old female with PMH of CVA (20 years ago), IDDM, uterine cancer, CAD, hypertension, GERD, depression and anxiety, presented with left sided facial droop and generalized malaise and weakness for the past week. -left sided facial droop, r/o CVA - LORAINE - hypertriglyceridemia -IDDM -CAD -HTN -GERD -Chronic back pain -Depression/anxiety Plan: Labs and imaging reviewed. Head CT done in ED showed no intracranial mass, hemorrhage or acute infarct, age related changes and remote bilateral basal ganglia lacunar infarcts. Will consult Neurology, Dr. Clinton. MRI with Patient evaluated by neurology. MRI without contrast order due to renal function as well as carotid US. Swallow evaluation pending, will restart medication once cons ulted. Triglyceride elevated with restart statin therapy once swallow eval completed. LORAINE most likely pre renal, continue IVF, repeat labs in AM. Case seen, discussed and reviewed with Dr. Baxter. <Monroe Baxter S - Last Filed: 12/13/17 18:09> Results - Vital Signs Recent Vital Signs: Last Vital Signs Temp 98.2 F 12/13/17 12:00 Pulse 65 12/13/17 12:00 Resp 18 12/13/17 12:00 BP 132/71 12/13/17 12:00 Pulse Ox 98 12/13/17 06:00 - Labs Result Diagrams: 12/13/17 06:30 12/13/17 06:30 Labs: Laboratory Results - last 24 hr 12/12/17 12/12/17 12/12/17 17:36 18:02 21:32 WBC RBC Hgb Hct MCV MCH MCHC RDW Plt Count MPV Gran % Lymph % (Auto) Sampson % (Auto) Eos % (Auto) Baso % (Auto) Gran # Lymph # (Auto) Sampson # (Auto) Eos # (Auto) Baso # (Auto) Sodium Potassium Chloride Carbon Dioxide Anion Gap BUN Creatinine Est GFR ( Amer) Est GFR (Non-Af Amer) POC Glucose (mg/dL) 53 L 96 108 Random Glucose Calcium Phosphorus Magnesium Total Bilirubin AST ALT Alkaline Phosphatase Total Protein Albumin Globulin Albumin/Globulin Ratio 12/13/17 12/13/17 12/13/17 06:30 06:30 07:03 WBC 4.8 D RBC 3.82 Hgb 11.0 L Hct 34.2 L MCV 89.5 MCH 28.8 MCHC 32.2 RDW 13.1 Plt Count 162 MPV 10.7 Gran % 59.5 Lymph % (Auto) 32.4 Sampson % (Auto) 5.6 Eos % (Auto) 2.3 Baso % (Auto) 0.2 Gran # 2.85 Lymph # (Auto) 1.6 Sampson # (Auto) 0.3 Eos # (Auto) 0.1 Baso # (Auto) 0.01 Sodium 142 Potassium 4.1 Chloride 109 H Carbon Dioxide 28 Anion Gap 10 BUN 21 Creatinine 1.0 Est GFR ( Amer) > 60 Est GFR (Non-Af Amer) 53 POC Glucose (mg/dL) 156 H Random Glucose 171 H Calcium 9.2 Phosphorus 3.3 Magnesium 1.5 L Total Bilirubin 0.6 AST 21 ALT 21 Alkaline Phosphatase 146 H Total Protein 6.4 Albumin 3.5 Globulin 2.9 Albumin/Globulin Ratio 1.2 12/13/17 10:59 WBC RBC Hgb Hct MCV MCH MCHC RDW Plt Count MPV Gran % Lymph % (Auto) Sampson % (Auto) Eos % (Auto) Baso % (Auto) Gran # Lymph # (Auto) Sampson # (Auto) Eos # (Auto) Baso # (Auto) Sodium Potassium Chloride Carbon Dioxide Anion Gap BUN Creatinine Est GFR ( Amer) Est GFR (Non-Af Amer) POC Glucose (mg/dL) 283 H Random Glucose Calcium Phosphorus Magnesium Total Bilirubin AST ALT Alkaline Phosphatase Total Protein Albumin Globulin Albumin/Globulin Ratio Assessment & Plan - Assessment and Plan (Free Text) Assessment: Pt seen and examined by me. This is a late entry. I have reviewed the note by the medical professionals. The case was discussed and reviewed with the resident. I reviewed the medications and labs.Pt with TIA and that is improved. She has DM-2 and chetna have her fs checked and coverage with insulin. Neurology to evaluate the pt. She has improvement of her symptoms. BP is controlled. No pain. Pain is controlled. Continue with ASA.
[2017-12-12] MEDS: Insulin Reg-LOW-Coverage SC SCH ×3 (14:36→22:00)
--- NOTE | 2017-12-12 14:58 | CON ---
DATE: 12/12/2017 HISTORY OF PRESENT ILLNESS: This is an 82-year-old woman with history of CVA 20 years ago, insulin-dependent diabetes mellitus, uterine cancer, coronary artery disease, status post total hysterectomy, hypertension, who complained of generalized weakness and malaise for the past week. Last night, she was using the bathroom and lost consciousness and woke up on the toilet. She denies hitting her head. She has prior syncopal episodes in the past, which she sees Dr. Waller, who is going to work her up with a 72-hour ambulatory EEG, which she is scheduled for. Currently, no focal weakness questionable left facial droop that was seen by the ER physician. When she came in, her blood sugars were 52, which is low for her. Her hemoglobin A1c is 9.4 indicating poorly-controlled diabetes and has hypertriglyceridemia of 498. MRI of the brain has been ordered and carotid Doppler. PAST MEDICAL HISTORY: As above. SOCIAL HISTORY: No illicit drug use, smoking or EtOH abuse. PAST SURGICAL HISTORY: Total hysterectomy, left breast cyst removal. ALLERGIES: NO KNOWN DRUG ALLERGIES. FAMILY HISTORY: Noncontributory. MEDICATIONS: Reviewed by nurses' reconciliation sheet. REVIEW OF SYSTEMS: Fourteen-point review of systems is negative except as per the HPI. LABORATORY DATA: Sodium is 145, potassium 3.8, chloride of 109, carbon dioxide of 26, BUN of 34, creatinine 2.2, random glucose of 52, A1c is 9.4. PHYSICAL EXAMINATION: VITAL SIGNS: Temperature of 98.8, pulse rate of 63, blood pressure 141/72, respiratory rate of 18, oxygen saturation 97% by room air. GENERAL: The patient is sitting up in bed, in no acute distress. HEENT: Atraumatic, normocephalic. PERRLA. Extraocular muscles intact. NECK: Supple. No JVD, no adenopathy noted. LUNGS: Clear to auscultation. No adventitious sounds. HEART: S1, S2. Normal rate and rhythm. No murmurs, rubs or gallops. ABDOMEN: Soft, nontender and nondistended. Bowel sounds are present. EXTREMITIES: No clubbing. No cyanosis. Peripheral pulses 2+ felt bilaterally. NEUROLOGIC: The patient is alert, hard or hearing and deaf bilaterally. Speech is fluent without any errors. No aphasia noted. Cranial nerves II through XII are intact except for questionable left facial droop, otherwise rest of cranial nerves are intact. Motor exam: Moves all extremities equally. Deconditioned, but no pronator drift seen. Sensory exam: Light touch and pinprick are reduced at the calves bilaterally. Decreased vibration of the toes. DTRs are 2+ throughout, 1 at both knees and absent at the ankles. Coordination: Myeqvd-nd-ward intact. No dysmetria noted. Gait is deferred for now. ASSESSMENT AND PLAN: This is an 82-year-old woman with history of cerebrovascular accident 20 years ago with a CAT scan showing old lacunar bilateral basal ganglia infarcts; insulin-dependent diabetes mellitus; uterine cancer, status post total hysterectomy; coronary artery disease; hypertension; gastroesophageal reflux disease; depression; anxiety; who presented with a questionable left-sided facial droop, generalized malaise and weakness for the past week and had a syncopal event. Found to be hypoglycemic with blood sugars of 52, which is low and has a hemoglobin A1c of 9.4 indicating poorly-controlled diabetes. She also has hypertriglyceridemia and acute kidney injury. At this time, her symptoms are likely secondary to hypoglycemia given transient ischemic attack like symptoms and the syncopal event. At this time, I will recommend, 1. Orthostatic vital signs. 2. Carotid Doppler. 3. MRI of the brain without contrast. 4. Needs a nutritional consult for diet given her hypertriglyceridemia and diabetic regimen. 5. Continue with IV fluids in regards to her acute kidney injury and Physical Therapy/Occupational Therapy evaluation. Thank you for this consult. Benito Clinton MD
--- NOTE | 2017-12-12 15:12 | US ---
PROCEDURE: Bilateral carotid artery duplex ultrasound HISTORY: Carotid stenosis TIA PHYSICIAN(S): Sam Kebede MD. TECHNIQUE: Duplex sonography and color-flow Doppler were used to evaluate the carotid bifurcations and limited segments of the vertebral arteries bilaterally. FINDINGS: The exam is somewhat limited by tortuous vessels. There is mild smooth heterogeneous plaque noted at the carotid bifurcations bilaterally. The peak systolic velocity in the proximal right internal carotid artery is 73 cm/sec. This corresponds to a 20 to 39% proximal right ICA stenosis. Normal systolic velocities are noted in the proximal right external carotid artery. There is antegrade flow in the right vertebral artery. The peak systolic velocity in the proximal left internal carotid artery is 102 cm/sec. This corresponds to a 20 to 39% proximal left ICA stenosis. Normal systolic velocities are noted in the proximal left external carotid artery. There is antegrade flow in the left vertebral artery. IMPRESSION: 1. Bilateral 20-39% proximal ICA stenoses. 2. Antegrade flow in both vertebral arteries.
--- NOTE | 2017-12-12 16:11 | MRI ---
Date of service: 12/12/2017 PROCEDURE: MRI BRAIN WITHOUT CONTRAST HISTORY: r/o cva COMPARISON: None available. TECHNIQUE: Multiplanar, multisequence MR images of the brain were obtained without intravenous contrast enhancement. FINDINGS: HEMORRHAGE: None DWI: No evidence of an acute or early subacute infarction. BRAIN PARENCHYMA: No mass effect or edema. Mild chronic microvascular changes are seen in the periventricular white matter. VENTRICLES: Unremarkable. No hydrocephalus. CRANIUM: Unremarkable. ORBITS: Grossly unremarkable. PARANASAL SINUSES/MASTOIDS: Clear VASCULAR SYSTEM: Skull base flow voids intact. OTHER FINDINGS: None. IMPRESSION: No acute intracranial findings
[2017-12-12] MEDS: Dextrose 5%/0.9% NS 1,000 ML IV SCH (18:01)
[2017-12-12 20:36] VITALS: BMI 29.9
[2017-12-12] MEDS ORDERED: Pneumococcal 23-Valent Vaccine IM ONE (20:37)
[2017-12-12] MEDS ORDERED: Influenza Vaccine 60 mcg/0.5 mL SYR (4YR UP) IM ONE (20:37)
[2017-12-13 01:10] VITALS: O2SAT 98
[2017-12-13 06:12] VITALS: RESP 18
[2017-12-13] MEDS: Dextrose 5%/0.9% NS 1,000 ML IV SCH (07:19)
--- NOTE | 2017-12-13 07:23 | CP.PCM.PN ---
Subjective - Date & Time of Evaluation Date of Evaluation: 12/13/17 Time of Evaluation: 07:21 - Subjective Subjective: PGY-[address] Baxter's service Patient seen and examined at bedside. Patient reports headache and continuing arm pain. She denies any other pain, sob, n/v. Patient states that she does not recall her diabetes medications. Nurse reports elevated blood pressure. Objective - Vital Signs/Intake and Output Vital Signs (last 24 hours): Temp Pulse Resp BP Pulse Ox 97.6 F 67 18 170/88 H 98 12/13/17 06:00 12/13/17 06:00 12/13/17 06:00 12/13/17 06:00 12/13/17 06:00 Intake and Output: 12/13/17 12/13/17 06:59 18:59 Intake Total 900 Output Total 1200 Balance -300 - Medications Medications: Current Medications Atorvastatin Calcium (Lipitor) 80 mg PO HS [facility] Clonazepam (Klonopin) 0.5 mg PO TID [facility]; Protocol Dextrose/Sodium Chloride (Dextrose 5%/0.9% Ns 1000 Ml) 1,000 mls @ 75 mls/hr IV .[id number] [facility] Last Admin: 12/12/17 18:01 Dose: 75 mls/hr Insulin Human Regular (Humulin R Low) 0 units SC ACHS [facility]; Protocol Last Admin: 12/12/17 22:00 Dose: Not Given Meclizine HCl (Antivert) 25 mg PO TID [facility] Metoprolol Tartrate (Lopressor) 25 mg PO DAILY [facility] Pantoprazole Sodium (Protonix Ec Tab) 40 mg PO 0630 [facility] Pregabalin (Lyrica) 50 mg PO TID [facility] Ramipril (Altace) 5 mg PO QAM [facility] Sertraline HCl (Zoloft) 25 mg PO QPM [facility] - Labs Labs: 12/12/17 03:34 12/12/17 03:34 PT 10.5 SECONDS (9.4-12.5) 12/12/17 03:34 INR 0.92 12/12/17 03:34 APTT 28.9 Seconds (25.1-36.5) 12/12/17 03:34
[2017-12-13 07:24] LABS: BASO # 0.01 K/mm3 (0.0-2.0); BASO % 0.2 % (0.0-3.0); EOS # 0.1 (0.0-0.7); EOS % 2.3 % (1.5-5.0); GRAN # 2.85 (1.4-6.5); GRAN % 59.5 % (50.0-68.0); LYMPH # 1.6 (1.2-3.4); LYMPH % 32.4 % (22.0-35.0); MEAN CELL VOLUME 89.5 fl (80.0-105.0); MEAN CORPUSCULAR HEMOGLOBIN 28.8 pg (25.0-35.0); MEAN CORPUSCULAR HGB CONC 32.2 g/dl (31.0-37.0); MEAN PLATELET VOLUME 10.7 fl (7.0-11.0); MONO # 0.3 (0.1-0.6); MONO % 5.6 % (1.0-6.0); RBC 3.82 10^6/uL (3.5-6.1); RED CELL DISTRIBUTION WIDTH 13.1 % (11.5-14.5); WHITE BLOOD COUNT 4.8 10^3/ul (4.5-11.0)
[2017-12-13 07:48] LABS: ALB/GLOB RATIO 1.2 (1.1-1.8); ALBUMIN 3.5 g/dL (3.0-4.8); ALT/SGPT 21 U/L (7-56); AST/SGOT 21 U/L (14-36); BLOOD UREA NITROGEN 21 mg/dL (7-21); CALCIUM 9.2 mg/dL (8.4-10.5); GFR NON-AFRICAN AMERICAN 53
[2017-12-13] MEDS: Insulin Reg-LOW-Coverage SC SCH ×2 (08:01→12:10)
[2017-12-13] MEDS ORDERED: Magnesium Oxide 400 mg Tab UD PO ONE (08:44)
--- NOTE | 2017-12-13 10:08 | RAD ---
Date of service: 12/13/2017 PROCEDURE: Left Wrist Radiographs. HISTORY: fall r/o fracture COMPARISON: None. FINDINGS: BONES: Normal. No fracture. JOINTS: There is calcification in the triangular fibrocartilage. SOFT TISSUES: Normal. OTHER FINDINGS: None. IMPRESSION: No evidence of fracture
[2017-12-13 12:09] VITALS: BP 132/71; PULSE 65; TEMP 98.2
--- NOTE | 2017-12-13 12:57 | CP.PCM.DIS ---
Provider - Provider Date of Admission: 12/12/17 05:17 Attending physician: Monroe Baxter MD Primary care physician: Cayden Martínez MD Time Spent in preparation of Discharge (in minutes): 60 Hospital Course - Lab Results Lab Results: Most Recent Lab Values WBC 4.8 10^3/ul (4.5-11.0) D 12/13/17 06:30 RBC 3.82 10^6/uL (3.5-6.1) 12/13/17 06:30 Hgb 11.0 g/dL (12.0-16.0) L 12/13/17 06:30 Hct 34.2 % (36.0-48.0) L 12/13/17 06:30 MCV 89.5 fl (80.0-105.0) 12/13/17 06:30 MCH 28.8 pg (25.0-35.0) 12/13/17 06:30 MCHC 32.2 g/dl (31.0-37.0) 12/13/17 06:30 RDW 13.1 % (11.5-14.5) 12/13/17 06:30 Plt Count 162 10^3/uL (120.0-450.0) 12/13/17 06:30 MPV 10.7 fl (7.0-11.0) 12/13/17 06:30 Gran % 59.5 % (50.0-68.0) 12/13/17 06:30 Lymph % (Auto) 32.4 % (22.0-35.0) 12/13/17 06:30 Piute % (Auto) 5.6 % (1.0-6.0) 12/13/17 06:30 Eos % (Auto) 2.3 % (1.5-5.0) 12/13/17 06:30 Baso % (Auto) 0.2 % (0.0-3.0) 12/13/17 06:30 Gran # 2.85 (1.4-6.5) 12/13/17 06:30 Lymph # (Auto) 1.6 (1.2-3.4) 12/13/17 06:30 Piute # (Auto) 0.3 (0.1-0.6) 12/13/17 06:30 Eos # (Auto) 0.1 (0.0-0.7) 12/13/17 06:30 Baso # (Auto) 0.01 K/mm3 (0.0-2.0) 12/13/17 06:30 PT 10.5 SECONDS (9.4-12.5) 12/12/17 03:34 INR 0.92 12/12/17 03:34 APTT 28.9 Seconds (25.1-36.5) 12/12/17 03:34 Sodium 142 mmol/L (132-148) 12/13/17 06:30 Potassium 4.1 mmol/L (3.6-5.0) 12/13/17 06:30 Chloride 109 mmol/L (98-107) H 12/13/17 06:30 Carbon Dioxide 28 mmol/L (21-33) 12/13/17 06:30 Anion Gap 10 (10-20) 12/13/17 06:30 BUN 21 mg/dL (7-21) 12/13/17 06:30 Creatinine 1.0 mg/dl (0.7-1.2) 12/13/17 06:30 Est GFR ( Amer) > 60 12/13/17 06:30 Est GFR (Non-Af Amer) 53 12/13/17 06:30 POC Glucose (mg/dL) 156 mg/dL (65-110) H 12/13/17 07:03 Random Glucose 171 mg/dL (70-110) H 12/13/17 06:30 Hemoglobin A1c 9.4 % (4.2-6.5) H 12/12/17 03:34 Calcium 9.2 mg/dL (8.4-10.5) 12/13/17 06:30 Phosphorus 3.3 mg/dL (2.5-4.5) 12/13/17 06:30 Magnesium 1.5 mg/dL (1.7-2.2) L 12/13/17 06:30 Total Bilirubin 0.6 mg/dL (0.2-1.3) 12/13/17 06:30 AST 21 U/L (14-36) 12/13/17 06:30 ALT 21 U/L (7-56) 12/13/17 06:30 Alkaline Phosphatase 146 U/L (38-126) H 12/13/17 06:30 Troponin I < 0.01 ng/mL 12/12/17 03:34 Total Protein 6.4 g/dL (5.8-8.3) 12/13/17 06:30 Albumin 3.5 g/dL (3.0-4.8) 12/13/17 06:30 Globulin 2.9 gm/dL 12/13/17 06:30 Albumin/Globulin Ratio 1.2 (1.1-1.8) 12/13/17 06:30 Triglycerides 498 mg/dL (35-160) H 12/12/17 03:34 Cholesterol 202 mg/dL (130-200) H 12/12/17 03:34 LDL Cholesterol Direct 92 mg/dL (0-129) 12/12/17 03:34 HDL Cholesterol 42 mg/dL (29-60) 12/12/17 03:34 Blood Type O POSITIVE 12/12/17 04:12 Antibody Screen Negative 12/12/17 04:12 BBK History Checked Patient has bt 12/12/17 04:12 - Hospital Course Hospital Course: 82 year old female with PMH of CVA (20 years ago), IDDM, uterine cancer, CAD, hypertension, GERD, depression and anxiety, presented to the emergency department brought in by EMS complaining of generalized malaise and weakness throughout the past week. Patient states that last night while using the bathroom she loss consciousness and woke up on the toilet. She denied hitting her head. She states that she has had prior episodes and is seen neurologist. Questionable left sided facial droop was also noted. In ED [facility] , patient did not meet criteria for tpa. Neurology was consulted. Head CT and MRI showed no intracranial mass, hemorrhage or acute infarct, age related changes and remote bilateral basal ganglia lacunar infarcts. Carotid US was also done showing 20- 39 % stenosis bilaterally. Patient was also found to have LORAINE most likely pre renal, which corrected with IVF. Patient reported wrist pain and was concerned a bout new fracture. XRAY of wrist showed no fracture. Discharge Exam - Additional Findings Additional findings: - Constitutional Appears: No Acute Distress - Head Exam Head Exam: ATRAUMATIC, NORMOCEPHALIC - Eye Exam Eye Exam: EOMI, Normal appearance - ENT Exam ENT Exam: Mucous Membranes Moist - Respiratory Exam Respiratory Exam: Clear to Auscultation Bilateral, NORMAL BREATHING PATTERN. absent: Rhonchi, Wheezes, Respiratory Distress - Cardiovascular Exam Cardiovascular Exam: REGULAR RHYTHM. absent: Bradycardia, Tachycardia, Diastolic murmur, Systolic Murmur - GI/Abdominal Exam GI & Abdominal Exam: Normal Bowel Sounds, Soft. absent: Distended, Firm, Guarding, Tenderness - Extremities Exam Extremities exam: Positive for: normal inspection. Negative for: pedal edema, tenderness - Neurological Exam Neurological exam: Alert, Oriented x3 Upper and lower extremities 5/5 strength - Skin Skin Exam: Dry, Intact, Normal Color, Warm Discharge Plan - Follow Up Plan Condition: STABLE Disposition: HOME/ ROUTINE Instructions: Heart Healthy Diet, Stroke (DC), Transient Ischemic Attack (DC), Low Blood Sugar, Adult (DC), Diabetes Diet Additional Instructions: - Follow up with Dr. Martínez in 3-5 days. - Follow up with neurology in 1 week. - Continue home meds. Referrals: Lexx Albright MD [Staff Provider] - Cayden Martínez MD [Primary Care Provider] - Follow up with primary
[2017-12-14] MEDS ORDERED: Pantoprazole 40 mg EC Tab PO SCH (06:30)
== END 2017-12-13 16:10 | disposition home health service (06) ==
LOC: ED 02:39 → ERH 05:17 → 2RSO 18:21
PROVIDERS: ADMIT Internal Medicine Nephrology; ATTEND Internal Medicine Nephrology
DX: E11.649 Type 2 diabetes mellitus with hypoglycemia without coma (principal); N17.9 Acute kidney failure, unspecified; E11.65 Type 2 diabetes mellitus with hyperglycemia; E78.1 Pure hyperglyceridemia; I65.23 Occlusion and stenosis of bilateral carotid arteries; F32.9 Major depressive disorder, single episode, unspecified; I12.9 Hypertensive chronic kidney disease with stage 1 through stage 4 chronic kidney disease, or unspecified chronic kidney disease; E11.22 Type 2 diabetes mellitus with diabetic chronic kidney disease; N18.9 Chronic kidney disease, unspecified; F41.9 Anxiety disorder, unspecified; G25.81 Restless legs syndrome; I25.10 Atherosclerotic heart disease of native coronary artery without angina pectoris; H91.90 Unspecified hearing loss, unspecified ear; K21.9 Gastro-esophageal reflux disease without esophagitis; M54.9 Dorsalgia, unspecified; Z79.4 Long term (current) use of insulin; Z85.42 Personal history of malignant neoplasm of other parts of uterus; Z87.891 Personal history of nicotine dependence; Z86.73 Personal history of transient ischemic attack (TIA), and cerebral infarction without residual deficits; Z87.442 Personal history of urinary calculi
CPT/HCPCS: 36415; 70450; 70551; 71045; 73110; 80053; 80061; 82948; 83036; 83735; 84100; 84484; 85025; 85610; 85730; 86850; 86900; 93005; 93880; 97162; 99285; G0378; G8978; G8979; J7030; J7042

== ENCOUNTER 2018-01-13 17:16 | Emergency (ER) | payer MEDICARE ==
[2018-01-13 17:18] VITALS: BMI 37.0
[2018-01-13 17:28] VITALS: TEMP 98.2
[2018-01-13 18:10] LABS: BASO # 0.01 K/mm3 (0.0-2.0); BASO % 0.2 % (0.0-3.0); EOS # 0.1 (0.0-0.7); EOS % 1.3 % (1.5-5.0); GRAN # 3.08 (1.4-6.5); GRAN % 50.3 % (50.0-68.0); HEMOGLOBIN 11.3 g/dL (12.0-16.0); LYMPH # 2.6 (1.2-3.4); LYMPH % 42.6 % (22.0-35.0); MEAN CELL VOLUME 88.4 fl (80.0-105.0); MEAN CORPUSCULAR HEMOGLOBIN 29.8 pg (25.0-35.0); MEAN CORPUSCULAR HGB CONC 33.7 g/dl (31.0-37.0); MONO # 0.3 (0.1-0.6); MONO % 5.6 % (1.0-6.0); RBC 3.79 10^6/uL (3.5-6.1); RED CELL DISTRIBUTION WIDTH 13.1 % (11.5-14.5); WHITE BLOOD COUNT 6.1 10^3/uL (4.5-11.0)
[2018-01-13 18:26] LABS: ALB/GLOB RATIO 1.4 (1.1-1.8); ALT/SGPT 26 U/L (7-56); AST/SGOT 16 U/L (14-36); BLOOD UREA NITROGEN 20 mg/dL (7-21); CALCIUM 9.6 mg/dL (8.4-10.5); GFR NON-AFRICAN AMERICAN 53
--- NOTE | 2018-01-13 18:27 | ED PDOC ---
Arrival/HPI - History of Present Illness Narrative History of Present Illness (Text): This is a 82 year old female with PMH of CVA (20 years ago), TIA in december 2017, IDDM, uterine cancer, CAD, hypertension, GERD, depression and anxiety, presented to the emergency department brought in by EMS complaining of chest kristen n starting today, associated with palpitations, lightheadedness and sob. Pt is a poor historian. Chest pain started at 2 pm today after she was told that her son had an infection. Pain is described as a sharp pain under the right breast, nonradiating. Pain went away after a few minutes, but she then had pain under her left breast after that. Pt states that she went to the bathroom, and her lightheadedness and sob worsened while walking. Pt denies fever, chills, abdominal pain, vomiting, leg swelling or pain. Currently, pt is asymptomatic. Pt recently had 4 medications discontinued by her PMD because of "an infection." She is unsure of the meds, but knows that Motrin and Lyrica were discontinued. PMD: Mauricio PMH: CVA (20 years ago), TIA in december 2017, IDDM, uterine cancer, CAD, hypert ension, GERD, depression and anxiety PSH: total hysterectomy, Left breast cyst removal Meds: see MAY. Allx: NKDA Social history: Former smoker, denies current use, denies alcohol use or illicit drug use. Lives alone, but son lives below her in multifamily home Time/Duration: 4-6 hours Symptom Onset: Sudden Symptom Course: Resolved Quality: Other (sharp) Associated Symptoms (Text): sob, lightheadedness <Vikram Gómez - Last Filed: 01/13/18 20:26> <Gianluca Gutiérrez DO - Last Filed: 01/13/18 20:42> - General Chief Complaint: Shortness Of Breath Time Seen by Provider: 01/13/18 17:17 Past Medical History - Provider Review Nursing Documentation Reviewed: Yes - Infectious Disease Hx of Infectious Diseases: None - Tetanus Immunization Tetanus Immunization: Unknown - Cardiac Hx Cardiac Disorders: Yes (CAD) Hx Hypertension: Yes - Pulmonary Hx Respiratory Disorders: Yes (USED TO SMOKE.QUIT SMOKING IN HER 50'S) Hx Bronchitis: Yes - Neurological Hx Neurological Disorder: Yes HX Cerebrovascular Accident: Yes (30 yrs agor side weakness) Hx Dizziness: Yes (vertigo) - HEENT Hx HEENT Disorder: Yes (eyeglasses) Hx Deafness: Yes Other/Comment: RIGHT EAR TINNITUS. 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 AGO-THEY DON'T KNOW WHAT IT WAS". Pt see dr ceron every 3 months for f/u bloodwork. Pt denies any hx of pa ncreatic cancer, pt stated "I had an infection in my pancreas." - Integumentary Hx Dermatological Disorder: Yes Other/Comment: HX. LEFT BREAST CYST, ble skin discolorations, varicose veins left foot, scar left ankle 49 years old fell +fx has screws, bruise red/brown in color to left lower extremity from a fall got caught in walker wheels - Musculoskeletal/Rheumatological Hx Falls: Yes (recent frequent) - Gastrointestinal Hx Gastrointestinal Disorders: Yes Hx Gastroesophageal Reflux: Yes Hx Pancreatitis: Yes Other/Comment: gastric polyps, hemorrhoids - Genitourinary/Gynecological Hx Genitourinary Disorders: Yes (UTERINE CA,VAGINAL CA-HYSTRECTOMY *) Hx Incontinence: Yes (wears diapers, urgency,frequency,incontinency.) - Psychiatric Hx Psychophysiologic Disorder: Yes Hx Anxiety: Yes Hx Depression: Yes Hx Emotional Abuse: No Hx Physical Abuse: No Hx Substance Use: No - Surgical History Other/Comment: LEFT BREAST CYST REMOVED, lle orif with hardware, r wrist orif with hardware, ercp, picc - Anesthesia Hx Anesthesia: Yes Hx Anesthesia Reactions: No Hx Malignant Hyperthermia: No - Suicidal Assessment Feels Threatened In Home Enviroment: No <Vikram Gómez - Last Filed: 01/13/18 20:26> Family/Social History - Physician Review Nursing Documentation Reviewed: Yes Family/Social History: Unknown Family HX Smoking Status: Former Smoker Hx Alcohol Use: No Hx Substance Use: No Hx Substance Use Treatment: No <SebastianshanonYannicky - Last Filed: 01/13/18 20:26> Allergies/Home Meds <Vikram Gómez - Last Filed: 01/13/18 20:26> <Gianluca Gutiérrez DO - Last Filed: 01/13/18 20:42> Allergies/Adverse Reactions: Allergies No Known Allergies Allergy (Verified 01/13/18 17:17) Home Medications: Home Meds Medication Instructions Recorded Confirmed Metformin HCl 1,000 mg PO BID 11/02/12 12/12/17 Pregabalin [Lyrica] 50 mg PO TID 11/02/12 12/12/17 Ramipril 5 mg PO QAM 11/02/12 12/12/17 Sertraline HCl 25 mg PO QPM 11/02/12 12/12/17 Insulin Glargine,Hum.rec.anlog 45 unit SC 07/17/14 12/13/17 [Lantus] Atorvastatin [Lipitor] 80 mg PO HS 05/09/15 12/12/17 Calcium Carbonate [Calcium] 500 mg PO DAILY 05/09/15 12/12/17 Glipizide 10 mg PO BID 05/09/15 12/13/17 Meclizine HCl [Antivert] 25 mg PO TID 05/09/15 12/12/17 Clonazepam [Klonopin] 0.5 mg PO BID 07/08/16 12/13/17 Metoprolol Tartrate [Lopressor] 25 mg PO DAILY 01/02/17 12/12/17 Review of Systems - Review of Systems Constitutional: Normal Eyes: Normal ENT: Normal Respiratory: SOB Cardiovascular: Chest Pain, Palpitations. absent: Edema, Calf Pain Gastrointestinal: Diarrhea, Nausea Genitourinary Female: Other (urinary incontinence) Musculoskeletal: Arthralgias (left wrist pain and left lower extremity pain from falling; XR done on left hand during last admission) Skin: Normal Neurological: Dizziness, Gait Changes (frequent falls) Psychiatric: Normal <Vikram Gómez - Last Filed: 01/13/18 20:26> Physical Exam Vital Signs Reviewed: Yes Vital Signs Temp Pulse Resp BP Pulse Ox 01/13/18 17:28 98.2 F 71 27 H 134/83 99 Temperature: Afebrile Blood Pressure: Normal Pulse: Regular Respiratory Rate: Normal (on evaluation pt RR is 18) Appearance: Positive for: Well-Appearing, Non-Toxic, Comfortable Pain Distress: None Mental Status: Positive for: Alert and Oriented X 3 - Systems Exam Head: Present: Atraumatic, Normocephalic Extroacular Muscles: Present: EOMI Mouth: Present: Moist Mucous Membranes Respiratory/Chest: Present: Clear to Auscultation. No: Respiratory Distress, Accessory Muscle Use, Wheezes, Rales, Retracting, Rhonchi, Tachypneic Cardiovascular: Present: Regular Rate and Rhythm, Normal S1, S2. No: Murmurs Abdomen: Present: Normal Bowel Sounds, Hernias (umbilical). No: Tenderness, Distention, Peritoneal Signs, Rebound, Guarding Upper Extremity: Present: Edema (minimal edema to the left hand; neurovascularly intact), NORMAL PULSES, Capillary Refill < 2s Lower Extremity: Present: NORMAL PULSES, Swelling (left lateral lower e xtremity), Capillary Refill < 2 s (1+ DPs). No: CALF TENDERNESS Neurological: Present: GCS=15 Skin: Present: Warm, Dry, Normal Color Psychiatric: Present: Alert <Vikram Gómez - Last Filed: 01/13/18 20:26> Vital Signs Temp Pulse Resp BP Pulse Ox 01/13/18 17:28 98.2 F 71 27 H 134/83 99 01/13/18 17:25 19 96 <Gianluca Gutiérrez DO - Last Filed: 01/13/18 20:42> Medical Decision Making ED Course and Treatment: CBC, CMP, CXR, EKG, troponin, cpk. - Lab Interpretations Lab Results: 01/13/18 17:54 01/13/18 17:54 Lab Results 01/13/18 17:54: Sodium 140, Potassium 3.7, Chloride 110 H, Carbon Dioxide 19 L, Anion Gap 14, BUN 20, Creatinine 1.0, Est GFR ( Amer) > 60, Est GFR (Non- Af Amer) 53, Random Glucose 243 H, Calcium 9.6, Magnesium 1.8, Total Bilirubin 0.4, AST 16, ALT 26, Alkaline Phosphatase 138 H, Lactate Dehydrogenase 388, Total Creatine Kinase 27 L, Troponin I Pending, NT-Pro-B Natriuret Pep Pending, Total Protein 6.8, Albumin 4.0, Globulin 2.9, Albumin/Globulin Ratio 1.4 01/13/18 17:54: WBC 6.1, RBC 3.79, Hgb 11.3 L, Hct 33.5 L, MCV 88.4, MCH 29.8, MCHC 33.7, RDW 13.1, Plt Count 200, MPV 10.0, Gran % 50.3, Lymph % (Auto) 42.6 H , [place] % (Auto) 5.6, Eos % (Auto) 1.3 L, Baso % (Auto) 0.2, Gran # 3.08, Lymph # (Auto) 2.6, [place] # (Auto) 0.3, Eos # (Auto) 0.1, Baso # (Auto) 0.01 Interpretation: No sign. chg./baseline - RAD Interpretation Narrative RAD Interpretations (Text): Accession No. : [id number] Patient Name / ID : WIL Suárez / [id number] Exam Date : 01/13/2018 18:12:56 ( Approved ) Study Comment : Sex / Age : F / 82Y Creator : Rafa Saleem MD Dictator : Rafa Saleem MD Platemaker : Payroll Processor : Rafa Saleem MD Approver2 : Report Date : 01/13/2018 18:55:57 My Comment : Date of service: 01/13/2018 HISTORY: Chest pain COMPARISON: 12/12/2017. FINDINGS: LUNGS: No active pulmonary disease. PLEURA: No significant pleural effusion identified, no pneumothorax apparent. CARDIOVASCULAR: No atherosclerotic calcification present Normal. OSSEOUS STRUCTURES: No significant abnormalities. VISUALIZED UPPER ABDOMEN: Normal. OTHER FINDINGS: None. IMPRESSION: No active disease. No significant interval change compared to the prior examination(s). Radiology Orders: 01/13/18 17:39 CHEST PORTABLE [RAD] Stat - EKG Interpretation EKG Interpretation (Text): EKG shows NSR at 73, no sttw changes; AR is 148, QTc is 436; as read by ED attending Interpreted by ED Physician: Yes <SebastianshanonVikram - Last Filed: 01/13/18 20:26> ED Course and Treatment: 01/13/18 19:01 Patient is an 82 year old female presenting to the emergency department for shortness of breath and chest pain. In agreement with resident note, which includes further HPI details. Patient was seen and evaluated with resident, came up with plan and treatment together. 01/13/18 19:[address] Baxter, who is aware patient is in emergency department and agrees with management plan for patient to be discharged with a follow up appointment with Dr. Martínez in a few days. - Lab Interpretations Lab Results: 01/13/18 17:54 01/13/18 17:54 Lab Results 01/13/18 17:54: Sodium 140, Potassium 3.7, Chloride 110 H, Carbon Dioxide 19 L, Anion Gap 14, BUN 20, Creatinine 1.0, Est GFR ( Amer) > 60, Est GFR (Non- Af Amer) 53, Random Glucose 243 H, Calcium 9.6, Magnesium 1.8, Total Bilirubin 0.4, AST 16, ALT 26, Alkaline Phosphatase 138 H, Lactate Dehydrogenase 388, Total Creatine Kinase 27 L, Troponin I < 0.01, NT-Pro-B Natriuret Pep 235, Total Protein 6.8, Albumin 4.0, Globulin 2.9, Albumin/Globulin Ratio 1.4 01/13/18 17:54: WBC 6.1, RBC 3.79, Hgb 11.3 L, Hct 33.5 L, MCV 88.4, MCH 29.8, MCHC 33.7, RDW 13.1, Plt Count 200, MPV 10.0, Gran % 50.3, Lymph % (Auto) 42.6 H , [place] % (Auto) 5.6, Eos % (Auto) 1.3 L, Baso % (Auto) 0.2, Gran # 3.08, Lymph # (Auto) 2.6, [place] # (Auto) 0.3, Eos # (Auto) 0.1, Baso # (Auto) 0.01 - RAD Interpretation Radiology Orders: 01/13/18 17:39 CHEST PORTABLE [RAD] Stat <Marla SAHUGianluca - Last Filed: 01/13/18 20:42> - PA / [employer] / Resident Statement JANICE has reviewed & agrees with the documentation as recorded. / has examined the patient and agrees with the treatment plan. - Scribe Statement The provider has reviewed the documentation as recorded by the Scribe Rosita Roland All medical record entries made by the Scribe were at my direction and personally dictated by me. I have reviewed the chart and agree that the record accurately reflects my personal performance of the history, physical exam, med [facility] decision making, and the department course for this patient. I have also personally directed, reviewed, and agree with the discharge instructions and disposition. <Marla SAHUGianluca - Last Filed: 01/13/18 20:42> Disposition/Present on Arrival - Present on Arrival Any Indicators Present on Arrival: No History of DVT/PE: No History of Uncontrolled Diabetes: No Urinary Catheter: No History of Decub. Ulcer: No History Surgical Site Infection Following: None - Disposition Have Diagnosis and Disposition been Completed?: Yes Disposition Time: 19:00 Patient Plan: Discharge <Vikram Gómez - Last Filed: 01/13/18 20:26> - Disposition Disposition Time: 18:45 <Marla SAHUGianluca - Last Filed: 01/13/18 20:42> - Disposition Diagnosis: Non-cardiac chest pain Disposition: HOME/ ROUTINE Condition: GOOD Discharge Instructions (ExitCare): Chest Pain (ED) Additional Instructions: ELLIS [facility], thank you for letting us take care of you today. The emergency medical care you received today was directed at your acute symptoms. If you were prescribed any medication, please fill it and take as directed. It may take several days for your symptoms to resolve. Return to the Emergency Department if your symptoms worsen, do not improve, or if you have any other problems. Please contact your doctor or call one of the physicians/clinics you have been referred to that are listed on the Patient Visit Information form that is included in your discharge packet. Bring any paperwork you were given at discharge with you along with any medications you are taking to your follow up visit. Our treatment cannot replace ongoing medical care by a primary care prov ider outside of the emergency department. Thank you for allowing the [facility] team to be part of your care today. Continue taking all your medications as prescribed. Follow up with Dr. Martínez in 2-3 days for re-evaluation and further management. Referrals: Cayden Martínez MD [Primary Care Provider] - Follow up with primary Forms: [facility] ([place])
[2018-01-13 18:37] LABS: B-TYPE NATRIURETIC PEPTIDE 235 pg/mL (0-450); TROPONIN I < 0.01 ng/mL
--- NOTE | 2018-01-13 18:59 | RAD ---
Date of service: 01/13/2018 HISTORY: Chest pain COMPARISON: 12/12/2017. FINDINGS: LUNGS: No active pulmonary disease. PLEURA: No significant pleural effusion identified, no pneumothorax apparent. CARDIOVASCULAR: No atherosclerotic calcification present Normal. OSSEOUS STRUCTURES: No significant abnormalities. VISUALIZED UPPER ABDOMEN: Normal. OTHER FINDINGS: None. IMPRESSION: No active disease. No significant interval change compared to the prior examination(s).
[2018-01-13 19:37] VITALS: BP 134/75; PULSE 89; RESP 17; O2SAT 98
--- NOTE | 2018-01-14 09:41 | CARD ---
APPROVED REPORT Date of service: 01/13/2018 EKG Measurement Heart [id number] <Conclusion> Normal sinus rhythm Normal ECG
== END 2018-01-13 19:37 | disposition home or self-care (01) ==
LOC: ED 17:16
DX: R07.89 Other chest pain (principal); I25.10 Atherosclerotic heart disease of native coronary artery without angina pectoris; I10 Essential (primary) hypertension; K21.9 Gastro-esophageal reflux disease without esophagitis; Z86.73 Personal history of transient ischemic attack (TIA), and cerebral infarction without residual deficits; Z87.891 Personal history of nicotine dependence

== ENCOUNTER 2018-04-20 12:22 | Observation (INO) | payer MEDICARE ==
[2018-04-20 12:33] VITALS: BMI 30.9
--- NOTE | 2018-04-20 12:44 | ED PDOC ---
Arrival/HPI - General Chief Complaint: Chest Pain Time Seen by Provider: 04/20/18 12:42 Historian: Patient - History of Present Illness Narrative History of Present Illness (Text): 04/20/18 12:59 Patient is a 82 year old female whose past medical history includes diabetes, hypertension, syncope, TIA, cancer, and CAD, who presents to the Emergency department complaining of Chest pain that started earlier today. Patient reports that her chest pain started 06:00 today, which she describes as a pressure on the center of her chest, and which was 10/10 in severity. She denies that the pain radiated to any other location, and was alleviated after taking two 81mg Aspirin along with her other medications. Her chest pain is now 3/10 in severity. Patient does admit to experiencing nausea for the past few days and, today notes having shortness of breath, sharp headache, and episode of diaphoresis. Of note she used to take NTG in the past, which was discontinued by her PMD at some point in time. Patient denies fevers, chills, cough, abdominal pain, vomiting, diarrhea, back pain, neck pain, dizziness, or any other complaint. PMD: Time/Duration: Other (7 hours) Symptom Onset: Sudden Symptom Course: Improving Quality: Pressure Severity Level: 10 Context: Home Past Medical History - Provider Review Nursing Documentation Reviewed: Yes - Infectious Disease Hx of Infectious Diseases: None - Tetanus Immunization Tetanus Immunization: Unknown - Cardiac Hx Hypertension: Yes - Pulmonary Hx Respiratory Disorders: Yes (USED TO SMOKE.QUIT SMOKING IN HER 50'S) Hx Bronchitis: Yes - Neurological HX Cerebrovascular Accident: Yes (30 yrs agor side weakness) - HEENT Hx HEENT Disorder: Yes (eyeglasses) Other/Comment: RIGHT EAR TINNITUS. 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 AGO-THEY DON'T KNOW WHAT IT WAS". Pt see dr ceron every 3 months for f/u bloodwork. Pt denies any hx of pancreatic cancer, pt stated "I had an infection in my pancreas." - Integumentary Hx Dermatological Disorder: Yes Other/Comment: HX. LEFT BREAST CYST, ble skin discolorations, varicose veins left foot, scar left ankle 49 years old fell +fx has screws, bruise red/brown in color to left lower extremity from a fall got caught in walker wheels - Musculoskeletal/Rheumatological Hx Arthritis: Yes - Gastrointestinal Hx Gastrointestinal Disorders: Yes - Genitourinary/Gynecological Hx Reproductive Disorders: (hyst/ r breast cyst/uterine ca) - Psychiatric Hx Psychophysiologic Disorder: Yes Hx Anxiety: Yes Hx Depression: Yes Hx Emotional Abuse: No Hx Physical Abuse: No Hx Substance Use: No - Surgical History Other/Comment: LEFT BREAST CYST REMOVED, lle orif with hardware, r wrist orif with hardware, ercp, picc - Anesthesia Hx Anesthesia: Yes Hx Anesthesia Reactions: No Hx Malignant Hyperthermia: No - Suicidal Assessment Feels Threatened In Home Enviroment: No Family/Social History - Physician Review Nursing Documentation Reviewed: Yes Family/Social History: No Known Family HX Smoking Status: Former Smoker Hx Alcohol Use: No Hx Substance Use: No Hx Substance Use Treatment: No Allergies/Home Meds Allergies/Adverse Reactions: Allergies No Known Allergies Allergy (Verified 04/20/18 12:34) Home Medications: Home Meds Medication Instructions Recorded Confirmed RX: Metformin HCl 1,000 mg PO BID 11/02/12 04/20/18 RX: Pregabalin [Lyrica] 50 mg PO TID 11/02/12 04/20/18 RX: Ramipril 5 mg PO QAM 11/02/12 04/20/18 RX: Sertraline HCl 25 mg PO QPM 11/02/12 04/20/18 RX: Insulin Glargine,Hum.rec.anlog 45 unit SC 07/17/14 04/20/18 [Lantus] RX: Atorvastatin [Lipitor] 80 mg PO HS 05/09/15 04/20/18 RX: Calcium Carbonate [Calcium] 500 mg PO DAILY 05/09/15 04/20/18 RX: Glipizide 10 mg PO BID 05/09/15 04/20/18 RX: Meclizine HCl [Antivert] 25 mg PO TID 05/09/15 04/20/18 RX: Clonazepam [Klonopin] 0.5 mg PO BID 07/08/16 04/20/18 RX: Metoprolol Tartrate [Lopressor] 25 mg PO DAILY 01/02/17 04/20/18 Review of Systems - Physician Review All systems were reviewed & negative as marked: Yes - Review of Systems Constitutional: absent: Fevers Respiratory: SOB. absent: Cough Cardiovascular: Chest Pain Gastrointestinal: Nausea. absent: Abdominal Pain, Constipation, Diarrhea, Vomiting Genitourinary Female: absent: Urine Output Changes Musculoskeletal: absent: Back Pain, Neck Pain Neurological: Headache. absent: Dizziness Physical Exam Vital Signs Reviewed: Yes Temperature: Afebrile Blood Pressure: Normal Pulse: Regular Respiratory Rate: Normal Appearance: Positive for: Well-Appearing Mental Status: Positive for: Alert and Oriented X 3 - Systems Exam Head: Present: Atraumatic, Normocephalic Pupils: Present: PERRL Extroacular Muscles: Present: EOMI Conjunctiva: Present: Normal Mouth: Present: Moist Mucous Membranes Neck: Present: Normal Range of Motion Respiratory/Chest: Present: Clear to Auscultation, Good Air Exchange. No: Respiratory Distress, Accessory Muscle Use Cardiovascular: Present: Regular Rate and Rhythm, Normal S1, S2. No: Murmurs Abdomen: No: Tenderness, Distention, Peritoneal Signs Back: Present: Normal Inspection Upper Extremity: Present: Normal Inspection. No: Cyanosis, Edema Lower Extremity: Present: Normal Inspection. No: Edema Neurological: Present: GCS=15, CN II-XII Intact, Speech Normal Skin: Present: Warm, Dry, Normal Color. No: Rashes Psychiatric: Present: Alert, Oriented x 3, Normal Insight, Normal Concentration Medical Decision Making ED Course and Treatment: 04/20/18 12:59 Impression: 82 year old female complaining of chest pain that started approximately 7 hours ago. Plan: -- EKG -- Cardiac enzymes -- Labs -- Blood work -- Chest X-ray -- Aspirin -- NTG sublingual -- Urinalysis -- Reassess and disposition Prior Visits: Notes and results from previous visits were reviewed. Progress Notes: 04/20/18 14:18 Discussed case with , who is aware of and accepts patient to his service. 04/20/18 14:16 Patient states pain completely relieved w/ntg. Discussed plan with the patient who is agreeable to being admitted for further evaluation. - Lab Interpretations I have reviewed the lab results: Yes - RAD Interpretation Narrative RAD Interpretations (Text): 04/20/18 13:59 Chest X-ray: Dictator : Gianluca Aguirre MD IMPRESSION: No interval acute cardiopulmonary disease appreciated. Ramp Service Agent: Radiologist - EKG Interpretation EKG Interpretation (Text): 04/20/18 12:43 EKG shows NSR at 75 BPM with PAC's and no ST elevations. Interpreted by me. Interpreted by ED Physician: Yes Type: 12 lead EKG - Scribe Statement The provider has reviewed the documentation as recorded by the Scribe Blayne Hammer Provider Scribe Attestation: All medical record entries made by the Scribe were at my direction and personally dictated by me. I have reviewed the chart and agree that the record accurately reflects my personal performance of the history, physical exam, medical decision making, and the department course for this patient. I have also personally directed, reviewed, and agree with the discharge instructions and d isposition. Disposition/Present on Arrival - Present on Arrival Any Indicators Present on Arrival: No History of DVT/PE: No History of Uncontrolled Diabetes: No Urinary Catheter: No History of Decub. Ulcer: No History Surgical Site Infection Following: None - Disposition Have Diagnosis and Disposition been Completed?: Yes Diagnosis: Chest pain, Hyperglycemia Disposition: HOSPITALIZED Disposition Time: 16:18 Patient Plan: Admission Condition: IMPROVED
[2018-04-20 13:41] LABS: BASO # 0.01 K/mm3 (0.0-2.0); BASO % 0.2 % (0.0-3.0); EOS # 0.1 (0.0-0.7); EOS % 1.7 % (1.5-5.0); HEMOGLOBIN 12.3 g/dL (12.0-16.0); LYMPH # 1.7 (1.2-3.4); LYMPH % 29.2 % (22.0-35.0); MEAN CELL VOLUME 88.6 fl (80.0-105.0); MEAN CORPUSCULAR HEMOGLOBIN 29.2 pg (25.0-35.0); MEAN PLATELET VOLUME 10.1 fl (7.0-11.0); MONO # 0.3 (0.1-0.6); MONO % 4.9 % (1.0-6.0); RBC 4.21 10^6/uL (3.5-6.1); RED CELL DISTRIBUTION WIDTH 12.9 % (11.5-14.5); WHITE BLOOD COUNT 5.8 10^3/uL (4.5-11.0)
[2018-04-20 13:54] LABS: ALB/GLOB RATIO 1.4 (1.1-1.8); ALBUMIN 4.3 g/dL (3.0-4.8); ALT/SGPT 15 U/L (7-56); AST/SGOT 22 U/L (14-36); BLOOD UREA NITROGEN 21 mg/dL (7-21); CALCIUM 9.8 mg/dL (8.4-10.5); GFR NON-AFRICAN AMERICAN 60
--- NOTE | 2018-04-20 13:56 | RAD ---
Date of service: 04/20/2018 HISTORY: chest pain COMPARISON: Portable chest 01/13/2018 FINDINGS: LUNGS: No interval pulmonary disease appreciated bilaterally. PLEURA: No significant pleural effusion identified, no pneumothorax apparent. CARDIOVASCULAR: Calcific atherosclerotic changes are seen related to the thoracic aorta. Normal cardiac size. No pulmonary vascular congestion. OSSEOUS STRUCTURES: No significant abnormalities. VISUALIZED UPPER ABDOMEN: Normal. OTHER FINDINGS: None. IMPRESSION: No interval acute cardiopulmonary disease appreciated.
[2018-04-20 14:03] LABS: B-TYPE NATRIURETIC PEPTIDE 528 pg/mL (0-450); TROPONIN I < 0.01 ng/mL
--- NOTE | 2018-04-20 15:07 | CARD ---
APPROVED REPORT Date of service: 04/20/2018 EKG Measurement Heart [id number] <Conclusion> Sinus rhythm with premature atrial complexes with aberrant conduction Otherwise normal ECG
--- NOTE | 2018-04-20 15:58 | CP.PCM.HP ---
<Obinna Goldsmith - Last Filed: 04/20/18 16:06> History of Present Illness - History of Present Illness History of Present Illness: H&P for Dr Baxter: 82-year-old female with past medical history of CVA (20 years ago), h/o Uterine ca, diabetes, depression/anxiety, GERD, restless leg, and hypertension presents to the ED with chest pain. Patient states that she woke up earlier in the morn ing at 6 AM with severe chest pain. She said that she took her medications and took 2 aspirins which somewhat alleviated her pain. However her pain came back after a few hours. Patient states that the pain is midsternal and radiates to her left arm. Patient denies any dyspnea, abdominal pain, nausea, vomiting, diaphoresis. 12 point ROS performed and negative other than stated above PMH: As above PSH: [facility], lower extremity surgery, right wrist surgery Allergies: No known allergies SH: Denies any drinking, smoking or drugs; retired FH: Denies any family history Present on Admission - Present on Admission Any Indicators Present on Admission: No Review of Systems - Review of Systems All systems: reviewed and no additional remarkable complaints except Past Patient History - Infectious Disease Hx of Infectious Diseases: None - Tetanus Immunizations Tetanus Immunization: Unknown - Past Medical History & Family History Past Medical History?: Yes - Past Social History Smoking Status: Former Smoker - CARDIAC Hx Hypertension: Yes - PULMONARY Hx Respiratory Disorders: Yes (USED TO SMOKE.QUIT SMOKING IN HER 50'S) Hx Bronchitis: Yes - NEUROLOGICAL HX Cerebrovascular Accident: Yes (30 yrs agor side weakness) - HEENT Hx HEENT Problems: Yes (eyeglasses) Other/Comment: RIGHT EAR TINNITUS. WEARS GLASSES, NEAR SIGHTED, needs cataract sx both eyes, does not use hearing aids because "I have manieres disease, and the hearing aids make things worse." - RENAL Hx Chronic Kidney Disease: Yes (UTERINE CA) Hx Kidney Stones: Yes ("CAME OUT ON OWN") - ENDOCRINE/METABOLIC Hx Diabetes Mellitus Type 2: Yes - HEMATOLOGICAL/ONCOLOGICAL Other/Comment: " I HAD A BLOOD INFECTION 2-3 YRS. AGO-THEY DON'T KNOW WHAT IT WAS". Pt see dr ceron every 3 months for f/u bloodwork. 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 LEFT BREAST CYST, ble skin discolorations, varicose veins left foot, scar left ankle 49 years old fell +fx has screws, bruise red/brown in color to left lower extremity from a fall got caught in walker wheels - MUSCULOSKELETAL/RHEUMATOLOGICAL Hx Arthritis: Yes - GASTROINTESTINAL Hx Gastrointestinal Disorders: Yes - GENITOURINARY/GYNECOLOGICAL Hx Reproductive Disorders: (hyst/ r breast cyst/uterine ca) - PSYCHIATRIC Hx Psychophysiologic Disorder: Yes Hx Anxiety: Yes Hx Depression: Yes Hx Emotional Abuse: No Hx Physical Abuse: No Hx Substance Use: No - SURGICAL HISTORY Other/Comment: LEFT BREAST CYST REMOVED, lle orif with hardware, r wrist orif with hardware, ercp, picc - ANESTHESIA Hx Anesthesia: Yes Hx Anesthesia Reactions: No Hx Malignant Hyperthermia: No Meds Allergies/Adverse Reactions: Allergies Allergy/AdvReac Type Severity Reaction Status Date / Time No Known Allergies Allergy Verified 04/20/18 12:34 Physical Exam - Head Exam Head Exam: ATRAUMATIC, NORMOCEPHALIC - Eye Exam Eye Exam: EOMI, PERRL - ENT Exam ENT Exam: Mucous Membranes Moist - Respiratory Exam Respiratory Exam: Clear to Auscultation Bilateral. absent: Rales, Rhonchi, Wheezes - Cardiovascular Exam Cardiovascular Exam: REGULAR RHYTHM, RRR, +S1, +S2 - GI/Abdominal Exam GI & Abdominal Exam: Normal Bowel Sounds, Soft. absent: Tenderness - Extremities Exam Extremities exam: Negative for: calf tenderness, pedal edema - Neurological Exam Neurological exam: Alert, CN II-XII Intact, Oriented x3 - Psychiatric Exam Psychiatric exam: Normal Mood - Skin Skin Exam: Dry, Warm Results - Vital Signs Recent Vital Signs: Last Vital Signs Temp 98 F 04/20/18 12:22 Pulse 74 04/20/18 12:22 Resp 18 04/20/18 12:22 BP 123/47 L 04/20/18 12:22 Pulse Ox 98 04/20/18 12:22 - Labs Result Diagrams: 04/20/18 13:20 04/20/18 13:20 Labs: Laboratory Results - last 24 hr 04/20/18 04/20/18 13:20 13:20 WBC 5.8 RBC 4.21 Hgb 12.3 Hct 37.3 MCV 88.6 MCH 29.2 MCHC 33.0 RDW 12.9 Plt Count 189 MPV 10.1 Neut % (Auto) 64.0 Lymph % (Auto) 29.2 [place] % (Auto) 4.9 Eos % (Auto) 1.7 Baso % (Auto) 0.2 Lymph # (Auto) 1.7 [place] # (Auto) 0.3 Eos # (Auto) 0.1 Baso # (Auto) 0.01 Absolute Neuts (auto) 3.69 Sodium 138 Potassium 3.9 Chloride 102 Carbon Dioxide 27 Anion Gap 13 BUN 21 Creatinine 0.9 Est GFR ( Amer) > 60 Est GFR (Non-Af Amer) 60 Random Glucose 265 H Calcium 9.8 Magnesium 1.7 Total Bilirubin 0.7 AST 22 ALT 15 Alkaline Phosphatase 171 H D Lactate Dehydrogenase 430 Total Creatine Kinase 34 L Troponin I < 0.01 NT-Pro-B Natriuret Pep 528 H Total Protein 7.4 Albumin 4.3 Globulin 3.1 Albumin/Globulin Ratio 1.4 Assessment & Plan - Assessment and Plan (Free Text) Assessment: 1. Chest pain rule out acute coronary syndrome 2. Diabetes insulin-dependent 3. History of CAD 4. Hypertension 5. GERD 6. Depression and anxiety 7. Restless leg Patient was seen and examined in the emergency room. Her EKG showed heart rate of 75 sinus rhythm with premature atrial complexes with aberrant conduction. Her lab work was mainly unremarkable. F/u serial troponin. F/u TSH, lipid panel, Hba1c, patient was given 1 dose of aspirin and nitroglycerin in the ED. We will continue aspirin and Lipitor for her history of coronary artery disease. Cardiology is consulted for recommendations. Echocardiography was ordered. Repeat EKG in the morning. We will continue her insulin home dose and sliding scale here. We will hold her home oral DM medications. Continue ramipril and metoprolol for her hypertension. Continue her home meclizine for dizziness. Continue Protonix for her GERD. Continue Lyrica for her restless leg syndrome. Continue Zoloft for her depression and anxiety. Daily labs. Heart healthy diet. GI and DVT prophylaxis. We will continue to monitor for any changes. Case and plan was reviewed and discussed in detail with Dr. Baxter. <Monroe Baxter - Last Filed: 04/23/18 10:56> Results - Vital Signs Recent Vital Signs: Last Vital Signs Temp 98.8 F 04/21/18 12:00 Pulse 77 04/21/18 18:20 Resp 20 04/21/18 12:00 BP 128/67 04/21/18 18:20 Pulse Ox 95 04/21/18 06:00 - Labs Result Diagrams: 04/21/18 03:00 04/21/18 03:00 Assessment & Plan - Assessment and Plan (Free Text) Assessment: Pt seen and examined by me. This is a late entry. I have reviewed the note of the manager medical affairs and I agree with it. I have discussed the assessment and plan with the resident. I have reviewed the medications and the last labs. Pt with CP that has resolved. Pt is on Ramipril for HTN. Lyrica for restless leg syndrome. Pt is on Zoloft for depression. No chest pain. Pt will be discharged home.
[2018-04-20 16:08] VITALS: O2SAT 95
[2018-04-20] MEDS ORDERED: Insulin Reg-MEDIUM-Coverage SC SCH (16:30)
[2018-04-20 16:53] LABS: HDL CHOLESTEROL 47 mg/dL (29-60)
[2018-04-20 17:04] LABS: LDL CHOLESTEROL 109 mg/dL (0-129)
[2018-04-20] MEDS: Insulin Reg-MEDIUM-Coverage SC SCH (19:37)
[2018-04-20] MEDS ORDERED: Insulin Regular 1 UNITS/0.01 ML ML ONE (19:39)
[2018-04-20] MEDS ORDERED: Influenza Vaccine 60 mcg/0.5 mL SYR (4YR UP) IM ONE (22:11)
[2018-04-20] MEDS ORDERED: Pneumococcal 23-Valent Vaccine IM ONE (22:11)
[2018-04-21] MEDS: Insulin Detemir 100 units/ml Vial (Levemir) SC SCH ×3 (00:44→08:47)
[2018-04-21] MEDS: Insulin Reg-MEDIUM-Coverage SC SCH ×4 (00:48→18:15)
[2018-04-21 03:24] LABS: BASO # 0.02 K/mm3 (0.0-2.0); BASO % 0.3 % (0.0-3.0); EOS # 0.2 (0.0-0.7); EOS % 2.4 % (1.5-5.0); HEMOGLOBIN 11.8 g/dL (12.0-16.0); LYMPH # 2.4 (1.2-3.4); LYMPH % 34.8 % (22.0-35.0); MEAN CELL VOLUME 89.6 fl (80.0-105.0); MEAN CORPUSCULAR HEMOGLOBIN 29.4 pg (25.0-35.0); MEAN CORPUSCULAR HGB CONC 32.8 g/dl (31.0-37.0); MEAN PLATELET VOLUME 10.2 fl (7.0-11.0); MONO # 0.5 (0.1-0.6); MONO % 6.7 % (1.0-6.0); RBC 4.02 10^6/uL (3.5-6.1); RED CELL DISTRIBUTION WIDTH 12.9 % (11.5-14.5); WHITE BLOOD COUNT 6.8 10^3/uL (4.5-11.0)
[2018-04-21 03:32] LABS: ALB/GLOB RATIO 1.3 (1.1-1.8); ALBUMIN 3.7 g/dL (3.0-4.8); ALT/SGPT 16 U/L (7-56); AST/SGOT 24 U/L (14-36); BLOOD UREA NITROGEN 22 mg/dL (7-21); CALCIUM 9.7 mg/dL (8.4-10.5); GFR NON-AFRICAN AMERICAN 53
[2018-04-21 03:44] LABS: TROPONIN I 0.02 ng/mL
[2018-04-21] MEDS ORDERED: Pantoprazole 40 mg EC Tab PO SCH (06:30)
[2018-04-21 07:19] VITALS: RESP 20
--- NOTE | 2018-04-21 09:19 | CP.PCM.DIS ---
<Obinna Goldsmith - Last Filed: 04/21/18 09:19> Provider - Provider Date of Admission: 04/20/18 14:16 Attending physician: Monroe Baxter MD Primary care physician: Cayden Martínez MD Consults: 04/20/18 16:03 Cardiology Consult Routine Comment: Consulting Provider: Sunny Owens Consulting Physician: Sunny Owens Reason for Consult: chest pain 04/20/18 21:42 Social Work Referral Routine Comment: d/c plan Physician Instructions: Reason For Exam: assess 04/20/18 22:11 Case Management Referral Routine Comment: in process of revising lw/poa/hcp Physician Instructions: Reason For Exam: Reason for Referral: Discharge Planning Inpatient [facility] Core Measures Referral Routine Comment: cp Physician Instructions: Reason For Exam: asess Transition In Care/Readmission Reduction Routine Comment: cp Physician Instructions: Reason For Exam: assess Time Spent in preparation of Discharge (in minutes): 45 Hospital Course - Lab Results Lab Results: Most Recent Lab Values WBC 6.8 10^3/uL (4.5-11.0) 04/21/18 03:00 RBC 4.02 10^6/uL (3.5-6.1) 04/21/18 03:00 Hgb 11.8 g/dL (12.0-16.0) L 04/21/18 03:00 Hct 36.0 % (36.0-48.0) 04/21/18 03:00 MCV 89.6 fl (80.0-105.0) 04/21/18 03:00 MCH 29.4 pg (25.0-35.0) 04/21/18 03:00 MCHC 32.8 g/dl (31.0-37.0) 04/21/18 03:00 RDW 12.9 % (11.5-14.5) 04/21/18 03:00 Plt Count 187 10^3/uL (120.0-450.0) 04/21/18 03:00 MPV 10.2 fl (7.0-11.0) 04/21/18 03:00 Neut % (Auto) 55.8 % (50.0-68.0) 04/21/18 03:00 Lymph % (Auto) 34.8 % (22.0-35.0) 04/21/18 03:00 [place] % (Auto) 6.7 % (1.0-6.0) H 04/21/18 03:00 Eos % (Auto) 2.4 % (1.5-5.0) 04/21/18 03:00 Baso % (Auto) 0.3 % (0.0-3.0) 04/21/18 03:00 Lymph # (Auto) 2.4 (1.2-3.4) 04/21/18 03:00 [place] # (Auto) 0.5 (0.1-0.6) 04/21/18 03:00 Eos # (Auto) 0.2 (0.0-0.7) 04/21/18 03:00 Baso # (Auto) 0.02 K/mm3 (0.0-2.0) 04/21/18 03:00 Absolute Neuts (auto) 3.77 (1.4-6.5) 04/21/18 03:00 Sodium 140 mmol/L (132-148) 04/21/18 03:00 Potassium 3.9 mmol/L (3.6-5.0) 04/21/18 03:00 Chloride 104 mmol/L (98-107) 04/21/18 03:00 Carbon Dioxide 29 mmol/L (21-33) 04/21/18 03:00 Anion Gap 10 (10-20) 04/21/18 03:00 BUN 22 mg/dL (7-21) H 04/21/18 03:00 Creatinine 1.0 mg/dl (0.7-1.2) 04/21/18 03:00 Est GFR ( Amer) > 60 04/21/18 03:00 Est GFR (Non-Af Amer) 53 04/21/18 03:00 POC Glucose (mg/dL) 183 mg/dL (65-110) H 04/21/18 00:41 Random Glucose 171 mg/dL (70-110) H 04/21/18 03:00 Hemoglobin A1c 11.1 % (4.2-6.5) H 04/20/18 13:20 Calcium 9.7 mg/dL (8.4-10.5) 04/21/18 03:00 Magnesium 1.7 mg/dL (1.7-2.2) 04/20/18 13:20 Total Bilirubin 0.6 mg/dL (0.2-1.3) 04/21/18 03:00 AST 24 U/L (14-36) 04/21/18 03:00 ALT 16 U/L (7-56) 04/21/18 03:00 Alkaline Phosphatase 147 U/L (38-126) H 04/21/18 03:00 Lactate Dehydrogenase 430 U/L (333-699) 04/20/18 13:20 Total Creatine Kinase 34 U/L (35-230) L 04/20/18 13:20 Troponin I 0.02 ng/mL D 04/21/18 03:00 NT-Pro-B Natriuret Pep 528 pg/mL (0-450) H 04/20/18 13:20 Total Protein 6.6 g/dL (5.8-8.3) 04/21/18 03:00 Albumin 3.7 g/dL (3.0-4.8) 04/21/18 03:00 Globulin 2.9 gm/dL 04/21/18 03:00 Albumin/Globulin Ratio 1.3 (1.1-1.8) 04/21/18 03:00 Triglycerides 453 mg/dL (35-160) H 04/20/18 13:20 Cholesterol 239 mg/dL (130-200) H 04/20/18 13:20 LDL Cholesterol Direct 109 mg/dL (0-129) 04/20/18 13:20 HDL Cholesterol 47 mg/dL (29-60) 04/20/18 13:20 TSH 3rd Generation 1.00 mIU/mL (0.46-4.68) 04/20/18 13:20 - Hospital Course Hospital Course: 82-year-old female with past medical history of CVA (20 years ago), h/o Uterine ca, diabetes, depression/anxiety, GERD, restless leg, and hypertension presents to the ED with chest pain. In the ED basic lab work was performed. Her EKG showed heart rate of 75 sinus rhythm with premature atrial complexes with aberrant conduction. Chest x-ray was negative. Initial troponin was negative. Patient was admitted for observation and telemetry. Her serial troponins were negative. Today the patient states that she is feeling much better and her chest pain is mostly resolved. She denies any other symptoms such as shortness of breath. She states that she has all her medications at home. She is to continue her home medications including aspirin, Lipitor, ramipril, and metoprolol. Patient is to follow with her PMD within 3 days and with her tobacco sampler within 1 week. 1. Chest pain rule out acute coronary syndrome 2. Diabetes insulin-dependent 3. History of CAD 4. Hypertension 5. GERD 6. Depression and anxiety 7. Restless leg Discharge Exam - Head Exam Head Exam: ATRAUMATIC, NORMOCEPHALIC - Eye Exam Eye Exam: EOMI, PERRL - Respiratory Exam Respiratory Exam: Clear to PA & Lateral. absent: Rales, Rhonchi, Wheezes - Cardiovascular Exam Cardiovascular Exam: REGULAR RHYTHM, +S1, +S2 - GI/Abdominal Exam GI & Abdominal Exam: Normal Bowel Sounds, Soft. absent: Tenderness - Neurological Exam Neurological exam: Alert, Oriented x3 - Psychiatric Exam Psychiatric exam: Normal Mood - Skin Skin Exam: Dry, Intact, Warm Discharge Plan - Discharge Medications Prescriptions: RX: Aspirin [Aspirin Chewable] 81 mg PO DAILY #30 chew - Follow Up Plan Condition: IMPROVED Disposition: HOME/ ROUTINE Instructions: Chest Pain (ED), Chest Pain (DC), Chest Pain (GEN) Additional Instructions: If your symptoms recur come back to the ED Take your medications as prescribed Followup with your PMD with in 3 days Follow up with tobacco sampler with in 1 week Referrals: Cayden Martínez MD [Primary Care Provider] - <Monroe Baxter - Last Filed: 04/23/18 10:53> Provider - Provider Date of Admission: 04/20/18 14:16 Attending physician: Monroe Baxter MD Primary care physician: Cayden Martínez MD Consults: 04/20/18 16:03 Cardiology Consult Routine Comment: Consulting Provider: Sunny Owens Consulting Physician: Sunny Owens Reason for Consult: chest pain 04/20/18 21:42 Social Work Referral Routine Comment: d/c plan Physician Instructions: Reason For Exam: assess 04/20/18 22:11 Case Management Referral Routine Comment: in process of revising lw/poa/hcp Physician Instructions: Reason For Exam: Reason for Referral: Discharge Planning Inpatient [facility] Core Measures Referral Routine Comment: cp Physician Instructions: Reason For Exam: asess Transition In Care/Readmission Reduction Routine Comment: cp Physician Instructions: Reason For Exam: assess Hospital Course - Lab Results Lab Results: Most Recent Lab Values WBC 6.8 10^3/uL (4.5-11.0) 04/21/18 03:00 RBC 4.02 10^6/uL (3.5-6.1) 04/21/18 03:00 Hgb 11.8 g/dL (12.0-16.0) L 04/21/18 03:00 Hct 36.0 % (36.0-48.0) 04/21/18 03:00 MCV 89.6 fl (80.0-105.0) 04/21/18 03:00 MCH 29.4 pg (25.0-35.0) 04/21/18 03:00 MCHC 32.8 g/dl (31.0-37.0) 04/21/18 03:00 RDW 12.9 % (11.5-14.5) 04/21/18 03:00 Plt Count 187 10^3/uL (120.0-450.0) 04/21/18 03:00 MPV 10.2 fl (7.0-11.0) 04/21/18 03:00 Neut % (Auto) 55.8 % (50.0-68.0) 04/21/18 03:00 Lymph % (Auto) 34.8 % (22.0-35.0) 04/21/18 03:00 [place] % (Auto) 6.7 % (1.0-6.0) H 04/21/18 03:00 Eos % (Auto) 2.4 % (1.5-5.0) 04/21/18 03:00 Baso % (Auto) 0.3 % (0.0-3.0) 04/21/18 03:00 Lymph # (Auto) 2.4 (1.2-3.4) 04/21/18 03:00 [place] # (Auto) 0.5 (0.1-0.6) 04/21/18 03:00 Eos # (Auto) 0.2 (0.0-0.7) 04/21/18 03:00 Baso # (Auto) 0.02 K/mm3 (0.0-2.0) 04/21/18 03:00 Absolute Neuts (auto) 3.77 (1.4-6.5) 04/21/18 03:00 Sodium 140 mmol/L (132-148) 04/21/18 03:00 Potassium 3.9 mmol/L (3.6-5.0) 04/21/18 03:00 Chloride 104 mmol/L (98-107) 04/21/18 03:00 Carbon Dioxide 29 mmol/L (21-33) 04/21/18 03:00 Anion Gap 10 (10-20) 04/21/18 03:00 BUN 22 mg/dL (7-21) H 04/21/18 03:00 Creatinine 1.0 mg/dl (0.7-1.2) 04/21/18 03:00 Est GFR ( Amer) > 60 04/21/18 03:00 Est GFR (Non-Af Amer) 53 04/21/18 03:00 POC Glucose (mg/dL) 183 mg/dL (65-110) H 04/21/18 00:41 Random Glucose 171 mg/dL (70-110) H 04/21/18 03:00 Hemoglobin A1c 11.1 % (4.2-6.5) H 04/20/18 13:20 Calcium 9.7 mg/dL (8.4-10.5) 04/21/18 03:00 Magnesium 1.7 mg/dL (1.7-2.2) 04/20/18 13:20 Total Bilirubin 0.6 mg/dL (0.2-1.3) 04/21/18 03:00 AST 24 U/L (14-36) 04/21/18 03:00 ALT 16 U/L (7-56) 04/21/18 03:00 Alkaline Phosphatase 147 U/L (38-126) H 04/21/18 03:00 Lactate Dehydrogenase 430 U/L (333-699) 04/20/18 13:20 Total Creatine Kinase 34 U/L (35-230) L 04/20/18 13:20 Troponin I 0.02 ng/mL D 04/21/18 03:00 NT-Pro-B Natriuret Pep 528 pg/mL (0-450) H 04/20/18 13:20 Total Protein 6.6 g/dL (5.8-8.3) 04/21/18 03:00 Albumin 3.7 g/dL (3.0-4.8) 04/21/18 03:00 Globulin 2.9 gm/dL 04/21/18 03:00 Albumin/Globulin Ratio 1.3 (1.1-1.8) 04/21/18 03:00 Triglycerides 453 mg/dL (35-160) H 04/20/18 13:20 Cholesterol 239 mg/dL (130-200) H 04/20/18 13:20 LDL Cholesterol Direct 109 mg/dL (0-129) 04/20/18 13:20 HDL Cholesterol 47 mg/dL (29-60) 04/20/18 13:20 TSH 3rd Generation 1.00 mIU/mL (0.46-4.68) 04/20/18 13:20 - Hospital Course Hospital Course: Pt seen and examined by me. This is a late entry. I have reviewed the note of the biomedical equipment tech and I agree with it. I have discussed the assessment and plan with the resident. I have reviewed the medications and the last labs. Pt with CP that is atypical. Trop have been negative and pt is cleared to go home by Dr Fernández. EKG did not show signs of ischemia. Pt is on Lipitor for dyslipidemia. She will continue with Ramipril for HTN. She is not having chest pain.
[2018-04-21] MEDS ORDERED: Enoxaparin 40 mg Syringe SC SCH (10:00)
[2018-04-21 12:40] VITALS: TEMP 98.8
--- NOTE | 2018-04-21 13:04 | CON ---
DATE OF CONSULTATION: 04/21/2018 REQUESTING PHYSICIAN: Dr. Baxter. REASON FOR CONSULTATION: Palpitations, chest pain. HISTORY: This is an 82-year-old woman, admitted yesterday for complaints of palpitations and chest pain. She presented to the emergency room with chest pressure, which she described as intense. Pain was non-radiating. She does have some associated dyspnea. She also felt that she was having frequent palpitations at that time. In the emergency room she was given sublingual nitroglycerin and feels that this did give some relief. Her past history is somewhat unclear. She does have a history of hypertension, diabetes, prior TIA, and possible coronary artery disease in the past, although full details of this were unclear. PAST MEDICAL HISTORY: Her past history is notable for a left hip replacement surgery, right wrist surgery, left breast cystectomy, and hysterectomy for uterine carcinoma in the past. MEDICATIONS: Her medications at home included meclizine glipizide, Klonopin, insulin, Lipitor, metoprolol, Lyrica, metformin, ramipril, and Protonix. ALLERGIES: NONE. SOCIAL HISTORY: She quit smoking over 20 years ago. She denies alcohol use. FAMILY HISTORY: Both parents were from age-related illness. REVIEW OF SYSTEMS: A 10-point review of systems is notable for some visual difficulties and tinnitus. PHYSICAL EXAMINATION: GENERAL: She is an elderly woman, who appears comfortable at rest. VITAL SIGNS: Blood pressure 144/74, with a pulse of 60 and sinus, respirations are 16. She is afebrile. HEENT: No JVD. CHEST: Few scattered rhonchi are heard. HEART: PMI displaced laterally with a systolic murmur at the left sternal border. ABDOMEN: Soft, mildly obese, nontender, normoactive bowel sounds. EXTREMITIES: No clubbing, cyanosis, or edema. SKIN: Warm and dry. PSYCHIATRIC: Normal mood and affect. NEUROLOGIC: Alert and oriented x3. No gross motor or sensory deficits noted. PSYCHIATRIC: Mild anxiety, otherwise normal mood and affect. DIAGNOSTIC DATA: Three sets of cardiac enzymes are negative. Potassium is 3.9, BUN and creatinine are 22 and 1. Glucose 171. White count 6.8, hemoglobin and hematocrit are 11.8 and 36 with a platelet count of 187,000. Cholesterol 239 with a triglycerides of 453, HDL 47, LDL 109. Electrocardiogram reveals sinus rhythm with supraventricular premature beats and otherwise normal findings. No acute ST-T changes seen. Chest x-ray reveals a normal cardiac silhouette with clear lung hoyos. IMPRESSION: 1. Chest pain, etiology uncertain, palpitations, no documented dysrhythmias seen. 2. Rest of the problems as noted. RECOMMENDATIONS: At this time, conservative management appears most reasonable. Aspirin therapy should continue. Beta-christiana dose will be increased to twice daily dosing at this time. She has no further chest pain and discharge home with outpatient followup can be arranged. A followup stress test can be planned as an outpatient. She has recurrent symptoms, more aggressive workup can be entertained. Thank you for this consultation. Sunny Owens MD
--- NOTE | 2018-04-21 16:08 | CARD ---
APPROVED REPORT Date of service: 04/21/2018 EXAM: Two-dimensional and M-mode echocardiogram with Doppler and color Doppler. INDICATION Chest Pain 2D DIMENSIONS Left Atrium (2D)3.3 (1.6-4.0cm)IVSd1.2 (0.7-1.1cm) LVDd4.1 (3.9-5.9cm)PWd1.2 (0.7-1.1cm) LVDs3.0 (2.5-4.0cm)FS (%) 27.8 % LVEF (%)54.3 (>50%) M-Mode DIMENSIONS Aortic Root3.20 (2.2-3.7cm)Aortic Cusp Exc.1.30 (1.5-2.0cm) Aortic Valve AoV Peak Eognwxvx055.0cm/Rosie Peak GR.11mmHg Mitral Valve MV E Dhrqjhlu06.4cm/sMV A Qkpjjtze62.4cm/sE/A ratio0.7 TDI Lateral E' Peak V7.31cm/sMedial E' Peak V6.14cm/sE/Lateral E'7.9 E/Medial E'9.3 Pulmonary Valve PV Peak Wqkmlufi14.6cm/sPV Peak Grad.3mmHg Tricuspid Valve TR Peak [id number]/sRAP [id number] Peak Gr.34mmHg [id number] LEFT VENTRICLE The left ventricle is normal size. There is mild concentric left ventricular hypertrophy. The left ventricular function is normal. The left ventricular ejection fraction is within the normal range. There is normal LV segmental wall motion. RIGHT VENTRICLE The right ventricle is normal size. The right ventricular systolic function is normal. ATRIA The left atrium size is normal. The right atrium size is normal. The interatrial septum is intact with no evidence for an atrial septal defect. AORTIC VALVE The aortic valve is moderately sclerotic. No aortic regurgitation is present. There is no aortic valvular stenosis. MITRAL VALVE Mitral annular calcification is moderate. There is no mitral valve regurgitation noted. TRICUSPID VALVE The tricuspid valve is normal in structure. There is mild to moderate tricuspid regurgitation. PULMONIC VALVE The pulmonary valve is normal in structure. GREAT VESSELS The aortic root is normal in size. The IVC is normal in size and collapses >50% with inspiration. PERICARDIAL EFFUSION There is no pleural effusion. There is no pericardial effusion. <Conclusion> Normal chamber size. Mild concentric LVH. Normal LV systolic function. Mild to moderate TR.
[2018-04-21 18:22] VITALS: BP 128/67; PULSE 77
== END 2018-04-21 19:01 | disposition home or self-care (01) ==
LOC: ED 12:22 → ERH 14:16 → 2RNO 04-21 01:29
PROVIDERS: ADMIT Internal Medicine Nephrology; ATTEND Internal Medicine Nephrology
DX: R07.9 Chest pain, unspecified (principal); R00.2 Palpitations; E11.65 Type 2 diabetes mellitus with hyperglycemia; E78.5 Hyperlipidemia, unspecified; I10 Essential (primary) hypertension; F32.9 Major depressive disorder, single episode, unspecified; F41.9 Anxiety disorder, unspecified; G25.81 Restless legs syndrome; I49.1 Atrial premature depolarization; I25.10 Atherosclerotic heart disease of native coronary artery without angina pectoris; K21.9 Gastro-esophageal reflux disease without esophagitis; Z86.73 Personal history of transient ischemic attack (TIA), and cerebral infarction without residual deficits; Z79.4 Long term (current) use of insulin; Z87.891 Personal history of nicotine dependence; Z85.42 Personal history of malignant neoplasm of other parts of uterus; Z87.442 Personal history of urinary calculi; Z96.642 Presence of left artificial hip joint
CPT/HCPCS: 36415; 71045; 80053; 80061; 82550; 82948; 83036; 83615; 83735; 83880; 84443; 84484; 85025; 93005; 93306; 96372; 99285; G0378; J1650